=== PATIENT | male | born 1960 | race Hispanic/Latino ===

== ENCOUNTER 2017-04-16 11:54 | Emergency (ER) | payer SELFPAY ==
[2017-04-16 14:24] LABS: Bilirubin Negative (Negative); Blood, Urine Negative (Negative); Glucose, Urine (Dipstick) >=1000 mg/dL (Negative); Ketone, Urine Negative (Negative); Nitrite Negative (Negative); Protein, Urine (Dipstick) Negative (Neg-Trace); Urobilinogen 0.2 mg/dL (0.2-1.0)
[2017-04-16] MEDS ORDERED: Lidocaine 1% w/Epinephrine 1:200K 30 ML VIAL ONE (14:24)
[2017-04-16 14:47] LABS: #Basophils 0.1 thou/uL (0.0-0.2); #Eosinphils 0.1 thou/uL (0.0-0.7); #Lymphocytes 1.8 thou/uL (1.20-3.40); #Neutrophils 5.5 thou/uL (1.40-6.50); %Eosinophils 1.8 % (0.0-10.0); %Lymphocytes 20.8 % (21.0-51.0); %Monocytes 11.7 % (0.0-10.0); Hematocrit 39.2 % (42.0-52.0); Mean Platelet Volume 8.8 fL (7.4-10.4); Red Blood Cell (RBC) Count 4.31 mill/uL (4.70-6.10); White Blood Cell (WBC) Count 8.5 thou/uL (4.8-10.8)
[2017-04-16 15:08] LABS: ALT (SGPT) 9 U/L (8-55); AST (SGOT) 9 U/L (5-34); Alkaline Phosphatase 172 U/L (40-150); Anion Gap 13 mmol/L (10-20); BUN (Urea Nitrogen) 12 mg/dL (8.4-25.7); Bilirubin, Total 0.3 mg/dL (0.2-1.2); Calc. Creatinine Clearance 0 mL/min (70-130); Calcium 9.4 mg/dL (7.8-10.44); Carbon Dioxide 31 mmol/L (22-29); Chloride 91 mmol/L (98-107); Estimated GFR-MDRD 55; Globulin 4.2 g/dL (2.4-3.5); Magnesium 2.2 mg/dL (1.6-2.6); Phosphorus 2.6 mg/dL (2.3-4.7); Protein, Total 7.9 g/dL (6.0-8.3)
[2017-04-16] MEDS ORDERED: Insulin Regular 300 UNITS/3 ML VIAL ONE (16:53)
== END 2017-04-16 18:51 | disposition home or self-care (01) ==
LOC: ERS 11:54
DX: R73.9 Hyperglycemia, unspecified (principal); E78.5 Hyperlipidemia, unspecified; I73.9 Peripheral vascular disease, unspecified; E11.65 Type 2 diabetes mellitus with hyperglycemia; I10 Essential (primary) hypertension; F41.9 Anxiety disorder, unspecified; F32.9 Major depressive disorder, single episode, unspecified; Z87.891 Personal history of nicotine dependence; Z86.73 Personal history of transient ischemic attack (TIA), and cerebral infarction without residual deficits; Z86.718 Personal history of other venous thrombosis and embolism; Z89.412 Acquired absence of left great toe
CPT/HCPCS: 36415; 36416; 55100; 80053; 81003; 82010; 83735; 83930; 84100; 85025; 87070; 87077; 87086; 87186; 87205; 87491; 87591; 96360; 96361; 96372; J1815

== ENCOUNTER 2017-05-15 12:16 | Emergency (ER) | payer SELFPAY ==
[2017-05-15 13:06] LABS: #Eosinphils 0.1 thou/uL (0.0-0.7); #Lymphocytes 2.5 thou/uL (1.20-3.40); #Monocytes 1.2 thou/uL (0.11-0.59); #Neutrophils 9.6 thou/uL (1.40-6.50); %Basophils 0.2 % (0.0-1.0); %Eosinophils 0.9 % (0.0-10.0); %Lymphocytes 18.7 % (21.0-51.0); %Monocytes 8.6 % (0.0-10.0); %Neutrophils 71.6 % (42.0-75.0); Hemoglobin 12.6 g/dL (14.0-18.0); Mean Corpuscular Hemoglobin 29.9 pg (27.0-31.0); Mean Corpuscular Volume 90.6 fl (80.0-94.0); Mean Platelet Volume 8.5 fL (7.4-10.4); Platelet Count 451 thou/uL (130-400); RBC Distribution Width 11.2 % (11.5-14.5); Red Blood Cell (RBC) Count 4.22 mill/uL (4.70-6.10); White Blood Cell (WBC) Count 13.4 thou/uL (4.8-10.8)
[2017-05-15 13:11] LABS: ALT (SGPT) Less than 7 U/L (8-55); AST (SGOT) 8 U/L (5-34); Albumin 3.4 g/dL (3.5-5.0); Alkaline Phosphatase 157 U/L (40-150); Anion Gap 19 mmol/L (10-20); BUN (Urea Nitrogen) 18 mg/dL (8.4-25.7); Bilirubin, Total 0.3 mg/dL (0.2-1.2); Calc. Creatinine Clearance 0 mL/min (70-130); Calcium 9.7 mg/dL (7.8-10.44); Carbon Dioxide 22 mmol/L (22-29); Chloride 89 mmol/L (98-107); Estimated GFR-MDRD 43; Globulin 5.4 g/dL (2.4-3.5); Potassium 4.7 mmol/L (3.5-5.1); Protein, Total 8.8 g/dL (6.0-8.3); Sodium 125 mmol/L (136-145)
[2017-05-15 13:13] LABS: Glucose 576 mg/dL (70-105)
[2017-05-15 14:31] LABS: Bilirubin Negative (Negative); Blood, Urine Moderate (Negative); Clarity CLOUDY (Clear); Glucose, Urine (Dipstick) >=1000 mg/dL (Negative); Leukocyte Moderate (Negative); Nitrite Negative (Negative); Protein, Urine (Dipstick) 30 mg/dL (Neg-Trace); Specific Gravity, Urine 1.029 (1.002-1.036); pH, Urine 5.5 (5.0-9.0)
[2017-05-15 14:33] LABS: Pathc Cast-AUWi Flag 0.27 (0-2.49)
[2017-05-15] MEDS ORDERED: Insulin Regular 300 UNITS/3 ML VIAL ONE (14:35)
[2017-05-15 14:36] LABS: Yeast-AUWi Flag 684.1 (0-25.0)
[2017-05-15 14:49] LABS: Bacteria/HPF 3+ HPF (None Seen); Hyaline Casts/LPF NONE SEEN LPF (0-3 Hyaline); RBC/HPF 0-3 HPF (0-3); Squamous Epithelial 0-3 HPF (0-3)
== END 2017-05-15 16:33 | disposition home or self-care (01) ==
LOC: ERS 12:16
DX: E11.65 Type 2 diabetes mellitus with hyperglycemia (principal); N39.0 Urinary tract infection, site not specified; E78.5 Hyperlipidemia, unspecified; I73.9 Peripheral vascular disease, unspecified; I25.10 Atherosclerotic heart disease of native coronary artery without angina pectoris; I10 Essential (primary) hypertension; F41.9 Anxiety disorder, unspecified; F32.9 Major depressive disorder, single episode, unspecified; Z87.891 Personal history of nicotine dependence; Z79.02 Long term (current) use of antithrombotics/antiplatelets; Z79.4 Long term (current) use of insulin; Z79.82 Long term (current) use of aspirin; Z79.899 Other long term (current) drug therapy; Z86.73 Personal history of transient ischemic attack (TIA), and cerebral infarction without residual deficits
CPT/HCPCS: 36415; 36416; 80053; 81003; 81015; 85025; 96361; 96374; J1815

== ENCOUNTER 2017-06-11 18:28 | Inpatient (IN) | payer SELFPAY ==
[2017-06-11 19:10] LABS: Base Excess-Venous 2.5 mmol/L (-30.0-30.0); Bicarbonate (HCO3v) 28.9 mmol/L (1.0-85.0); CO2 Tension (PvCO2) 50.7 mmHg (41.0-51.0); Calcium, Ionized 1.02 mmol/L (1.12-1.32); Hemoglobin - Calc 14.1 g/dL (12.0-18.0); O2 Tension (PvO2) 23.9 mmHg (35.0-45.0); Potassium 4.5 mmol/L (3.4-4.7); T. Carbon Dioxide 30.5 mmol/L (1.0-85.0); pH (Venous) 7.364 (7.35-7.45); vO2 Saturation-calc 39.1 % (0.0-100.0)
[2017-06-11] MEDS ORDERED: Ondansetron HCl/PF 4 MG/2 ML Vial ONE (19:45)
[2017-06-11 20:01] LABS: Hemoglobin 12.2 g/dL (14.0-18.0); Mean Corpuscular Hemoglobin 28.9 pg (27.0-31.0); Mean Corpuscular Volume 87.6 fl (80.0-94.0); Mean Platelet Volume 8.8 fL (7.4-10.4); Platelet Count 582 thou/uL (130-400); RBC Distribution Width 11.9 % (11.5-14.5); Red Blood Cell (RBC) Count 4.23 mill/uL (4.70-6.10); White Blood Cell (WBC) Count 19.8 thou/uL (4.8-10.8)
[2017-06-11 20:07] LABS: INR-International Normal Ratio 1.2; PTT 37.4 SEC (22.9-36.1); Prothrombin Time 14.9 SEC (12.0-14.7)
[2017-06-11 20:21] LABS: ALT (SGPT) Less than 7 U/L (8-55); AST (SGOT) 6 U/L (5-34); Albumin 3.5 g/dL (3.5-5.0); Alkaline Phosphatase 145 U/L (40-150); Anion Gap 18 mmol/L (10-20); BUN (Urea Nitrogen) 61 mg/dL (8.4-25.7); Band 3 % (5-11); Bilirubin, Total 0.3 mg/dL (0.2-1.2); CK (CPK) 22 U/L (30-200); Calc. Creatinine Clearance 0 mL/min (70-130); Calcium 9.8 mg/dL (7.8-10.44); Carbon Dioxide 26 mmol/L (22-29); Chloride 86 mmol/L (98-107); Estimated GFR-MDRD 24; Globulin 5.8 g/dL (2.4-3.5); Glucose 468 mg/dL (70-105); Lymphocytes 5 % (21-51); MDiff Complete? YES; Monocytes 4 % (0-10); Neutrophil 86 % (42-75); PLT Morphology Comment Appears Increased; Potassium 4.5 mmol/L (3.5-5.1); Protein, Total 9.3 g/dL (6.0-8.3); Reactive Lymphocytes 2 % (0-10); Sodium 125 mmol/L (136-145)
[2017-06-11 20:23] LABS: Acetaminophen Less than 6.0 mcg/mL (10.0-30.0); Alcohol Less than 10 mg/dL (Less than 10); Lipase 24 U/L (8-78); Salicylate Less than 8.0 mg/dL (15.0-30.0)
[2017-06-11 20:26] LABS: CKMB 0.6 ng/mL (0-6.6); Troponin I 0.014 ng/mL (< 0.028)
--- NOTE | 2017-06-11 20:27 | RAD ---
FRONTAL VIEW CHEST: Date: 12-17-16 Clinical history: Multiple falls with dizziness and weakness. FINDINGS: There is no lobar consolidation, effusion, or pneumothorax. Cardiomediastinal silhouette is stable wi th evidence of prior sternotomy. IMPRESSION: 1. No focal consolidation. 2. Mild patchy density, likely atelectasis described on preceding chest radiograph is grossly stable. POS: [facility]
[2017-06-11 20:36] LABS: Bilirubin Negative (Negative); Blood, Urine Large (Negative); Clarity TURBID (Clear); Glucose, Urine (Dipstick) >=1000 mg/dL (Negative); Leukocyte Large (Negative); Nitrite Negative (Negative); Protein, Urine (Dipstick) 100 mg/dL (Neg-Trace); Specific Gravity, Urine 1.024 (1.002-1.036); Urobilinogen 0.2 mg/dL (0.2-1.0)
[2017-06-11 20:38] LABS: Bacteria/HPF 1+ HPF (None Seen); Hyaline Casts/LPF 0-3 HYALINE CAST LPF (0-3 Hyaline); Squamous Epithelial 0-3 HPF (0-3)
[2017-06-11 20:45] LABS: Yeast-AUWi Flag 962.7 (0-25.0)
[2017-06-11 20:46] LABS: Amphetamine Not Detected (NotDetected); Barbiturates Screen Not Detected (NotDetected); Benzodiazepine Screen Not Detected (NotDetected); Cocaine Metabolite Screen Not Detected (NotDetected); Medtox Control Line Valid? VALID (VALID); Medtox Reader # READER 1; Methadone Not Detected (NotDetected); Methamphetamine Not Detected (NotDetected); Opiate Screen Not Detected (NotDetected); Oxycodone Screen Not Detected (NotDetected); Phencyclidine (PCP) Not Detected (NotDetected); THC/Cannabinoid Screen Not Detected (NotDetected); Tricyclic Screen Not Detected (NotDetected)
--- NOTE | 2017-06-11 20:51 | CT ---
HEAD CT NONCONTRAST: Comparison: 12-17-16 Indication: Altered mental status. FINDINGS: Re-demonstration of multi-focal encephalomalacia of the right MCA distribution. No intracranial hemor rhage, mass effect, or midline shift. Mild ex vacuo dilatation of the right lateral ventricle is stab le. There is mucosal thickening of the paranasal sinuses, mild in degree. IMPRESSION: 1. Stable head CT without acute intracranial hemorrhage or mass effect. 2. Chronic infarction of right MCA distribution, multifocal. POS: [facility]
[2017-06-11 20:52] LABS: Crystals/HPF None Seen HPF (Negative); Yeast-All Forms None Seen HPF (None Seen)
[2017-06-11] MEDS ORDERED: Meropenem 1 GM in Sterile Water 20 ML SLOW IVP SCH ×2 (21:30→22:00)
[2017-06-11] MEDS ORDERED: Dextrose 5% in Water 1,000 ML IV PRN (21:35)
[2017-06-11] MEDS ORDERED: HYDROcodone/Acetaminophen 5/325 mg Tablet PO PRN (21:35)
[2017-06-11] MEDS ORDERED: HYDROcodone/Acetaminophen 7.5/325 mg Tablet PO PRN (21:35)
[2017-06-11] MEDS ORDERED: Dextrose 50% Abboject 50 ML SYRINGE SLOW IVP PRN (21:35)
[2017-06-11] MEDS ORDERED: Meropenem 1 GM in Sodium Chloride 0.9% 100 ML IVPB SCH (22:00)
[2017-06-12 00:12] LABS: Lactic Acid 1.2 mmol/L (0.5-2.2)
[2017-06-12 00:50] VITALS: BMI 24.3
--- NOTE | 2017-06-12 01:43 | HP ---
CHIEF COMPLAINT: Weakness and dizziness. HISTORY OF PRESENT ILLNESS: The patient is a 57-year-old male, who presents with 1 week history of i ncreasing weakness with dizziness and falls. Patient has also had some burning with urination and fe vers. The patient states that he has had less p.o. intake over the last week as well. PAST MEDICAL HISTORY: The patient is significant for type 2 diabetes, hypertension, coronary artery disease, and peripheral vascular disease. PAST SURGICAL HISTORY: The patient had prior CABG in 2013, amputation of the left great toe, prior s tents in the left lower leg. SOCIAL HISTORY: Patient was a former alcoholic and tobacco user; however, he has not smoked or drank for several years now. REVIEW OF SYSTEMS: See HPI. Rest of 14-point review of systems is negative. FAMILY HISTORY: Reviewed and noncontributory. LABORATORY AND X-RAY DATA: CBC: White count was 19.8, H and H was 12 and 37 with platelet of 582. PT was INR is 1.2 with PTT of 37. Sodium was 125, potassium 4.5, chloride 86, BUN 61, creatinine 2.7 5 with a glucose of 486. Head CT was unremarkable other than a prior infarct on the right MCA from h is prior stroke, which is known and chest x-ray shows some atelectasis, but no consolidation or infil trates. PHYSICAL EXAMINATION: VITAL SIGNS: Blood pressure 165/77, pulse 97, respirations 18, T-max was 98.4. The patient satting 100% on room air. GENERAL: The patient is awake, alert, and oriented x3, in no acute distress. HEENT: Pupils equal, round, react to light and accommodation. Extraocular muscles intact. TMs are clear. No erythema in throat. No JVD, no lymphadenopathy. CARDIOVASCULAR: Regular rate and rhythm. LUNGS: Clear to auscultation bilaterally. Positive bowel sounds. ABDOMEN: Soft, nontender, nondistended. EXTREMITIES: No clubbing, cyanosis, or edema. NEUROLOGIC: The patient does have some weakness on the left upper extremity, which is chronic from h is prior stroke. PSYCHIATRIC: The patient is cooperative and answering questions appropriately. ASSESSMENT AND PLAN: 1. Right pyelonephritis with sepsis. Continue on Levaquin and Merrem as ordered. Continue IV fluid s. Continue to monitor vitals. 2. Type 2 diabetes. Continue on the patient's insulin regimen. Hold metformin for now due to his r enal issues and continue on insulin sliding scale. 3. Hypertension. Blood pressure is actually fairly good considering sepsis and will continue on lis inopril for now. 4. Code status: Patient is FULL CODE.
[2017-06-12] MEDS: Sodium Chloride 0.9% 1,000 ML IV SCH ×2 (01:46→12:20)
[2017-06-12] MEDS ORDERED: Dextrose 5% in Water 1,000 ML IV PRN (04:05)
[2017-06-12] MEDS ORDERED: Dextrose 50% Abboject 50 ML SYRINGE SLOW IVP PRN (04:05)
[2017-06-12 04:41] LABS: #Eosinphils 0.1 thou/uL (0.0-0.7); #Lymphocytes 1.7 thou/uL (1.20-3.40); #Monocytes 1.1 thou/uL (0.11-0.59); #Neutrophils 13.8 thou/uL (1.40-6.50); %Basophils 0.1 % (0.0-1.0); %Eosinophils 0.8 % (0.0-10.0); %Lymphocytes 9.9 % (21.0-51.0); %Monocytes 6.4 % (0.0-10.0); %Neutrophils 82.8 % (42.0-75.0); Hemoglobin 10.9 g/dL (14.0-18.0); Mean Corpuscular HGB CONC 33.3 g/dL (32.0-36.0); Mean Corpuscular Hemoglobin 29.2 pg (27.0-31.0); Mean Corpuscular Volume 87.5 fl (80.0-94.0); Mean Platelet Volume 8.7 fL (7.4-10.4); Platelet Count 456 thou/uL (130-400); Red Blood Cell (RBC) Count 3.74 mill/uL (4.70-6.10); White Blood Cell (WBC) Count 16.7 thou/uL (4.8-10.8)
[2017-06-12 04:53] LABS: Anion Gap 13 mmol/L (10-20); BUN (Urea Nitrogen) 54 mg/dL (8.4-25.7); Calc. Creatinine Clearance 41 mL/min (70-130); Calcium 8.7 mg/dL (7.8-10.44); Carbon Dioxide 23 mmol/L (22-29); Chloride 95 mmol/L (98-107); Estimated GFR-MDRD 32; Glucose 349 mg/dL (70-105); Potassium 4.3 mmol/L (3.5-5.1); Sodium 127 mmol/L (136-145)
[2017-06-12] MEDS: HumaLOG 300 UNITS/3 ML VIAL SC PRN ×2 (05:36→12:22)
[2017-06-12] MEDS: Meropenem 1 GM in Sterile Water 20 ML SLOW IVP SCH ×4 (07:10→22:50)
[2017-06-12] MEDS: Famotidine 20 MG TAB PO SCH ×2 (08:50→20:33)
[2017-06-12] MEDS: Clopidogrel Bisulfate 75 MG TAB PO SCH (08:50)
[2017-06-12] MEDS: Enoxaparin Sodium 40 MG/0.4 ML SYRINGE SC SCH (08:51)
[2017-06-12] MEDS: Lisinopril 10 MG TAB PO SCH (08:55)
[2017-06-12] MEDS: Insulin NPH/Reg Insulin Hm 300 UNITS/3 ML VIAL SC SCH ×2 (08:58→17:45)
[2017-06-12] MEDS ORDERED: FLU VACC QS2017-18 36 mo. & older 0.5 ML SYRINGE IM ONE (09:00)
--- NOTE | 2017-06-12 14:13 | PDOC.PN ---
- Subjective Encounter Start Date: 06/12/17 Encounter Start Time: 09:20 Pt seen for followup re: pyelonephritis. Reports feeling better. No fevers. - Objective Resuscitation Status: Resuscitation Status FULL:Full Resuscitation MAR Reviewed: Yes Vital Signs & Weight: Vital Signs (12 hours) Temp Pulse Resp BP BP Pulse Ox 06/12/17 08:55 147/81 H 06/12/17 08:00 98.1 F 90 16 06/12/17 04:00 98.4 F 78 16 155/75 H 98 Weight Weight 170 lb Result Diagrams: 06/12/17 04:01 06/12/17 04:01 Additional Labs: Accuchecks 06/12/17 06/12/17 11:46 04:41 POC Glucose 254 H 343 H Phys Exam - Physical Examination Constitutional: NAD HEENT: PERRLA, moist MMs, sclera anicteric, oral pharynx no lesions Neck: no nodes, no JVD, supple, full ROM Respiratory: no wheezing, no rales, no rhonchi, clear to auscultation bilateral Cardiovascular: RRR, no rub Gastrointestinal: soft, no distention, positive bowel sounds R CVA tenderness Musculoskeletal: pulses present Neurological: moves all 4 limbs Psychiatric: normal affect Dx/Plan (1) Pyelonephritis Code(s): N12 - TUBULO-INTERSTITIAL NEPHRITIS, NOT SPCF ACUTE OR CHRONIC Status: Acute (2) Acute on chronic renal failure Code(s): N17.9 - ACUTE KIDNEY FAILURE, UNSPECIFIED; N18.9 - CHRONIC KIDNEY DISEASE, UNSPECIFIED Status: Acute (3) Sepsis Code(s): A41.9 - SEPSIS, UNSPECIFIED ORGANISM Status: Acute (4) CAD (coronary artery disease) Code(s): I25.10 - ATHSCL HEART DISEASE OF [place] CORONARY ARTERY W/O ANG PCTRS Status: Chronic Qualifiers: Coronary Disease-Associated Artery/Lesion type: bypass graft [place] vs. transplanted heart: [place] heart Associated angina: without angina Qualified Code(s): I25.810 - Atherosclerosis of coronary artery bypass graft(s) without angina pectoris (5) DM type 2 (diabetes mellitus, type 2) Status: Chronic Comment: is still labile with glucose dipping into 70's and going as far up as 300's. (6) Dyslipidemia Code(s): E78.5 - HYPERLIPIDEMIA, UNSPECIFIED Status: Chronic (7) PAD (peripheral artery disease) Code(s): I73.9 - PERIPHERAL VASCULAR DISEASE, UNSPECIFIED Status: Chronic - Plan plan discussed w/ family, continue antibiotics, out of bed/ambulate * . Prdeliminary urine culture growing Staph, add vancomycin. Continue insulin sliding scale and accuchecks. Monitor vital signs and titrate antihypertensives as needed. Creatinine improving, continue IV fluids. Review of Systems - Review of Systems Constitutional: negative: fever, chills, sweats, weakness, malaise Respiratory: negative: Cough, Dry, Shortness of Breath, Hemoptysis, SOB with Excertion, Pleuritic Pain, Sputum, Wheezing Cardiovascular: negative: chest pain, palpitations, orthopnea, paroxysmal nocturnal dyspnea, edema, light headedness Gastrointestinal: Other (R flank pain). negative: Nausea, Vomiting, Abdominal Pain, Diarrhea, Constipation, Melena, Hematochezia Genitourinary: negative: Dysuria, Frequency, Incontinence, Hematuria, Retention , Other Skin: negative: Rash, Lesions, John, Bruising - Medications/Allergies Allergies/Adverse Reactions: Allergies Allergy/AdvReac Type Severity Reaction Status Date / Time No Known Allergies Allergy Verified 06/12/17 01:06 Medications: Current Medications Acetaminophen (Tylenol) 650 mg PO Q4H PRN PRN Reason: Headache/Fever or Pain Hydrocodone Bitart/Acetaminophen ([place] 5/325) 1 tab PO Q4H PRN PRN Reason: Moderate Pain (4-6) Hydrocodone Bitart/Acetaminophen ([place] 7.5/325) 1 tab PO Q4H PRN PRN Reason: Severe Pain (7-10) Aspirin (Aspirin Chewable) 81 mg PO DAILY [facility] Last Admin: 06/12/17 08:50 Dose: 81 mg Clopidogrel Bisulfate (Plavix) 75 mg PO DAILY [facility] Last Admin: 06/12/17 08:50 Dose: 75 mg Dextrose/Water (Dextrose 50%) 25 gm SLOW IVP PRN PRN PRN Reason: Hypoglycemia Enoxaparin Sodium (Lovenox) 40 mg SC 0900 [facility] Last Admin: 06/12/17 08:51 Dose: 40 mg Famotidine (Pepcid) 20 mg PO BID [facility] Last Admin: 06/12/17 08:50 Dose: 20 mg Glucagon (Glucagon) 1 mg IM PRN PRN PRN Reason: Hypoglycemia Sodium Chloride (Normal Saline 0.9%) 1,000 mls @ 100 mls/hr IV .Q10H [facility] Last Admin: 06/12/17 12:20 Dose: 1,000 mls Levofloxacin 750 mg/ Device 150 mls @ 100 mls/hr IVPB Q2D [facility] Last Admin: 06/12/17 01:02 Dose: Not Given Meropenem 1 gm/ Sterile Water 20 mls @ 240 mls/hr SLOW IVP 0600,1400,2200 [facility] Last Admin: 06/12/17 08:56 Dose: 20 mls Dextrose/Water (D5w) 1,000 mls @ 0 mls/hr IV .Q0M PRN; As Directed PRN Reason: Hypoglycemia Vancomycin HCl 1 gm/ Device 200 mls @ 200 mls/hr IVPB Q12H [facility] Insulin Human Isoph/Insulin Regular (Humulin 70/30) 25 units SC BID-WM [facility] Last Admin: 06/12/17 08:58 Dose: 25 unit Insulin Human Lispro (Humalog) 0 units SC .MILD SLIDING SCALE PRN PRN Reason: Mild Correctional Scale Last Admin: 06/12/17 12:22 Dose: 4 unit Lisinopril (Zestril) 10 mg PO DAILY [facility] Last Admin: 06/12/17 08:55 Dose: 10 mg Miscellaneous Medication (Pharmacy To Dose) 1 each IVPB ONE PRN PRN Reason: Pharmacy to dose
[2017-06-12] MEDS ORDERED: Vancomycin HCl 1 GM in Premix Bag 1 BAG IVPB SCH (15:00)
[2017-06-12] MEDS: Vancomycin HCl 1.25 GM in Sodium Chloride 0.9% 250 ML 250 ML IVPB SCH (15:17)
[2017-06-12] MEDS: Acetaminophen 325 MG TAB PO PRN (20:33)
[2017-06-13] MEDS: Sodium Chloride 0.9% 1,000 ML IV SCH ×3 (03:02→20:38)
[2017-06-13] MEDS: Meropenem 1 GM in Sterile Water 20 ML SLOW IVP SCH ×2 (05:36→14:33)
[2017-06-13] MEDS: HumaLOG 300 UNITS/3 ML VIAL SC PRN (05:38)
[2017-06-13] MEDS: Famotidine 20 MG TAB PO SCH ×2 (09:05→20:25)
[2017-06-13] MEDS: Clopidogrel Bisulfate 75 MG TAB PO SCH (09:05)
[2017-06-13] MEDS: Insulin NPH/Reg Insulin Hm 300 UNITS/3 ML VIAL SC SCH ×2 (09:06→17:26)
[2017-06-13] MEDS: Lisinopril 10 MG TAB PO SCH (09:06)
[2017-06-13] MEDS: Enoxaparin Sodium 40 MG/0.4 ML SYRINGE SC SCH (09:06)
[2017-06-13] MEDS: Vancomycin HCl 1.25 GM in Sodium Chloride 0.9% 250 ML 250 ML IVPB SCH (14:33)
--- NOTE | 2017-06-13 15:00 | PDOC.PN ---
- Subjective Encounter Start Date: 06/13/17 Encounter Start Time: 09:00 Pt seen for followup re: pyelonephritis. Denies chest pain or shortness of breath. Feels slightly better. - Objective Resuscitation Status: Resuscitation Status FULL:Full Resuscitation MAR Reviewed: Yes Vital Signs & Weight: Vital Signs (12 hours) Temp Pulse Resp BP Pulse Ox 06/13/17 08:00 98.5 F 107 H 18 142/80 H 107 H 06/13/17 04:00 97.5 F L 95 18 116/74 94 L Weight Weight 170 lb I&O: 06/12/17 06/13/17 06/14/17 06:59 06:59 06:59 Intake Total 3660 Output Total 1300 Balance 2360 Result Diagrams: 06/12/17 04:01 06/12/17 04:01 Additional Labs: Accuchecks 06/13/17 06/13/17 06/12/17 11:14 04:49 22:49 POC Glucose 141 H 246 H 83 06/12/17 06/12/17 20:05 16:29 POC Glucose 92 138 H Phys Exam - Physical Examination Constitutional: NAD HEENT: moist MMs Neck: supple Respiratory: clear to auscultation bilateral Cardiovascular: RRR R CVA tenderness Neurological: moves all 4 limbs Psychiatric: normal affect Dx/Plan (1) Pyelonephritis Code(s): N12 - TUBULO-INTERSTITIAL NEPHRITIS, NOT SPCF ACUTE OR CHRONIC Status: Acute (2) Bacteremia Code(s): R78.81 - BACTEREMIA Status: Acute (3) Acute on chronic renal failure Code(s): N17.9 - ACUTE KIDNEY FAILURE, UNSPECIFIED; N18.9 - CHRONIC KIDNEY DISEASE, UNSPECIFIED Status: Acute (4) CAD (coronary artery disease) Code(s): I25.10 - ATHSCL HEART DISEASE OF [place] CORONARY ARTERY W/O ANG PCTRS Status: Chronic Qualifiers: Coronary Disease-Associated Artery/Lesion type: bypass graft [place] vs. transplanted heart: [place] heart Associated angina: without angina Qualified Code(s): I25.810 - Atherosclerosis of coronary artery bypass graft(s) without angina pectoris (5) DM type 2 (diabetes mellitus, type 2) Status: Chronic Comment: is still labile with glucose dipping into 70's and going as far up as 300's. (6) Dyslipidemia Code(s): E78.5 - HYPERLIPIDEMIA, UNSPECIFIED Status: Chronic (7) PAD (peripheral artery disease) Code(s): I73.9 - PERIPHERAL VASCULAR DISEASE, UNSPECIFIED Status: Chronic (8) Sepsis Code(s): A41.9 - SEPSIS, UNSPECIFIED ORGANISM Status: Resolved - Plan continue antibiotics, out of bed/ambulate * . MSSA bacteremia in 1/2 blood cultures, urine culture. Switch to oxacillin. 2D echo to r/o vegetations Abdo US to r/o perinephric abscess. Continue accuchecks, insulin slidign scale. Check AM labs. Review of Systems - Review of Systems Cardiovascular: negative: chest pain, palpitations, orthopnea, paroxysmal nocturnal dyspnea, edema, light headedness Gastrointestinal: negative: Nausea, Vomiting, Abdominal Pain, Diarrhea, Constipation, Melena, Hematochezia - Medications/Allergies Allergies/Adverse Reactions: Allergies Allergy/AdvReac Type Severity Reaction Status Date / Time No Known Allergies Allergy Verified 06/12/17 01:06 Medications: Current Medications Acetaminophen (Tylenol) 650 mg PO Q4H PRN PRN Reason: Headache/Fever or Pain Last Admin: 06/12/17 20:33 Dose: 650 mg Hydrocodone Bitart/Acetaminophen ([place] 5/325) 1 tab PO Q4H PRN PRN Reason: Moderate Pain (4-6) Hydrocodone Bitart/Acetaminophen ([place] 7.5/325) 1 tab PO Q4H PRN PRN Reason: Severe Pain (7-10) Aspirin (Aspirin Chewable) 81 mg PO DAILY [facility] Last Admin: 06/13/17 09:05 Dose: 81 mg Clopidogrel Bisulfate (Plavix) 75 mg PO DAILY [facility] Last Admin: 06/13/17 09:05 Dose: 75 mg Dextrose/Water (Dextrose 50%) 25 gm SLOW IVP PRN PRN PRN Reason: Hypoglycemia Enoxaparin Sodium (Lovenox) 40 mg SC 0900 [facility] Last Admin: 06/13/17 09:06 Dose: 40 mg Famotidine (Pepcid) 20 mg PO BID [facility] Last Admin: 06/13/17 09:05 Dose: 20 mg Glucagon (Glucagon) 1 mg IM PRN PRN PRN Reason: Hypoglycemia Sodium Chloride (Normal Saline 0.9%) 1,000 mls @ 100 mls/hr IV .Q10H [facility] Last Admin: 06/13/17 14:38 Dose: Not Given Meropenem 1 gm/ Sterile Water 20 mls @ 240 mls/hr SLOW IVP 0600,1400,2200 [facility] Last Admin: 06/13/17 14:33 Dose: 20 mls Dextrose/Water (D5w) 1,000 mls @ 0 mls/hr IV .Q0M PRN; As Directed PRN Reason: Hypoglycemia Vancomycin HCl 1.25 gm/ Sodium (Chloride) 250 mls @ 166.667 mls/hr IVPB 1500 [facility] Last Admin: 06/13/17 14:33 Dose: 250 mls Insulin Human Isoph/Insulin Regular (Humulin 70/30) 25 units SC BID-WM [facility] Last Admin: 06/13/17 09:06 Dose: 25 unit Insulin Human Lispro (Humalog) 0 units SC .MILD SLIDING SCALE PRN PRN Reason: Mild Correctional Scale Last Admin: 06/13/17 05:38 Dose: 3 unit Lisinopril (Zestril) 10 mg PO DAILY [facility] Last Admin: 06/13/17 09:06 Dose: 10 mg Miscellaneous Medication (Pharmacy To Dose) 0 each IVPB ASDIR PRN PRN Reason: Pharmacy to Dose VANCOMYCIN
--- NOTE | 2017-06-13 17:03 | ULT ---
RENAL ULTRASOUND 06/13/17 COMPARISON: None. HISTORY: Perinephric abscess. TECHNIQUE: Multiplanar becker scale and color doppler images were obtained in a renal ultrasound. FINDINGS: The kidneys are normal in echogenicity without hydronephrosis or calculi and measures 12.2 and 10.8 c m in length on the right and left, respectively. No fluid collection is seen adjacent to either kidne y. Limited visualization of the urinary bladder is unremarkable. IMPRESSION: Unremarkable renal ultrasound. POS: [facility]
[2017-06-13] MEDS: Oxacillin 2 GM in Sodium Chloride 0.9% 100 ML IVPB SCH ×2 (17:26→20:26)
[2017-06-13] MEDS: Acetaminophen 325 MG TAB PO PRN (20:24)
[2017-06-14] MEDS: Oxacillin 2 GM in Sodium Chloride 0.9% 100 ML IVPB SCH ×6 (01:25→20:05)
[2017-06-14 06:02] LABS: #Basophils 0.1 thou/uL (0.0-0.2); #Eosinphils 0.2 thou/uL (0.0-0.7); #Lymphocytes 2.3 thou/uL (1.20-3.40); #Monocytes 1.4 thou/uL (0.11-0.59); #Neutrophils 12.3 thou/uL (1.40-6.50); %Basophils 0.3 % (0.0-1.0); %Eosinophils 1.4 % (0.0-10.0); %Lymphocytes 14.2 % (21.0-51.0); %Monocytes 8.7 % (0.0-10.0); %Neutrophils 75.4 % (42.0-75.0); Hemoglobin 10.9 g/dL (14.0-18.0); Mean Corpuscular HGB CONC 31.7 g/dL (32.0-36.0); Mean Corpuscular Hemoglobin 28.8 pg (27.0-31.0); Mean Corpuscular Volume 90.8 fl (80.0-94.0); Mean Platelet Volume 9.3 fL (7.4-10.4); Platelet Count 437 thou/uL (130-400); RBC Distribution Width 12.2 % (11.5-14.5); Red Blood Cell (RBC) Count 3.79 mill/uL (4.70-6.10); White Blood Cell (WBC) Count 16.4 thou/uL (4.8-10.8)
[2017-06-14 06:14] LABS: Anion Gap 13 mmol/L (10-20); BUN (Urea Nitrogen) 25 mg/dL (8.4-25.7); Calc. Creatinine Clearance 57 mL/min (70-130); Calcium 8.7 mg/dL (7.8-10.44); Carbon Dioxide 22 mmol/L (22-29); Chloride 101 mmol/L (98-107); Estimated GFR-MDRD 47; Glucose 299 mg/dL (70-105); Potassium 4.4 mmol/L (3.5-5.1); Sodium 132 mmol/L (136-145)
[2017-06-14] MEDS: Lisinopril 10 MG TAB PO SCH (09:45)
[2017-06-14] MEDS: Famotidine 20 MG TAB PO SCH ×2 (09:45→20:19)
[2017-06-14] MEDS: Clopidogrel Bisulfate 75 MG TAB PO SCH (09:46)
[2017-06-14] MEDS: Insulin NPH/Reg Insulin Hm 300 UNITS/3 ML VIAL SC SCH ×2 (09:46→17:42)
[2017-06-14] MEDS: Enoxaparin Sodium 40 MG/0.4 ML SYRINGE SC SCH (10:13)
[2017-06-14] MEDS: Sodium Chloride 0.9% 1,000 ML IV SCH ×2 (10:13→20:19)
--- NOTE | 2017-06-14 10:53 | PDOC.PN ---
- Subjective Encounter Start Date: 06/14/17 Encounter Start Time: 10:45 Subjective: f/u for sepsis due to MSSA from UTI on Oxacillin. Febrile in last 24h but -: overall improved. - Objective Resuscitation Status: Resuscitation Status FULL:Full Resuscitation MAR Reviewed: Yes Vital Signs & Weight: Vital Signs (12 hours) Temp Pulse Resp BP BP Pulse Ox 06/14/17 09:45 175/91 H 06/14/17 08:00 98.2 F 85 20 175/91 H 100 06/14/17 04:00 97.6 F 67 20 163/82 H 100 06/14/17 00:00 98.2 F 83 20 153/84 H 98 Weight Weight 170 lb I&O: 06/13/17 06/14/17 06/15/17 06:59 06:59 06:59 Intake Total 3660 Output Total 1300 Balance 2360 Result Diagrams: 06/14/17 04:43 06/14/17 04:43 Additional Labs: Accuchecks 06/14/17 06/13/17 06/13/17 04:23 20:00 17:02 POC Glucose 296 H 158 H 76 06/13/17 11:14 POC Glucose 141 H Microbiology 12/23/15 11:08 Toe - Left Bacterial Culture - Preliminary Laboratory Tests 12/21/15 12/23/15 06/11/17 22:17 05:42 19:49 WBC 12.7 H Hgb Neutrophils % 71.3 Neutrophils % (Manual) 68 Creatinine 2.75 H 06/11/17 06/12/17 06/12/17 19:49 04:01 04:01 WBC 19.8 H 16.7 H Hgb 12.2 L 10.9 L Neutrophils % Neutrophils % (Manual) Creatinine 2.14 H Radiology Reviewed by me: Yes (Renal sono - negative) Phys Exam - Physical Examination Constitutional: NAD HEENT: PERRLA, oral pharynx no lesions Neck: no JVD, supple Respiratory: no wheezing, clear to auscultation bilateral Cardiovascular: RRR Gastrointestinal: soft, non-tender, no distention, positive bowel sounds mild R CVA tenderness Musculoskeletal: no edema, pulses present Neurological: normal sensation, moves all 4 limbs Psychiatric: A&O x 3 Skin: normal turgor, cap refill <2 seconds Dx/Plan (1) Bacteremia Code(s): R78.81 - BACTEREMIA Status: Acute Comment: Secondary to MSSA from urinary source, continue Oxacillin, likely transition to po abx in 24h (2) Pyelonephritis Code(s): N12 - TUBULO-INTERSTITIAL NEPHRITIS, NOT SPCF ACUTE OR CHRONIC Status: Acute Comment: See #1 above (3) Sepsis Code(s): A41.9 - SEPSIS, UNSPECIFIED ORGANISM Status: Resolved Qualifiers: Sepsis type: methicillin susceptible Staphylococcus aureus Qualified Code(s ): A41.01 - Sepsis due to Methicillin susceptible Staphylococcus aureus Comment: See above (4) [place] (acute kidney injury) Code(s): N17.9 - ACUTE KIDNEY FAILURE, UNSPECIFIED Status: Acute Comment: Resolving with supportive measures, avoid nephrotoxic meds and contrast (5) DM type 2 (diabetes mellitus, type 2) Status: Chronic Comment: Labile, continue NPH 70/30 25u SC BID, ISS, titrate DM regimen - Plan continue antibiotics, PT/OT, social media intern, out of bed/ambulate Stable overall -: Continue Oxacillin another 24h then convert to po abx -: Continue ASA and Plavix -: 2D Echo pending to r/o valvular vegetations -: AM lab: BMP, CBC * .
[2017-06-14] MEDS: HumaLOG 300 UNITS/3 ML VIAL SC PRN (11:35)
[2017-06-15] MEDS: Sodium Chloride 0.9% 1,000 ML IV SCH ×3 (01:16→17:31)
[2017-06-15] MEDS: Oxacillin 2 GM in Sodium Chloride 0.9% 100 ML IVPB SCH ×5 (01:16→17:23)
[2017-06-15 05:30] LABS: Anion Gap 11 mmol/L (10-20); BUN (Urea Nitrogen) 20 mg/dL (8.4-25.7); Calc. Creatinine Clearance 66 mL/min (70-130); Calcium 8.7 mg/dL (7.8-10.44); Carbon Dioxide 25 mmol/L (22-29); Chloride 104 mmol/L (98-107); Estimated GFR-MDRD 55; Glucose 97 mg/dL (70-105); Potassium 3.8 mmol/L (3.5-5.1); Sodium 136 mmol/L (136-145)
[2017-06-15 05:55] LABS: Band 2 % (5-11); Eosinophils 2 % (0-10); Hemoglobin 11.4 g/dL (14.0-18.0); Lymphocytes 21 % (21-51); MDiff Complete? YES; Mean Corpuscular HGB CONC 32.6 g/dL (32.0-36.0); Mean Corpuscular Hemoglobin 29.2 pg (27.0-31.0); Mean Corpuscular Volume 89.7 fl (80.0-94.0); Mean Platelet Volume 8.3 fL (7.4-10.4); Metamyelocyte 2 % (0-0); Monocytes 9 % (0-10); Neutrophil 63 % (42-75); PLT Morphology Comment Appears Increased; Platelet Count 473 thou/uL (130-400); RBC Distribution Width 12.1 % (11.5-14.5); RBC Morphology Normal; Reactive Lymphocytes 1 % (0-10); Red Blood Cell (RBC) Count 3.89 mill/uL (4.70-6.10); White Blood Cell (WBC) Count 15.5 thou/uL (4.8-10.8)
[2017-06-15] MEDS: Insulin NPH/Reg Insulin Hm 300 UNITS/3 ML VIAL SC SCH ×2 (09:02→17:24)
[2017-06-15] MEDS: Clopidogrel Bisulfate 75 MG TAB PO SCH (09:03)
[2017-06-15] MEDS: Famotidine 20 MG TAB PO SCH ×2 (09:03→19:42)
[2017-06-15] MEDS: Enoxaparin Sodium 40 MG/0.4 ML SYRINGE SC SCH (09:04)
[2017-06-15] MEDS: Lisinopril 10 MG TAB PO SCH ×2 (09:04→19:42)
[2017-06-15] MEDS: HumaLOG 300 UNITS/3 ML VIAL SC PRN (11:57)
--- NOTE | 2017-06-15 13:39 | PDOC.PN ---
- Subjective Encounter Start Date: 06/15/17 Encounter Start Time: 13:35 Subjective: f/u on Staph aureus bacteremia due to UTI on Oxacillin. Sepsis resolving -: and pt overall feels better. Nsg reports labile BP on current Lisinopril. - Objective Resuscitation Status: Resuscitation Status FULL:Full Resuscitation MAR Reviewed: Yes Vital Signs & Weight: Vital Signs (12 hours) Temp Pulse Resp BP BP BP Pulse Ox 06/15/17 09:04 170/95 H 06/15/17 08:34 97.7 F 71 16 170/95 H 99 06/15/17 08:00 97.7 F 71 16 99 06/15/17 04:00 98.4 F 69 18 179/76 H 99 Weight Weight 170 lb I&O: 06/14/17 06/15/17 06/16/17 06:59 06:59 06:59 Intake Total 550 Output Total 1500 Balance -950 Result Diagrams: 06/15/17 04:58 06/15/17 04:58 Additional Labs: Accuchecks 06/15/17 06/15/17 06/14/17 11:30 06:28 19:54 POC Glucose 202 H 140 H 95 06/14/17 16:10 POC Glucose 141 H Microbiology 12/23/15 11:08 Toe - Left Bacterial Culture - Preliminary Laboratory Tests 12/21/15 12/23/15 06/11/17 22:17 05:42 19:49 WBC 12.7 H Hgb Plt Count Neutrophils % 71.3 Neutrophils % (Manual) 68 Creatinine 2.75 H 06/11/17 06/12/17 06/12/17 19:49 04:01 04:01 WBC 19.8 H 16.7 H Hgb 12.2 L 10.9 L Plt Count Neutrophils % Neutrophils % (Manual) Creatinine 2.14 H 06/14/17 06/14/17 04:43 04:43 WBC 16.4 H Hgb 10.9 L Plt Count 437 H Neutrophils % Neutrophils % (Manual) Creatinine 1.54 H Radiology Reviewed by me: Yes (2D echo - EF 50-55%, diastolic dysfunction) Phys Exam - Physical Examination Constitutional: NAD HEENT: PERRLA, oral pharynx no lesions Neck: no JVD, supple Respiratory: no wheezing, clear to auscultation bilateral Cardiovascular: RRR Gastrointestinal: soft, non-tender, no distention, positive bowel sounds Musculoskeletal: no edema, pulses present Neurological: normal sensation, moves all 4 limbs Psychiatric: A&O x 3 Skin: normal turgor, cap refill <2 seconds Dx/Plan (1) Bacteremia Code(s): R78.81 - BACTEREMIA Status: Acute Comment: Secondary to MSSA from urinary source, continue Oxacillin, likely transition to po abx in 24h (2) Pyelonephritis Code(s): N12 - TUBULO-INTERSTITIAL NEPHRITIS, NOT SPCF ACUTE OR CHRONIC Status: Acute Comment: See #1 above (3) Sepsis Code(s): A41.9 - SEPSIS, UNSPECIFIED ORGANISM Status: Resolved Qualifiers: Sepsis type: methicillin susceptible Staphylococcus aureus Qualified Code(s ): A41.01 - Sepsis due to Methicillin susceptible Staphylococcus aureus Comment: See above, resolving (4) [place] (acute kidney injury) Code(s): N17.9 - ACUTE KIDNEY FAILURE, UNSPECIFIED Status: Acute Comment: Resolving with supportive measures, avoid nephrotoxic meds and contrast (5) DM type 2 (diabetes mellitus, type 2) Status: Chronic Comment: Labile, continue NPH 70/30 25u SC BID, ISS, titrate DM regimen (6) Hypertension Code(s): I10 - ESSENTIAL (PRIMARY) HYPERTENSION Status: Chronic Qualifiers: Hypertension type: essential hypertension Qualified Code(s): I10 - Essential (primary) hypertension Comment: Increase Lisinopril 20mg daily, may need additional titration based on clinical response (7) Constipation Code(s): K59.00 - CONSTIPATION, UNSPECIFIED Status: Acute Comment: MagCitrate x 1 today - Plan continue antibiotics, PT/OT Stable overall -: Continue Oxacillin another 24h -: Decrease IVF's 75ml/h -: Increase Lisinopril 10mg BID -: D/C Lovenox * MagCitrate today * AM lab: BMP, CBC
[2017-06-15] MEDS ORDERED: Magnesium Citrate 300 ML BOT PO SCH (14:00)
[2017-06-15] MEDS: cloNIDine 0.1 MG TAB PO PRN (17:23)
[2017-06-15] MEDS: cefTRIAXone\\ROCEPHIN 2 GM in Sodium Chloride 0.9% 100 ML IVPB SCH (20:23)
[2017-06-15] MEDS ORDERED: Oxacillin 2 GM in Sodium Chloride 0.9% 100 ML IVPB SCH (21:00)
[2017-06-16] MEDS: cloNIDine 0.1 MG TAB PO PRN (01:06)
[2017-06-16 05:23] LABS: Band 8 % (5-11); Hemoglobin 9.7 g/dL (14.0-18.0); Lymphocytes 12 % (21-51); MDiff Complete? YES; Mean Corpuscular Hemoglobin 28.7 pg (27.0-31.0); Mean Corpuscular Volume 89.8 fl (80.0-94.0); Mean Platelet Volume 7.8 fL (7.4-10.4); Monocytes 5 % (0-10); Neutrophil 75 % (42-75); PLT Morphology Comment Appears Increased; Platelet Count 456 thou/uL (130-400); RBC Distribution Width 12.2 % (11.5-14.5); Red Blood Cell (RBC) Count 3.36 mill/uL (4.70-6.10); White Blood Cell (WBC) Count 13.5 thou/uL (4.8-10.8)
[2017-06-16 05:32] LABS: Anion Gap 7 mmol/L (10-20); BUN (Urea Nitrogen) 13 mg/dL (8.4-25.7); Calc. Creatinine Clearance 78 mL/min (70-130); Carbon Dioxide 27 mmol/L (22-29); Chloride 105 mmol/L (98-107); Estimated GFR-MDRD 67; Sodium 135 mmol/L (136-145)
[2017-06-16 05:51] LABS: Glucose 57 mg/dL (70-105)
[2017-06-16] MEDS: Clopidogrel Bisulfate 75 MG TAB PO SCH (08:42)
[2017-06-16] MEDS: Lisinopril 10 MG TAB PO SCH ×2 (08:42→20:34)
[2017-06-16] MEDS: Famotidine 20 MG TAB PO SCH ×2 (08:42→20:35)
[2017-06-16] MEDS: Insulin NPH/Reg Insulin Hm 300 UNITS/3 ML VIAL SC SCH ×2 (08:46→18:05)
[2017-06-16] MEDS: HumaLOG 300 UNITS/3 ML VIAL SC PRN ×2 (13:43→20:37)
--- NOTE | 2017-06-16 14:58 | PDOC.PN ---
- Subjective Encounter Start Date: 06/16/17 Encounter Start Time: 14:55 Subjective: f/u for sepsis and bacteremia with MSSA from UTI on current Rocephin. -: No new complaints. Ambulating and voiding appropriately. - Objective Resuscitation Status: Resuscitation Status FULL:Full Resuscitation MAR Reviewed: Yes Vital Signs & Weight: Vital Signs (12 hours) Temp Pulse Resp BP BP BP Pulse Ox 06/16/17 10:51 98.1 F 77 16 122/70 100 06/16/17 08:42 151/83 H 06/16/17 08:00 97.5 F L 75 16 95 06/16/17 07:54 97.5 F L 75 16 151/83 H 95 06/16/17 06:17 98.5 F 73 18 143/80 H 96 Weight Weight 170 lb I&O: 06/15/17 06/16/17 06/17/17 06:59 06:59 06:59 Intake Total 550 180 Output Total 1500 Balance -950 180 Result Diagrams: 06/16/17 04:49 06/16/17 04:49 Additional Labs: Accuchecks 06/16/17 06/16/17 06/15/17 10:52 05:03 20:08 POC Glucose 198 H 69 L 75 06/15/17 16:26 POC Glucose 138 H Phys Exam - Physical Examination Constitutional: NAD HEENT: PERRLA, oral pharynx no lesions Neck: no JVD, supple Respiratory: no wheezing, clear to auscultation bilateral Cardiovascular: RRR Gastrointestinal: soft, non-tender, no distention, positive bowel sounds Musculoskeletal: no edema, pulses present Neurological: normal sensation, moves all 4 limbs Psychiatric: A&O x 3 Skin: normal turgor, cap refill <2 seconds Dx/Plan (1) Bacteremia Code(s): R78.81 - BACTEREMIA Status: Acute Comment: Secondary to MSSA from urinary source, continue Rocephin, likely transition to po abx in 24h (2) Pyelonephritis Code(s): N12 - TUBULO-INTERSTITIAL NEPHRITIS, NOT SPCF ACUTE OR CHRONIC Status: Acute Comment: See #1 above (3) Sepsis Code(s): A41.9 - SEPSIS, UNSPECIFIED ORGANISM Status: Resolved Qualifiers: Sepsis type: methicillin susceptible Staphylococcus aureus Qualified Code(s ): A41.01 - Sepsis due to Methicillin susceptible Staphylococcus aureus Comment: See above, resolving (4) [place] (acute kidney injury) Code(s): N17.9 - ACUTE KIDNEY FAILURE, UNSPECIFIED Status: Acute Comment: Resolving with supportive measures, avoid nephrotoxic meds and contrast (5) DM type 2 (diabetes mellitus, type 2) Status: Chronic Comment: Labile, continue NPH 70/30 25u SC BID, ISS, titrate DM regimen (6) Hypertension Code(s): I10 - ESSENTIAL (PRIMARY) HYPERTENSION Status: Chronic Qualifiers: Hypertension type: essential hypertension Qualified Code(s): I10 - Essential (primary) hypertension Comment: Increase Lisinopril 20mg daily, may need additional titration based on clinical response (7) Constipation Code(s): K59.00 - CONSTIPATION, UNSPECIFIED Status: Acute Comment: MagCitrate x 1 today - Plan plan discussed w/ family, continue antibiotics, social scientist, out of bed/ ambulate Stable overall -: Continue Rocephin 2gm IV daily another 24h -: OOB/ambulate -: Continue ASA and Plavix -: Likely home in am * .
[2017-06-16] MEDS: cefTRIAXone\\ROCEPHIN 2 GM in Sodium Chloride 0.9% 100 ML IVPB SCH (20:34)
[2017-06-16] MEDS: Sodium Chloride 0.9% 1,000 ML IV SCH (20:35)
[2017-06-17] MEDS ORDERED: HumaLOG 300 UNITS/3 ML VIAL SC PRN (01:14)
[2017-06-17] MEDS ORDERED: NPH, Human Insulin Isophane 300 UNIT/3 ML VIAL SC SCH ×2 (01:15→09:00)
[2017-06-17] MEDS: Sodium Chloride 0.9% 1,000 ML IV SCH (06:41)
[2017-06-17] MEDS: Clopidogrel Bisulfate 75 MG TAB PO SCH (08:27)
[2017-06-17] MEDS: Lisinopril 10 MG TAB PO SCH (08:27)
[2017-06-17] MEDS: Insulin NPH/Reg Insulin Hm 300 UNITS/3 ML VIAL SC SCH (08:27)
[2017-06-17 11:19] VITALS: TEMP 98.4
--- NOTE | 2017-06-17 12:27 | DIS ---
DATE OF ADMISSION: 06/11/2017 DATE OF DISCHARGE: 06/17/2017 DISCHARGE DIAGNOSES: 1. Urinary tract infection with methicillin-sensitive Staphylococcus aureus. 2. Sepsis secondary to #1. 3. Bacteremia secondary to methicillin-sensitive Staphylococcus aureus. 4. Acute kidney injury, resolved. 5. Diabetes mellitus type 2, insulin requiring. 6. Hypertension, stable. 7. Constipation, resolved. CONSULTATIONS: None. PERTINENT LAB AND X-RAY FINDINGS: Creatinine ranged between 1.12-2.75 with estimated GFR ranging bet ween 24-67, lactic acid level ranged between 1.2-2.5. Albumin 3.5, lipase 24. TSH 1.12. CBC showed a white blood cell count ranging between 13.5-19.8, hemoglobin ranged between 9.7-12.2. Urine drug screen dated 06/11/2017 negative. Plasma alcohol level less than 10. Influenza A and B antigen date d 06/11/2014 negative. Blood culture 1 out of 2 positive for methicillin-sensitive Staphylococcus au reus. Urine culture dated 06/11/2017 showed methicillin-sensitive Staphylococcus aureus. Portable c hest x-ray dated 06/11/2014 showed atelectasis without acute process. CT of the brain without contra st dated 06/11/2017 showed no acute intracranial process. A 2D transthoracic echocardiogram dated showed ejection fraction of 50%-55%. Diastolic dysfunction noted. Mild left atrial enlarge ment. HOSPITAL COURSE: The patient was initially admitted after presenting with generalized weakness and d ysuria. The patient underwent extensive evaluation with urinalysis concerning for infectious process . Urine culture was positive for Staphylococcus aureus species as stated previously and the patient was continued on IV Levaquin and meropenem. The patient also received IV fluids after creatinine was noted with elevated beyond baseline with acute kidney injury confirmed. The patient had a multitude of metabolic derangements secondary to sepsis, dehydration and acute kidney injury, all correcting w ith IV fluids and antibiotic therapy. The patient did undergo renal ultrasound evaluation showing ne gative findings. The patient continued on IV antibiotic therapy throughout the hospital course trans itioning to Rocephin after urine culture and blood culture showed Staphylococcus aureus species methi cillin sensitive. The patient continued to clinically improve, tolerating regular oral intake, ambul ating without assistance or difficulty and ready for discharge on 06/17/2017. DISCHARGE MEDICATIONS: 1. Macrobid 100 mg 1 tab p.o. b.i.d. x5 days. 2. Plavix 75 mg 1 tab p.o. daily. 3. NPH insulin 25 units subcutaneously q.a.m. and 10 units subcutaneously at bedtime. 4. Zestril 10 mg p.o. b.i.d. 5. Metformin 500 mg p.o. b.i.d. FOLLOWUP: The patient will follow up with his primary care provider, Dr. Uriostegui, within 7 days of disc harge. CONDITION ON DISCHARGE: Stable. ACTIVITY: ad elle. DIET: Heart healthy and ADA. CODE STATUS: FULL. DISPOSITION: Home on 06/17/2017.
[2017-06-17 16:01] VITALS: BP 163/92
--- NOTE | 2017-06-17 17:46 | EKG ---
Test Reason : CP Blood Pressure : / mmHG Vent. Rate : 097 BPM Atrial Rate : 097 BPM P-R Int : 138 ms QRS Dur : 082 ms QT Int : 346 ms P-R-T Axes : 063 -28 109 degrees QTc Int : 439 ms Normal sinus rhythm Possible Left atrial enlargement RSR' or QR pattern in V1 suggests right ventricular conduction delay Abnormal ECG Confirmed by RAMSES SANTO, ELVIE ([id number]), supervising editor trailer MEGAN RUBIN ([id number]) on 06/17/2017 5:46:03 PM Referred By: Confirmed By:ELVIE PEARCE MD
== END 2017-06-17 16:00 | disposition home or self-care (01) | DRG 872 ==
LOC: ERS 18:28 → T4-A 20:55
PROVIDERS: ADMIT Hospitalist; ATTEND Hospitalist
DX: A41.01 Sepsis due to Methicillin susceptible Staphylococcus aureus (principal); N17.9 Acute kidney failure, unspecified; E11.22 Type 2 diabetes mellitus with diabetic chronic kidney disease; N12 Tubulo-interstitial nephritis, not specified as acute or chronic; J98.11 Atelectasis; I25.10 Atherosclerotic heart disease of native coronary artery without angina pectoris; I73.9 Peripheral vascular disease, unspecified; Z95.1 Presence of aortocoronary bypass graft; Z87.891 Personal history of nicotine dependence; K59.00 Constipation, unspecified; R65.20 Severe sepsis without septic shock; I12.9 Hypertensive chronic kidney disease with stage 1 through stage 4 chronic kidney disease, or unspecified chronic kidney disease; N18.9 Chronic kidney disease, unspecified; E78.5 Hyperlipidemia, unspecified; I69.334 Monoplegia of upper limb following cerebral infarction affecting left non-dominant side
CPT/HCPCS: 36415; 36416; 70450; 71045; 76770; 80048; 80053; 80306; 80307; 81003; 81015; 82140; 82330; 82553; 82803; 83605; 83690; 83880; 84443; 84484; 85007; 85025; 85027; 85610; 85730; 87040; 87077; 87086; 87149; 87186; 93005; 93306; 94760; 96361; 96365; 96375; A4216; J0696; J1650; J1815; J1956; J2185; J2405; J2700; J3370; J7050

== ENCOUNTER 2017-07-08 18:33 | Inpatient (IN) | payer SELFPAY ==
[2017-07-08 19:03] LABS: Bilirubin Negative (Negative); Blood, Urine Moderate (Negative); Clarity TURBID (Clear); Glucose, Urine (Dipstick) >=1000 mg/dL (Negative); Leukocyte Large (Negative); Nitrite Negative (Negative); Protein, Urine (Dipstick) 100 mg/dL (Neg-Trace); Specific Gravity, Urine 1.027 (1.002-1.036); pH, Urine 5.5 (5.0-9.0)
[2017-07-08 19:05] LABS: Bacteria/HPF Rare-Few HPF (None Seen); Hyaline Casts/LPF 0-3 HYALINE CAST LPF (0-3 Hyaline); Pathc Cast-AUWi Flag 0.54 (0-2.49)
[2017-07-08 19:08] LABS: Yeast-AUWi Flag 179.8 (0-25.0)
[2017-07-08 19:15] LABS: Yeast-All Forms 1+ HPF (None Seen)
[2017-07-08 19:23] LABS: #Basophils 0.1 thou/uL (0.0-0.2); #Eosinphils 0.1 thou/uL (0.0-0.7); #Lymphocytes 2.3 thou/uL (1.20-3.40); #Monocytes 1.1 thou/uL (0.11-0.59); %Basophils 0.5 % (0.0-1.0); %Lymphocytes 16.9 % (21.0-51.0); %Monocytes 7.8 % (0.0-10.0); %Neutrophils 73.8 % (42.0-75.0); Hemoglobin 10.8 g/dL (14.0-18.0); Mean Corpuscular HGB CONC 33.6 g/dL (32.0-36.0); Mean Corpuscular Hemoglobin 29.4 pg (27.0-31.0); Mean Corpuscular Volume 87.4 fl (80.0-94.0); Mean Platelet Volume 8.4 fL (7.4-10.4); Platelet Count 510 thou/uL (130-400); RBC Distribution Width 12.8 % (11.5-14.5); Red Blood Cell (RBC) Count 3.68 mill/uL (4.70-6.10); White Blood Cell (WBC) Count 13.5 thou/uL (4.8-10.8)
[2017-07-08 19:44] LABS: ALT (SGPT) Less than 7 U/L (8-55); AST (SGOT) 8 U/L (5-34); Albumin 3.5 g/dL (3.5-5.0); Alkaline Phosphatase 173 U/L (40-150); Anion Gap 17 mmol/L (10-20); BUN (Urea Nitrogen) 30 mg/dL (8.4-25.7); Bilirubin, Total 0.3 mg/dL (0.2-1.2); Calc. Creatinine Clearance 0 mL/min (70-130); Calcium 9.5 mg/dL (7.8-10.44); Carbon Dioxide 21 mmol/L (22-29); Chloride 91 mmol/L (98-107); Estimated GFR-MDRD 32; Globulin 5.9 g/dL (2.4-3.5); Lipase 36 U/L (8-78); Potassium 4.4 mmol/L (3.5-5.1); Protein, Total 9.4 g/dL (6.0-8.3); Sodium 125 mmol/L (136-145)
[2017-07-08 19:47] LABS: Glucose 555 mg/dL (70-105)
[2017-07-08 22:01] LABS: Glucose 486 mg/dL (70-105)
[2017-07-08] MEDS ORDERED: Insulin Regular 300 UNITS/3 ML VIAL ONE (22:27)
[2017-07-08 23:50] LABS: CKMB 0.7 ng/mL (0-6.6); Troponin I 0.011 ng/mL (< 0.028)
[2017-07-09] MEDS ORDERED: cloNIDine 0.1 MG TAB ONE (00:52)
[2017-07-09] MEDS ORDERED: HYDROcodone/Acetaminophen 5/325 mg Tablet PO PRN (01:01)
[2017-07-09] MEDS ORDERED: Dextrose 5% in Water 1,000 ML IV PRN (01:01)
[2017-07-09] MEDS ORDERED: Ondansetron HCl/PF 4 MG/2 ML Vial IVP PRN (01:01)
[2017-07-09] MEDS ORDERED: HYDROcodone/Acetaminophen 10/325 mg Tablet PO PRN (01:01)
[2017-07-09] MEDS ORDERED: Dextrose 50% Abboject 50 ML SYRINGE SLOW IVP PRN (01:01)
--- NOTE | 2017-07-09 01:18 | HP ---
DATE OF ADMISSION: 07/09/2017 CHIEF COMPLAINT: Abdominal pain. HISTORY OF PRESENT ILLNESS: This is a 57-year-old white male with known past medical history of mc nary artery disease with history of CABG, history of type 2 diabetes mellitus. The patient has been complaining of abdominal pain for the past 2-3 weeks and has been coming to the ER for the similar co mplaint and 3 weeks ago, he was admitted and had a thorough evaluation and he was sent home. In look ing today, he had severe abdominal pain, which was 8 on 10 in intensity and he came to the ER. The p atient had elevated blood sugars in 500 and he was noted to have a urinary tract infection with UA be ing positive an elevated white count of 13,000. The patient did not had a CT abdomen, so asked the E R physician to get a CT abdomen and if there is any evidence of stone, advised to consult Urology. T he patient is not in distress at this time. No nausea, no vomiting was noted. No diarrhea, no const ipation. PAST MEDICAL HISTORY: 1. Type 2 diabetes mellitus. 2. Hypertension. 3. Coronary artery disease. 4. Peripheral vascular disease. PAST SURGICAL HISTORY: The patient has history of CABG in 2013, amputation on the left great toe, pr ior stents in the left lower leg. SOCIAL HISTORY: The patient is a former alcoholic. No history of tobacco. No history of illicit dr ug use. FAMILY HISTORY: No significant family history of coronary artery disease and this has been thoroughl y reviewed ant it is noncontributory to present complaint. REVIEW OF SYSTEMS: All 12 systems are reviewed with the patient thoroughly and found to be negative at this time except the ones described in HPI. Systems reviewed are HEENT, CVS, STATISTICAL GENETICIST, respiratory, GI , . Constitutional: Weight loss or gain, sense of well-being, ability to conduct usual activities, exerc ise tolerance. Skin/Breast: Rash, itching, changes in hair growth or loss, nail changes, breast lumps, tenderness, swelling, nipple discharge. Eyes: Vision, double vision, tearing, blind spots, pain. ENT/Mouth: Headaches (location, time of onset, duration, precipitating factors), vertigo, lightheade dness, injury. Vision, double vision, tearing, blind spots, pain, nose bleeding, colds, obstruction, discharge, dental difficulties, gingival bleeding, dentures, neck stiffness, pain, tenderness, masses in thyroid or other areas. Cardiovascular: Precordial pain, substernal distress, palpitations, syncope, dyspnea on exertion, or thopnea, nocturnal paroxysmal dyspnea, edema, cyanosis, hypertension, heart murmurs, varicosities, ph lebitis, claudication. Respiratory: Pain, shortness of breath, wheezing, stridor, cough, hemoptysis, fever or night sweats. Gastrointestinal: Poor appetite, dysphagia, indigestion, abdominal pain, heartburn, eructation, naus ea, vomiting, hematemesis, jaundice, constipation, or diarrhea, abnormal stools (harjinder-colored, tarry, bloody, greasy, foul smelling), flatulence, hemorrhoids, recent changes in bowel habits. Genitourinary: Urgency, frequency, dysuria, nocturia, hematuria, polyuria, oliguria, unusual (or lovely nge in) color of urine, stones, hesitancy, change in size of stream, dribbling, acute retention or in continence, libido, potency. Musculoskeletal: Pain, swelling, redness or heat of muscles or joints, limitation, of motion, muscul ar weakness, atrophy, cramps. Neurologic/Psychiatric: Convulsions, paralyses, tremor, incoordination, paresthesias, difficulties w ith memory of speech, sensory or motor disturbances, or muscular coordination (ataxia, tremor), emoti onal problems, anxiety, depression, previous psychiatric care, unusual perceptions, hallucinations. Allergy/Immunologic: Skin rash, anemia, bleeding tendency, polydipsia, polyuria, intolerance to heat or cold. ALLERGIES: No known drug allergies. HOME MEDICATIONS: 1. Plavix 75 mg p.o. daily. 2. Insulin 10 units at bedtime and 25 units in the morning. 3. Lisinopril 10 mg p.o. b.i.d. 4. Metformin 500 mg p.o. b.i.d. 5. Nitrofurantoin. PHYSICAL EXAMINATION: VITAL SIGNS: Blood pressures are 130/88, heart rate is 80, respiratory rate is 18, saturations 96% o n room air. GENERAL: The patient is moderately built and moderately nourished. He does not appear to be in acut e distress at this time. He is alert and oriented x3. HEENT: Atraumatic, normocephalic, PERRLA, extraocular movements were intact. Oral mucosa is pink an d moist. CARDIOVASCULAR: S1, S2 normal. No murmurs, rubs or gallops. LUNGS: Bilateral air entry was equal. No wheezing, no crackles. ABDOMEN: Soft, nontender, no guarding, no rebound tenderness. Bowel sounds normal. MUSCULOSKELETAL: No calf tenderness. No pedal edema. No joint tenderness, no joint swelling. SKIN: No cyanosis, no erythema, no rash, no pallor. CRANIAL NERVOUS SYSTEM: Cranial nerve examination II-XII intact. No focal deficits were noted. PSYCHIATRIC: No signs of suicidal ideation. No signs of bhargavi was noted. NECK: No thyromegaly. No lymphadenopathy was noted. LABORATORY DATA AND IMAGING: WBC 13.5, hemoglobin is 10.8, hematocrit is 32.2, platelets are 510. S odium is 125, potassium is 4.4, chloride is 91, BUN is 30, creatinine is 2.14, blood sugar is 555 and most recent blood sugars are 350. CT of the abdomen and pelvis is pending at this time. ASSESSMENT: 1. Acute pyelonephritis. 2. Acute hyponatremia. 3. Acute hyperglycemia with poorly controlled type 2 diabetes mellitus. 4. Acute kidney injury on chronic kidney disease. 5. Moderate to severe dehydration. 6. History of coronary artery disease with history of coronary artery bypass grafting. 7. Hypertension. 8. Hyperlipidemia. PLAN: 1. Plan is to admit this patient and we will closely follow up with a CT of the abdomen and pelvis t o look for any evidence of ureteric obstruction or any hydronephrosis or any evidence of a perinephri c abscess. We will start the patient on IV antibiotics with Rocephin 2 grams IV daily and closely mo nitored. We will wait for the urine cultures. 2. The patient has severe hyponatremia likely related to the hyperglycemia. We will continue with t he normal saline at 100 mL an hour and closely monitor the drop in the sodium levels. 3. The patient has poorly controlled type 2 diabetes mellitus. He is on 10 units in the morning and 25 units in the evening. We will start the patient on sliding scale insulin and continue to increas e his Levemir to keep the blood sugars between 140 to 180. The patient has evidence of severe dehydr ation with elevated creatinine and BUN. We will closely monitor his renal functions. Avoiding nephr otoxic medications. We will consult Nephrology if the patient's creatinine is getting worse or if th ere is any obstruction on the CT of the abdomen. 4. The patient has history of CABG. The patient denies having any chest pain. We will continue the patient on the Plavix and lisinopril. He is not on any beta daron at this time. 5. DVT prophylaxis with Lovenox 40 mg subcu daily. I spent 75 minutes with this patient.
[2017-07-09 01:24] VITALS: BMI 21.7
[2017-07-09] MEDS: Sodium Chloride 0.9% 1,000 ML IV SCH ×3 (01:35→21:53)
[2017-07-09] MEDS ORDERED: cefTRIAXone\\ROCEPHIN 2 GM in Sodium Chloride 0.9% 100 ML IVPB SCH (02:00)
[2017-07-09 05:21] LABS: #Eosinphils 0.2 thou/uL (0.0-0.7); #Lymphocytes 1.7 thou/uL (1.20-3.40); #Neutrophils 8.5 thou/uL (1.40-6.50); %Basophils 0.3 % (0.0-1.0); %Eosinophils 1.3 % (0.0-10.0); %Lymphocytes 14.8 % (21.0-51.0); %Monocytes 8.7 % (0.0-10.0); %Neutrophils 74.8 % (42.0-75.0); Hemoglobin 9.2 g/dL (14.0-18.0); Mean Corpuscular Hemoglobin 28.5 pg (27.0-31.0); Mean Corpuscular Volume 86.3 fl (80.0-94.0); Mean Platelet Volume 7.8 fL (7.4-10.4); Platelet Count 461 thou/uL (130-400); RBC Distribution Width 12.5 % (11.5-14.5); Red Blood Cell (RBC) Count 3.23 mill/uL (4.70-6.10); White Blood Cell (WBC) Count 11.4 thou/uL (4.8-10.8)
[2017-07-09 05:44] LABS: Anion Gap 13 mmol/L (10-20); BUN (Urea Nitrogen) 28 mg/dL (8.4-25.7); Calc. Creatinine Clearance 44 mL/min (70-130); Calcium 8.7 mg/dL (7.8-10.44); Carbon Dioxide 23 mmol/L (22-29); Chloride 101 mmol/L (98-107); Estimated GFR-MDRD 38; Glucose 139 mg/dL (70-105); Potassium 3.7 mmol/L (3.5-5.1); Sodium 133 mmol/L (136-145)
[2017-07-09] MEDS: cefTRIAXone\\ROCEPHIN 2 GM in Sodium Chloride 0.9% 100 ML IVPB SCH (08:17)
[2017-07-09] MEDS: Enoxaparin Sodium 40 MG/0.4 ML SYRINGE SC SCH (08:17)
[2017-07-09] MEDS: Docusate 100 MG CAP PO SCH ×2 (08:17→21:55)
[2017-07-09] MEDS: Famotidine 40 MG/4 ML VIAL SLOW IVP SCH (08:20)
[2017-07-09] MEDS ORDERED: Lisinopril 10 MG TAB PO SCH (09:00)
[2017-07-09] MEDS ORDERED: Clopidogrel Bisulfate 75 MG TAB PO SCH (09:00)
[2017-07-09] MEDS ORDERED: Insulin NPH/Reg Insulin Hm 300 UNITS/3 ML VIAL SC SCH ×2 (09:00→21:00)
--- NOTE | 2017-07-09 11:09 | PDOC.PN ---
- Subjective Encounter Start Date: 07/09/17 Encounter Start Time: 11:08 Subjective: comfortably resting, abd pain improved - Objective Resuscitation Status: Resuscitation Status FULL:Full Resuscitation MAR Reviewed: Yes Vital Signs & Weight: Vital Signs (12 hours) Temp Pulse Resp BP Pulse Ox 07/09/17 08:00 98.8 F 69 24 H 98 07/09/17 07:30 98.8 F 69 24 H 99/60 99 07/09/17 01:01 98 F 104 H 18 103/55 L 98 07/09/17 01:00 98 F 104 H 18 98 07/09/17 00:55 98.0 F 104 H 16 103/55 L 98 Weight Weight 155 lb 9 oz Result Diagrams: 07/09/17 05:10 07/09/17 05:10 Additional Labs: Accuchecks 07/09/17 07/08/17 05:10 23:26 POC Glucose 134 H 350 H Phys Exam - Physical Examination HEENT: PERRLA, moist MMs bad oral hygiene Neck: supple, full ROM Respiratory: no wheezing Cardiovascular: RRR, no significant murmur Gastrointestinal: soft, non-tender, no distention, positive bowel sounds Musculoskeletal: no edema Neurological: non-focal, moves all 4 limbs Psychiatric: normal affect, A&O x 3 Dx/Plan (1) Acute on chronic renal failure Code(s): N17.9 - ACUTE KIDNEY FAILURE, UNSPECIFIED; N18.9 - CHRONIC KIDNEY DISEASE, UNSPECIFIED Status: Acute (2) Hyperglycemia Code(s): R73.9 - HYPERGLYCEMIA, UNSPECIFIED Status: Acute (3) Pyelonephritis Code(s): N12 - TUBULO-INTERSTITIAL NEPHRITIS, NOT SPCF ACUTE OR CHRONIC Status: Acute Comment: See #1 above (4) CAD (coronary artery disease) Code(s): I25.10 - ATHSCL HEART DISEASE OF [place] CORONARY ARTERY W/O ANG PCTRS Status: Chronic Qualifiers: Coronary Disease-Associated Artery/Lesion type: bypass graft [place] vs. transplanted heart: [place] heart Associated angina: without angina Qualified Code(s): I25.810 - Atherosclerosis of coronary artery bypass graft(s) without angina pectoris (5) Hypertension Code(s): I10 - ESSENTIAL (PRIMARY) HYPERTENSION Status: Chronic Qualifiers: Hypertension type: essential hypertension Qualified Code(s): I10 - Essential (primary) hypertension Comment: Increase Lisinopril 20mg daily, may need additional titration based on clinical response (6) PAD (peripheral artery disease) Code(s): I73.9 - PERIPHERAL VASCULAR DISEASE, UNSPECIFIED Status: Chronic (7) S/P CABG x 4 Status: Chronic (8) Uncontrolled diabetes mellitus Code(s): E11.65 - TYPE 2 DIABETES MELLITUS WITH HYPERGLYCEMIA Status: Chronic Qualifiers: Diabetes mellitus type: type 2 Diabetes mellitus usp insulin use: with usp use Diabetes mellitus complication status: with kidney complications Diabetes mellitus complication detail: with chronic kidney disease Chronic kidney disease stage: stage 2 (mild) Qualified Code(s): E11.22 - Type 2 diabetes mellitus with diabetic chronic kidney disease; E11.65 - Type 2 diabetes mellitus with hyperglycemia; N18.2 - Chronic kidney disease, stage 2 (mild); Z79.4 - senior care (current) use of insulin (9) Gastroenteritis Code(s): K52.9 - NONINFECTIVE GASTROENTERITIS AND COLITIS, UNSPECIFIED Status : Acute - Plan cont current plan of care, continue antibiotics gastorenterits cont levaquin, awaiting ABD ct request. * .
--- NOTE | 2017-07-09 15:18 | CT ---
PRELIMINARY REPORT/[facility]/EMERGENCY AFTER HOURS PROCEDURE: EXAM: CT Abdomen and Pelvis Without Intravenous Contrast EXAM DATE/TIME: Exam ordered 07/09/2017 12:48 AM CLINICAL HISTORY: 57 years old, male; Pain; Abdominal pain; Generalized TECHNIQUE: Axial computed tomography images of the abdomen and pelvis without intravenous contrast. All CT scans at this facility use one or more dose reduction techniques, viz.: automated exposure control; ma/kV adjustment per patient size (including targeted exams where dose is matched to indication; i.e. head); or iterative reconstruction technique. Coronal reformatted images were created and reviewed. COMPARISON: No relevant prior studies available. FINDINGS: Lower thorax: No acute findings. ABDOMEN: Liver: Unremarkable. Gallbladder and bile ducts: Unremarkable. No calcified stones. No ductal dilation. Pancreas: Unremarkable. No ductal dilation. Spleen: Unremarkable. No splenomegaly. Adrenals: Unremarkable. No mass. Kidneys and ureters: There is diffuse bilateral perinephric stranding with suggestion of urothelial t hickening of the left renal pelvis and the findings which are suspicious for but not diagnostic of pyelonephritis. Stomach and bowel: Rectum is distended to 8 cm with formed stool, potentially impacted. No bowel wall thickening or intestinal obstruction. Appendix: Normal appendix. PELVIS: Bladder: Diffuse thickening of the wall bladder, suspicious for cystitis. No stones. Reproductive: Unremarkable as visualized. ABDOMEN and PELVIS: Intraperitoneal space: Unremarkable. No free air. No significant fluid collection. Bones/joints: No acute fracture. No dislocation. Soft tissues: Unremarkable. Vasculature: Unremarkable. No abdominal aortic aneurysm. Lymph nodes: Unremarkable. No enlarged lymph nodes. IMPRESSION: 1. Diffuse thickening of the wall bladder, suspicious for cystitis. 2. There is diffuse bilateral perinephric stranding with suggestion of urothelial thickening of the l eft renal pelvis and the findings which are suspicious for but not diagnostic of pyelonephritis. 3. Rectum is distended to 8 cm with formed stool, potentially impacted. Thank you for allowing us to participate in the care of your patient. Dictated and Authenticated by: Maury Santiago MD 07/09/2017 1:08 AM Central Time ([place] & [place]) FINAL REPORT ABDOMEN AND PELVIC CT SCAN WITHOUT IV CONTRAST: EMERGENT AFTER HOURS EXAM TIME: 12:51 a.m. DATE: 07/09/17. Diffuse bilateral renal perinephric fat stranding, nonspecific, but this can be seen in association w ith pyelonephritis. Fecal-filled distended rectum without significant associated wall thickening or perirectal edema. Borderline bladder wall thickening. Normal-appearing appendix. Other findings as above. Bilateral pars defects at L5-S1. POS: [place]
[2017-07-09] MEDS: HumaLOG 300 UNITS/3 ML VIAL SC PRN ×2 (16:25→21:53)
[2017-07-10] MEDS ORDERED: Acetaminophen 325 MG TAB PO PRN (00:18)
[2017-07-10] MEDS: HumaLOG 300 UNITS/3 ML VIAL SC PRN ×4 (05:20→19:56)
[2017-07-10 05:54] LABS: #Eosinphils 0.2 thou/uL (0.0-0.7); #Monocytes 0.9 thou/uL (0.11-0.59); #Neutrophils 8.4 thou/uL (1.40-6.50); %Basophils 0.3 % (0.0-1.0); %Eosinophils 1.7 % (0.0-10.0); %Lymphocytes 17.5 % (21.0-51.0); %Monocytes 8.1 % (0.0-10.0); %Neutrophils 72.4 % (42.0-75.0); Hemoglobin 9.3 g/dL (14.0-18.0); Mean Corpuscular HGB CONC 32.6 g/dL (32.0-36.0); Mean Corpuscular Hemoglobin 28.5 pg (27.0-31.0); Mean Corpuscular Volume 87.4 fl (80.0-94.0); Mean Platelet Volume 7.7 fL (7.4-10.4); Platelet Count 437 thou/uL (130-400); RBC Distribution Width 12.7 % (11.5-14.5); Red Blood Cell (RBC) Count 3.28 mill/uL (4.70-6.10); White Blood Cell (WBC) Count 11.6 thou/uL (4.8-10.8)
[2017-07-10 06:04] LABS: Anion Gap 11 mmol/L (10-20); BUN (Urea Nitrogen) 22 mg/dL (8.4-25.7); Calc. Creatinine Clearance 47 mL/min (70-130); Calcium 8.4 mg/dL (7.8-10.44); Carbon Dioxide 21 mmol/L (22-29); Chloride 103 mmol/L (98-107); Estimated GFR-MDRD 41; Glucose 247 mg/dL (70-105); Potassium 3.9 mmol/L (3.5-5.1); Sodium 131 mmol/L (136-145)
[2017-07-10] MEDS: cefTRIAXone\\ROCEPHIN 2 GM in Sodium Chloride 0.9% 100 ML IVPB SCH (08:52)
[2017-07-10] MEDS: Sodium Chloride 0.9% 1,000 ML IV SCH ×2 (08:52→10:04)
[2017-07-10] MEDS: Docusate 100 MG CAP PO SCH ×2 (08:52→19:59)
[2017-07-10] MEDS: Enoxaparin Sodium 40 MG/0.4 ML SYRINGE SC SCH (08:53)
[2017-07-10] MEDS: Famotidine 40 MG/4 ML VIAL SLOW IVP SCH (09:35)
--- NOTE | 2017-07-10 09:46 | PDOC.PN ---
- Subjective Encounter Start Date: 07/10/17 Encounter Start Time: 09:30 Subjective: f/u for UTI and suspected bilateral pyelonephritis on Rocephin. No Ucx -: results available. States feeling better overall. No BM in 1 week. -: Recent admit 1 month ago for UTI/bacteremia. - Objective Resuscitation Status: Resuscitation Status FULL:Full Resuscitation MAR Reviewed: Yes Vital Signs & Weight: Vital Signs (12 hours) Temp Pulse Resp BP BP Pulse Ox 07/10/17 07:50 97.3 F L 71 18 165/79 H 97 07/10/17 04:00 98.0 F 75 16 110/71 98 07/10/17 00:00 100.3 F H 88 16 158/80 H 96 Weight Weight 155 lb 9 oz I&O: 07/09/17 07/10/17 07/11/17 06:59 06:59 06:59 Intake Total 100 Output Total 350 Balance -250 Result Diagrams: 07/10/17 05:38 07/10/17 05:38 Additional Labs: Accuchecks 07/10/17 07/09/17 07/09/17 05:17 20:40 16:02 POC Glucose 268 H 288 H 285 H 07/09/17 11:09 POC Glucose 152 H Microbiology 07/08/17 23:40 Venous blood - Left Arm Blood Culture - Preliminary Specimen has been received and culture in progress. No Growth to date. 07/08/17 22:47 Venous blood - Right Hand Blood Culture - Preliminary Specimen has been received and culture in progress. No Growth to date. Laboratory Tests 07/08/17 07/08/17 07/09/17 19:14 19:14 05:10 WBC 13.5 H Hgb 10.8 L Sodium 125 L 133 L Creatinine 2.14 H 1.83 H 07/09/17 05:10 WBC 11.4 H Hgb 9.2 L Sodium Creatinine Radiology Reviewed by me: Yes (CT abd/pel - bladder wall thickening, bilat perinephric stranding) Phys Exam - Physical Examination Constitutional: NAD HEENT: PERRLA, oral pharynx no lesions Neck: no JVD, supple Respiratory: no wheezing Cardiovascular: RRR Gastrointestinal: soft, non-tender, no distention, positive bowel sounds Musculoskeletal: no edema, pulses present Neurological: normal sensation, moves all 4 limbs Psychiatric: A&O x 3 Skin: normal turgor, cap refill <2 seconds Dx/Plan (1) Pyelonephritis Code(s): N12 - TUBULO-INTERSTITIAL NEPHRITIS, NOT SPCF ACUTE OR CHRONIC Status: Acute Comment: Suspected given CT abd findings, continue Rocephin, consult Urology service regarding recurrent UTI's, bladder wall thickening, may need cystoscopy (2) [place] (acute kidney injury) Code(s): N17.9 - ACUTE KIDNEY FAILURE, UNSPECIFIED Status: Acute Comment: Improved with supportive measures, avoid nephrotoxic meds and contrast, hold Lisinopril another 24h (3) Hyponatremia Code(s): E87.1 - HYPO-OSMOLALITY AND HYPONATREMIA Status: Acute Comment: Chronic component in addition to hyperglycemia, decrease IVF's 50ml/h, repeat Na + level in am (4) Constipation Code(s): K59.00 - CONSTIPATION, UNSPECIFIED Status: Acute Comment: MagCitrate x 1 today (5) CKD (chronic kidney disease), stage II Code(s): N18.2 - CHRONIC KIDNEY DISEASE, STAGE 2 (MILD) Status: Chronic Comment: Nearing baseline renal function with supportive measures (6) DM type 2 (diabetes mellitus, type 2) Status: Chronic Comment: Labile, will confirm home meds, Metformin on hold due to renal function - Plan continue antibiotics, social research assistant, out of bed/ambulate, DVT proph w/SCDs Stable overall -: Continue Rocephin 2gm IV daily -: Decrease IVF's 50ml/h -: Consult Urology service for bladder wall thickening, pyelonephritis -: AM lab: BMP * Confirm home medications specifically Insulin regimen
--- NOTE | 2017-07-10 14:06 | CON ---
DATE OF CONSULTATION: 07/10/2017 HISTORY OF PRESENT ILLNESS: The patient is a 57-year-old male, who was admitted with abdominal pain and a diagnosis of hyponatremia and pyelonephritis. In speaking with the patient, he reports that the pain was all over in his abdomen and generally is somewhat in his back, it was never one- sided and currently is significantly better and he reports mainly just epigastric pain. He had no fever or gross hematuria. He has no history of stones. He has had trouble with urinary tract infections just in the past 1 to 2 years. He did not have them prior to that. He denies phimosis, but he does have a narrowing of the prepuce, but he is able to retract at this time. PAST MEDICAL HISTORY: Significant for diabetes and he has had that since he was 23 years old, stroke in 2013, hypertension, coronary artery disease, peripheral vascular disease, and renal insufficiency. PAST SURGICAL HISTORY: Includes a CABG in 2013, left toe amputation, and left lower extremity stents in 2016. MEDICATIONS: Include Plavix, insulin, lisinopril and metformin. SOCIAL HISTORY: He used to be an alcoholic, but he has not had any for 4 years. He used to smoke and has an [id number]-[id number] history, but has not done so in 4 years. No drug use. REVIEW OF SYSTEMS: Reveals no nausea or vomiting. He is constipated and has had bowel movement for several days. He has no diarrhea, no chest pain, no shortness of breath, no coughing up anything. He has never had a colonoscopy and he is not aware of any prostate cancer screening or PSAs. FAMILY HISTORY: Includes mother in her 60s of diabetes complications. Dad at 58 of a heart attack. There is no cancer that he is aware of. PHYSICAL EXAMINATION: VITAL SIGNS: T-max 100.3 and currently 97.3, heart rate 71, blood pressure 155/ 79, 97% on room air with a respiratory rate of 18. He had 350 last shift recorded and the urine was yellow in the urinal. GENERAL: He is alert and oriented with some slight slurred speech. SKIN: Appeared to have multiple abrasions throughout of the lower extremity with chronic venous stasis color changes given the hyperpigmentation. HEART: Regular rate and rhythm. No murmurs, gallops or rubs. LUNGS: Clear to auscultation bilaterally. BACK: There was costovertebral angle tenderness. ABDOMEN: Soft, nondistended, nontender with normoactive bowel sounds. GENITOURINARY: Testes were descended bilaterally without masses. Phallus was uncircumcised with a significantly narrowed and slightly edematous prepuce, but was able to retract this and reveal slight smegma debris noted and then it was able to be reduced easily. There is no meatal stenosis. On digital rectal exam , he had a flat prostate that was slightly firm throughout, but no nodules or induration. Lateral borders were not easily distinguishable. LABORATORY VALUES: Revealed anemia of 9.3 and 28.7, hyponatremia which is improved from 125 to 131. BUN and creatinine of 22 and 1.71 and as high as 2.75 in May. Urinalysis from 07/08/2017 revealed too numerous to count wbc 's, 4-6 rbc's, rare bacteria and 4-6 squamous cells and this is basically the same with varying amounts of bacteria for urinalysis all the way back to 2016. He also had cultures that were positive for Staph aureus in the blood and in the urine in May, and culture from March that showed Staph aureus , strep and yeast and another culture from December that showed strep. IMAGING: CT scan without contrast reviewed personally from 07/08/2017 revealed uniformly thickened bladder with a small prostate and a huge rectum full of stool. The left proximal ureter was mildly dilated to the crossing vessels, but there were no stones throughout the entire tract. There was no hydronephrosis or obvious masses. ASSESSMENT AND PLAN: We have a 57-year-old male with chronic recurring urinary tract infections and thickened bladder with mild phimosis and upper tract changes most likely related to infection, but cannot rule out partial obstruction. I reviewed the need for cystoscopy, and I would do retrograde pyelograms because he is not able to get IV contrast currently. We also reviewed how his foreskin increases the chance for infections. As long as his Plavix has been held for a significant amount of time-- which it appears it has , then we will proceed with a circumcision as well. I reviewed all of this with the patient in detail including risks and benefits of the procedures and consented him for this with the nurse present. I also discussed this with Dr. Medel, and he is agreeable with the plan. We will proceed and keep him n.p.o. after midnight. MTDD
[2017-07-10] MEDS ORDERED: hydrALAZINE 20 MG/ML VIAL SLOW IVP SCH (19:00)
[2017-07-11] MEDS: Sodium Chloride 0.9% 1,000 ML IV SCH (05:36)
[2017-07-11 06:20] LABS: Anion Gap 13 mmol/L (10-20); BUN (Urea Nitrogen) 14 mg/dL (8.4-25.7); Calc. Creatinine Clearance 56 mL/min (70-130); Calcium 8.5 mg/dL (7.8-10.44); Carbon Dioxide 18 mmol/L (22-29); Chloride 105 mmol/L (98-107); Estimated GFR-MDRD 50; Glucose 295 mg/dL (70-105); Potassium 4.1 mmol/L (3.5-5.1); Sodium 132 mmol/L (136-145)
[2017-07-11] MEDS: cefTRIAXone\\ROCEPHIN 2 GM in Sodium Chloride 0.9% 100 ML IVPB SCH (09:06)
[2017-07-11] MEDS: Docusate 100 MG CAP PO SCH ×2 (09:06→20:32)
[2017-07-11] MEDS: Famotidine 40 MG/4 ML VIAL SLOW IVP SCH (09:07)
[2017-07-11] MEDS: hydrALAZINE 20 MG/ML VIAL SLOW IVP PRN (12:45)
[2017-07-11] MEDS ORDERED: Ondansetron HCl/PF 4 MG/2 ML Vial ONE (14:52)
[2017-07-11] MEDS ORDERED: PHENYLEPHRINE-NS 100 MCG/ML 10 ML SYRINGE ONE (14:52)
[2017-07-11] MEDS ORDERED: Propofol 200 MG/20 ML VIAL ONE (14:52)
[2017-07-11] MEDS ORDERED: Lidocaine 1% PF 5 ML VIAL ONE (14:52)
[2017-07-11] MEDS ORDERED: Lidocaine 1% (PF) 30 ML VIAL ONE (17:25)
[2017-07-11] MEDS ORDERED: Iothalamate Meglumine 60% 50 ML VIAL FS ONE (17:25)
[2017-07-11] MEDS ORDERED: Bupivacaine 0.25% HCL 30 ML VIAL ONE (17:25)
[2017-07-11] MEDS ORDERED: B & O ONE (17:26)
[2017-07-11] MEDS ORDERED: Fentanyl 250 MCG/5 ML VIAL ONE (17:31)
[2017-07-11] MEDS ORDERED: Bacitracin Zinc Ointment 30 gm TUBE ONE (18:41)
[2017-07-11] MEDS ORDERED: Acetaminophen/Codeine 30-300mg Tablet PO PRN ×2 (19:00)
--- NOTE | 2017-07-11 19:36 | RAD ---
RETROGRADE PYELOGRAM THREE VIEWS: 07/11/17 HISTORY: 57-year-old male with generalized abdominal pain. FINDINGS: Injection into the distal right ureter, then distal left ureter, demonstrates no hydronephrosis. Final image demonstrates a small amount of residual contrast material in the left distal ureter, and what may be a left ureteral catheter. There is mild irregularity of the left lower ureter. IMPRESSION: 1. No hydronephrosis. 2. Mild irregularity of the left lower ureter. POS: [facility]
[2017-07-11] MEDS: HumaLOG 300 UNITS/3 ML VIAL SC PRN (20:33)
[2017-07-12] MEDS: Sodium Chloride 0.9% 1,000 ML IV SCH ×3 (01:30→22:01)
[2017-07-12] MEDS: HumaLOG 300 UNITS/3 ML VIAL SC PRN ×4 (05:19→20:42)
[2017-07-12] MEDS: Finasteride 5 MG TAB PO SCH (08:38)
[2017-07-12] MEDS: Docusate 100 MG CAP PO SCH ×2 (08:38→20:41)
[2017-07-12] MEDS: Tamsulosin HCl 0.4 MG CAP PO SCH (08:39)
[2017-07-12] MEDS: Famotidine 40 MG/4 ML VIAL SLOW IVP SCH (08:40)
[2017-07-12] MEDS: cefTRIAXone\\ROCEPHIN 2 GM in Sodium Chloride 0.9% 100 ML IVPB SCH (09:32)
[2017-07-12] MEDS: Enoxaparin Sodium 40 MG/0.4 ML SYRINGE SC SCH (09:49)
--- NOTE | 2017-07-12 11:05 | OP ---
DATE OF SERVICE: 07/11/2017 PREOPERATIVE DIAGNOSES: Recurrent urinary tract infections and phimosis. POSTOPERATIVE DIAGNOSES: Recurrent urinary tract infection, phimosis, and benign prostatic hypertrophy with cloudy debris filled urine in the bladder, but no masses or stones. PROCEDURE: Cystoscopy, bilateral retrograde pyelograms, bladder irrigation. ANESTHESIA: General with laryngeal mask airway as well as penile block using 10 mL of Marcaine. SPECIMENS: None. DRAINS: Remaining none. ESTIMATED BLOOD LOSS: Minimal. INDICATIONS: The patient is a 57-year-old male who was admitted with hyponatremia and concern for pyelonephritis, has a long history for the past year urinary tract infections. He denied any lower urinary tract symptoms. No actual flank pain, but still deserved a workup and circumcision. DESCRIPTION OF PROCEDURE: The patient was brought into the room by Anesthesia lying in supine position. After receiving general anesthetic, legs placed in lithotomy position, prepped and draped in sterile fashion. A 21-Greenlandic cystoscope and a 30 degree lens, it was traversed and prostate was enlarged and high riding making it a bit difficult to get into the bladder without pressure. Debris was noted throughout and this was irrigated three times before it was clear. There were no stones or masses. The ureteral orifices were noted with the left being slightly closer to the bladder neck than its usual relatively normal position. There was a folded mucosa that appeared to be a capacious second right UO but this was blind ending as determined with a Pollack catheter that went into it for approximately only 1 cm and showed nothing more with contrast injected. Then, retrograde pyelograms were performed. No filling defect or narrowing was noted. The right quickly drained while the left took a little bit more time. There was no actual stricture or narrowing or columning of the contrast and ultimately I visualized a good stream coming from the left. At this point, the scope was removed after draining the bladder and the patient was returned to supine position. A penile block was performed after the area was prepped and draped with a 10 mL of Marcaine. Then, two circumferential incisions were made, one with the foreskin reduced at the level of the christensen, the other with the foreskin retracted approximately 5 mm proximal to the christensen. These two skin edges were inserted and the excess skin was transected. Hemostasis was ensured with electrocautery and the two skin edges were reapproximated using 4-0 and 3-0 chromic in interrupted fashion. A small skin tag at the ventral glans was removed. This was only 2 mm. Bacitracin and sterile dressing were applied. The patient was then awakened and transferred to the PACU in stable condition. Plan is to start tamsulosin and finasteride as BPH is a contributing factor to his infections as well. GABI
--- NOTE | 2017-07-12 18:35 | PDOC.PN ---
- Subjective Encounter Start Date: 07/12/17 Encounter Start Time: 18:30 Subjective: f/u s/p cystoscopy and retrograde pyelograms showing mainly debris in -: bladder and patent ureters. Also s/p circumcision in context of phimosis. -: Some pain noted but overall doing ok. No fever or chills. - Objective Resuscitation Status: Resuscitation Status FULL:Full Resuscitation MAR Reviewed: Yes Vital Signs & Weight: Vital Signs (12 hours) Temp Pulse Resp BP Pulse Ox 07/12/17 08:04 98.7 F 76 16 156/81 H 99 07/12/17 08:00 98.7 F 76 16 99 Weight Admit Weight 155 lb 7 oz Weight 155 lb 9 oz I&O: 07/11/17 07/12/17 07/13/17 06:59 06:59 06:59 Intake Total 1901 350 120 Output Total 2175 925 650 Balance -274 -575 -530 Result Diagrams: 07/10/17 05:38 07/11/17 05:35 Additional Labs: Accuchecks 07/12/17 07/12/17 07/12/17 15:30 11:22 05:16 POC Glucose 215 H 265 H 387 H 07/11/17 20:22 POC Glucose 230 H Microbiology 07/08/17 23:40 Venous blood - Left Arm Blood Culture - Preliminary Specimen has been received and culture in progress. No Growth to date. 07/08/17 22:47 Venous blood - Right Hand Blood Culture - Preliminary Specimen has been received and culture in progress. No Growth to date. Laboratory Tests 07/08/17 07/08/17 07/09/17 19:14 19:14 05:10 WBC 13.5 H Hgb 10.8 L Sodium 125 L 133 L Creatinine 2.14 H 1.83 H 07/09/17 05:10 WBC 11.4 H Hgb 9.2 L Sodium Creatinine Phys Exam - Physical Examination Constitutional: NAD HEENT: PERRLA, oral pharynx no lesions Neck: no JVD, supple Respiratory: no wheezing, clear to auscultation bilateral Cardiovascular: RRR Gastrointestinal: soft, non-tender, no distention, positive bowel sounds Musculoskeletal: no edema, pulses present Neurological: normal sensation, moves all 4 limbs Psychiatric: A&O x 3 Skin: normal turgor, cap refill <2 seconds Dx/Plan (1) Pyelonephritis Code(s): N12 - TUBULO-INTERSTITIAL NEPHRITIS, NOT SPCF ACUTE OR CHRONIC Status: Acute Comment: Suspected given CT abd findings, continue Rocephin, consult Urology service regarding recurrent UTI's, s/p cystoscopy with bladder debris irrigated and normal ureters, convert to po abx in am (2) CHINO (acute kidney injury) Code(s): N17.9 - ACUTE KIDNEY FAILURE, UNSPECIFIED Status: Acute Comment: Improved with supportive measures, avoid nephrotoxic meds and contrast, hold Lisinopril another 24h, repeat creatinine in am (3) Hyponatremia Code(s): E87.1 - HYPO-OSMOLALITY AND HYPONATREMIA Status: Acute Comment: Chronic component in addition to hyperglycemia, decrease IVF's 50ml/h, repeat Na + level in am (4) Constipation Code(s): K59.00 - CONSTIPATION, UNSPECIFIED Status: Acute Comment: MagCitrate x 1 today (5) CKD (chronic kidney disease), stage II Code(s): N18.2 - CHRONIC KIDNEY DISEASE, STAGE 2 (MILD) Status: Chronic Comment: Nearing baseline renal function with supportive measures (6) DM type 2 (diabetes mellitus, type 2) Status: Chronic Comment: Labile, will confirm home meds, Metformin on hold due to renal function (7) Phimosis Code(s): N47.1 - PHIMOSIS Status: Chronic Comment: s/p circumcision, pain control, local care - Plan continue antibiotics, out of bed/ambulate, DVT proph w/SCDs Stable overall -: Continue Rocephin another 24h then convert to po -: Continue IVF's another 24h -: Local care for circumcision, pain control -: AM lab: BMP * Home in am 07/13/17
[2017-07-12] MEDS: hydrALAZINE 20 MG/ML VIAL SLOW IVP PRN (20:41)
[2017-07-13] MEDS: HumaLOG 300 UNITS/3 ML VIAL SC PRN ×2 (05:37→11:25)
[2017-07-13 06:14] LABS: Anion Gap 11 mmol/L (10-20); BUN (Urea Nitrogen) 9 mg/dL (8.4-25.7); Calc. Creatinine Clearance 63 mL/min (70-130); Calcium 8.7 mg/dL (7.8-10.44); Carbon Dioxide 23 mmol/L (22-29); Chloride 104 mmol/L (98-107); Estimated GFR-MDRD 58; Glucose 243 mg/dL (70-105); Potassium 3.9 mmol/L (3.5-5.1); Sodium 134 mmol/L (136-145)
[2017-07-13 07:51] VITALS: BP 140/89; TEMP 97.9
[2017-07-13] MEDS: Docusate 100 MG CAP PO SCH (09:18)
[2017-07-13] MEDS: Finasteride 5 MG TAB PO SCH (09:18)
[2017-07-13] MEDS: Enoxaparin Sodium 40 MG/0.4 ML SYRINGE SC SCH (09:19)
[2017-07-13] MEDS: cefTRIAXone\\ROCEPHIN 2 GM in Sodium Chloride 0.9% 100 ML IVPB SCH (09:19)
[2017-07-13] MEDS: Tamsulosin HCl 0.4 MG CAP PO SCH (09:19)
[2017-07-13] MEDS: Famotidine 40 MG/4 ML VIAL SLOW IVP SCH (09:20)
--- NOTE | 2017-07-13 11:22 | DIS ---
DATE OF ADMISSION: 07/08/2017 DATE OF DISCHARGE: 07/13/2017 DISCHARGE DIAGNOSES: 1. Suspected acute pyelonephritis without identified organism. 2. Acute kidney injury on chronic kidney disease stage 2-3, improved. 3. Chronic hyponatremia, improved. 4. Diabetes mellitus type 2, insulin requiring. 5. Benign prosthetic hyperplasia. 6. Phimosis, status post circumcision on 07/12/2017. 7. Coronary artery disease, chronic and stable. CONSULTATIONS: Dr. Siomara Carter with Urology Service. PERTINENT LAB AND X-RAY FINDINGS: Sodium ranged between 125-134, creatinine ranged between 1.27-2.14 with estimated GFR ranging between 32-58. Lactic acid level 1.6. CBC showed a white blood cell cou nt ranging between 11.4-13.5, hemoglobin ranged between 9.3-10.8. Blood cultures x2 from 07/08/2017 showed no growth at [address] of the abdomen dated 07/08/2017 showed diffuse bilateral perinephri c fat stranding suspicious for pyelonephritis. Borderline bladder wall thickening noted. Retrograde pyelogram dated 07/11/2017 showed no hydronephrosis. Mild irregularity of the left lower ureter. C ystoscopy dated 07/11/2017 showed benign prostatic hypertrophy with debris filled urine in the bladde r without mass or stone. Phimosis noted. HOSPITAL COURSE: The patient was admitted to the medical floor after initially presenting with abdom inal pain in the context of recurrent urinary tract infections. The patient with multiple admissions regarding urinary complaints evaluated and placed on IV antibiotic therapy with Rocephin after suspi cion for recurrent urinary tract infection, and CT imaging findings showing thickened bladder wall. Due to patient's recurrent urinary tract infections and suspicion for pyelonephritis, the patient was evaluated by the Urology Service for potential urinary obstructive process. The patient underwent c ystoscopy with retrograde pyelograms showing bladder filled with sediment and debris irrigated at the time of the procedure. The patient was also noted with phimosis, undergoing a circumcision during t he hospital course. The patient was also placed on Flomax and finasteride with overall improvement i n urinary function. The patient received IV fluids after initial acute kidney injury noted at the ti me of admission, likely due to urinary retention and phimosis. The patient was noted with multiple m etabolic derangements including acute on chronic hyponatremia, improved with intravenous normal salin e. Overall, patient remained clinically stable postoperatively, requiring minimal pain medication, a mbulating without assistance or difficulty and tolerating regular oral intake. On the admission, the patient's lung vázquez are clear to auscultation bilaterally with cardiovascular exam showing normal S1 and S2. Abdomen is soft to palpation with bowel sounds positive in all 4 quadrants. Overall, pat ient clinically stable and ready for discharge on 07/13/2017. DISCHARGE MEDICATIONS: 1. Ciprofloxacin 500 mg 1 tablet p.o. b.i.d. x5 days. 2. Plavix 75 mg 1 tablet p.o. daily, resume on 07/14/2017. 3. Proscar 5 mg p.o. daily. 4. NPH insulin 25 units subcutaneously q.a.m. and 10 units subcutaneously at bedtime. 5. Lisinopril 10 mg p.o. b.i.d. 6. Metformin 500 mg p.o. b.i.d. 7. Flomax 0.4 mg p.o. daily. FOLLOWUP: 1. The patient will follow up with his primary care provider, Dr. Gaviria within 7 days of discharge. 2. The patient will follow up with Dr. Siomara Carter with Urology Service and to call her office for appointment time and date. CONDITION ON DISCHARGE: Stable. ACTIVITY: Ad elle. DIET: Heart healthy and ADA. CODE STATUS: FULL. DISPOSITION: Home 07/13/2017. Total time preparing and coordinating discharge 32 minutes.
--- NOTE | 2017-07-14 08:28 | PRG ---
DATE OF SERVICE: 07/12/2017 SUBJECTIVE: The patient did well overnight. He has minimal to no pain. He has voided without diffi culty. I reviewed the operative findings to include debris in his bladder and an enlarged prostate a nd having started tamsulosin and finasteride. OBJECTIVE: VITAL SIGNS: He has been afebrile with vital signs stable. : The penis is wrapped with the glans pink and nonedematous. The report from the retrograde pyelograms revealed that there was concern for changes of the left dis zachary ureter. I was not concerned for this as I did not feel there was any abnormality in the live christofer ges. However, I will send cytology to rule out any concerning findings there. ASSESSMENT: We have a 57-year-old male status post cystoscopy, bilateral retrograde pyelograms and c ircumcision after recurrent persistent infections, noted to have BPH, now on tamsulosin and finasteri de. Send cytology and await results.
--- NOTE | 2017-07-14 08:30 | PRG ---
DATE OF SERVICE: 07/13/2017 SUBJECTIVE: The patient did well overnight. His wrap has come off. He has put some bacitracin on t he incision. He is voiding fine. We reviewed how cytology was negative, but he should follow up wit h in the office in approximately a month and in the meantime not to use his penis. OBJECTIVE: VITAL SIGNS: Stable. : The incision is clean, dry, and intact with ointment. The penis has minimal edema without any e rythema or discharge. ASSESSMENT AND PLAN: We have a 57-year-old male with recurrent urinary tract infections status post cystoscopy, bilateral retrogrades, and circumcision doing well with BPH, now on finasteride and tamsu losin. He can follow up with me as an outpatient.
== END 2017-07-13 16:24 | disposition home or self-care (01) | DRG 690 ==
LOC: ERS 18:33 → ONC 23:09 → ERS 07-09 00:51
PROVIDERS: ADMIT Family Medicine; ATTEND Family Medicine
PROC: BT141ZZ Fluoroscopy of Kidneys, Ureters and Bladder using Low Osmolar Contrast (ICD-10-PCS; principal; 2017-07-11)
PROC: 3E1K88Z Irrigation of Genitourinary Tract using Irrigating Substance, Via Natural or Artificial Opening Endoscopic (ICD-10-PCS; 2017-07-11)
PROC: 0VTTXZZ Resection of Prepuce, External Approach (ICD-10-PCS; 2017-07-11)
DX: N10 Acute pyelonephritis (principal); N17.9 Acute kidney failure, unspecified; E11.22 Type 2 diabetes mellitus with diabetic chronic kidney disease; E11.42 Type 2 diabetes mellitus with diabetic polyneuropathy; E87.1 Hypo-osmolality and hyponatremia; N39.0 Urinary tract infection, site not specified; E11.65 Type 2 diabetes mellitus with hyperglycemia; I25.10 Atherosclerotic heart disease of native coronary artery without angina pectoris; Z95.1 Presence of aortocoronary bypass graft; Z89.412 Acquired absence of left great toe; F10.21 Alcohol dependence, in remission; Z79.01 Long term (current) use of anticoagulants; Z79.4 Long term (current) use of insulin; E86.0 Dehydration; E78.5 Hyperlipidemia, unspecified; N47.1 Phimosis; N40.0 Benign prostatic hyperplasia without lower urinary tract symptoms; I12.9 Hypertensive chronic kidney disease with stage 1 through stage 4 chronic kidney disease, or unspecified chronic kidney disease; Z87.891 Personal history of nicotine dependence; D64.9 Anemia, unspecified; K59.00 Constipation, unspecified; K52.9 Noninfective gastroenteritis and colitis, unspecified; F41.9 Anxiety disorder, unspecified; F32.9 Major depressive disorder, single episode, unspecified; N18.2 Chronic kidney disease, stage 2 (mild)
CPT/HCPCS: 36415; 36416; 74150; 74420; 80048; 80053; 81003; 81015; 82553; 83605; 83690; 84484; 85025; 87040; 88112; 93005; 96361; 96372; 96374; C1758; C1769; G8978-GP-CL; G8979-GP-CJ; G8987-GO-CJ; G8988-GO-CI; J0360; J0696; J1650; J1815; J2001; J2405; J2704; J3010; J7050; Q9961; S0020

== ENCOUNTER 2017-08-20 20:48 | Inpatient (IN) | payer SELFPAY ==
[2017-08-20 21:12] LABS: #Lymphocytes 0.8 thou/uL (1.20-3.40); #Monocytes 0.7 thou/uL (0.11-0.59); #Neutrophils 8.3 thou/uL (1.40-6.50); %Basophils 0.1 % (0.0-1.0); %Eosinophils 0.4 % (0.0-10.0); %Lymphocytes 7.7 % (21.0-51.0); %Monocytes 6.7 % (0.0-10.0); %Neutrophils 85.1 % (42.0-75.0); Hemoglobin 9.2 g/dL (14.0-18.0); Mean Corpuscular HGB CONC 32.7 g/dL (32.0-36.0); Mean Corpuscular Hemoglobin 27.6 pg (27.0-31.0); Mean Corpuscular Volume 84.3 fl (80.0-94.0); Mean Platelet Volume 7.5 fL (7.4-10.4); Platelet Count 434 thou/uL (130-400); RBC Distribution Width 12.5 % (11.5-14.5); Red Blood Cell (RBC) Count 3.33 mill/uL (4.70-6.10); White Blood Cell (WBC) Count 9.7 thou/uL (4.8-10.8)
[2017-08-20 21:32] LABS: ALT (SGPT) Less than 7 U/L (8-55); AST (SGOT) 8 U/L (5-34); Albumin 2.9 g/dL (3.5-5.0); Alkaline Phosphatase 144 U/L (40-150); Anion Gap 17 mmol/L (10-20); BUN (Urea Nitrogen) 33 mg/dL (8.4-25.7); Bilirubin, Total 0.5 mg/dL (0.2-1.2); Calc. Creatinine Clearance 0 mL/min (70-130); Calcium 8.7 mg/dL (7.8-10.44); Carbon Dioxide 21 mmol/L (22-29); Chloride 95 mmol/L (98-107); Estimated GFR-MDRD 29; Globulin 5.3 g/dL (2.4-3.5); Glucose 418 mg/dL (70-105); Magnesium 1.5 mg/dL (1.6-2.6); Potassium 4.4 mmol/L (3.5-5.1); Protein, Total 8.2 g/dL (6.0-8.3); Sodium 129 mmol/L (136-145)
--- NOTE | 2017-08-20 21:41 | RAD ---
PORTABLE CHEST ONE VIEW: Date: 08-20-17 Time: 8:52 p.m. History: Abdominal pain. Vomiting. Comparison: 07-05-17 FINDINGS: The heart size is normal. There are changes of median sternotomy. Lungs are well expanded without foc al areas of consolidation or pleural effusions. IMPRESSION: No radiographic evidence of acute cardiopulmonary process. POS: [facility]
[2017-08-20] MEDS ORDERED: Acetaminophen 500 MG TAB ONE (22:28)
[2017-08-20] MEDS ORDERED: Piperacillin/Tazobactam 3.375 GM VIAL ONE (22:28)
[2017-08-20] MEDS ORDERED: Insulin Regular 300 UNITS/3 ML VIAL ONE (22:28)
[2017-08-20] MEDS ORDERED: Magnesium Sulfate 2 GM/100 ML BAG ONE (22:29)
[2017-08-20 23:17] LABS: Bilirubin Negative (Negative); Blood, Urine Moderate (Negative); Clarity CLOUDY (Clear); Glucose, Urine (Dipstick) >=1000 mg/dL (Negative); Leukocyte Moderate (Negative); Nitrite Negative (Negative); Protein, Urine (Dipstick) 100 mg/dL (Neg-Trace); Specific Gravity, Urine 1.022 (1.002-1.036)
[2017-08-20 23:19] LABS: Bacteria/HPF None Seen HPF (None Seen); Hyaline Casts/LPF 0-3 HYALINE CAST LPF (0-3 Hyaline); Pathc Cast-AUWi Flag 0.14 (0-2.49); Squamous Epithelial None Seen HPF (0-3); Yeast-AUWi Flag 31.5 (0-25.0)
[2017-08-20 23:23] LABS: Crystals/HPF None Seen HPF (Negative); Yeast-All Forms None Seen HPF (None Seen)
--- NOTE | 2017-08-21 00:53 | PDOC.FPRHP ---
- History of Present Illness Chief Complaint: Weakness ED Course: Mg Sulfate Vancomycin Zosyn 8u Novolin Acetaminophen 1L NS bolus - Allergies/Adverse Reactions Allergies Allergy/AdvReac Type Severity Reaction Status Date / Time No Known Allergies Allergy Verified 07/09/17 01:16 - Home Medications Medication Instructions Recorded Confirmed Type metFORMIN [Glucophage] 500 mg PO BID-WM #60 tab 12/20/16 06/12/17 Rx Insulin NPH/Reg Insulin Hm 10 unit SC HS #5 vial 06/17/17 07/09/17 Rx [HumuLIN 70/30 Vial] Insulin NPH/Reg Insulin Hm 25 units SC QAM #5 vial 06/17/17 07/09/17 Rx [HumuLIN 70/30 Vial] Lisinopril [Zestril] 10 mg PO BID tab 06/17/17 07/09/17 Rx Ciprofloxacin [Cipro] 500 mg PO Q12HR #10 tab 07/13/17 Rx Clopidogrel Bisulfate [Plavix] 75 mg PO DAILY #30 tab 07/13/17 07/09/17 Rx Finasteride [Proscar] 5 mg PO DAILY #30 tab 07/13/17 Rx Tamsulosin HCl [Flomax] 0.4 mg PO DAILY #30 cap 07/13/17 Rx - History PMHx: PSHx: FHx: Social: - Vital signs BP: [] HR: [] RR: [] Tmax: [] Pox: []% on [] Wt: [] FMR H&P: Results - Labs Result Diagrams: 08/20/17 21:00 08/20/17 21:00 Lab results: WBC 9.7 thou/uL (4.8-10.8) 08/20/17 21:00 Hgb 9.2 g/dL (14.0-18.0) L 08/20/17 21:00 Hct 28.0 % (42.0-52.0) L 08/20/17 21:00 MCV 84.3 fl (80.0-94.0) 08/20/17 21:00 Plt Count 434 thou/uL (130-400) H 08/20/17 21:00 Neutrophils % 85.1 % (42.0-75.0) H 08/20/17 21:00 Sodium 129 mmol/L (136-145) L 08/20/17 21:00 Potassium 4.4 mmol/L (3.5-5.1) 08/20/17 21:00 Chloride 95 mmol/L (98-107) L 08/20/17 21:00 Carbon Dioxide 21 mmol/L (22-29) L 08/20/17 21:00 BUN 33 mg/dL (8.4-25.7) H 08/20/17 21:00 Creatinine 2.34 mg/dL (0.6-1.3) H 08/20/17 21:00 Glucose 418 mg/dL (70-105) H 08/20/17 21:00 Lactic Acid 2.7 mmol/L (0.5-2.2) H 08/20/17 21:00 Calcium 8.7 mg/dL (7.8-10.44) 08/20/17 21:00 Total Bilirubin 0.5 mg/dL (0.2-1.2) 08/20/17 21:00 AST 8 U/L (5-34) 08/20/17 21:00 ALT Less than 7 U/L (8-55) L 08/20/17 21:00 Alkaline Phosphatase 144 U/L (40-150) 08/20/17 21:00 Serum Total Protein 8.2 g/dL (6.0-8.3) 08/20/17 21:00 Albumin 2.9 g/dL (3.5-5.0) L 08/20/17 21:00 Urine Ketones Trace mg/dL (Negative) H 08/20/17 23:03 Urine Blood Moderate (Negative) H 08/20/17 23:03 Urine Nitrite Negative (Negative) 08/20/17 23:03 Ur Leukocyte Esterase Moderate (Negative) H 08/20/17 23:03 Urine RBC 7-10 HPF (0-3) H 08/20/17 23:03 Urine WBC Greater Than 50-TNTC HPF (0-3) H 08/20/17 23:03 Ur Squamous Epith Cells None Seen HPF (0-3) 08/20/17 23:03 Urine Bacteria None Seen HPF (None Seen) 08/20/17 23:03 FMR H&P: Upper Level - Plan Date/Time: 08/21/17 0051 I, [], have evaluated this patient and agree with findings/plan as outlined by administrative intern resident. Pertinent changes/additions are listed here.
[2017-08-21] MEDS ORDERED: Acetaminophen 325 MG TAB PO PRN (01:22)
[2017-08-21] MEDS ORDERED: Dextrose 5% in Water 1,000 ML IV PRN (01:24)
[2017-08-21] MEDS ORDERED: Dextrose 50% Abboject 50 ML SYRINGE SLOW IVP PRN (01:24)
[2017-08-21 01:40] LABS: Lactic Acid 2.5 mmol/L (0.5-2.2)
[2017-08-21] MEDS ORDERED: Sodium Chloride 0.9% 1,000 ML IV SCH (01:45)
[2017-08-21 02:29] VITALS: BMI 25.8
--- NOTE | 2017-08-21 02:30 | HP ---
CHIEF COMPLAINT: Abdominal pain, nausea, vomiting. PRIMARY CARE PHYSICIAN: PhysicianHaydee A&. HISTORY OF PRESENT ILLNESS: Patient is a very pleasant 57-year-old male with a history of diabetes a nd coronary artery disease, who presents to the hospital with complaints of abdominal pain, nausea, a nd vomiting x1 day. The patient states that he was at home, he found his sugars to be around 600. H e took 30 units of insulin. The patient states that he continued to feel unwell, so he came into the ER for further evaluation. Denies any chest pain or shortness of breath. Patient states that he marquez s been taking his medications without any issues. The patient states that he does have some dysuria upon urinating. The patient states that he has not been eating well for the past few days because th e food does not taste good. PAST MEDICAL HISTORY: 1. Diabetes, insulin-dependent. 2. Coronary artery disease, status post bypass. 3. Peripheral vascular disease. He has a stent placed in 2015 in left lower extremities. 4. Chronic kidney disease 5. Hypertension. 6. Hyperlipidemia. PAST SURGICAL HISTORY: He has had CABG in 2013, amputation of the left great toe and stent to the le ft lower leg. SOCIAL HISTORY: The patient is a former alcoholic, however, does not drink anymore. Has a history o f smoking in the past, has quit smoking. Denies any drug use. ALLERGIES: He has no known drug allergies. MEDICATIONS: He is on; 1. Plavix 75 mg daily. 2. Novolin 70/30, 30 units 2 times a day. 3. Metformin 500 mg twice a day. 4. Lisinopril 10 mg daily. PHYSICAL EXAMINATION: VITAL SIGNS: He had a temperature in the ER of 102.0, blood pressure 164/90, 98% on room air, pulse of 111, respirations 18. GENERAL: Awake, alert, and oriented x3, does not appear in distress. HEENT: Patient has significant oral thrush in his tongue and appears very dehydrated and dry mucous membranes. CARDIOVASCULAR: S1, S2 present. No murmurs, rubs, or gallops. LUNGS: Mild rhonchi to all over lungs. ABDOMEN: Soft, mild pain upon palpation to epigastric area. Bowel sounds are present x2. EXTREMITIES: He does have amputation of the left toe. The patient's left arm is contracted and he h as amputation of the left toe. LABORATORY AND IMAGING RESULTS: As of the following, WBCs of 9.7, hemoglobin of 9.2, hematocrit of 2 8.0. No bands. Chemistry: Sodium of 129, potassium of 4.4, BUN of 33, creatinine of 2.34, lactic a noris of 2.7, magnesium of 1.5, and his sugar in the ER was 197. Chest x-ray was done indicates no rad iographic evidence of acute cardiopulmonary process. ASSESSMENT AND PLAN: The patient is a very pleasant 57-year-old male who initially presented to the hospital with complaints of nausea, vomiting, and abdominal pain. 1. Urinary tract infection: The patient has been having urinary tract infection on multiple occasio ns, most of his cultures have grown Staph aureus, which is sensitive to vancomycin. We will continue vancomycin for now. He did get vancomycin and Zosyn in the ER. Also, the patient got 1 liter of IV fluids in the ER. We will give an additional 1 liter of fluids. Blood cultures have been drawn. 2. Sepsis, most likely secondary to the urinary tract infection. We will continue antibiotics. 3. Diabetes. Patient was initially found to have blood sugar of 600 at home. His blood sugar here is in the 400s. We will continue patient on his sliding scale insulin. We will check a hemoglobin A 1c. 4. Abdominal pain, nausea, vomiting, most likely secondary to urinary tract infection and also secon brian to his elevated blood sugars. We will continue to monitor. 5. Acute kidney injury: We will hold his lisinopril for now and also hold his metformin. We will g ently hydrate the patient and continue to monitor. 6. Deep venous thrombosis prophylaxis. We will put patient on subcu heparin.
[2017-08-21] MEDS: Sodium Chloride 0.9% 1,000 ML IV SCH ×3 (02:52→21:03)
[2017-08-21] MEDS: HumaLOG 300 UNITS/3 ML VIAL SC PRN ×4 (05:42→22:30)
[2017-08-21 06:40] LABS: #Eosinphils 0.1 thou/uL (0.0-0.7); #Lymphocytes 1.2 thou/uL (1.20-3.40); #Monocytes 0.6 thou/uL (0.11-0.59); #Neutrophils 5.2 thou/uL (1.40-6.50); %Basophils 0.1 % (0.0-1.0); %Eosinophils 1.4 % (0.0-10.0); %Lymphocytes 17.1 % (21.0-51.0); %Monocytes 8.9 % (0.0-10.0); %Neutrophils 72.5 % (42.0-75.0); Hemoglobin 8.9 g/dL (14.0-18.0); Mean Corpuscular HGB CONC 33.4 g/dL (32.0-36.0); Mean Corpuscular Hemoglobin 28.3 pg (27.0-31.0); Mean Corpuscular Volume 84.6 fl (80.0-94.0); Mean Platelet Volume 7.2 fL (7.4-10.4); Platelet Count 377 thou/uL (130-400); RBC Distribution Width 12.5 % (11.5-14.5); Red Blood Cell (RBC) Count 3.15 mill/uL (4.70-6.10); White Blood Cell (WBC) Count 7.2 thou/uL (4.8-10.8)
[2017-08-21 07:00] LABS: Anion Gap 11 mmol/L (10-20); BUN (Urea Nitrogen) 34 mg/dL (8.4-25.7); Calc. Creatinine Clearance 43 mL/min (70-130); Calcium 8.5 mg/dL (7.8-10.44); Carbon Dioxide 23 mmol/L (22-29); Chloride 99 mmol/L (98-107); Estimated GFR-MDRD 32; Glucose 230 mg/dL (70-105); Potassium 4.2 mmol/L (3.5-5.1); Sodium 129 mmol/L (136-145)
[2017-08-21] MEDS: Heparin 5,000 UNITS/ML VIAL SC SCH ×3 (08:56→21:02)
[2017-08-21] MEDS: Nystatin 500,000 UNITS/5 ML UDCUP SSW SCH ×4 (08:57→21:02)
[2017-08-21] MEDS: Docusate 100 MG CAP PO SCH ×2 (08:57→21:01)
[2017-08-21] MEDS: Finasteride 5 MG TAB PO SCH (08:57)
[2017-08-21] MEDS: Clopidogrel Bisulfate 75 MG TAB PO SCH (08:57)
[2017-08-21] MEDS: Tamsulosin HCl 0.4 MG CAP PO SCH (08:57)
[2017-08-21] MEDS ORDERED: Nystatin 100,000 Units/mL UDCUP SSW SCH (09:00)
[2017-08-21 09:55] LABS: Base Excess-Venous -2.9 mmol/L (0 (+/- 2.5)); Bicarbonate (HCO3v) 21.2 mmol/L (1.0-85.0); CO2 Tension (PvCO2) 33.8 mmHg (41.0-51.0); Calcium, Ionized 1.01 mmol/L (1.12-1.32); O2 Tension (PvO2) 35.6 mmHg (35.0-45.0); Potassium 4.3 mmol/L (3.4-4.7); T. Carbon Dioxide 22.3 mmol/L (1.0-85.0); pH (Venous) 7.407 (7.35-7.45); vO2 Saturation-calc 69.4 % (94-98)
[2017-08-21] MEDS ORDERED: Vancomycin HCl 1 GM in Premix Bag 1 BAG IVPB SCH ×3 (14:15→22:00)
--- NOTE | 2017-08-21 14:34 | CON ---
DATE OF CONSULTATION: 08/21/2017 REASON FOR CONSULTATION: Fever, general malaise, and urinary tract infection. HISTORY OF PRESENT ILLNESS: This is a 57-year-old patient, who has a history of type 2 diabetes astrid itus, coronary artery disease with prior bypass graft surgery, and renal insufficiency as well as hyp ertension, who has had quite frequent admissions over the past 3 years, mostly secondary to vascular complications including DVT as well as a CVA. Has had 1 ankle septic arthritis treated with protract ed antimicrobial therapy. Then in May this year, he was admitted with sepsis with bacteremia se condary to methicillin-sensitive Staphylococcus aureus. There was evidence of pyelonephritis on CT o f the abdomen and urinalysis was consistent with a urinary tract infection and the same organism was isolated. The patient was discharged on nitrofurantoin after just a few days of IV therapy. In 06/23, he was readmitted with abdominal pain. He was evaluated by Urology service, underwent cystoscopy with retrograde of pyelograms. He had a circumcision for management of phimosis. He was discharged on oral ciprofloxacin for 5 days and 2 sets of blood cultures showed no growth in 5 days. Patient no w presents with a persistence of abdominal pain and anorexia, some nausea, constipation, and difficul ty with voiding with sometimes with dysuria. He also has had chills, although he did not check his t emperature in the home setting. No headaches, no visual symptoms, no back pain, no shortness of clem th or chest pain, no bleeding, no joint symptoms. No neurological symptoms. PAST MEDICAL HISTORY: Type 2 diabetes; coronary artery disease; peripheral vascular disease; coronar y artery bypass graft surgery; renal insufficiency, stage 3; hypertension; hyperlipidemia; episode of UTI, treated in May. At that time, the patient was bacteremic. The treatment for discharge pl anning included nitrofurantoin, which does not achieve bactericidal concentrations at the tissue leve l, and therefore, is usually not recommended for management of patients who presented with Staphyloco ccal bacteremia or any other type of bacteremia. This may explain the persistence of symptoms. PAST SURGICAL HISTORY: As above. SOCIAL HISTORY: Former alcoholic, former smoker, lives in town with family members, never been marri ed. ALLERGIES: None. MEDICATIONS: Currently, he is receiving Plavix, dextrose, finasteride, glucagon, heparin, nystatin, tamsulosin, and vancomycin. FAMILY HISTORY: Noncontributory. PHYSICAL EXAMINATION: VITAL SIGNS: With a T-max 97.9, blood pressure 129/70, pulse 78, respirations 16, O2 sat 90%-100%. SKIN EXAM: Did not show any areas of skin breakdown. The patient has a peripheral IV access. No Fo costa catheter. The patient has no lymphadenopathy. HEENT: Ocular movements conjugate. Oral cavity with only a few teeth stubs remaining in place. Ora l cavity, otherwise, normal. NECK: Supple, no jugular vein distention. LUNGS: With symmetric clear breath sounds. HEART: S1, S2, regular rate. No S3 or S4. ABDOMEN: Soft with [id number] tenderness in the left flank area. No ascites. No bladder dist ention. EXTREMITIES: No joint inflammatory activity. No edema. NEUROLOGIC: Patient moves all extremities equally. Cognitive function appears to be intact. LABORATORY DATA: White cell count is 9.7 and 7.2; hemoglobin 9.2 and 8.9; platelets 377; 72% neutrop hils, which is down from admission when it was 82%. Chemistry with a creatinine 2.16. This is highe r than his baseline of 1.12, glucose 418, lactic acid 2.7, bilirubin 0.5, AST 8, ALT less than 7, alb umin 2.9. Urinalysis with greater than 50 wbcs, protein 100. Urine culture with Staphylococcus gary us, which is the usual susceptibility profile for MSSA in this area. Two sets of blood cultures thus far no growth. The previous abdomen ultrasound from 07/08/2017 with diffuse thickening of the urina ry bladder wall, diffuse perinephric stranding bilateral with a suggestion of urothelial thickening l eft renal pelvis, and possible fecal impaction. ASSESSMENT: 1. Type 2 diabetes. 2. Coronary artery disease. 3. Peripheral vascular disease. 4. Pyelonephritis with bacteremia identified in May with inadequate discharge treatment with no w likely persistence of pyelonephritis, may have been bacteremic intermittently. DISCUSSION: Nitrofurantoin, which was used for in the discharge planning from May, does not ach ieve bactericidal tissue levels and is not a treatment of choice for invasive infections in general. He should have been discharged with IV therapy in May for at least 4 weeks in view of the Staph ylococcal bacteremia according to IDSA guidelines and I would again recommend that treatment now, PIC C line placement and Rocephin, probably in the oncology area. We will try to arrange through my offi ce as well. Repeat the imaging of the abdomen and pelvis without contrast to reassess the areas in t he kidney. Other sites of involvement are not apparent at this time. The patient is at risk for dev elopment of getting abscess and other sites of distant dissemination without proper treatment.
[2017-08-21] MEDS: cefTRIAXone\\ROCEPHIN 2 GM in Sodium Chloride 0.9% 100 ML IVPB SCH (15:30)
--- NOTE | 2017-08-21 15:31 | SPC ---
ULTRASOUND AND FLUOROSCOPIC GUIDED LEFT UPPER EXTREMITY PICC LINE PLACEMENT: INDICATION: Need for long-term IV antibiotics. TECHNIQUE: Informed consent was obtained. Preprocedure ultrasound demonstrated patent left basilic vein. The l eft upper extremity was prepped and draped in the usual sterile fashion. Buffered 1% Lidocaine was a dministered to the overlying subcutaneous tissues. Under ultrasound guidance, a micropuncture access kit was utilized to gain access to the left basilic vein. The guidewire was advanced to the level o f the IVC. A 5 Occitan catheter sheath was then placed. A single-lumen PICC line trimmed to 40 cm wa s guided over the wire and over the sheath. Total fluorosocpic time was 0.4 minutes. Total exposure was 2592 mGy*^cm2. The patient tolerated the procedure without difficulty. The tip of the catheter was seen at the cavoatrial junction. The catheter flushed and aspirated appropriately. IMPRESSION: Successful ultrasound and fluoroscopic-guided left lower extremity PICC line placed. POS: [facility]
--- NOTE | 2017-08-21 22:26 | PDOC.PN ---
- Subjective Encounter Start Date: 08/21/17 Encounter Start Time: 16:00 Patient seen and examined for sepsis due to UTI. Suprapubic pain with some dysuria. No overnight events. No fever/chills. - Objective Resuscitation Status: Resuscitation Status FULL:Full Resuscitation MAR Reviewed: Yes Vital Signs & Weight: Vital Signs (12 hours) Temp Pulse Resp BP Pulse Ox 08/21/17 19:55 99.8 F H 106 H 18 165/87 H 96 08/21/17 16:03 99.3 F 88 16 161/85 H 97 08/21/17 11:00 97.4 F L 78 16 129/70 94 L Weight Weight 180 lb 0.119 oz I&O: 08/20/17 08/21/17 08/22/17 06:59 06:59 06:59 Intake Total 400 2440 Output Total 275 575 Balance 125 1865 Result Diagrams: 08/22/17 03:27 08/22/17 03:27 Additional Labs: Accuchecks 08/21/17 08/21/17 08/21/17 22:18 16:03 10:56 POC Glucose 307 H 284 H 379 H 08/21/17 05:31 POC Glucose 211 H Phys Exam - Physical Examination Constitutional: NAD Respiratory: no wheezing, no rales, no rhonchi, clear to auscultation bilateral Cardiovascular: RRR, no rub S1, S2 +, no heaves/pulsations Gastrointestinal: soft, non-tender, positive bowel sounds Musculoskeletal: no edema Neurological: non-focal, normal sensation, moves all 4 limbs Psychiatric: normal affect, A&O x 3 Dx/Plan - Plan DVT proph w/SCDs IMPRESSION: 1. Sepsis due to Staph UTI with bacteremia 2. DM2 3. CAD 4. BPH PLAN: * Add Vancomycin until sensitivities * Check Echo to r/o Endocarditis * AM labs * PICC line placement * Consult CM for Atbx setup for 6 week * Cont sliding scale * Home meds unclear. Review of Systems - Review of Systems Cardiovascular: negative: chest pain, palpitations, orthopnea, paroxysmal nocturnal dyspnea, edema, light headedness, other Gastrointestinal: negative: Nausea, Vomiting, Diarrhea, Constipation, Melena, Hematochezia, Other - Medications/Allergies Allergies/Adverse Reactions: Allergies Allergy/AdvReac Type Severity Reaction Status Date / Time No Known Allergies Allergy Verified 07/09/17 01:16 Medications: Current Medications Acetaminophen (Tylenol) 650 mg PO Q4H PRN PRN Reason: Headache/Fever or Pain Last Admin: 08/21/17 21:01 Dose: 650 mg Clopidogrel Bisulfate (Plavix) 75 mg PO DAILY [facility] Last Admin: 08/21/17 08:57 Dose: 75 mg Dextrose/Water (Dextrose 50%) 25 gm SLOW IVP PRN PRN PRN Reason: Hypoglycemia Docusate Sodium (Colace) 100 mg PO BID [facility] Last Admin: 08/21/17 21:01 Dose: 100 mg Finasteride (Proscar) 5 mg PO DAILY [facility] Last Admin: 08/21/17 08:57 Dose: 5 mg Glucagon (Glucagon) 1 mg IM PRN PRN PRN Reason: Hypoglycemia Heparin Sodium (Porcine) (Heparin) 5,000 units SC TID [facility] Last Admin: 08/21/17 21:02 Dose: 5,000 units Sodium Chloride (Normal Saline 0.9%) 1,000 mls @ 100 mls/hr IV .Q10H [facility] Last Admin: 08/21/17 21:03 Dose: Not Given Dextrose/Water (D5w) 1,000 mls @ 0 mls/hr IV .Q0M PRN; As Directed PRN Reason: Hypoglycemia Ceftriaxone Sodium 2 gm/ (Sodium Chloride) 100 mls @ 200 mls/hr IVPB Q24HR [facility] Last Admin: 08/21/17 15:30 Dose: 100 mls Vancomycin HCl 1 gm/ Device 200 mls @ 200 mls/hr IVPB 2200 [facility] Last Admin: 08/21/17 21:03 Dose: 200 mls Insulin Human Lispro (Humalog) 0 units SC .MILD SLIDING SCALE PRN PRN Reason: Mild Correctional Scale Last Admin: 08/21/17 17:07 Dose: 4 unit Insulin Human NPH (Humulin N) 10 unit SC BID [facility] Insulin Human NPH (Humulin N) 10 unit SC ONE [facility] Miscellaneous Medication (Pharmacy To Dose) 1 each IVPB ONE PRN PRN Reason: Pharmacy to dose Stop: 08/31/17 01:45 Miscellaneous Medication (Pharmacy To Dose) 1 each IVPB PRN PRN PRN Reason: Pharmacy to dose Nystatin (Mycostatin) 500,000 units SSW QID [facility] Last Admin: 08/21/17 21:02 Dose: 500,000 units Sodium Chloride (Flush - Normal Saline) 10 ml IVF Q12HR [facility] Last Admin: 08/21/17 21:02 Dose: Not Given Sodium Chloride (Flush - Normal Saline) 10 ml IVF PRN PRN PRN Reason: Saline Flush Tamsulosin HCl (Flomax) 0.4 mg PO DAILY [facility] Last Admin: 08/21/17 08:57 Dose: 0.4 mg
[2017-08-21] MEDS ORDERED: NPH, Human Insulin Isophane 300 UNIT/3 ML VIAL SC SCH (22:45)
[2017-08-22 03:48] LABS: #Eosinphils 0.1 thou/uL (0.0-0.7); #Lymphocytes 1.4 thou/uL (1.20-3.40); #Monocytes 0.9 thou/uL (0.11-0.59); #Neutrophils 5.3 thou/uL (1.40-6.50); %Basophils 0.1 % (0.0-1.0); %Eosinophils 1.5 % (0.0-10.0); %Lymphocytes 17.6 % (21.0-51.0); %Monocytes 11.8 % (0.0-10.0); %Neutrophils 69.1 % (42.0-75.0); Hemoglobin 8.1 g/dL (14.0-18.0); Mean Corpuscular HGB CONC 32.7 g/dL (32.0-36.0); Mean Corpuscular Hemoglobin 27.5 pg (27.0-31.0); Mean Corpuscular Volume 84.2 fl (80.0-94.0); Mean Platelet Volume 7.5 fL (7.4-10.4); Platelet Count 391 thou/uL (130-400); RBC Distribution Width 12.5 % (11.5-14.5); Red Blood Cell (RBC) Count 2.95 mill/uL (4.70-6.10); White Blood Cell (WBC) Count 7.7 thou/uL (4.8-10.8)
[2017-08-22 04:06] LABS: Lactic Acid 0.7 mmol/L (0.5-2.2)
[2017-08-22 04:16] LABS: Albumin 2.4 g/dL (3.5-5.0); Anion Gap 9 mmol/L (10-20); BUN (Urea Nitrogen) 30 mg/dL (8.4-25.7); BUN/Creatinine Ratio 17.05; Calc. Creatinine Clearance 53 mL/min (70-130); Calcium 8.2 mg/dL (7.8-10.44); Carbon Dioxide 23 mmol/L (22-29); Chloride 102 mmol/L (98-107); Estimated GFR-MDRD 40; Glucose 176 mg/dL (70-105); Phosphorus 3.2 mg/dL (2.3-4.7); Potassium 3.8 mmol/L (3.5-5.1); Sodium 130 mmol/L (136-145)
[2017-08-22] MEDS: Clopidogrel Bisulfate 75 MG TAB PO SCH (09:02)
[2017-08-22] MEDS: Nystatin 500,000 UNITS/5 ML UDCUP SSW SCH ×4 (09:02→21:45)
[2017-08-22] MEDS: Tamsulosin HCl 0.4 MG CAP PO SCH (09:02)
[2017-08-22] MEDS: Docusate 100 MG CAP PO SCH ×2 (09:02→21:45)
[2017-08-22] MEDS: Finasteride 5 MG TAB PO SCH (09:02)
[2017-08-22] MEDS: Heparin 5,000 UNITS/ML VIAL SC SCH ×3 (09:03→21:45)
[2017-08-22] MEDS: NPH, Human Insulin Isophane 300 UNIT/3 ML VIAL SC SCH ×2 (09:03→21:45)
[2017-08-22] MEDS: HumaLOG 300 UNITS/3 ML VIAL SC PRN ×2 (11:44→17:45)
[2017-08-22] MEDS: Sodium Chloride 0.9% 1,000 ML IV SCH ×2 (11:44→17:41)
[2017-08-22] MEDS: cefTRIAXone\\ROCEPHIN 2 GM in Sodium Chloride 0.9% 100 ML IVPB SCH (13:53)
--- NOTE | 2017-08-22 18:08 | PRG ---
DATE OF SERVICE: 08/22/2017 SUBJECTIVE: Doing better, less abdominal cramps, no vomiting, no nausea, no cough or sputum producti on or back pain. A little bit of knee pain, but chronic. No change. Voiding with less difficulty. OBJECTIVE: VITAL SIGNS: He has been afebrile, awake, alert, oriented. Ocular movements conjugate. NECK: Supple. LUNGS: Symmetrically breath sounds. HEART: S1, S2 with regular rate. No S3, S4. ABDOMEN: Soft, not distended or tender. EXTREMITIES: Moves all extremities equally. LABORATORY DATA: White cell count 7.7, hemoglobin 8.1, platelets 391. Sodium 130, creatinine 1.76 w hich is improved from admission, and albumin 2.4. Two sets of blood cultures now with Staphylococcus aureus, which is a methicillin susceptible Staphylococcus aureus. ASSESSMENT AND DISCUSSION: Type 2 diabetes, coronary artery disease, peripheral vascular disease, py elonephritis with bacteremia identified in May with inadequate treatment now with persistence. This is a third admission since May for the same issue, now he is going to be treated properly w ith 6 weeks of IV Rocephin. A 2-D echocardiogram to be repeated to make sure he does not have an obv ious vegetation. In that case, we may have to change the regimen.
--- NOTE | 2017-08-22 22:10 | PDOC.PN ---
- Subjective Encounter Start Date: 08/22/17 Encounter Start Time: 16:00 Patient seen and examined for bacteremia/UTI. No new complaints. No overnight events - Objective Resuscitation Status: Resuscitation Status FULL:Full Resuscitation MAR Reviewed: Yes Vital Signs & Weight: Vital Signs (12 hours) Temp Pulse Resp BP Pulse Ox 08/22/17 20:00 99 F 86 16 160/82 H 99 08/22/17 15:14 98.0 F 78 14 123/76 95 08/22/17 11:54 98.1 F 84 16 147/83 H 100 Weight Weight 180 lb 0.119 oz I&O: 08/21/17 08/22/17 08/23/17 06:59 06:59 06:59 Intake Total 400 4120 1900 Output Total 275 1025 975 Balance 125 3095 925 Result Diagrams: 08/23/17 05:53 08/23/17 05:53 Additional Labs: Accuchecks 08/22/17 08/22/17 08/22/17 20:35 15:55 11:09 POC Glucose 180 H 209 H 201 H 08/22/17 08/21/17 08/21/17 05:27 23:39 22:18 POC Glucose 162 H 297 H 307 H Phys Exam - Physical Examination Constitutional: NAD Respiratory: no wheezing, no rhonchi Cardiovascular: RRR, no significant murmur, no rub Gastrointestinal: soft, non-tender, positive bowel sounds Musculoskeletal: no edema Dx/Plan - Plan continue antibiotics, out of bed/ambulate, DVT proph w/heparin, DVT proph w/SCDs IMPRESSION: 1. Sepsis due to Staph UTI/bacteremia 2. DM2 - on sliding scale 3. CAD 4. BPH 5. Other issues per H&P PLAN: * DC Vancomycin * Await Echo * s/p PICC line * Await outpt Atbx setup * Cont current meds as below Review of Systems - Review of Systems Respiratory: negative: Cough, Dry, Shortness of Breath, Hemoptysis, SOB with Excertion, Pleuritic Pain, Sputum, Wheezing Cardiovascular: negative: chest pain, palpitations, orthopnea, paroxysmal nocturnal dyspnea, edema, light headedness, other - Medications/Allergies Allergies/Adverse Reactions: Allergies Allergy/AdvReac Type Severity Reaction Status Date / Time No Known Allergies Allergy Verified 07/09/17 01:16 Medications: Current Medications Acetaminophen (Tylenol) 650 mg PO Q4H PRN PRN Reason: Headache/Fever or Pain Last Admin: 08/21/17 21:01 Dose: 650 mg Clopidogrel Bisulfate (Plavix) 75 mg PO DAILY [facility] Last Admin: 08/22/17 09:02 Dose: 75 mg Dextrose/Water (Dextrose 50%) 25 gm SLOW IVP PRN PRN PRN Reason: Hypoglycemia Docusate Sodium (Colace) 100 mg PO BID [facility] Last Admin: 08/22/17 21:45 Dose: 100 mg Finasteride (Proscar) 5 mg PO DAILY [facility] Last Admin: 08/22/17 09:02 Dose: 5 mg Glucagon (Glucagon) 1 mg IM PRN PRN PRN Reason: Hypoglycemia Heparin Sodium (Porcine) (Heparin) 5,000 units SC BID [facility] Dextrose/Water (D5w) 1,000 mls @ 0 mls/hr IV .Q0M PRN; As Directed PRN Reason: Hypoglycemia Ceftriaxone Sodium 2 gm/ (Sodium Chloride) 100 mls @ 200 mls/hr IVPB Q24HR [facility] Last Admin: 08/22/17 13:53 Dose: 100 mls Sodium Chloride (Normal Saline 0.9%) 1,000 mls @ 75 mls/hr IV .[id number] [facility] Last Admin: 08/22/17 17:41 Dose: Not Given Insulin Human Lispro (Humalog) 0 units SC .MILD SLIDING SCALE PRN PRN Reason: Mild Correctional Scale Last Admin: 08/22/17 17:45 Dose: 3 unit Insulin Human NPH (Humulin N) 10 unit SC BID [facility] Last Admin: 08/22/17 21:45 Dose: 10 unit Miscellaneous Medication (Pharmacy To Dose) 1 each IVPB PRN PRN PRN Reason: Pharmacy to dose Nystatin (Mycostatin) 500,000 units SSW QID [facility] Last Admin: 08/22/17 21:45 Dose: 500,000 units Sodium Chloride (Flush - Normal Saline) 10 ml IVF Q12HR [facility] Last Admin: 08/22/17 22:07 Dose: Not Given Sodium Chloride (Flush - Normal Saline) 10 ml IVF PRN PRN PRN Reason: Saline Flush Tamsulosin HCl (Flomax) 0.4 mg PO DAILY [facility] Last Admin: 08/22/17 09:02 Dose: 0.4 mg
[2017-08-23 06:02] LABS: #Eosinphils 0.2 thou/uL (0.0-0.7); #Lymphocytes 1.6 thou/uL (1.20-3.40); #Monocytes 0.7 thou/uL (0.11-0.59); #Neutrophils 6.3 thou/uL (1.40-6.50); %Basophils 0.1 % (0.0-1.0); %Eosinophils 2.1 % (0.0-10.0); %Lymphocytes 17.8 % (21.0-51.0); %Monocytes 8.1 % (0.0-10.0); %Neutrophils 71.9 % (42.0-75.0); Mean Corpuscular HGB CONC 32.7 g/dL (32.0-36.0); Mean Corpuscular Hemoglobin 27.6 pg (27.0-31.0); Mean Corpuscular Volume 84.2 fl (80.0-94.0); Mean Platelet Volume 7.7 fL (7.4-10.4); Platelet Count 393 thou/uL (130-400); RBC Distribution Width 12.5 % (11.5-14.5); White Blood Cell (WBC) Count 8.7 thou/uL (4.8-10.8)
[2017-08-23 06:23] LABS: Anion Gap 11 mmol/L (10-20); BUN (Urea Nitrogen) 18 mg/dL (8.4-25.7); Calc. Creatinine Clearance 67 mL/min (70-130); Calcium 8.1 mg/dL (7.8-10.44); Carbon Dioxide 22 mmol/L (22-29); Chloride 103 mmol/L (98-107); Estimated GFR-MDRD 52; Glucose 153 mg/dL (70-105); Potassium 3.7 mmol/L (3.5-5.1); Sodium 132 mmol/L (136-145)
[2017-08-23] MEDS: Tamsulosin HCl 0.4 MG CAP PO SCH (09:02)
[2017-08-23] MEDS: Heparin 5,000 UNITS/ML VIAL SC SCH ×2 (09:02→20:43)
[2017-08-23] MEDS: Clopidogrel Bisulfate 75 MG TAB PO SCH (09:02)
[2017-08-23] MEDS: Docusate 100 MG CAP PO SCH ×2 (09:02→20:48)
[2017-08-23] MEDS: Sodium Chloride 0.9% 1,000 ML IV SCH ×2 (09:02→17:58)
[2017-08-23] MEDS: NPH, Human Insulin Isophane 300 UNIT/3 ML VIAL SC SCH ×2 (09:02→20:43)
[2017-08-23] MEDS: Finasteride 5 MG TAB PO SCH (09:02)
[2017-08-23] MEDS: Nystatin 500,000 UNITS/5 ML UDCUP SSW SCH ×4 (09:04→20:42)
[2017-08-23] MEDS: HumaLOG 300 UNITS/3 ML VIAL SC PRN ×2 (11:35→20:43)
[2017-08-23] MEDS: cefTRIAXone\\ROCEPHIN 2 GM in Sodium Chloride 0.9% 100 ML IVPB SCH (13:56)
--- NOTE | 2017-08-23 21:01 | PDOC.PN ---
- Subjective Encounter Start Date: 08/23/17 Encounter Start Time: 11:00 Patient seen and examined for UTI with bacteremia. No new complaints. No overnight events - Objective Resuscitation Status: Resuscitation Status FULL:Full Resuscitation MAR Reviewed: Yes Vital Signs & Weight: Vital Signs (12 hours) Temp Pulse Resp BP Pulse Ox 08/23/17 15:10 98.8 F 76 16 165/86 H 99 08/23/17 11:10 97.9 F 83 16 137/73 98 Weight Weight 180 lb 0.119 oz I&O: 08/22/17 08/23/17 08/24/17 06:59 06:59 06:59 Intake Total 4120 1900 1700 Output Total 7647 019 9121 Balance 3095 925 -1229 Result Diagrams: 08/23/17 05:53 08/23/17 05:53 Additional Labs: Accuchecks 08/23/17 08/23/17 08/23/17 20:43 16:43 11:21 POC Glucose 174 H 137 H 287 H 08/23/17 05:17 POC Glucose 157 H Phys Exam - Physical Examination Constitutional: NAD Respiratory: no wheezing, no rhonchi Cardiovascular: RRR, no rub Gastrointestinal: soft, non-tender, positive bowel sounds Musculoskeletal: no edema Dx/Plan - Plan out of bed/ambulate, DVT proph w/SCDs IMPRESSION: 1. Sepsis due to Staph UTI/bacteremia - on Ceftriaxone, s/p PICC line 2. DM2 3. CAD 4. BPH 5. Other issues per H&P PLAN: * Cont sliding scale * Await Echo * Await outpt Atbx setup * Cont current meds as below Review of Systems - Review of Systems Respiratory: negative: Cough, Dry, Shortness of Breath, Hemoptysis, SOB with Excertion, Pleuritic Pain, Sputum, Wheezing Cardiovascular: negative: chest pain, palpitations, orthopnea, paroxysmal nocturnal dyspnea, edema, light headedness, other - Medications/Allergies Allergies/Adverse Reactions: Allergies Allergy/AdvReac Type Severity Reaction Status Date / Time No Known Allergies Allergy Verified 07/09/17 01:16 Medications: Current Medications Acetaminophen (Tylenol) 650 mg PO Q4H PRN PRN Reason: Headache/Fever or Pain Last Admin: 08/21/17 21:01 Dose: 650 mg Clopidogrel Bisulfate (Plavix) 75 mg PO DAILY [facility] Last Admin: 08/23/17 09:02 Dose: 75 mg Dextrose/Water (Dextrose 50%) 25 gm SLOW IVP PRN PRN PRN Reason: Hypoglycemia Docusate Sodium (Colace) 100 mg PO BID [facility] Last Admin: 08/23/17 20:48 Dose: 100 mg Finasteride (Proscar) 5 mg PO DAILY [facility] Last Admin: 08/23/17 09:02 Dose: 5 mg Glucagon (Glucagon) 1 mg IM PRN PRN PRN Reason: Hypoglycemia Heparin Sodium (Porcine) (Heparin) 5,000 units SC BID [facility] Last Admin: 08/23/17 20:43 Dose: 5,000 units Dextrose/Water (D5w) 1,000 mls @ 0 mls/hr IV .Q0M PRN; As Directed PRN Reason: Hypoglycemia Ceftriaxone Sodium 2 gm/ (Sodium Chloride) 100 mls @ 200 mls/hr IVPB Q24HR [facility] Last Admin: 08/23/17 13:56 Dose: 100 mls Sodium Chloride (Normal Saline 0.9%) 1,000 mls @ 75 mls/hr IV .[id number] [facility] Last Admin: 08/23/17 17:58 Dose: 1,000 mls Insulin Human Lispro (Humalog) 0 units SC .MILD SLIDING SCALE PRN PRN Reason: Mild Correctional Scale Last Admin: 08/23/17 20:43 Dose: 2 unit Insulin Human NPH (Humulin N) 10 unit SC BID [facility] Last Admin: 08/23/17 20:43 Dose: 10 unit Miscellaneous Medication (Pharmacy To Dose) 1 each IVPB PRN PRN PRN Reason: Pharmacy to dose Nystatin (Mycostatin) 500,000 units SSW QID [facility] Last Admin: 08/23/17 20:42 Dose: 500,000 units Sodium Chloride (Flush - Normal Saline) 10 ml IVF Q12HR [facility] Last Admin: 08/23/17 20:48 Dose: Not Given Sodium Chloride (Flush - Normal Saline) 10 ml IVF PRN PRN PRN Reason: Saline Flush Tamsulosin HCl (Flomax) 0.4 mg PO DAILY [facility] Last Admin: 08/23/17 09:02 Dose: 0.4 mg
[2017-08-24] MEDS: Sodium Chloride 0.9% 1,000 ML IV SCH ×2 (07:41→08:50)
[2017-08-24] MEDS: Nystatin 500,000 UNITS/5 ML UDCUP SSW SCH ×2 (08:48→12:26)
[2017-08-24] MEDS: Heparin 5,000 UNITS/ML VIAL SC SCH (08:48)
[2017-08-24] MEDS: Clopidogrel Bisulfate 75 MG TAB PO SCH (08:49)
[2017-08-24] MEDS: NPH, Human Insulin Isophane 300 UNIT/3 ML VIAL SC SCH (08:49)
[2017-08-24] MEDS: Finasteride 5 MG TAB PO SCH (08:49)
[2017-08-24] MEDS: Docusate 100 MG CAP PO SCH (08:49)
[2017-08-24] MEDS: Tamsulosin HCl 0.4 MG CAP PO SCH (08:49)
[2017-08-24 11:13] VITALS: TEMP 98
[2017-08-24] MEDS: HumaLOG 300 UNITS/3 ML VIAL SC PRN (11:17)
[2017-08-24 11:55] VITALS: BP 156/63
[2017-08-24] MEDS: cefTRIAXone\\ROCEPHIN 2 GM in Sodium Chloride 0.9% 100 ML IVPB SCH (12:26)
--- NOTE | 2017-08-24 16:47 | DIS ---
DATE OF DISCHARGE: 08/24/2017 DISCHARGE DISPOSITION: Home. FOLLOWUP: 1. Follow up with primary care physician at [facility] in 1 week. 2. Follow up with Infectious Disease, Dr. Anderson in 2 weeks. CBC, CRP, and CMP every week while on antibiotics is recommended. Primary care physician advised to follow. DISCHARGE MEDICATIONS: Ceftriaxone 2 grams daily until 10/03/2017. All other home medications were resumed. The patient was seen and examined on the day of discharge. Denies any new complaints. No chest pain , shortness of breath, palpitations. BRIEF HOSPITAL COURSE: The patient is a 57-year-old male with diabetes mellitus type 2, hypertension , and recent UTI, presented to the emergency room with abdominal pain, nausea, and vomiting. His wor kup was consistent with Staphylococcus urinary tract infection sensitive to ceftriaxone. His blood c ulture 2/2 was also positive for Staphylococcus. The patient was seen by Infectious Disease, Dr. Jeb cat. Per Dr. Anderson, patient has recurrent urinary tract infections secondary to inadequate treatment. Dr. Anderson recommended ceftriaxone until 10/03/2017. An echocardiogram has been done and report is pending at this time. The patient will be discharged later today if echocardiogram does not show any vegetation. FINAL DIAGNOSES: 1. Sepsis secondary to Staphylococcus urinary tract infection as well as Staphylococcus bacteremia. Please note that patient had PICC line placement this admission and we will continue ceftriaxone unt il 10/03/2017. 2. Diabetes mellitus type 2. 3. Coronary artery disease. 4. Benign prostatic hypertrophy. 5. Peripheral vascular disease. 6. Acute kidney injury on chronic kidney disease stage 3. His creatinine on admission was 2.34 and at discharge is 1.39. 7. Hyponatremia. 8. Chronic anemia. 9. Hypomagnesemia, corrected. 10. Lactic acidosis secondary to sepsis on admission, resolved. Total time coordinating the discharge of this patient was 35 minutes.
== END 2017-08-24 13:40 | disposition home or self-care (01) | DRG 872 ==
LOC: ERS 20:48 → SURG A 08-21 01:21
PROVIDERS: ADMIT Family Medicine; ATTEND Internal Medicine
PROC: 02HV33Z Insertion of Infusion Device into Superior Vena Cava, Percutaneous Approach (ICD-10-PCS; principal; 2017-08-21)
DX: A41.2 Sepsis due to unspecified staphylococcus (principal); N17.9 Acute kidney failure, unspecified; E87.1 Hypo-osmolality and hyponatremia; E87.2 Acidosis; N12 Tubulo-interstitial nephritis, not specified as acute or chronic; I25.10 Atherosclerotic heart disease of native coronary artery without angina pectoris; E11.51 Type 2 diabetes mellitus with diabetic peripheral angiopathy without gangrene; E11.22 Type 2 diabetes mellitus with diabetic chronic kidney disease; E78.5 Hyperlipidemia, unspecified; N40.0 Benign prostatic hyperplasia without lower urinary tract symptoms; N18.3 Chronic kidney disease, stage 3 (moderate); D64.9 Anemia, unspecified; E83.42 Hypomagnesemia; F41.9 Anxiety disorder, unspecified; F32.9 Major depressive disorder, single episode, unspecified; Z89.412 Acquired absence of left great toe; Z79.4 Long term (current) use of insulin; Z95.1 Presence of aortocoronary bypass graft; Z87.891 Personal history of nicotine dependence; Z79.02 Long term (current) use of antithrombotics/antiplatelets; Z79.84 Long term (current) use of oral hypoglycemic drugs; Z79.899 Other long term (current) drug therapy
CPT/HCPCS: 36415; 36416; 36569; 71045; 80048; 80053; 80069; 81003; 81015; 82330; 82803; 83605; 83735; 85025; 87040; 87077; 87086; 87149; 87186; 93005; 93306; 96365; 96367; 96368; 96375; A4216; C1751; J0696; J1644; J1815; J2543; J3370; J3475; J7050

== ENCOUNTER → 2017-09-25 | Day surgery (SDC) | payer SELFPAY ==
--- NOTE | 2017-09-25 16:02 | SPC ---
FLUOROSCOPIC GUIDED LEFT UPPER EXTREMITY PICC: 09/25/2017 HISTORY: Sepsis from urinary tract infection, in need of IV antibiotics. FINDINGS: Informed consent obtained prior to the procedure. The left antecubital fossa is prepped and draped in the normal sterile fashion, and anesthetized with 1% buffered Lidocaine. With direct sonographic guidance, vascular access was obtained via the left basilic vein, and an 0.01 8 wire was advanced to the IVC and subsequently retracted to the cavoatrial junction. Intravascular length was calculated at 39 cm, and the PICC was cut accordingly. The needle was removed and replaced with a peel-away sheath. The PICC was advanced over the wire. T he wire and peel-away sheath were removed. The tip of the catheter overlies the cavoatrial junction. The catheter flushes well and is ready for use. EXPOSURE DATA: 123 mGy per cm2 0.0 minutes of fluoroscopic time IMPRESSION: Successful left upper extremity peripherally inserted central catheter placement with sonographic and fluoroscopic guidance. POS: [facility]
== END ==
LOC: SPEC 13:14
PROVIDERS: ATTEND Internal Medicine Infectious Disease
PROC: 05HY33Z Insertion of Infusion Device into Upper Vein, Percutaneous Approach (ICD-10-PCS; principal; 2017-09-25)
PROC: 3E03329 Introduction of Other Anti-infective into Peripheral Vein, Percutaneous Approach (ICD-10-PCS; principal; 2017-09-25)
DX: A41.9 Sepsis, unspecified organism (principal); N39.0 Urinary tract infection, site not specified
CPT/HCPCS: 36569

== ENCOUNTER 2017-10-25 10:48 | Emergency (ER) | payer SELFPAY ==
--- NOTE | 2017-10-25 11:49 | RAD ---
ABDOMEN 2 VIEWS: Date: 10/25/17 HISTORY: Abdominal pain and constipation. FINDINGS/IMPRESSION: No free air or differential fluid levels are seen. The bowel gas pattern is unremarkable. There is fe ramesh material in the colon and rectum. Degenerative changes are present in the spine. POS: [facility]
[2017-10-25 12:14] LABS: #Eosinphils 0.2 thou/uL (0.0-0.7); #Lymphocytes 1.8 thou/uL (1.20-3.40); #Monocytes 0.5 thou/uL (0.11-0.59); #Neutrophils 5.8 thou/uL (1.40-6.50); %Basophils 0.5 % (0.0-1.0); %Eosinophils 2.9 % (0.0-10.0); %Lymphocytes 21.9 % (21.0-51.0); %Monocytes 5.6 % (0.0-10.0); %Neutrophils 69.1 % (42.0-75.0); Hemoglobin 11.3 g/dL (14.0-18.0); Mean Corpuscular HGB CONC 32.8 g/dL (32.0-36.0); Mean Corpuscular Hemoglobin 28.1 pg (27.0-31.0); Mean Corpuscular Volume 85.6 fL (78.0-98.0); Platelet Count 351 thou/uL (130-400); Red Blood Cell (RBC) Count 4.02 mill/uL (4.70-6.10); White Blood Cell (WBC) Count 8.3 thou/uL (4.8-10.8)
[2017-10-25 12:40] LABS: ALT (SGPT) Less than 7 U/L (8-55); AST (SGOT) 8 U/L (5-34); Alkaline Phosphatase 102 U/L (40-150); Anion Gap 14 mmol/L (10-20); BUN (Urea Nitrogen) 39 mg/dL (8.4-25.7); Bilirubin, Total 0.2 mg/dL (0.2-1.2); Calc. Creatinine Clearance 0 mL/min (70-130); Calcium 9.6 mg/dL (7.8-10.44); Carbon Dioxide 23 mmol/L (22-29); Chloride 103 mmol/L (98-107); Estimated GFR-MDRD 25; Globulin 4.4 g/dL (2.4-3.5); Glucose 437 mg/dL (70-105); Lipase 31 U/L (8-78); Potassium 5.6 mmol/L (3.5-5.1); Protein, Total 8.4 g/dL (6.0-8.3); Sodium 134 mmol/L (136-145)
[2017-10-25 15:02] LABS: Bilirubin Negative (Negative); Blood, Urine Moderate (Negative); Clarity CLOUDY (Clear); Glucose, Urine (Dipstick) 500 mg/dL (Negative); Leukocyte Moderate (Negative); Nitrite Negative (Negative); Protein, Urine (Dipstick) 300 mg/dL (Neg-Trace); Specific Gravity, Urine 1.018 (1.002-1.036); Urobilinogen 0.2 mg/dL (0.2-1.0); pH, Urine 6.5 (5.0-9.0)
[2017-10-25 15:03] LABS: Bacteria/HPF None Seen HPF (None Seen); Hyaline Casts/LPF 0-3 HYALINE CAST LPF (0-3 Hyaline); RBC/HPF 21-50 HPF (0-3); Squamous Epithelial None Seen HPF (0-3)
[2017-10-25] MEDS ORDERED: Magnesium Citrate 300 ML BOT ONE (16:00)
--- NOTE | 2017-10-28 15:11 | EKG ---
Test Reason : Blood Pressure : / mmHG Vent. Rate : 076 BPM Atrial Rate : 076 BPM P-R Int : 142 ms QRS Dur : 094 ms QT Int : 384 ms P-R-T Axes : 060 -26 122 degrees QTc Int : 432 ms Normal sinus rhythm Possible Left atrial enlargement Incomplete right bundle branch block Abnormal ECG Confirmed by KLEBER HURT D.O. ([id number]), brands editor SCOT LAUREANO ([id number]) on 10/28/2017 3:11:43 PM Referred By: Confirmed By:KLEBER HURT D.O.
== END 2017-10-25 16:18 | disposition home or self-care (01) ==
LOC: ERS 10:48
DX: K59.00 Constipation, unspecified (principal); E78.5 Hyperlipidemia, unspecified; I25.10 Atherosclerotic heart disease of native coronary artery without angina pectoris; E11.9 Type 2 diabetes mellitus without complications; I10 Essential (primary) hypertension; F41.9 Anxiety disorder, unspecified; F32.9 Major depressive disorder, single episode, unspecified; Z87.891 Personal history of nicotine dependence; Z79.899 Other long term (current) drug therapy; Z79.4 Long term (current) use of insulin; Z86.718 Personal history of other venous thrombosis and embolism
CPT/HCPCS: 74019; 80053; 81003; 81015; 83690; 85025; 87086; 93005; 94760; 96360

== ENCOUNTER 2017-10-27 13:16 | Emergency (ER) | payer SELFPAY ==
[2017-10-27 13:46] LABS: #Eosinphils 0.1 thou/uL (0.0-0.7); #Lymphocytes 2.2 thou/uL (1.20-3.40); #Monocytes 0.4 thou/uL (0.11-0.59); #Neutrophils 7.9 thou/uL (1.40-6.50); %Basophils 0.1 % (0.0-1.0); %Eosinophils 1.2 % (0.0-10.0); %Lymphocytes 20.8 % (21.0-51.0); %Neutrophils 73.9 % (42.0-75.0); Hemoglobin 11.4 g/dL (14.0-18.0); Mean Corpuscular Hemoglobin 28.6 pg (27.0-31.0); Mean Corpuscular Volume 86.7 fL (78.0-98.0); Mean Platelet Volume 7.7 fL (7.4-10.4); Platelet Count 352 thou/uL (130-400); Red Blood Cell (RBC) Count 3.98 mill/uL (4.70-6.10); White Blood Cell (WBC) Count 10.7 thou/uL (4.8-10.8)
[2017-10-27 14:06] LABS: ALT (SGPT) Less than 7 U/L (8-55); AST (SGOT) 11 U/L (5-34); Albumin 3.9 g/dL (3.5-5.0); Alkaline Phosphatase 102 U/L (40-150); Anion Gap 14 mmol/L (10-20); BUN (Urea Nitrogen) 35 mg/dL (8.4-25.7); Bilirubin, Total 0.3 mg/dL (0.2-1.2); Calc. Creatinine Clearance 0 mL/min (70-130); Calcium 9.3 mg/dL (7.8-10.44); Carbon Dioxide 20 mmol/L (22-29); Chloride 104 mmol/L (98-107); Estimated GFR-MDRD 27; Globulin 4.3 g/dL (2.4-3.5); Glucose 204 mg/dL (70-105); Protein, Total 8.2 g/dL (6.0-8.3); Sodium 132 mmol/L (136-145)
[2017-10-27 15:14] LABS: Bilirubin Negative (Negative); Blood, Urine Moderate (Negative); Clarity CLOUDY (Clear); Glucose, Urine (Dipstick) 250 mg/dL (Negative); Leukocyte Large (Negative); Nitrite Negative (Negative); Protein, Urine (Dipstick) 300 mg/dL (Neg-Trace); Urobilinogen 0.2 mg/dL (0.2-1.0); pH, Urine 7.5 (5.0-9.0)
[2017-10-27 15:17] LABS: Bacteria/HPF None Seen HPF (None Seen); Hyaline Casts/LPF 0-3 HYALINE CAST LPF (0-3 Hyaline); RBC/HPF 21-50 HPF (0-3); Squamous Epithelial None Seen HPF (0-3)
[2017-10-27 16:41] LABS: Potassium 6.3 mmol/L (3.5-5.1)
[2017-10-27 20:41] LABS: Potassium 5.8 mmol/L (3.5-5.1)
== END 2017-10-27 21:07 | disposition home or self-care (01) ==
LOC: ERS 13:16
DX: N39.0 Urinary tract infection, site not specified (principal); K59.00 Constipation, unspecified; E78.5 Hyperlipidemia, unspecified; E11.51 Type 2 diabetes mellitus with diabetic peripheral angiopathy without gangrene; I10 Essential (primary) hypertension; F41.9 Anxiety disorder, unspecified; F32.9 Major depressive disorder, single episode, unspecified; Z86.73 Personal history of transient ischemic attack (TIA), and cerebral infarction without residual deficits; Z86.718 Personal history of other venous thrombosis and embolism; Z87.891 Personal history of nicotine dependence; Z79.4 Long term (current) use of insulin; Z79.899 Other long term (current) drug therapy
CPT/HCPCS: 36415; 80053; 81003; 81015; 85025; 87086; 93005; 96360; 96361

== ENCOUNTER 2017-11-09 14:24 | Inpatient (IN) | payer SELFPAY ==
[2017-11-09 15:42] LABS: #Basophils 0.1 thou/uL (0.0-0.2); #Eosinphils 0.2 thou/uL (0.0-0.7); #Lymphocytes 1.7 thou/uL (1.20-3.40); #Monocytes 0.4 thou/uL (0.11-0.59); #Neutrophils 5.1 thou/uL (1.40-6.50); %Basophils 1.1 % (0.0-1.0); %Eosinophils 3.3 % (0.0-10.0); %Lymphocytes 22.5 % (21.0-51.0); %Monocytes 5.2 % (0.0-10.0); %Neutrophils 67.9 % (42.0-75.0); Hemoglobin 11.4 g/dL (14.0-18.0); Mean Corpuscular HGB CONC 34.2 g/dL (32.0-36.0); Mean Corpuscular Hemoglobin 29.2 pg (27.0-31.0); Mean Corpuscular Volume 85.3 fL (78.0-98.0); Mean Platelet Volume 7.9 fL (7.4-10.4); Platelet Count 329 thou/uL (130-400); RBC Distribution Width 13.9 % (11.5-14.5); White Blood Cell (WBC) Count 7.5 thou/uL (4.8-10.8)
[2017-11-09 16:02] LABS: ALT (SGPT) 7 U/L (8-55); AST (SGOT) 11 U/L (5-34); Albumin 4.1 g/dL (3.5-5.0); Alkaline Phosphatase 93 U/L (40-150); Anion Gap 15 mmol/L (10-20); BUN (Urea Nitrogen) 54 mg/dL (8.4-25.7); Bilirubin, Total 0.3 mg/dL (0.2-1.2); Calc. Creatinine Clearance 0 mL/min (70-130); Calcium 9.5 mg/dL (7.8-10.44); Carbon Dioxide 18 mmol/L (22-29); Chloride 107 mmol/L (98-107); Estimated GFR-MDRD 24; Globulin 4.1 g/dL (2.4-3.5); Glucose 184 mg/dL (70-105); Potassium 5.7 mmol/L (3.5-5.1); Protein, Total 8.2 g/dL (6.0-8.3); Sodium 134 mmol/L (136-145)
[2017-11-09 16:21] LABS: Bilirubin Negative (Negative); Blood, Urine Moderate (Negative); Clarity TURBID (Clear); Glucose, Urine (Dipstick) 100 mg/dL (Negative); Leukocyte Large (Negative); Nitrite Negative (Negative); Protein, Urine (Dipstick) 300 mg/dL (Neg-Trace); Specific Gravity, Urine 1.016 (1.002-1.036); Urobilinogen 0.2 mg/dL (0.2-1.0); pH, Urine 5.5 (5.0-9.0)
[2017-11-09 16:24] LABS: Bacteria/HPF None Seen HPF (None Seen); Hyaline Casts/LPF 7-10 HYALINE CAST LPF (0-3 Hyaline); Pathc Cast-AUWi Flag 2.47 (0-2.49); Squamous Epithelial None Seen HPF (0-3); Yeast-AUWi Flag 14.5 (0-25.0)
[2017-11-09] MEDS ORDERED: Dextrose 50% Abboject 50 ML SYRINGE ONE (16:50)
[2017-11-09] MEDS ORDERED: Insulin Regular 300 UNITS/3 ML VIAL ONE (16:51)
[2017-11-09] MEDS ORDERED: Sodium Bicarb 50 MEQ/50 ML Abboject 8.4% SYRINGE ONE (16:51)
[2017-11-09] MEDS ORDERED: Lidocaine Viscous Sol 2% 15 ml UD Cup ONE (17:20)
[2017-11-09] MEDS ORDERED: Piperacillin/Tazobactam 3.375 GM VIAL ONE (17:47)
[2017-11-09] MEDS ORDERED: Acetaminophen/Codeine 30-300mg Tablet ONE (17:56)
--- NOTE | 2017-11-09 18:56 | PDOC.FPRHP ---
- History of Present Illness Chief Complaint: Constipation and urinary retention History of Present Illness: This is a 57 yo male with a past medical history of CAD with stent placement and CABGx4 in 2013, HTN, DMII, PVD with stent placement 2015, and HLD presents to the ER with a 1 month history of constipation and urinary retention. He states that this constipation is accompanied by severe 10/10 crampy pain. He states that the pain is in his lower abdomen. He states that he is only able to pass small bowel movement. He has tried various juices, raisins, and miralax without any relief. He states that he had this same problem 7 years ago and he was given medication that allowed him to have a bowel movement. He denies hospitalization for that episode. Pt. is also complaining of intermittent urinary retention and and urinary frequency. He state that there are times that he goes every 5 minutes and other times that he has trouble urinating. He states that 3 months ago he had penile surgery in which they took off a lump from his penis. He states he had a 6 week hospital stay following that surgery. Dr. Carter was his surgeon. - Allergies/Adverse Reactions Allergies Allergy/AdvReac Type Severity Reaction Status Date / Time No Known Allergies Allergy Verified 09/27/17 20:51 - Home Medications Medication Instructions Recorded Confirmed Type Insulin NPH/Reg Insulin Hm 10 unit SC HS #5 vial 06/17/17 09/27/17 Rx [HumuLIN 70/30 Vial] Insulin NPH/Reg Insulin Hm 25 units SC QAM #5 vial 06/17/17 09/27/17 Rx [HumuLIN 70/30 Vial] Lisinopril [Zestril] 10 mg PO BID tab 06/17/17 09/27/17 Rx Finasteride [Proscar] 5 mg PO DAILY #30 tab 07/13/17 09/27/17 Rx Tamsulosin HCl [Flomax] 0.4 mg PO DAILY #30 cap 07/13/17 09/27/17 Rx Amlodipine [Norvasc] 5 mg PO BID #60 tab 10/03/17 Rx - History PMHx:CAD, DMII, HTN, DVT, HLD, PVD PSHx: CABG x4 2013, L great toe amputation, cardiac stents, L lower leg stents, penis surgery 3 months ago FHx: Father VT at 58, Mother DM Social: Former smoker and alcohol use, denies drug use - Review of Systems General: denies: fever/chills, weight/appetite/sleep changes Eyes: denies: eye pain, vision changes ENT: denies: nasal congestion Respiratory: denies: cough, shortness of breath Cardiovascular: denies: chest pain, palpitation, edema Gastrointestinal: reports: constipation, abdominal pain (SEE HPI). denies: nausea, vomiting Genitourinary: reports: incontinence (and frequency) Skin: denies: rashes, lesions Musculoskeletal: denies: pain, tenderness Neurological: denies: numbness, syncope Psychological: denies: anxiety, depression - Vital signs BP: [110/76] HR: [92] RR: [16] Tmax: [98.1] Pox: [99]% on [RA] Wt: [71.85 kg] - Physical Exam Constitutional: NAD, awake, alert and oriented HEENT: normocephalic and atraumatic, PERRLA, EOMI -HEENT: mildly dry membranes Neck: supple Chest: no-tender to palpation, no lesions Heart: RRR, normal S1/S2, no murmurs/rubs/gallops Lungs: CTAB, no respiratory distress, good air movement Abdomen: soft, bowel sounds present (hyper active) -Abdomen: Tender to deep palpation diffusely, worse at lower half. Negative rebound, ANDREW revealed firm prostate with small nodularity and large quantities of hard stool. Stool was extracted, no usama blood Musculoskeletal: normal structure, normal tone Neurological: no focal deficit, CN II-XII intact Skin: no rash/lesions, good turgor Heme/Lymphatic: no unusual bruising or bleeding, no purpura Psychiatric: normal mood and affect, good judgment and insight, intact recent and remote memory FMR H&P: Results - Labs Result Diagrams: 11/09/17 15:35 11/09/17 15:35 Lab results: WBC 7.5 thou/uL (4.8-10.8) 11/09/17 15:35 Hgb 11.4 g/dL (14.0-18.0) L 11/09/17 15:35 Hct 33.3 % (42.0-52.0) L 11/09/17 15:35 MCV 85.3 fL (78.0-98.0) 11/09/17 15:35 Plt Count 329 thou/uL (130-400) 11/09/17 15:35 Neutrophils % 67.9 % (42.0-75.0) 11/09/17 15:35 Sodium 134 mmol/L (136-145) L 11/09/17 15:35 Potassium 5.7 mmol/L (3.5-5.1) H 11/09/17 15:35 Chloride 107 mmol/L (98-107) 11/09/17 15:35 Carbon Dioxide 18 mmol/L (22-29) L 11/09/17 15:35 BUN 54 mg/dL (8.4-25.7) H 11/09/17 15:35 Creatinine 2.77 mg/dL (0.6-1.3) H 11/09/17 15:35 Glucose 184 mg/dL (70-105) H 11/09/17 15:35 Lactic Acid 1.9 mmol/L (0.5-2.2) 11/09/17 15:35 Calcium 9.5 mg/dL (7.8-10.44) 11/09/17 15:35 Total Bilirubin 0.3 mg/dL (0.2-1.2) 11/09/17 15:35 AST 11 U/L (5-34) 11/09/17 15:35 ALT 7 U/L (8-55) L 11/09/17 15:35 Alkaline Phosphatase 93 U/L (40-150) 11/09/17 15:35 Serum Total Protein 8.2 g/dL (6.0-8.3) 11/09/17 15:35 Albumin 4.1 g/dL (3.5-5.0) 11/09/17 15:35 Urine Ketones Negative mg/dL (Negative) 11/09/17 16:03 Urine Blood Moderate (Negative) H 11/09/17 16:03 Urine Nitrite Negative (Negative) 11/09/17 16:03 Ur Leukocyte Esterase Large (Negative) H 11/09/17 16:03 Urine RBC 4-6 HPF (0-3) 11/09/17 16:03 Urine WBC Greater Than 50-TNTC HPF (0-3) H 11/09/17 16:03 Ur Squamous Epith Cells None Seen HPF (0-3) 11/09/17 16:03 Urine Bacteria None Seen HPF (None Seen) 11/09/17 16:03 FMR H&P: A/P - Problem List (1) Acute cystitis Current Visit: No Status: Acute Code(s): N30.00 - ACUTE CYSTITIS WITHOUT HEMATURIA (2) Urinary retention Current Visit: Yes Status: Acute Code(s): R33.9 - RETENTION OF URINE, UNSPECIFIED (3) CHINO (acute kidney injury) Current Visit: No Status: Acute Code(s): N17.9 - ACUTE KIDNEY FAILURE, UNSPECIFIED Comment: Improved with supportive measures, avoid nephrotoxic meds and contrast, hold Lisinopril another 24h, repeat creatinine in am (4) Constipation Current Visit: No Status: Acute Code(s): K59.00 - CONSTIPATION, UNSPECIFIED Comment: MagCitrate x 1 today (5) CAD (coronary artery disease) Current Visit: No Status: Chronic Code(s): I25.10 - ATHSCL HEART DISEASE OF [place] CORONARY ARTERY W/O ANG PCTRS Qualifiers: [place] vs. transplanted heart: [place] heart Comment: Plavix on hold due to hematuria (6) DM type 2 (diabetes mellitus, type 2) Current Visit: No Status: Chronic Comment: Labile, will confirm home meds, Metformin on hold due to renal function (7) HTN (hypertension) Current Visit: No Status: Chronic Code(s): I10 - ESSENTIAL (PRIMARY) HYPERTENSION (8) PAD (peripheral artery disease) Current Visit: No Status: Chronic Code(s): I73.9 - PERIPHERAL VASCULAR DISEASE, UNSPECIFIED (9) Hyperlipemia Current Visit: Yes Status: Acute Code(s): E78.5 - HYPERLIPIDEMIA, UNSPECIFIED - Plan This is a 57 yo man with a PMH of CAD, HTN, DMII, and PVD A/P Acute complicated cystits -Likely 2/2 retension -Has hx of MSSA -Llamas catheter is in place -LR 125mL/hr -zosyn Urinary Retension -Llamas is in place -Consider consulting Urology later this week CHINO on CKD III -likely 2/2 post renal obstruction -Llamas -IV fluids Constipation with Stool impaction -Fleet Enema -Abdominal xray 2view -manual disimpaction of hard stool from rectum CAD -Monitor vitals -Continue home meds DMII -Glucose checks -Home meds -SSI HTN -Home Meds PAD HLD -Home meds Code: FUll Family: none at bedside Prophylaxis: SCDs FMR H&P: Upper Level - Pertinent history 57 yo HM PMH BPH with urinary retention and recurrent MSSA UTI, CAD s/p CABGx4, HNT, and IDDM. Presents with CC of urinary retention and constipation that has worsened over the past month. Has been passing small amounts of hard stool over the past month. Also reports issues with urinating. States he can go days with out urinating and then will have times where he urinates every 5 minutes. Reports mild TTP in lower abdomen that has worsened over this time. Denies CP, SOB, Fevers or chills. - Pertinent findings Vitals: Unremarkable GEN: NAD, A&Ox4 ENT: poor dentition, MMM CV: RRR, no murmur Pulm: CTA-B, normal effort ABD: mild TTP RLQ and suprapubic region, BS present x4 : llamas in place draining cloudy urine Labs CBC remarkable for H&H of 11.4/33.3 (at baseline) CMP remarkable for Na 134, K 5.7, Cr 2.77 (above baseline of 1.5) GFR 24 ( baseline 30-40) UA (from llamas) remarkable for protein 300, glucose 100, Blood moderate LE large , WBC TNTC, Hylaine Casts 7-10 - Plan Date/Time: 11/09/171843 I, Maximo Grullon MD, have evaluated this patient and agree with findings/plan as outlined by internet project manager resident. Pertinent changes/additions are listed here. 1. CHINO on CKD3: Likely 2/2 post obstructive uropathy. Bolused 1L in ER, continue LR at 125 mL/hr, Repeat BMP in AM, consider Nephro consult if kidney injury not improving. 2. Complicated UTI: culture pending, continue zosyn, hx of MSSA, no vanc or clinda since no signs of sepsis at this time but will start if he shows systemic signs of infection 3. Obstipation: Fleets enema and senna/colace ordered, Will reassess and consider adding mag citrate or golytely if not improved, Abdominal XR 2-3 view to evaluate, 4. Hyperkalemia 2/2 # 1: see #1, will check EKG 5. IDDM: Continue NPH, mild SSI provided, ACHS checks 6. BPH: continue flomax and finasteride, will attempt to remove Llamas once kidney function improves 7. Diet: HH, CC, 8. PPx: SCD 9. CODE: FULL Dispo: inpatient, medical, >[address] Jimenez.
[2017-11-09] MEDS ORDERED: Ondansetron ODT 4 MG TAB PO PRN (20:29)
[2017-11-09] MEDS ORDERED: Dextrose 5% in Water 1,000 ML IV PRN (20:29)
[2017-11-09] MEDS ORDERED: Dextrose 50% Abboject 50 ML SYRINGE SLOW IVP PRN (20:29)
[2017-11-09] MEDS ORDERED: Acetaminophen 325 MG TAB PO PRN (20:29)
[2017-11-09] MEDS ORDERED: Fleet Enema 133 ML BOT PR SCH (20:45)
[2017-11-09] MEDS: Lactated Ringer's 1,000 ML IV SCH (21:00)
--- NOTE | 2017-11-09 21:14 | RAD ---
UPRIGHT AND SUPINE RADIOGRAPHS OF THE ABDOMEN: 11/09/17 HISTORY: Stool impaction. COMPARISON: 10/25/17. FINDINGS: The limited visualized lung bases are clear. Bowel gas pattern is overall nonspecific. There is a mod erate amount of retained fecal material seen in the region of the sigmoid colon and in the rectum. Am ount of retained fecal material in the descending colon has improved from prior exam. No dilated loop s of small bowel are appreciated. Degenerative changes are present in the spine. IMPRESSION: Evidence of constipation. Degree of retained fecal material in the descending colon does appear impro josef from study on 10/25/17. POS: [facility]
[2017-11-09] MEDS: Amlodipine 5 MG TAB PO SCH (21:18)
[2017-11-09] MEDS: Lisinopril 10 MG TAB PO SCH (21:19)
[2017-11-09] MEDS: Senokot S 8.6-50 MG TAB PO SCH (21:33)
[2017-11-09] MEDS: Insulin NPH/Reg Insulin Hm 300 UNITS/3 ML VIAL SC SCH (21:34)
[2017-11-10 02:00] VITALS: BMI 22.6
[2017-11-10 04:57] LABS: #Basophils 0.1 thou/uL (0.0-0.2); #Eosinphils 0.3 thou/uL (0.0-0.7); #Lymphocytes 2.8 thou/uL (1.20-3.40); #Monocytes 0.7 thou/uL (0.11-0.59); %Basophils 0.8 % (0.0-1.0); %Eosinophils 3.5 % (0.0-10.0); %Monocytes 7.6 % (0.0-10.0); %Neutrophils 56.1 % (42.0-75.0); Mean Corpuscular Hemoglobin 28.5 pg (27.0-31.0); Mean Corpuscular Volume 86.5 fL (78.0-98.0); Mean Platelet Volume 8.5 fL (7.4-10.4); Platelet Count 267 thou/uL (130-400); Red Blood Cell (RBC) Count 3.49 mill/uL (4.70-6.10); White Blood Cell (WBC) Count 8.8 thou/uL (4.8-10.8)
[2017-11-10 05:08] LABS: ALT (SGPT) Less than 7 U/L (8-55); AST (SGOT) 9 U/L (5-34); Albumin 3.4 g/dL (3.5-5.0); Alkaline Phosphatase 76 U/L (40-150); Anion Gap 12 mmol/L (10-20); BUN (Urea Nitrogen) 52 mg/dL (8.4-25.7); Bilirubin, Total 0.3 mg/dL (0.2-1.2); Calc. Creatinine Clearance 32 mL/min (70-130); Calcium 9.1 mg/dL (7.8-10.44); Carbon Dioxide 21 mmol/L (22-29); Chloride 111 mmol/L (98-107); Estimated GFR-MDRD 26; Globulin 3.4 g/dL (2.4-3.5); Glucose 68 mg/dL (70-105); Potassium 4.7 mmol/L (3.5-5.1); Protein, Total 6.8 g/dL (6.0-8.3); Sodium 139 mmol/L (136-145)
[2017-11-10] MEDS: Lactated Ringer's 1,000 ML IV SCH ×3 (06:07→21:18)
[2017-11-10] MEDS: Piperacillin/Tazobactam 3.375 GM in Sodium Chloride 0.9% 100 ML IVPB SCH ×5 (06:07→23:22)
[2017-11-10] MEDS ORDERED: Magnesium Citrate 300 ML BOT PO SCH (09:00)
[2017-11-10] MEDS: Senokot S 8.6-50 MG TAB PO SCH ×2 (09:05→20:14)
[2017-11-10] MEDS: Tamsulosin HCl 0.4 MG CAP PO SCH (09:06)
[2017-11-10] MEDS: Amlodipine 5 MG TAB PO SCH ×2 (09:06→20:14)
[2017-11-10] MEDS: Finasteride 5 MG TAB PO SCH (09:08)
[2017-11-10] MEDS: Lisinopril 10 MG TAB PO SCH (09:08)
[2017-11-10] MEDS: Insulin NPH/Reg Insulin Hm 300 UNITS/3 ML VIAL SC SCH ×2 (09:44→20:15)
[2017-11-10] MEDS ORDERED: Polyethylene Glycol 3350 17 GM Packet PO SCH ×2 (09:45→18:15)
[2017-11-10] MEDS: HumaLOG 300 UNITS/3 ML VIAL SC PRN (12:49)
--- NOTE | 2017-11-10 13:26 | PDOC.FM ---
- Subjective Subjective: Patient had no complaints overnight. Had 2-3 attempted BM only evacuating small amounts, primarily liquid. Denies abdominal pain, nausea, vision changes, headache. - Objective MAR Reviewed: No Vital Signs & Weight: Vital Signs (12 hours) Temp Pulse Resp BP BP Pulse Ox 11/10/17 11:16 98.3 F 74 16 156/84 H 100 11/10/17 09:08 145/80 H 11/10/17 09:06 81 145/80 H 11/10/17 08:00 97.7 F 81 16 100 11/10/17 07:45 97.7 F 81 16 145/80 H 100 11/10/17 04:00 98.5 F 82 16 145/78 H 99 Weight Admit Weight 71.441 kg Weight 71.441 kg I&O: 11/09/17 11/10/17 11/11/17 06:59 06:59 06:59 Intake Total 1940 Output Total 1100 Balance 840 Result Diagrams: 11/10/17 04:04 11/10/17 04:04 Radiology Reviewed by me: Yes (Abdominal Xray: constipation) <Dasha Leija - Last Filed: 11/10/17 13:46> - Objective Vital Signs & Weight: Vital Signs (12 hours) Temp Pulse Resp BP BP Pulse Ox 11/10/17 20:14 98 11/10/17 20:03 98.2 F 98 18 147/89 H 100 11/10/17 16:38 98.2 F 100 16 156/79 H 100 11/10/17 11:16 98.3 F 74 16 156/84 H 100 11/10/17 09:08 145/80 H 11/10/17 09:06 81 145/80 H Weight Admit Weight 71.441 kg Weight 71.441 kg I&O: 11/09/17 11/10/17 11/11/17 06:59 06:59 06:59 Intake Total 194 1657 Output Total 1100 1000 Balance 840 657 Result Diagrams: 11/10/17 04:04 11/10/17 04:04 <Rahul Asencio - Last Filed: 11/10/17 21:01> Phys Exam - Physical Examination Constitutional: NAD HEENT: moist MMs Neck: supple Respiratory: no wheezing Cardiovascular: RRR Gastrointestinal: soft mildly tender to palpation, no guarding or rigidity Musculoskeletal: no edema Psychiatric: normal affect, A&O x 3 <Dasha Leija - Last Filed: 11/10/17 13:46> Dx/Plan (1) Complicated UTI (urinary tract infection) Code(s): N39.0 - URINARY TRACT INFECTION, SITE NOT SPECIFIED Status: Acute (2) Acute kidney injury superimposed on CKD Code(s): N17.9 - ACUTE KIDNEY FAILURE, UNSPECIFIED; N18.9 - CHRONIC KIDNEY DISEASE, UNSPECIFIED Status: Acute (3) CKD (chronic kidney disease), stage IV Code(s): N18.4 - CHRONIC KIDNEY DISEASE, STAGE 4 (SEVERE) Status: Acute (4) BPH (benign prostatic hyperplasia) Code(s): N40.0 - BENIGN PROSTATIC HYPERPLASIA WITHOUT LOWER URINRY TRACT SYMP Status: Acute (5) Constipation Code(s): K59.00 - CONSTIPATION, UNSPECIFIED Status: Acute (6) DM2 (diabetes mellitus, type 2) Status: Chronic QualifierTitle: Chronic kidney disease stage: stage 3 (moderate) (7) HTN (hypertension) Code(s): I10 - ESSENTIAL (PRIMARY) HYPERTENSION Status: Chronic (8) S/P CABG x 4 Status: Chronic - Plan Plan: 57 yo M with PMH MSSA+ UTI and BPH here with constipation and UTI. 1. CHINO on CKD3: Likely 2/2 post obstructive uropathy -renal function improved today; creatinine 2.77 -> 2.53 2. Complicated UTI: -Culture with S/S pending -Continue Zosyn -Monitor vitals for signs of sepsis; stable for now 3. Constipation 2/2 poor fiber diet -Golytely ordered -Enema x2 -Avoid Magnesium due to nephrotoxicity -ABD xray showed evidence of constipation -Ordered head of global strategic partnerships consult for education of fiber foods 4. Hyperkalemia -Resolved 5. IDDM: -Glucose low this morning at 68; held morning dose -On HH/CC diet 6. BPH: -Patient denied hesitancy but will continue home meds of Flomax & Finasteride -Will remove llamas once kidney fx improves 7. HTN: -BPs high with recent one with systolic of 145 -Continue home meds: Amlodipine and Lisinopril 8. Normocytic anemia most likely 2/2 dilutation vs. blood draws -Prior records indicate baseline Hb from 8-15 -Patient asx; monitor daily H/H for now Diet: HH, CC PPx: SCDs Code: Full Goal: 1. Relieve constipation with Golytely and enema 2. Await Cx with S/S for treatment of UTI 3. Further workup for etiology of UTI: postobstructive? If so, consider urology consult Discussed plan with Dr. Asencio <Dasha Leija - Last Filed: 11/10/17 13:46> Attending Addendum - Attending Addendum Date/Time: 11/10/172056 I personally evaluated the patient and discussed the management with Dr. Gwyn Leija. I agree with the History, Examination, Assessment and Plan documented above with any addition or exceptions noted below. Feels better. UTI, CHINO on CKD creat down to 2.53. BPH. Severe constipation. DM2 , social situation living in his truck. Exam as documented above. I encouraged him to increase greatly the fruit and vegetables and fiber in his diet. Continue Zosyn and bowel regimen. <Rahul Asencio - Last Filed: 11/10/17 21:01>
[2017-11-10] MEDS ORDERED: hydrALAZINE 20 MG/ML VIAL SLOW IVP PRN (16:10)
[2017-11-11] MEDS: Lactated Ringer's 1,000 ML IV SCH ×2 (05:56→12:00)
[2017-11-11] MEDS: Piperacillin/Tazobactam 3.375 GM in Sodium Chloride 0.9% 100 ML IVPB SCH ×3 (05:57→17:16)
--- NOTE | 2017-11-11 06:00 | PDOC.FM ---
- Subjective Subjective: Patient had several BM. Reports less abd pain but still feels needs to have another BM. Low glucose this morning, held insulin. - Objective Vital Signs & Weight: Vital Signs (12 hours) Temp Pulse Resp BP Pulse Ox 11/10/17 20:14 98 11/10/17 20:03 98.2 F 98 18 147/89 H 100 11/10/17 20:00 98.2 F 98 18 100 Weight Admit Weight 71.441 kg Weight 71.441 kg I&O: 11/09/17 11/10/17 11/11/17 06:59 06:59 06:59 Intake Total 1940 2957 Output Total 1100 2000 Balance 840 957 Result Diagrams: 11/11/17 08:11 11/11/17 08:12 <Dasha Leija - Last Filed: 11/11/17 14:18> - Objective Vital Signs & Weight: Vital Signs (12 hours) Temp Pulse Resp BP Pulse Ox 11/11/17 20:17 78 11/11/17 19:44 98.5 F 78 14 136/78 97 Weight Admit Weight 71.441 kg Weight 71.441 kg I&O: 11/10/17 11/11/17 11/12/17 06:59 06:59 06:59 Intake Total 1940 2957 1400 Output Total 1100 2000 600 Balance 840 957 800 Result Diagrams: 11/11/17 08:11 11/11/17 08:12 <Rahul Asencio - Last Filed: 11/11/17 21:43> Phys Exam - Physical Examination Constitutional: NAD soft, tender, smaller stool burden palpated in lower abdomen. <Dasha Leija - Last Filed: 11/11/17 14:18> Dx/Plan (1) Complicated UTI (urinary tract infection) Code(s): N39.0 - URINARY TRACT INFECTION, SITE NOT SPECIFIED Status: Acute (2) Acute kidney injury superimposed on CKD Code(s): N17.9 - ACUTE KIDNEY FAILURE, UNSPECIFIED; N18.9 - CHRONIC KIDNEY DISEASE, UNSPECIFIED Status: Acute (3) CKD (chronic kidney disease), stage IV Code(s): N18.4 - CHRONIC KIDNEY DISEASE, STAGE 4 (SEVERE) Status: Acute (4) BPH (benign prostatic hyperplasia) Code(s): N40.0 - BENIGN PROSTATIC HYPERPLASIA WITHOUT LOWER URINRY TRACT SYMP Status: Acute (5) Constipation Code(s): K59.00 - CONSTIPATION, UNSPECIFIED Status: Acute (6) DM2 (diabetes mellitus, type 2) Status: Chronic QualifierTitle: Chronic kidney disease stage: stage 3 (moderate) (7) HTN (hypertension) Code(s): I10 - ESSENTIAL (PRIMARY) HYPERTENSION Status: Chronic (8) S/P CABG x 4 Status: Chronic - Plan Plan: 57 yo M with PMH MSSA+ UTI and BPH here with constipation and UTI. 1. CHINO on CKD3: Likely 2/2 post obstructive uropathy -renal function improved today; creatinine 2.77 -> 2.53 -> 2.28 2. Complicated UTI: -Culture with S/S pending -Continue Zosyn -Afebrile overnight 3. Constipation 2/2 poor fiber diet -Golytely ordered x1 -Awaiting skidder operator visit, consult placed 4. Hyperkalemia -Resolved 5. IDDM: -Glucose low this morning at 68; held morning dose -On HH/CC diet 6. BPH: -Continue home meds of Flomax & Finasteride -Continue llamas until kidney fx improves 7. HTN: -BPs high with recent one with systolic of 145 -Continue home meds: Amlodipine and Lisinopril 8. Normocytic anemia most likely 2/2 dilutation vs. blood draws -Prior records indicate baseline Hb from 8-15 -Patient asx; monitor daily H/H for now Diet: HH, CC PPx: SCDs Code: Full Goal: 1. Relieve constipation with Golytely x1 today 2. Await Cx with S/S for treatment of UTI Discussed plan with Dr. Asencio <Dasha Leija - Last Filed: 11/11/17 14:18> Attending Addendum - Attending Addendum Date/Time: 11/11/17 5462 I personally evaluated the patient and discussed the management with Dr. Gwyn Leija. I agree with the History, Examination, Assessment and Plan documented above with any addition or exceptions noted below. UTI (negative urine culture) BPH with obstructive uropathy, continue Zosyn, Flomax, Proscar. Consider prostatitis, Recheck prostate exam in A.M. Obstipation improved but not resolved. Continue high fiber diet, redose Golytely to further evacuate the bowel. Insulin dependent type 2 diabetes mellitus, mild hypoglycemia this am. Adjust insulin to 22 units in am. CHINO superimposed on CKD. Creat improved from 2.77 to 2.28 Coronary artery disease with history of CABG x 4, currently asymptomatic. HTN -amlodipine 5 mg. [facility] <Rahul Asencio - Last Filed: 11/11/17 21:43>
[2017-11-11] MEDS: Senokot S 8.6-50 MG TAB PO SCH ×2 (08:10→20:00)
[2017-11-11] MEDS: Finasteride 5 MG TAB PO SCH (08:10)
[2017-11-11] MEDS: Tamsulosin HCl 0.4 MG CAP PO SCH (08:10)
[2017-11-11] MEDS: Amlodipine 5 MG TAB PO SCH ×2 (08:10→20:17)
[2017-11-11] MEDS: Insulin NPH/Reg Insulin Hm 300 UNITS/3 ML VIAL SC SCH ×2 (08:14→20:17)
[2017-11-11 08:46] LABS: ALT (SGPT) 8 U/L (8-55); AST (SGOT) 11 U/L (5-34); Albumin 3.4 g/dL (3.5-5.0); Alkaline Phosphatase 75 U/L (40-150); Anion Gap 13 mmol/L (10-20); BUN (Urea Nitrogen) 37 mg/dL (8.4-25.7); Bilirubin, Total 0.4 mg/dL (0.2-1.2); Calc. Creatinine Clearance 36 mL/min (70-130); Carbon Dioxide 21 mmol/L (22-29); Chloride 110 mmol/L (98-107); Estimated GFR-MDRD 30; Globulin 3.5 g/dL (2.4-3.5); Glucose 137 mg/dL (70-105); Potassium 4.9 mmol/L (3.5-5.1); Protein, Total 6.9 g/dL (6.0-8.3); Sodium 139 mmol/L (136-145)
[2017-11-11] MEDS ORDERED: Polyethylene Glycol 3350 17 GM Packet PO SCH (09:00)
[2017-11-11 10:35] LABS: #Eosinphils 0.2 thou/uL (0.0-0.7); #Monocytes 0.7 thou/uL (0.11-0.59); #Neutrophils 7.1 thou/uL (1.40-6.50); %Basophils 0.3 % (0.0-1.0); %Eosinophils 1.8 % (0.0-10.0); %Lymphocytes 19.9 % (21.0-51.0); %Monocytes 6.9 % (0.0-10.0); %Neutrophils 71.2 % (42.0-75.0); Hemoglobin 10.1 g/dL (14.0-18.0); Mean Corpuscular HGB CONC 34.5 g/dL (32.0-36.0); Mean Corpuscular Hemoglobin 29.5 pg (27.0-31.0); Mean Corpuscular Volume 85.4 fL (78.0-98.0); Mean Platelet Volume 8.8 fL (7.4-10.4); Platelet Count 273 thou/uL (130-400); RBC Distribution Width 13.9 % (11.5-14.5); Red Blood Cell (RBC) Count 3.43 mill/uL (4.70-6.10); White Blood Cell (WBC) Count 9.9 thou/uL (4.8-10.8)
[2017-11-11] MEDS ORDERED: GoLYTELY 4,000 ml Bottle PO SCH (14:30)
[2017-11-12] MEDS: Lactated Ringer's 1,000 ML IV SCH ×5 (00:21→23:41)
[2017-11-12] MEDS: Piperacillin/Tazobactam 3.375 GM in Sodium Chloride 0.9% 100 ML IVPB SCH ×6 (00:22→23:41)
[2017-11-12 04:36] LABS: #Eosinphils 0.3 thou/uL (0.0-0.7); #Lymphocytes 2.1 thou/uL (1.20-3.40); #Monocytes 0.6 thou/uL (0.11-0.59); #Neutrophils 3.4 thou/uL (1.40-6.50); %Basophils 0.3 % (0.0-1.0); %Eosinophils 5.3 % (0.0-10.0); %Monocytes 8.6 % (0.0-10.0); %Neutrophils 52.9 % (42.0-75.0); Mean Corpuscular HGB CONC 33.5 g/dL (32.0-36.0); Mean Corpuscular Hemoglobin 29.2 pg (27.0-31.0); Mean Platelet Volume 8.2 fL (7.4-10.4); Platelet Count 234 thou/uL (130-400); RBC Distribution Width 13.9 % (11.5-14.5); Red Blood Cell (RBC) Count 3.44 mill/uL (4.70-6.10); White Blood Cell (WBC) Count 6.4 thou/uL (4.8-10.8)
[2017-11-12 04:57] LABS: ALT (SGPT) Less than 7 U/L (8-55); AST (SGOT) 11 U/L (5-34); Albumin 3.2 g/dL (3.5-5.0); Alkaline Phosphatase 75 U/L (40-150); Anion Gap 10 mmol/L (10-20); BUN (Urea Nitrogen) 30 mg/dL (8.4-25.7); Bilirubin, Total 0.4 mg/dL (0.2-1.2); Calc. Creatinine Clearance 37 mL/min (70-130); Calcium 8.6 mg/dL (7.8-10.44); Carbon Dioxide 23 mmol/L (22-29); Chloride 110 mmol/L (98-107); Estimated GFR-MDRD 31; Globulin 3.2 g/dL (2.4-3.5); Glucose 77 mg/dL (70-105); Potassium 4.4 mmol/L (3.5-5.1); Protein, Total 6.4 g/dL (6.0-8.3); Sodium 139 mmol/L (136-145)
--- NOTE | 2017-11-12 06:14 | PDOC.FM ---
- Subjective Subjective: Patient did not have any bowel movements last night but had two today after Golytely x1. Denies abdominal pain or any other complaints. - Objective MAR Reviewed: Yes Vital Signs & Weight: Vital Signs (12 hours) Temp Pulse Resp BP Pulse Ox 11/11/17 20:17 78 11/11/17 20:00 98.5 F 78 18 11/11/17 19:44 98.5 F 78 14 136/78 97 Weight Admit Weight 71.441 kg Weight 71.441 kg I&O: 11/10/17 11/11/17 11/12/17 06:59 06:59 06:59 Intake Total 1940 2957 2900 Output Total 1100 2000 2250 Balance 840 957 650 Result Diagrams: 11/12/17 04:18 11/12/17 04:18 <Dasha Leija - Last Filed: 11/12/17 16:58> - Objective Vital Signs & Weight: Vital Signs (12 hours) Temp Pulse Resp BP Pulse Ox 11/12/17 17:17 99.1 F 87 16 171/89 H 94 L 11/12/17 08:00 98.4 F 80 16 11/12/17 07:56 80 11/12/17 07:50 98.4 F 80 16 174/88 H 97 Weight Admit Weight 71.441 kg Weight 71.441 kg I&O: 11/11/17 11/12/17 11/13/17 06:59 06:59 06:59 Intake Total 2957 2900 Output Total 2000 2250 Balance 957 650 Result Diagrams: 11/12/17 04:18 11/12/17 04:18 <Rahul Asencio - Last Filed: 11/12/17 17:56> Phys Exam - Physical Examination Constitutional: NAD HEENT: moist MMs Gastrointestinal: soft, non-tender, no distention Musculoskeletal: no edema Psychiatric: A&O x 3 Deviation from normal: affect is mildly flattened <Dasha Leija - Last Filed: 11/12/17 16:58> Dx/Plan (1) Complicated UTI (urinary tract infection) Code(s): N39.0 - URINARY TRACT INFECTION, SITE NOT SPECIFIED Status: Acute (2) Acute kidney injury superimposed on CKD Code(s): N17.9 - ACUTE KIDNEY FAILURE, UNSPECIFIED; N18.9 - CHRONIC KIDNEY DISEASE, UNSPECIFIED Status: Acute (3) CKD (chronic kidney disease), stage IV Code(s): N18.4 - CHRONIC KIDNEY DISEASE, STAGE 4 (SEVERE) Status: Acute (4) BPH (benign prostatic hyperplasia) Code(s): N40.0 - BENIGN PROSTATIC HYPERPLASIA WITHOUT LOWER URINRY TRACT SYMP Status: Acute (5) Constipation Code(s): K59.00 - CONSTIPATION, UNSPECIFIED Status: Acute (6) DM2 (diabetes mellitus, type 2) Status: Chronic QualifierTitle: Chronic kidney disease stage: stage 3 (moderate) (7) HTN (hypertension) Code(s): I10 - ESSENTIAL (PRIMARY) HYPERTENSION Status: Chronic (8) S/P CABG x 4 Status: Chronic - Plan Plan: 57 yo M with PMH MSSA+ UTI and BPH here with constipation and UTI. 1. CHINO on CKD3: Likely 2/2 post obstructive uropathy -renal function improved today; creatinine 2.77 -> 2.53 -> 2.28 2. Bacterial prostatitis -Final Cx: NGTD -Send home with Ciprofloxacin 500mg BID -Afebrile overnight -Consider prostatitis-will do prostate exam in AM 3. Constipation 2/2 poor fiber diet -BM today x2 -Discussed and reviewed importance of high fiber diet and sending home with instructional sheets -Sending home with miralax to use PRN 4. Hyperkalemia -Resolved 5. IDDM: -Hypoglycemic episode yesterday am, decreased insulin dose to 22 units -On HH/CC diet 6. BPH: -Continue home meds of Flomax & Finasteride 7. HTN: -BPs have been running high ranging from 113-179 systolics during this admission ; however, patient is asx, denies MONTERO, vision changes -Will send home with Amlodipine 5mg po BID + Coreg 3.125 po BID 8. Normocytic anemia most likely 2/2 dilutation vs. blood draws -Prior records indicate baseline Hb from 8-15 -Patient asx; monitor daily H/H for now Dispo: Will discharge to home today. Follow up with PCP in 7-10 days. Discussed plan with Dr. Asencio <Dasha Leija - Last Filed: 11/12/17 16:58> Attending Addendum - Attending Addendum Date/Time: 11/12/17 1750 I personally evaluated the patient and discussed the management with Dr. Gwyn Leija. I agree with the History, Examination, Assessment and Plan documented above with any addition or exceptions noted below. Feels better. UA still shows pyuria but C&S neg at 36 hrs. Rectal exam prostate tender per Dr. Dasha Leija. On my exam his abdomen is soft, non-tender. No palpable stool. Will d/c home on Cipro 500 bid for 3.5 weeks for acute prostatitis and increase BP regimen by starting Carvedilol 3.25 bid added to his norvasc 5 bid. Also start scheduled miralax 17 gram daily in JUSTEN or juice. D/C home to F/U with [facility] and with Dr. Carter, Urology. [facility] <Rahul Asencio - Last Filed: 11/12/17 17:56>
[2017-11-12] MEDS: Finasteride 5 MG TAB PO SCH (07:56)
[2017-11-12] MEDS: Tamsulosin HCl 0.4 MG CAP PO SCH (07:56)
[2017-11-12] MEDS: Senokot S 8.6-50 MG TAB PO SCH ×2 (07:56→20:10)
[2017-11-12] MEDS: Amlodipine 5 MG TAB PO SCH ×2 (07:56→20:10)
[2017-11-12] MEDS: Insulin NPH/Reg Insulin Hm 300 UNITS/3 ML VIAL SC SCH ×2 (07:57→20:11)
[2017-11-12] MEDS ORDERED: GoLYTELY 4,000 ml Bottle PO SCH (09:15)
[2017-11-12 10:13] LABS: Bilirubin Negative (Negative); Blood, Urine Small (Negative); Clarity CLOUDY (Clear); Glucose, Urine (Dipstick) Negative (Negative); Leukocyte Large (Negative); Nitrite Negative (Negative); Protein, Urine (Dipstick) 100 mg/dL (Neg-Trace); Specific Gravity, Urine 1.009 (1.002-1.036); Urobilinogen 0.2 mg/dL (0.2-1.0)
[2017-11-12 10:16] LABS: Bacteria/HPF None Seen HPF (None Seen); Hyaline Casts/LPF 0-3 HYALINE CAST LPF (0-3 Hyaline); Pathc Cast-AUWi Flag 0.58 (0-2.49); Squamous Epithelial None Seen HPF (0-3)
[2017-11-12] MEDS: HumaLOG 300 UNITS/3 ML VIAL SC PRN (11:53)
[2017-11-13] MEDS: Piperacillin/Tazobactam 3.375 GM in Sodium Chloride 0.9% 100 ML IVPB SCH (05:14)
[2017-11-13 07:32] VITALS: BP 177/89
[2017-11-13] MEDS: Finasteride 5 MG TAB PO SCH (08:01)
[2017-11-13] MEDS: Amlodipine 5 MG TAB PO SCH (08:01)
[2017-11-13] MEDS: Senokot S 8.6-50 MG TAB PO SCH (08:02)
[2017-11-13] MEDS: Tamsulosin HCl 0.4 MG CAP PO SCH (08:02)
[2017-11-13 09:40] VITALS: TEMP 97.3
[2017-11-13] MEDS: Insulin NPH/Reg Insulin Hm 300 UNITS/3 ML VIAL SC SCH (10:18)
--- NOTE | 2017-11-13 10:30 | PDOC.EVN ---
Event Note - Event Note Event Note: History, Physical Exam, and Assessment and Plan discussed with resident taking care of patient, Dr. Perez. 57HM admitted for constipation and urinary retention. He has had multiple BMs s/ p GoLytely. Prostate is tender and boggy upon physical exam while in the hospital. He will be discharged on 4 weeks of Cipro BID. Plan is to d/c llamas and monitor voiding status. If patient voids appropriately then he can be discharged with f/u with his Urologist, Dr. Carter.
--- NOTE | 2017-11-14 08:00 | DIS-2 ---
DATE OF ADMISSION: 11/09/2017 DATE OF DISCHARGE: 11/13/2017 RESIDENT: Dasha Leija MD ADMITTING ATTENDING: Martin Jimenez M.D. DISCHARGE ATTENDING: Rahul Asencio M.D. CONSULTATIONS: None. PROCEDURES: None. PRIMARY DIAGNOSES: Impaction, constipation; acute kidney injury on chronic kidney disease, 4. SECONDARY DIAGNOSES: Hyperkalemia, urinary retention, urinary tract infection, diabetes mellitus, hypertension, hyperlipidemia, coronary artery disease, PAC, deep vein thrombosis. DISCHARGE MEDICATIONS: 1. Ciprofloxacin 500 mg p.o. q.12 hours. 2. Carvedilol 3.125 mg p.o. b.i.d. 3. Polyethylene glycol 17 grams oral p.r.n. as needed for constipation. 4. Lisinopril 10 mg p.o. b.i.d. 5. Humulin 70/30 vial, 10 units subcutaneous at bedtime. 6. Humulin 70/30 vial, 25 units subcutaneous q.a.m. 7. Finasteride 5 mg p.o. daily. 8. Tamsulosin (Flomax) 0.4 mg p.o. daily. 9. Amlodipine 5 mg p.o. b.i.d. DISCONTINUED MEDICATIONS: None. HISTORY OF PRESENT ILLNESS AND HOSPITAL COURSE: Mr. Zuluaga presented to the ED with 1-month history of urinary retention and constipation. Labs revealed renal abnormalities consistent with prerenal CHINO and urinalysis consistent with a UTI. Patient was also found to be hyperkalemic at 5.7, attributed to the progression of his chronic kidney disease. Due to immense abdominal pain patient was initially thought to have had perforation which was ruled out with KUB. Patient was able to evacuate s/p GoLytely. Pre-renal CHINO resolved with maintenance fluids. For the UTI, patient was started on Zosyn, but repeat UA 3 days later showed no improvement; prostate exam was positive for a boggy prostate led to suspicion of prostatitis. Thus, padmini was discharged with Rx for ciprofloxacin. In addition, patient's blood pressures were elevated during admission while on home dose of Lisinopril, so Carvedilol was added to discharge meds. DISPOSITION: Stable. DISCHARGE INSTRUCTIONS: 1. Location: Home. 2. Diet: Renal diet. 3. Activity: Ad elle. 4. Follow up with PCP at [facility] and with urologist, Dr. Carter. GABI
== END 2017-11-13 11:09 | disposition home or self-care (01) | DRG 683 ==
LOC: ERS 14:24 → T4-B 17:25
PROVIDERS: ADMIT Family Medicine; ATTEND Family Medicine
DX: N17.9 Acute kidney failure, unspecified (principal); N39.0 Urinary tract infection, site not specified; N41.0 Acute prostatitis; N18.4 Chronic kidney disease, stage 4 (severe); K59.00 Constipation, unspecified; R33.9 Retention of urine, unspecified; R35.0 Frequency of micturition; E11.22 Type 2 diabetes mellitus with diabetic chronic kidney disease; I12.9 Hypertensive chronic kidney disease with stage 1 through stage 4 chronic kidney disease, or unspecified chronic kidney disease; E87.5 Hyperkalemia; N13.9 Obstructive and reflux uropathy, unspecified; D64.9 Anemia, unspecified; Z87.891 Personal history of nicotine dependence; Z79.4 Long term (current) use of insulin; Z79.899 Other long term (current) drug therapy; Z89.412 Acquired absence of left great toe; Z95.1 Presence of aortocoronary bypass graft; Z95.5 Presence of coronary angioplasty implant and graft; Z95.820 Peripheral vascular angioplasty status with implants and grafts
CPT/HCPCS: 36415; 36416; 51702; 74019; 80053; 81003; 81015; 83605; 85025; 87086; 93005; 93010; 96361; 96365; 96375; A4216; G0103; J1815; J2543; J7050; J7120

== ENCOUNTER 2018-04-27 08:28 | Inpatient (IN) | payer MEDICARE, SELFPAY ==
[2018-04-27] MEDS ORDERED: Acetaminophen 325 MG TAB ONE (09:33)
--- NOTE | 2018-04-27 09:53 | RAD ---
AP PELVIS RADIOGRAPH: Date: 04/27/18 HISTORY: Fall, lower back, sacral, and right-sided rib pain. FINDINGS: There is slight asymmetric narrowing of the superolateral right hip joint space compared to the left, likely related to mild osteoarthritis. No fracture or dislocation is appreciated on this exam. Vascu lar calcifications seen in the iliac and femoral arteries. Surgical clips overlie the inguinal region s bilaterally. IMPRESSION: Mild bilateral hip osteoarthritis, slightly greater on the right. No fracture or dislocation is appre ciated. POS: [facility]
--- NOTE | 2018-04-27 09:57 | CT ---
CT LUMBAR SPINE WITHOUT CONTRAST: HISTORY: Low back pain. Coccygeal pain after slipping and falling at an [employer] parking lot three days ago. COMPARISON: None. CORRELATION: Renal stone CT from 09/27/2017. FINDINGS: There is a small right-sided pleural effusion. The visualized solid organs are grossly unremarkable. There may be mild atrophy of the pancreas, inc ompletely evaluated. There is no retroperitoneal mass or hematoma. There is stable aortocaval and periaortic lymphadenopa thy. The largest lymph node is in the left periaortic region and measures 1 x 1.8 cm (previously lakshmi suring 2.2 x 1.3 cm). Symmetric attenuation of the psoas muscles. There is some nonspecific fluid a nd standing anterior to the left and right psoas muscles. There is a small amount of fluid in the pe lvis. There are five lumbar type vertebral bodies. There is a mild acute compression fracture involving th e superior aspect of L1. Minimal associated paraspinal hematoma. L2 through L5 do not demonstrate a ny acute fracture. There are bilateral pars defects without significant spondylolisthesis at L5. Limited evaluation of the contents of the central spinal canal and neural foramina. There is no high grade central canal stenosis throughout the lumbar spine. L2-L3: Generalized disk bulge, ligamentum flavum thickening, and facet hypertrophy result in mild ce ntral canal stenosis. Mild bilateral foraminal narrowing. L3-L4: Generalized disk bulge, ligamentum flavum thickening, and facet hypertrophy result in mild ce ntral canal stenosis. Mild bilateral foraminal narrowing. L4-L5: Generalized disk bulge, ligamentum flavum thickening, and facet hypertrophy result in mild ce ntral canal stenosis. Mild bilateral foraminal narrowing. L5-S1: Generalized disk bulge does not cause any significant central canal stenosis. Moderate bilat eral foraminal narrowing. IMPRESSION: 1. Acute fracture involving the L1 vertebral body. 2. There is evidence of right-sided pleural effusion, as well as fluid anterior to both psoas muscle s, and free fluid in the pelvis. The possibility of post traumatic change cannot be excluded. If th ere is concern, dedicated chest, abdomen, and pelvis CT is recommended. The results of the study were discussed with Marina Gallegos on 04/27/2018 at 9:36 a.m. CODE CR POS: [facility]
--- NOTE | 2018-04-27 10:02 | RAD ---
PA CHEST WITH 4 VIEWS BILATERAL RIBS: Date; 04/27/18 HISTORY: Patient fell in parking lot on Monday and since that time has had right-sided rib pain and back pain . COMPARISON: Chest x-ray on 07/05/17. FINDINGS: Postsurgical changes related to median sternotomy are again noted. The cardiac silhouette is magnifie d by projection. There is mild nonspecific prominence of the interstitial markings compared to the pr ior exam. No consolidation or pleural fluid is seen, and there is no evidence of a pneumothorax. No rib fracture is seen bilaterally. There are degenerative changes within the thoracic and visualize d upper lumbar spine. IMPRESSION: 1. Mild nonspecific prominence of interstitial markings. While this could be related to projection, mild pulmonary edema or infectious process cannot be entirely excluded. Follow-up evaluation is recom mended if clinically indicated. There is no pleural fluid or pneumothorax seen. 2. No rib fracture is appreciated. POS: [facility]
[2018-04-27 10:19] LABS: #Basophils 0.1 thou/uL (0.0-0.2); #Eosinphils 0.1 thou/uL (0.0-0.7); #Lymphocytes 1.3 thou/uL (1.20-3.40); #Monocytes 0.6 thou/uL (0.11-0.59); #Neutrophils 9.1 thou/uL (1.40-6.50); %Basophils 0.7 % (0.0-1.0); %Eosinophils 0.5 % (0.0-10.0); %Monocytes 5.6 % (0.0-10.0); %Neutrophils 81.4 % (42.0-75.0); Hemoglobin 11.3 g/dL (14.0-18.0); Mean Corpuscular HGB CONC 31.4 g/dL (32.0-36.0); Mean Corpuscular Hemoglobin 27.2 pg (27.0-31.0); Mean Corpuscular Volume 86.7 fL (78.0-98.0); Mean Platelet Volume 8.9 fL (7.4-10.4); Platelet Count 338 thou/uL (130-400); RBC Distribution Width 13.3 % (11.5-14.5); Red Blood Cell (RBC) Count 4.16 mill/uL (4.70-6.10); White Blood Cell (WBC) Count 11.2 thou/uL (4.8-10.8)
[2018-04-27 10:43] LABS: Bilirubin Small (Negative); Blood, Urine Moderate (Negative); Clarity CLEAR (Clear); Glucose, Urine (Dipstick) 500 mg/dL (Negative); Leukocyte Negative (Negative); Nitrite Negative (Negative); Protein, Urine (Dipstick) > or equal to 300 mg/dL (Neg-Trace); pH, Urine 5.5 (5.0-9.0)
[2018-04-27 10:46] LABS: ALT (SGPT) 8 U/L (8-55); AST (SGOT) 10 U/L (5-34); Albumin 3.1 g/dL (3.5-5.0); Alkaline Phosphatase 197 U/L (40-150); Anion Gap 14 mmol/L (10-20); BUN (Urea Nitrogen) 35 mg/dL (8.4-25.7); Bilirubin, Total 0.5 mg/dL (0.2-1.2); Calc. Creatinine Clearance 0 mL/min (70-130); Calcium 9.1 mg/dL (7.8-10.44); Carbon Dioxide 23 mmol/L (22-29); Chloride 105 mmol/L (98-107); Estimated GFR-MDRD 21; Globulin 4.2 g/dL (2.4-3.5); Glucose 276 mg/dL (70-105); Potassium 4.5 mmol/L (3.5-5.1); Protein, Total 7.3 g/dL (6.0-8.3); Sodium 137 mmol/L (136-145)
[2018-04-27 10:48] LABS: Bacteria/HPF None Seen HPF (None Seen)
[2018-04-27 10:50] LABS: Pathc Cast-AUWi Flag 13.81 (0-2.49)
[2018-04-27 10:58] LABS: Hyaline Casts/LPF NONE SEEN LPF (0-3 Hyaline); Manual Microscopic Reviewed? No Path Casts Seen; Renal Epithelial None Seen HPF (0-3); Transitional Epithelial NONE SEEN HPF (0-3)
[2018-04-27] MEDS ORDERED: hydrALAZINE 20 MG/ML VIAL ONE ×2 (11:15→14:01)
--- NOTE | 2018-04-27 11:43 | CT ---
CT THORAX WITHOUT IV CONTRAST CT ABDOMEN AND PELVIS WITHOUT IV CONTRAST CT THORACIC AND LUMBAR SPINE: Date: 04/27/18 HISTORY: Lower back pain and tailbone pain after slipping and falling in parking lot 3 days ago. Diffuse rib p ain. FINDINGS: NONCONTRAST CT THORAX: There is a small to moderate size right pleural effusion. Attenuation coefficient is suggestive of si mple fluid as opposed to hemorrhage. Very tiny left pleural effusion is present. There is question of minimal extrapleural fluid also present at the right lung base. No obvious rib fracture is seen. Postsurgical changes related to CABG are present. Vascular calcifications are seen in the thoracic ao rta and involving the coronary arteries. There is mild enlargement of the heart. No mediastinal hematoma is appreciated. There are linear area s of increased density in the anterior superior mediastinum, probably related to mild scarring. There is minimal nonspecific diffuse subcutaneous edema. CT ABDOMEN AND PELVIS: There is increased density seen within the gallbladder, likely related to either sludge or gallbladde r calculi. There does appear to be edema within the gallbladder wall versus pericholecystic fluid. Th ere is also mild adjacent stranding. In the correct clinical scenario, findings could be related to c holecystitis. There is a small amount of free fluid seen in the abdomen adjacent to the liver and spleen. There is bilateral perinephric stranding, but this was also seen on study of 09/27/17. Lack of intravenous contrast does limit evaluation of the parenchymal organs, but no definite parench ymal organ injury is identified on this nonenhanced CT scan exam. There is no periaortic fluid or hem atoma appreciated. Again noted are increased number of aortocaval lymph nodes, some of which are mildly enlarged, the la rgest measuring approximately 1.3 cm in short axis dimension just below the level of the left renal v essels in a left periaortic location. The liver, spleen, spleen, pancreas, bilateral adrenal glands, and kidneys demonstrate a grossly norm al nonenhanced CT appearance. Again noted is mild thickening of the johnston of the urinary bladder. There is a moderate amount of retained fecal material seen within the rectum. The appendix is visualized and normal in caliber. There is mild stranding seen within a retroperitoneal location of uncertain etiology. This is not aysha reciated on the prior study aside from the bilateral perinephric stranding. Dense vascular calcifications are seen in the abdominal aorta and involving the iliac arteries. CT THORACIC AND LUMBAR SPINE: There is a mild wedge-shaped compression fracture involving the superior end plate of the L1 vertebra l body. While the exact age is indeterminate, this is likely more recent in origin, and this was also not visualized on CT abdomen of 09/27/17. Remaining vertebral body heights are within normal limits and no additional fracture is seen involving the thoracic or lumbar spine. Mild multilevel degenerati ve changes are present. Bilateral pars defects are seen at L5 with trace anterolisthesis of L5 on S1. IMPRESSION: 1. Small to moderate size right and tiny left pleural effusions with associated passive atelectasis. A few scattered patchy densities are seen within the lungs, which are also likely attributable to at electasis. 2. Cardiomegaly. 3. Extensive vascular calcifications involving the coronary arteries, and vascular calcifications to a much lesser extent involving the thoracic and abdominal aorta. 4. Edematous gallbladder wall and/or pericholecystic fluid. In the correct clinical scenario, findin gs could be related to cholecystitis. These findings were not present on the prior exam. Again noted is evidence of cholelithiasis. Depending on clinical concern, hepatobiliary study and ultrasound may be helpful for further evaluation. 5. Very small amount of ascites, predominantly adjacent to the anterior aspect of the liver and jerome cent to the spleen. 6. Nonspecific bilateral perinephric stranding with mild stranding in a retroperitoneal location, mi ldly increased from the prior exam. 7. Aortocaval lymphadenopathy, similar to prior study. 8. Thickening of the johnston of the urinary bladder, which could be related to incomplete distention, but cystitis cannot be excluded based on this exam. 9. Moderate amount of retained fecal material in the colon. 10. Mild compression fracture involving superior end plate of the L1 vertebral body; exact age is in determinate, but likely more recent in origin, and this does represent interval change from the prior study on 09/27/17. 11. Spondylolisthesis lumbosacral junction. POS: [facility]
[2018-04-27] MEDS ORDERED: Polyethylene Glycol 3350 17 GM Packet PO PRN (13:45)
[2018-04-27] MEDS ORDERED: Dextrose 5% in Water 1,000 ML IV PRN (14:11)
[2018-04-27] MEDS ORDERED: Ondansetron PF 4 MG/2 ML Vial IVP PRN (14:11)
[2018-04-27] MEDS ORDERED: Ondansetron ODT 4 MG TAB PO PRN (14:11)
[2018-04-27] MEDS ORDERED: Dextrose 50% Abboject 50 ML SYRINGE SLOW IVP PRN (14:11)
[2018-04-27 14:14] LABS: Hemoglobin A1c 9.6 % (4.0-6.0)
--- NOTE | 2018-04-27 17:31 | NM ---
NUCLEAR MEDICINE HIDA SCAN WITH DRU04/27/18 HISTORY: Abdominal pain. COMPARISON: CT of chest, abdomen and pelvis same day. FINDINGS: Abdominal imaging was obtained after the intravenous administration of 5.5 millicuries technetium 99 m Mebrofenin. There is adequate hepatic uptake of radiotracer. The common bile duct to the small bowel is seen quic kly as well as gallbladder. No obstruction. 8 oz of Ensure was given post injection. The ejection fraction is 18%. IMPRESSION: 1. No evidence of acute cholecystitis. 2. Patent cystic duct and common bile duct. 3. Very low ejection fraction of 18%. POS: [facility]
[2018-04-27 17:42] VITALS: BMI 24.6
[2018-04-27] MEDS: Carvedilol 3.125 MG TAB PO SCH (20:20)
[2018-04-27] MEDS: Lisinopril 10 MG TAB PO SCH (20:20)
[2018-04-27] MEDS: Amlodipine 5 MG TAB PO SCH (20:21)
[2018-04-27] MEDS: Insulin Regular 300 UNITS/3 ML VIAL SC PRN (20:21)
--- NOTE | 2018-04-27 20:29 | HP ---
HISTORY OF PRESENT ILLNESS: This is a 58-year-old male, who presented to the emergency room complaining of back pain after falling 3 days ago. The patient states he was at [employer] when he tripped on his pant legs that were too long which made him fall landing backwards on his back. He denies any loss of consciousness or denies hitting his head. He also denies being dizzy before falling. The patient was evaluated in the emergency room and was found to have an L1 compression fracture. Further exam from CT chest, abdomen and pelvis showed edema and free fluid in the abdomen, suspicious of gallbladder disease. The patient also reported bilateral flank pain. The patient reports that his back hurts worse whenever he coughs. The patient also reports recent upper congestion with white productive cough. The patient is difficult to understand at times as he has no teeth. PAST MEDICAL HISTORY: Hypertension; coronary artery disease; diabetes, insulin-dependent; neurological disease; ischemic CVA with left hand weakness; DVT; hepatitis A. PAST SURGICAL HISTORY: CABG x4 vessels in 2013, amputation of left great toe, stents to lower left leg, cardiac stents. PSYCHIATRIC HISTORY: Anxiety, depression. SOCIAL HISTORY: Former tobacco user. The patient states he quit 10 years ago and started smoking when he was 16. The patient reports heavy alcohol use, but stopped drinking 10 years ago. MEDICATIONS: The patient reports taken insulin 10 units in the a.m. and p.m. Also, reports, supposed to be taking hypertension medications but has not followed up with his doctor, noncompliant for the last 2 months. ALLERGIES: NO KNOWN DRUG ALLERGIES. REVIEW OF SYSTEMS: GENERAL: Reports weight loss within the last 10 years whenever he became diabetic. Denies fever, chills, or night sweats. HEENT: Denies any trauma, blurred vision. Denies any neck pain or visual changes. RESPIRATORY: Denies any shortness of breath. Does report a productive cough. CARDIOVASCULAR: Reports history of hypertension. Denies any murmurs. Denies any palpitations. Denies dyspnea on exertion. Denies edema. GI: Denies nausea, vomiting, diarrhea, or constipation. Denies appetite changes. URINARY: Denies any frequency, hesitancy, urgency, or hematuria. MUSCULOSKELETAL: Denies muscle weakness or swelling. Reports left great toe amputation from poor circulation. NEUROLOGIC: Denies loss of sensation or numbness or tingling. PHYSICAL EXAMINATION: VITAL SIGNS: Blood pressure 134/86, heart rate 86, respirations 16, SpO2 of 97 % on room air, temperature 98.3. GENERAL: Awake, alert. No distress. Clothes appear too large for the patient. HEENT: Atraumatic, normocephalic. Pupils equal and reactive. The patient with missing teeth. CARDIOVASCULAR: Regular rate and rhythm. No murmurs noted. No pedal edema. RESPIRATORY: Respirations even, unlabored and equal bilateral. The patient does have upper respiratory congestion/rhonchi which clears after coughing. ABDOMEN: Soft. Tender in the mid upper abdomen. The patient without guarding. MUSCULOSKELETAL: Normal sensation. Right pedal pulse weaker than a left pedal pulse. The patient with normal range of motion. The patient with lower back tenderness. No C-spine or T-spine tenderness. Motor strength 5/5, equal. NEUROLOGIC: Normal sensation and strength. The patient is oriented to person, place, and time. LABORATORY DATA: WBC 11.2, RBC 4.16, hemoglobin 11.3, hematocrit 36.1. Sodium 137, potassium 4.5, chloride 105, CO2 of 23, BUN 35, creatinine 3.02, estimated GFR 21, glucose 276. Hemoglobin A1c 9.6. Calcium 9.1, total bilirubin 0.5, AST 10, ALT 8, alkaline phosphatase 197. Serum total protein 7.3, albumin 3.1, globulin 4.2, ratio 0.7. UA; positive for protein greater than 300, glucose 500, ketones trace, moderate blood, nitrites negative, bilirubin small, negative leukocyte esterase, urine rbc's high, urine wbc's high. DIAGNOSTIC DATA: Chest x-ray; no rib fractures appreciated, mild pulmonary edema or could be infectious process. Lumbar spine CT; acute fracture involving the L1 vertebral body. Evidence of a right-sided pleural effusion as well as fluid anterior to both fossae muscles and free fluid in the pelvis. CT chest, abdomen, and pelvis; [id number] size right and tiny left pleural effusions with associated passive atelectasis. A few scratchy patches seen within the lungs, likely attributable to atelectasis. Extensive vascular calcifications involving the coronary arteries, edematous gallbladder wall and/or pericholecystic fluid. Very small amount of ascites, predominantly adjacent to the anterior aspect of the liver, adjacent to the spleen with thickening of the johnston of the urinary bladder. ASSESSMENT: 1. Status post ground level fall. 2. L1 compression fracture. 3. Cholecystitis versus cholelithiasis. 4. Poorly controlled diabetes. 5. Uncontrolled hypertension. PLAN: We will obtain a HIDA scan. We will also consult Neurosurgery, which we already spoke with Neurosurgery and a TLSO clamshell brace will be ordered for the patient. The patient will be nonambulatory until he is fitted with his TLSO brace. The patient will need to wear TLSO brace anytime he is out of bed. We will keep the patient in n.p.o. status until HIDA scan results. We will manage the patient's hypertension and hyperglycemia. The patient was examined with Dr. Gaviria and plan was discussed. Job ID: [id number] [facility]
--- NOTE | 2018-04-27 21:45 | PRG ---
DATE OF SERVICE: 04/27/2018 SUBJECTIVE: I evaluated Mr. Zuluaga in the company of Ms. Hodge, nurse practitioner. I agree with her notes. I also personally reviewed the subsequent HIDA scan. HIDA scan was significant for low ejection fraction of 18% with no radiographic evidence of acute cholecystitis. Given the patient's history of diabetes mellitus and CT scan findings of a thickened gallbladder wall and pericholecystic fluid in addition to the patient's chronic history of recurrent dyspepsia, I have recommended laparoscopic cholecystectomy in this hospitalization. The patient will be taken to the operating room tomorrow for laparoscopic cholecystectomy. I have advised the patient of the risks and benefits of proposed surgery to include, but not limited to bleeding, infection, injury to bile duct or surrounding structures. The patient indicated understanding and information given. He has granted consent for the surgical intervention proposed. Job ID: [id number]
[2018-04-28 06:13] LABS: Anion Gap 12 mmol/L (10-20); BUN (Urea Nitrogen) 42 mg/dL (8.4-25.7); Calc. Creatinine Clearance 33 mL/min (70-130); Calcium 8.6 mg/dL (7.8-10.44); Carbon Dioxide 24 mmol/L (22-29); Chloride 109 mmol/L (98-107); Estimated GFR-MDRD 25; Glucose 89 mg/dL (70-105); Sodium 141 mmol/L (136-145)
[2018-04-28] MEDS ORDERED: Bupivacaine 0.25% HCL 30 ML VIAL ONE (08:57)
[2018-04-28] MEDS ORDERED: Bupivacaine/Epinephrine 0.25% 30 ML VIAL ONE (09:03)
[2018-04-28] MEDS ORDERED: Dexamethasone 20 MG/5 ML VIAL ONE (09:18)
[2018-04-28] MEDS ORDERED: PROPOFOL 200 MG/20 ML VIAL ONE (09:18)
[2018-04-28] MEDS ORDERED: Glycopyrrolate 0.2 MG/ML 5 ML SYRINGE ONE (09:18)
[2018-04-28] MEDS ORDERED: Ondansetron PF 4 MG/2 ML Vial ONE (09:18)
[2018-04-28] MEDS ORDERED: Lidocaine 1% PF 5 ML VIAL ONE (09:18)
[2018-04-28] MEDS ORDERED: Fentanyl 100 MCG/2 ML VIAL ONE ×2 (09:36→11:03)
[2018-04-28] MEDS ORDERED: ceFOXitin 1 GM VIAL ONE (09:36)
[2018-04-28] MEDS ORDERED: SUGAMMADEX SODIUM 200 MG/2 ML VIAL ONE (10:36)
[2018-04-28] MEDS ORDERED: traMADol HCl 50 MG TAB PO PRN (10:36)
[2018-04-28] MEDS ORDERED: Acetaminophen 500 MG TAB PO SCH (10:45)
[2018-04-28] MEDS ORDERED: Promethazine HCl 25 MG/ML VIAL SLOW IVP PRN (10:52)
[2018-04-28] MEDS ORDERED: Promethazine HCl 25 MG/ML VIAL IM PRN (10:52)
[2018-04-28] MEDS ORDERED: Ondansetron HCl/PF 4 MG/2 ML Vial IVP PRN (10:52)
[2018-04-28] MEDS: Lisinopril 10 MG TAB PO SCH ×3 (12:38→21:46)
[2018-04-28] MEDS: Amlodipine 5 MG TAB PO SCH ×3 (12:38→21:45)
[2018-04-28] MEDS: Carvedilol 3.125 MG TAB PO SCH ×3 (12:38→21:45)
--- NOTE | 2018-04-28 12:43 | PRG ---
DATE OF SERVICE: 04/28/2018 SUBJECTIVE: I came by to see Mr. Zuluaga. He was in the operating room with Dr. Gaviria. He has been found to have an anterior-middle column nonworrisome L1 fracture. He also has associated significant comorbidities including renal disease and diabetes along with reported gallbladder dysfunction. We will arrange for TLSO clamshell brace to be worn whenever out of bed, and this will be for a 6- to 12-week period. I will return to see him when he is done in the operating room over the next day or two. Job ID: [id number]
[2018-04-28] MEDS: Finasteride 5 MG TAB PO SCH (12:47)
[2018-04-28] MEDS: Tamsulosin HCl 0.4 MG CAP PO SCH (12:47)
[2018-04-28] MEDS: traMADol HCl 50 MG TAB PO PRN (16:13)
[2018-04-28] MEDS: Insulin Regular 300 UNITS/3 ML VIAL SC PRN ×2 (16:29→21:44)
--- NOTE | 2018-04-28 17:30 | OP ---
DATE OF PROCEDURE: 04/28/2018 PREOPERATIVE DIAGNOSIS: Chronic cholecystitis with cholelithiasis. POSTOPERATIVE DIAGNOSIS: Chronic cholecystitis with cholelithiasis. OPERATION PERFORMED: Laparoscopic cholecystectomy. ANESTHESIA: General endotracheal. ESTIMATED BLOOD LOSS: 10 mL. FLUIDS GIVEN: 1000 mL crystalloids. COUNTS: Sponge and instrument counts verified as correct x2. COMPLICATIONS: None apparent at the time of operation. INDICATIONS FOR OPERATION: This is a 58-year-old man with history of diabetes mellitus, who presented following a fall. He was found with an L1 compression fracture. The patient did complain also of bilateral upper abdominal to lower chest wall pain. Workup revealed enlarged gallbladder with pericholecystic fluid. HIDA scan to visualize the gallbladder, however, ejection fraction was noted at 18%, suggesting of chronic cholecystitis, for which the patient was brought to operative room for cholecystectomy. Findings are consistent with gallbladder in the usual anatomic location nearly encased by omental adhesions. There was also a significant amount of pericholecystic fluid and edema present. DESCRIPTION OF PROCEDURE: Informed consent obtained from the patient, was brought to the operating room, placed in supine position. Following general anesthesia, abdomen was sterilely prepped and draped in usual fashion. Skin below the umbilicus was infiltrated with 0.25% Marcaine with epinephrine. A small curvilinear infraumbilical incision was made using 11 scalpel. Umbilical stalk grasped with Rafy and elevator. Veress needle was inserted through the incision first in the peritoneal cavity through which the abdomen was insufflated with 4 L of CO2 gas. Intraabdominal pressure was noted at 1 mmHg present for abdomen insufflation. The Veress needle was removed and replaced with a 5-mm trocar introduced using the Visiport under laparoscopy. Laparoscopy confirmed proper placement of the port. No injuries to underlying structures. Additional laparoscopy reveals gallbladder in the usual anatomic location nearly encased by omental adhesions. Under direct laparoscopy, a 12-mm epigastric and two 5-mm right lateral subcostal ports were placed. The overlying skin were infiltrated with 0.25% Marcaine with epinephrine. Appropriate incision was made. The patient was placed in reverse Trendelenburg position, rotated to his left. I introduced [place] dissector with cautery. Using this, we took down omental adhesions to expose the fundus of the gallbladder. I introduced to the right lateral subcostal port, grasping the fundus of the gallbladder, which was elevated cephalad. Omental adhesions were carefully dissected free from the remainder of the gallbladder. A circumferential grasper was introduced through the right medial subcostal port, grasping the Ira's pouch, which was retracted laterally. The cystic duct was carefully dissected free from surrounding structures at the triangle of Calot. The duct was divided between clips. Applying 2 clips proximally and one clip at the junction of the cystic duct and gallbladder present, cystic artery was dissected free from surrounding structures and divided between clips in a similar fashion. The gallbladder surface removed from the liver bed using cautery with good hemostasis. Gallbladder was delivered out of the abdominal cavity using an EndoCatch. Operative site was inspected. Minor venous oozing of the gallbladder fossa was controlled using 1 x 2 inch piece of fibrillar. Finding no other pathology, laparoscopy was terminated. Fascia of the epigastric port was closed using 0 Vicryl suture and Endo Close device on the laparoscopy. The abdomen is desufflated. All ports and instruments removed and accounted. Skin incision was closed using 4-0 Monocryl suture in subcuticular fashion. Dermabond was applied over incisional closure. The patient tolerated the operation without any apparent complication and was returned to recovery room in satisfactory condition. Job ID: [id number]
[2018-04-28] MEDS: Acetaminophen 500 MG TAB PO SCH ×2 (17:53→23:33)
[2018-04-28] MEDS ORDERED: Prevnar 13-Val Conj/PF 0.5 ML SYRINGE IM ONE (21:00)
[2018-04-28] MEDS: Enoxaparin Sodium 30 MG/0.3 ML SYRINGE SC SCH (21:46)
[2018-04-28] MEDS: Senokot S 8.6-50 MG TAB PO SCH (21:46)
[2018-04-29] MEDS ORDERED: Tamsulosin HCl 0.4 MG CAP PO SCH (01:15)
[2018-04-29] MEDS: Acetaminophen 500 MG TAB PO SCH ×4 (06:19→23:52)
[2018-04-29] MEDS: Insulin Regular 300 UNITS/3 ML VIAL SC PRN (06:20)
[2018-04-29 07:34] LABS: Phosphorus 5.2 mg/dL (2.3-4.7)
[2018-04-29 07:37] LABS: Anion Gap 16 mmol/L (10-20); BUN (Urea Nitrogen) 51 mg/dL (8.4-25.7); Calc. Creatinine Clearance 25 mL/min (70-130); Calcium 8.9 mg/dL (7.8-10.44); Carbon Dioxide 22 mmol/L (22-29); Chloride 102 mmol/L (98-107); Estimated GFR-MDRD 18; Glucose 248 mg/dL (70-105); Potassium 5.2 mmol/L (3.5-5.1); Sodium 135 mmol/L (136-145)
[2018-04-29] MEDS ORDERED: Amlodipine 5 MG TAB PO SCH (08:31)
[2018-04-29] MEDS ORDERED: Carvedilol 3.125 MG TAB PO SCH (08:33)
[2018-04-29] MEDS: Senokot S 8.6-50 MG TAB PO SCH ×2 (08:40→21:42)
[2018-04-29] MEDS: Polyethylene Glycol 3350 17 GM Packet PO SCH (08:40)
[2018-04-29] MEDS: Enoxaparin Sodium 30 MG/0.3 ML SYRINGE SC SCH ×2 (08:40→21:41)
[2018-04-29] MEDS: Finasteride 5 MG TAB PO SCH (08:40)
[2018-04-29] MEDS: Tamsulosin HCl 0.4 MG CAP PO SCH (08:40)
[2018-04-29] MEDS: Carvedilol 3.125 MG TAB PO SCH ×2 (08:41→21:46)
[2018-04-29] MEDS: Amlodipine 5 MG TAB PO SCH ×2 (08:41→21:46)
--- NOTE | 2018-04-29 10:12 | RAD ---
CHEST 1 VIEW: Date: 04/29/18 HISTORY: Chest pain. Dyspnea. COMPARISON: 04/27/18. FINDINGS: Cardiac silhouette is magnified and enlarged. Pulmonary vasculature is upper limits of normal. Small amount of bilateral pleural fluid and bibasilar atelectasis. Mediastinum is midline with postoperativ e changes. No evidence of pneumothorax. IMPRESSION: Mild pulmonary vascular congestion and small pleural effusions. POS: [facility]
[2018-04-29] MEDS ORDERED: Sodium Chloride 0.9% 500 ML IV SCH (11:00)
--- NOTE | 2018-04-29 13:33 | PRG ---
DATE OF SERVICE: 04/29/2018 This is a 30-minute hospital visit note, in which 30 minutes were spent reviewing the imaging, record evaluation, examination of the patient. Greater than 50% time spent in counseling on Chandra Zuluaga 10:30:59. SUBJECTIVE: Mr. Zuluaga was admitted for concern of gastrointestinal issues. He was taken for a cholecystectomy yesterday. He was found; however, after fall to have an L1 anterior middle column fracture, I think this will heal well and the TLSO clamshell brace again for 6 to 12 weeks to be worn when he is out of bed. Neurologically, he is intact and we will arrange follow up in my clinic with repeat upright AP and lateral lumbar spine x-rays in 6 weeks, there is one L1 anterior middle column fracture. Job ID: [id number]
[2018-04-29] MEDS: traMADol HCl 50 MG TAB PO PRN ×2 (13:53→21:44)
--- NOTE | 2018-04-29 14:15 | PRG ---
DATE OF SERVICE: 04/29/2018 SUBJECTIVE: This is a 58-year-old gentleman, who fell and presented to the ER, was evaluated to have a L1 compression fracture from a ground level fall. The patient is in a fitted TLSO clamshell per Neurosurgery. The patient is postop day #1 cholecystectomy. The patient's pain has been well managed. The patient with minimal urine output despite oral intake. On the nurse bladder scanned, the patient had only 100 mL noted. The patient's blood pressure is slightly low overnight and blood pressure medications were held at that time. The patient with more upper congestion overnight. OBJECTIVE: VITAL SIGNS: Temperature 97.6, pulse 63, respirations 20, the patient is 100% on room air, and blood pressure 104/67. GENERAL: Awake, alert. HEENT: Normocephalic and atraumatic. Dry mucous membranes. NECK: No JVD appreciated. RESPIRATORY: Regular rate and rhythm and symmetrical. Upper congestion and cough. CARDIOVASCULAR: Regular rate and rhythm. MUSCULOSKELETAL: Moves all extremities. Remains in a TLSO brace when out of bed. NEUROLOGIC: No neuro deficits and moves all extremities and positive sensation. LABORATORY DATA: Sodium 135, potassium 5.2, BUN 51, creatinine 3.50, estimated GFR 18, glucose 248, calcium 8.9, phosphorus 5.2, magnesium 2.0, and BNP 2625.5. DIAGNOSTIC DATA: Chest x-ray this morning, mild pulmonary vascular congestion and small pleural effusions. ASSESSMENT: 1. Status post ground level fall. 2. L1 compression fracture. 3. Postop day #1 cholecystectomy. 4. Uncontrolled hypertension, resolved with medication. 5. Uncontrolled diabetes. 6. Dehydration. 7. Chronic kidney disease. PLAN: We will continue PT/OT and encourage the patient to get up out of bed. We will give the patient 500 mL normal saline bolus and reassess the patient's urine output. A 2D echo will be obtained. We will continue pain regimen. This patient was examined with Dr. Gaviria. Job ID: [id number]
[2018-04-30] MEDS: Acetaminophen 500 MG TAB PO SCH ×3 (06:29→17:41)
[2018-04-30] MEDS: traMADol HCl 50 MG TAB PO PRN (06:31)
[2018-04-30 09:27] LABS: #Eosinphils 0.3 thou/uL (0.0-0.7); #Lymphocytes 2.4 thou/uL (1.20-3.40); #Monocytes 0.8 thou/uL (0.11-0.59); #Neutrophils 7.3 thou/uL (1.40-6.50); %Basophils 0.4 % (0.0-1.0); %Eosinophils 2.7 % (0.0-10.0); %Lymphocytes 22.2 % (21.0-51.0); %Neutrophils 67.7 % (42.0-75.0); Hemoglobin 11.6 g/dL (14.0-18.0); Mean Corpuscular HGB CONC 30.7 g/dL (32.0-36.0); Mean Corpuscular Hemoglobin 28.2 pg (27.0-31.0); Mean Corpuscular Volume 91.9 fL (78.0-98.0); Mean Platelet Volume 9.6 fL (7.4-10.4); Platelet Count 306 thou/uL (130-400); RBC Distribution Width 13.6 % (11.5-14.5); White Blood Cell (WBC) Count 10.7 thou/uL (4.8-10.8)
[2018-04-30 09:42] LABS: Phosphorus 6.1 mg/dL (2.3-4.7)
[2018-04-30 09:55] LABS: Anion Gap 18 mmol/L (10-20); BUN (Urea Nitrogen) 58 mg/dL (8.4-25.7); Calc. Creatinine Clearance 23 mL/min (70-130); Calcium 9.1 mg/dL (7.8-10.44); Carbon Dioxide 17 mmol/L (22-29); Chloride 105 mmol/L (98-107); Estimated GFR-MDRD 16; Glucose 106 mg/dL (70-105); Magnesium 2.1 mg/dL (1.6-2.6); Potassium 5.7 mmol/L (3.5-5.1); Sodium 134 mmol/L (136-145)
[2018-04-30] MEDS: Polyethylene Glycol 3350 17 GM Packet PO SCH (10:06)
[2018-04-30] MEDS: Senokot S 8.6-50 MG TAB PO SCH ×2 (10:06→20:54)
[2018-04-30] MEDS: Carvedilol 3.125 MG TAB PO SCH ×2 (10:07→20:54)
[2018-04-30] MEDS: Tamsulosin HCl 0.4 MG CAP PO SCH (10:07)
[2018-04-30] MEDS: Finasteride 5 MG TAB PO SCH (10:07)
[2018-04-30] MEDS: Amlodipine 5 MG TAB PO SCH ×2 (10:07→20:54)
[2018-04-30] MEDS: Enoxaparin Sodium 30 MG/0.3 ML SYRINGE SC SCH (10:08)
[2018-04-30] MEDS: traMADol HCl 50 MG TAB PO SCH ×3 (10:15→22:58)
--- NOTE | 2018-04-30 11:01 | RAD ---
CHEST 1 VIEW: Date: 04/30/18 INDICATION: History of cough. COMPARISON: Prior exam dated 04/29/18. FINDINGS: The pneumoperitoneum has improved. Mild to moderate amount of gas remains underlying the right hemidi aphragm. Cardiomegaly and midline sternotomy change is similar. Bibasilar atelectasis is similar appe aring. No pneumothorax is evident. Pulmonary vascular congestion improved. IMPRESSION: Improvement in the pneumoperitoneum. The patient is postop day #2 from a cholecystectomy. POS: [facility]
[2018-04-30] MEDS: Gabapentin 100 MG CAP PO SCH ×2 (15:41→20:54)
--- NOTE | 2018-04-30 16:31 | PRG ---
DATE OF SERVICE: 04/30/2018 SUBJECTIVE: This is a 58-year-old gentleman status post mechanical fall. He is post injury day #3. The patient was evaluated and found to have a L1 compression fracture. The patient is also postop day #2 cholecystectomy. The patient remains in a TLSO brace when out of bed. The patient continues to have minimal urine output with bladder scans less than 200 and no discomfort. The patient still has not had a bowel movement. When re-evaluated several hours later, the patient did have a small amount of urine output per urinal. OBJECTIVE: VITAL SIGNS: Temperature 97.7, pulse 67, respirations 16, SpO2 of 94% on room air, and blood pressure 121/80. GENERAL: The patient is awake, alert, no distress. HEENT: Normocephalic, atraumatic. No JVD. Moist mucous membranes. RESPIRATORY: Regular rate and rhythm. Symmetrical. Improved upper congestion from yesterday. There are no rhonchi or wheezing. CARDIOVASCULAR: Regular rate and rhythm. S1, S2 and S3 heart sounds heard. No pedal edema. No JVD. MUSCULOSKELETAL: Moves all extremities. NEUROLOGIC: No neuro deficits. The patient moves all extremities. Positive sensation to all extremities. LABORATORY DATA: WBC 10.7, RBC 4.10, hemoglobin 11.6, hematocrit 37.7, and platelet count 306,000. Sodium 134, potassium 5.7, CO2 of 17, chloride 105, BUN 58, creatinine 3.82, glucose 106, calcium 9.1, phosphorus 6.1, magnesium 2.1, and BNP 1560. IMPRESSION: 1. Status post ground level fall. 2. L1 compression fracture. 3. Postop day #2 cholecystectomy. 4. Uncontrolled hypertension. 5. Uncontrolled diabetes. 6. Chronic kidney disease. PLAN: We will continue PT and OT and encourage the patient to get up out of bed as he still has not had a bowel movement. Pending results of 2D echo that was obtained this morning. We will increase the patient's pain regimen. We will continue supportive care. Place a Nephrology consult as the patient's BUN and creatinine have increased as well as potassium. We will consult Speech. The patient does not have teeth and does not seem to be eating as much. The plan was discussed with the attending surgeon. Job ID: [id number]
--- NOTE | 2018-04-30 17:00 | ULT ---
BILATERAL RENAL ULTRASOUND: Date: 04/30/18 COMPARISON: None. HISTORY: Chronic kidney disease, Stage IV. TECHNIQUE: Multiplanar Ryan scale and color Doppler images were obtained in a renal ultrasound. FINDINGS: The kidneys are normal in echogenicity, without hydronephrosis or calculi, and measure 9.8 and 7.8 cm in length on the right and left, respectively. There is moderate distention of the urinary bladder. No focal bladder abnormality is seen. There is a n incidentally seen small right pleural effusion. IMPRESSION: Unremarkable renal ultrasound. POS: [facility]
[2018-04-30 18:46] LABS: Creatinine, Urine 153.49 mg/dL (63-166)
[2018-05-01] MEDS: Acetaminophen 500 MG TAB PO SCH ×5 (00:45→23:57)
[2018-05-01] MEDS: traMADol HCl 50 MG TAB PO SCH ×4 (04:54→21:58)
[2018-05-01] MEDS: Insulin Regular 300 UNITS/3 ML VIAL SC PRN (06:43)
[2018-05-01 07:15] LABS: Albumin 2.7 g/dL (3.5-5.0); Anion Gap 17 mmol/L (10-20); BUN (Urea Nitrogen) 59 mg/dL (8.4-25.7); BUN/Creatinine Ratio 16.03; Calc. Creatinine Clearance 24 mL/min (70-130); Calcium 8.6 mg/dL (7.8-10.44); Carbon Dioxide 16 mmol/L (22-29); Chloride 107 mmol/L (98-107); Estimated GFR-MDRD 17; Glucose 170 mg/dL (70-105); Phosphorus 5.2 mg/dL (2.3-4.7); Potassium 5.7 mmol/L (3.5-5.1); Sodium 134 mmol/L (136-145)
[2018-05-01] MEDS: Carvedilol 3.125 MG TAB PO SCH ×2 (08:56→21:42)
[2018-05-01] MEDS: Finasteride 5 MG TAB PO SCH (08:56)
[2018-05-01] MEDS: Tamsulosin HCl 0.4 MG CAP PO SCH (08:56)
[2018-05-01] MEDS: Gabapentin 100 MG CAP PO SCH ×3 (08:56→21:43)
[2018-05-01] MEDS: Enoxaparin Sodium 30 MG/0.3 ML SYRINGE SC SCH (08:56)
[2018-05-01] MEDS: Amlodipine 5 MG TAB PO SCH ×2 (08:56→21:42)
[2018-05-01] MEDS: Polyethylene Glycol 3350 17 GM Packet PO SCH (08:57)
[2018-05-01] MEDS: Senokot S 8.6-50 MG TAB PO SCH ×2 (08:57→21:43)
--- NOTE | 2018-05-01 09:24 | CON ---
DATE OF CONSULTATION: CONSULTING PHYSICIAN: Allison Vallejo MD REQUESTING PHYSICIAN: Dr. Gaviria. REASON FOR CONSULTATION: Acute on chronic kidney disease. IMPRESSION: 1. Acute on chronic kidney disease, of patient baseline chronic kidney disease compounded with possible cardiorenal syndrome. 2. Hyperkalemia, related to acute on chronic kidney disease. 3. Metabolic acidosis, which may be somewhat related to . PLAN: 1. The patient is to be placed on low potassium diet. 2. Renally adjust all medications and avoid potentially nephrotoxic agents. 3. Further management will be dependent on the clinical course. HISTORY: This is a 58-year-old gentleman who took a fall and sustained compression fracture. The patient on presentation was noted with elevated creatinine; however, over the course of hospitalization, the patient's creatinine has gone above 3. As a result of these findings, decision has been taken to involve Renal in the management of this case. LABORATORY INVESTIGATION: Showed a potassium of 5.7 with a bicarbonate of 17, sodium 134, creatinine 3.82, BUN of 58. PHYSICAL EXAMINATION: VITAL SIGNS: On examination, the patient noted with the following vital signs; afebrile, temperature 97.7, pulse 72, respiratory rate of 20, O2 saturation 96% with blood pressure 154/96. HEENT: Unremarkable. CARDIOVASCULAR: First and second heart sounds were heard. RESPIRATORY: Clear to auscultation. DIGESTIVE SYSTEM: Revealed a benign abdomen with positive bowel sounds. EXTREMITIES: No peripheral edema. SKIN: No new gross rash. LYMPHATICS: No peripheral lymphadenopathy. Job ID: [id number]
[2018-05-01] MEDS ORDERED: Sodium Chloride 0.9% 500 ML IV SCH (11:00)
--- NOTE | 2018-05-01 15:58 | PRG ---
DATE OF SERVICE: 05/01/2018 SUBJECTIVE: The patient remains on the surgical floor. He is status post fall in which he sustained L1 compression fracture. The patient also was noted to have acute cholecystitis, which he underwent cholecystectomy. The patient is doing well so far. He has been fitted with his TLSO brace. He has begun working with Physical and Occupational Therapy. The patient states that his pain is controlled and he is tolerating a diet. The patient is known to have acute on chronic kidney disease, and we are waiting consultation results by Nephrology. The patient was also noted to have decompensated cardiomyopathy and will undergo Cardiology evaluation. OBJECTIVE: VITAL SIGNS: Temperature is 97.5, heart rate 65, blood pressure 122/84, respirations 14, oxygen saturation is 96% on room air. GENERAL: The patient is resting comfortably at bedside in a chair. He is fitted with his TLSO brace and according to his family members, he is at his baseline for mentation. HEENT: Unremarkable. LUNGS: Clear to auscultation with good inspiratory and expiratory effort, albeit somewhat restricted by his brace. HEART: Regular rate and rhythm. ABDOMEN: Soft, flat, nontender with active bowel sounds. EXTREMITIES: Neurovascularly intact x4. LABORATORY FINDINGS: Sodium 134, potassium 5.7, chloride 107, CO2 16, BUN 59, creatinine 3.68, glucose 170, phosphorus 5.2, calcium 8.6. There are no radiographs reviewed this morning. ASSESSMENT: 1. Status post fall. 2. L1 compression fracture. 3. Acute on chronic kidney disease. 4. Decompensated cardiomyopathy. PLAN: Plan will be to continue supportive care. Await input from Cardiology and Nephrology. Continue physical and occupational therapy. The patient was evaluated this morning with Dr. Gaviria during rounds. Job ID: [id number]
--- NOTE | 2018-05-01 20:43 | CON ---
DATE OF CONSULTATION: REASON FOR CONSULTATION: New onset cardiomyopathy. HISTORY OF PRESENT ILLNESS: Mr. Zuluaga is a 58-year-old gentleman who is a patient Dr. Tim Macias. He recently fell in a parking lot. He had a recent compression fracture. Echo Doppler was performed. It showed an LVEF of 20% to 25%. His last LVEF after angio in 2016 was 40% to 45%. He has not been seen or evaluated since 2014. 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 PAST SURGICAL HISTORY: Cystoscopy and CABG. ALLERGIES: NONE. HOME MEDICATIONS: Zofran, ceftriaxone, dextrose, Flomax, Pepcid, Proscar, glucagon, insulin, and Zestril. REVIEW OF SYMPTOMS: A 10-point review of systems is reviewed and as above, otherwise negative. PHYSICAL EXAMINATION: VITAL SIGNS: Blood pressure 108/68, pulse 71, temp 97.5. GENERAL: Patient is a pleasant male who is in no acute distress. The patient appears other than stated age. NEUROLOGIC: The patient is alert and oriented x3 with no focal neurologic deficits. HEENT: Sclerae without icterus. Mouth has moist mucous membranes with normal pallor. NECK: No JVD. Carotid upstroke brisk. No bruits bilaterally. LUNGS: Clear to auscultation with unlabored respirations. BACK: No scoliosis or kyphosis. CARDIAC: Regular rate and rhythm with normal S1 and S2. No S3 or S4 noted. No significant rubs, murmurs, thrills, or gallops noted throughout the precordium. PMI is not displaced. There is no parasternal heave. ABDOMEN: Soft, nontender, nondistended. No peritoneal signs present. No hepatosplenomegaly. No abnormal striae. EXTREMITIES: 2+ femoral and 2+ dorsalis pedis pulses. No cyanosis, clubbing, or edema. SKIN: No gross abnormalities. PERTINENT LABORATORY DATA: Hemoglobin 11.6, creatinine 3.68 which is down from 3.82. Previous creatinine was 2.68 on 04/28/2018. IMPRESSION: 1. Acute on chronic systolic heart failure. 2. Ischemic cardiomyopathy. 3. Recent fall with compression fracture. 4. Tobacco abuse. RECOMMENDATIONS: At this point, we will advocate heart failure medication. He is currently on amlodipine and carvedilol. We will also consider aspirin, although we will leave it to discretion of Surgery to see if the felt to be appropriate after recent compression fracture. I am unsure whether surgery is planned. At this point, he has no current symptoms suggesting angina. No syncope or presyncope present. He will also likely need a LifeVest prior to discharge. Job ID: [id number]
[2018-05-01] MEDS: Sodium Bicarbonate Tab 325 MG TAB PO SCH (21:42)
--- NOTE | 2018-05-01 21:49 | PRG ---
DATE OF SERVICE: 05/01/2018 SUBJECTIVE: The patient is seen and examined, seems not to be in any obvious distress, but of note, the patient seems not to have good appetite, which is somewhat concerning in this patient with renal dysfunction. Noted with the following vital signs. OBJECTIVE: VITAL SIGNS: Afebrile, temperature 97.5; pulse 71; respiratory rate of 16; and O2 saturation 92% on room air with the blood pressure of 107/68. HEENT EXAMINATION: Unremarkable. CARDIOVASCULAR SYSTEM: First and second heart sounds were heard. RESPIRATORY SYSTEM: Clear to auscultation. DIGESTIVE SYSTEM: Reveals somewhat distended abdomen. EXTREMITIES: No peripheral edema. SKIN EXAMINATION: No new gross rash. LYMPHATICS: No peripheral lymphadenopathy. LABORATORY INVESTIGATION: Significant for proteinuria for up to 3 g. Chemistries showed potassium persistent at 5.7 with a creatinine of 3.68, BUN of 59, and bicarb of 16. Phosphorous 5.2. Renal ultrasound did show evidence of small kidney at 7, though reported as normal echogenicity. IMPRESSION: 1. Advanced chronic kidney disease. Especially given the small size of the kidney, I am afraid this is a pretty advanced chronic kidney disease. 2. Metabolic acidosis, likely in the context of advanced chronic kidney disease. 3. Hyperkalemia related to advanced chronic kidney disease and metabolic acidosis. PLAN: 1. We will start this patient on a bicarb supplementation in the way of tablets. We will be very careful with IV fluid in this patient given the decompensated cardiac output with elevated BNP to avoid precipitating severe pulmonary congestion. 2. We will monitor the potassium and metabolic acidosis closely. If these 2 elements are not responding to medical therapy, this might become an indication to initiate this patient on renal replacement therapy (hemodialysis). 3. Renally dose all medications and avoid potentially nephrotoxic agents. 4. Persistence of hyperkalemia may warrant discontinuation of Lovenox. 5. Further management to be dependent on the clinical course. Job ID: [id number]
[2018-05-02] MEDS: traMADol HCl 50 MG TAB PO SCH ×4 (03:54→21:04)
[2018-05-02] MEDS: Acetaminophen 500 MG TAB PO SCH ×4 (05:24→23:33)
[2018-05-02 08:24] LABS: Albumin 2.6 g/dL (3.5-5.0); Anion Gap 15 mmol/L (10-20); BUN (Urea Nitrogen) 54 mg/dL (8.4-25.7); BUN/Creatinine Ratio 16.22; Calc. Creatinine Clearance 26 mL/min (70-130); Calcium 8.2 mg/dL (7.8-10.44); Carbon Dioxide 18 mmol/L (22-29); Chloride 105 mmol/L (98-107); Estimated GFR-MDRD 19; Glucose 100 mg/dL (70-105); Phosphorus 4.7 mg/dL (2.3-4.7); Potassium 4.5 mmol/L (3.5-5.1); Sodium 133 mmol/L (136-145)
[2018-05-02] MEDS: Enoxaparin Sodium 30 MG/0.3 ML SYRINGE SC SCH (08:39)
[2018-05-02] MEDS: Gabapentin 100 MG CAP PO SCH ×3 (08:39→21:04)
[2018-05-02] MEDS: Finasteride 5 MG TAB PO SCH (08:40)
[2018-05-02] MEDS: Senokot S 8.6-50 MG TAB PO SCH ×2 (08:40→21:04)
[2018-05-02] MEDS: Polyethylene Glycol 3350 17 GM Packet PO SCH (08:40)
[2018-05-02] MEDS: Sodium Bicarbonate Tab 325 MG TAB PO SCH ×2 (08:40→21:04)
[2018-05-02] MEDS: Carvedilol 3.125 MG TAB PO SCH (08:40)
[2018-05-02] MEDS: Tamsulosin HCl 0.4 MG CAP PO SCH (08:40)
[2018-05-02] MEDS: Amlodipine 5 MG TAB PO SCH ×2 (08:40→21:02)
[2018-05-02] MEDS: Insulin Regular 300 UNITS/3 ML VIAL SC PRN ×2 (12:03→17:09)
--- NOTE | 2018-05-02 15:05 | PDOC.CTH ---
Cardiology Progress Note - Subjective No new issues. Back pain controlled. - Objective Vital Signs Temp Pulse Resp BP BP Pulse Ox 05/02/18 13:21 67 16 93 L 05/02/18 11:09 97.5 F L 78 18 149/78 H 99 05/02/18 08:40 136/82 05/02/18 07:59 97.6 F 78 18 136/82 95 05/02/18 06:54 76 16 97 05/02/18 04:52 97.5 F L 69 20 129/72 98 Weight 171 lb 15.369 oz 05/01/18 05/02/18 05/03/18 06:59 06:59 06:59 Intake Total 1080 280 Output Total 410 575 Balance 670 -295 - Physical Examination General/Neuro: alert & oriented x3, NAD Neck: no JVD present Lungs: CTA, unlabored respirations Heart: RRR Abdomen: NT/ND Extremities: other: (no edema) - Labs Result Diagrams: 04/30/18 08:48 05/02/18 07:32 - Assessment/Plan 1. Worsening ischemic CM 2. Presence of a aortocoronary bypass 3. Non compliance 4. CAD 5. CKD stage 4 PLAN: - Continue medical therapy - I spoke with him about Lifevest and he understands and verbalizes understanding of the importance of this device. Also understands he needs to follow up otherwise this is only getting worse. He agrees. - Will place a Lifevest order - ay discharge home once lifevest in place. - Will start Isordil today and will up titrate Coreg. - If BP tolerates then will start hydralazine as outpatient. - No ACEI due to renal failure. - No LHC due to renal failure. - Follow up in 1 month.
--- NOTE | 2018-05-02 18:50 | PRG ---
DATE OF SERVICE: 05/02/2018 SUBJECTIVE: The patient remains on the surgical floor. He had no issues overnight. The patient is tolerating a diet. His pain is controlled. The patient's bowel function has returned. The patient is currently waiting re-evaluation by Cardiology to evaluate the need for his LifeVest, which is most likely how he will need to be discharged. Dr. Macias will see the patient and make the official determination. Once he is fitted with his LifeVest, we will discharge him to rehab. PHYSICAL EXAMINATION: VITAL SIGNS: Temperature is 97.6, heart rate 78, blood pressure 136/82, respirations 18, and oxygen saturation 95%. GENERAL: The patient is resting comfortably in bed. He is awake, alert, and appropriate. HEENT: Unremarkable. LUNGS: Clear to auscultation with good inspiratory and expiratory effort. HEART: Regular rate and rhythm. ABDOMEN: Soft, flat, and nontender with active bowel sounds. EXTREMITIES: Neurovascularly intact x4. LABORATORY FINDINGS: Sodium 133, potassium 4.5, chloride 105, CO2 is 18, BUN 54, creatinine 3.33, glucose 100, and phosphorus 4.7. There are no radiographs to review this morning. ASSESSMENT AND PLAN: 1. Status post fall. 2. L1 compression fracture. 3. Acute on chronic kidney disease. 4. Decompensated cardiomyopathy. 5. Status post cholecystectomy. PLAN: Plan will be to continue supportive care. Await final determination by Cardiology and likely discharge the patient to rehab tomorrow. The patient was evaluated with Dr. Gaviria during rounds this morning. Job ID: [id number]
--- NOTE | 2018-05-02 19:46 | PRG ---
DATE OF SERVICE: 05/02/2018 SUBJECTIVE: The patient is seen and examined. Noted with the following vital signs. OBJECTIVE: VITAL SIGNS: Afebrile, temperature 97.6; pulse 69; respiratory rate of 20; O2 saturation of 100% with blood pressure 103/69. HEENT: Unremarkable. CARDIOVASCULAR SYSTEM: First and second heart sounds were heard. RESPIRATORY SYSTEM: Clear to auscultation. DIGESTIVE SYSTEM: Revealed a benign abdomen. EXTREMITIES: No peripheral edema. SKIN: No new gross rash. LYMPHATICS: No peripheral lymphadenopathy. LABORATORY INVESTIGATIONS: Significant for creatinine of 3.33, BUN of 54, bicarb of 18. IMPRESSION: 1. Advanced chronic kidney disease, stage 4. 2. Metabolic acidosis, related to advanced chronic kidney disease stage 4. PLAN: 1. We will continue current bicarb supplementation. 2. Renally dose all medications while avoiding potential nephrotoxic agents. 3. If the renal function persists at this level, we will begin to discuss about securing a fistula in preparation for possible dialysis in the future. 4. Further management will be dependent on the clinical course. Job ID: [id number]
[2018-05-02] MEDS: Carvedilol 6.25 MG TAB PO SCH (21:03)
[2018-05-02] MEDS: Isosorbide Dinitrate 5 MG TAB PO SCH (21:04)
[2018-05-02] MEDS ORDERED: Dextrose 50% Abboject 50 ML SYRINGE SLOW IVP PRN (21:25)
[2018-05-02] MEDS ORDERED: Insulin Regular 300 UNITS/3 ML VIAL SC PRN (21:26)
[2018-05-03] MEDS: traMADol HCl 50 MG TAB PO SCH ×4 (03:40→21:26)
[2018-05-03] MEDS: Acetaminophen 500 MG TAB PO SCH ×4 (06:23→23:54)
[2018-05-03 06:56] LABS: Albumin 2.4 g/dL (3.5-5.0); Anion Gap 15 mmol/L (10-20); BUN (Urea Nitrogen) 57 mg/dL (8.4-25.7); BUN/Creatinine Ratio 17.43; Calc. Creatinine Clearance 27 mL/min (70-130); Carbon Dioxide 20 mmol/L (22-29); Chloride 104 mmol/L (98-107); Estimated GFR-MDRD 19; Glucose 141 mg/dL (70-105); Phosphorus 4.7 mg/dL (2.3-4.7); Potassium 5.1 mmol/L (3.5-5.1); Sodium 134 mmol/L (136-145)
[2018-05-03] MEDS ORDERED: traMADol HCl 50 MG TAB PO PRN (08:39)
[2018-05-03] MEDS: Carvedilol 6.25 MG TAB PO SCH ×2 (09:18→21:25)
[2018-05-03] MEDS: Finasteride 5 MG TAB PO SCH (09:18)
[2018-05-03] MEDS: Gabapentin 100 MG CAP PO SCH ×3 (09:18→21:25)
[2018-05-03] MEDS: Amlodipine 5 MG TAB PO SCH ×2 (09:18→21:26)
[2018-05-03] MEDS: Sodium Bicarbonate Tab 325 MG TAB PO SCH ×2 (09:18→21:25)
[2018-05-03] MEDS: Tamsulosin HCl 0.4 MG CAP PO SCH (09:18)
[2018-05-03] MEDS: Enoxaparin Sodium 30 MG/0.3 ML SYRINGE SC SCH (09:19)
[2018-05-03] MEDS: Isosorbide Dinitrate 5 MG TAB PO SCH ×2 (09:24→21:26)
--- NOTE | 2018-05-03 11:45 | PDOC.CTH ---
Cardiology Progress Note - Subjective No new issues. No chest pain, tightness, pressure. - Objective Vital Signs Temp Pulse Resp BP Pulse Ox 05/03/18 10:49 97 05/03/18 07:58 97.6 F 82 20 150/89 H 100 05/03/18 07:30 83 20 97 05/03/18 06:24 97.8 F 05/03/18 04:14 96.4 F L 64 20 115/74 97 05/03/18 01:22 96.2 F L Weight 171 lb 15.369 oz 05/02/18 05/03/18 05/04/18 06:59 06:59 06:59 Intake Total 280 1930 Output Total 575 550 Balance -295 1380 - Physical Examination General/Neuro: alert & oriented x3, NAD Neck: no JVD present Lungs: unlabored respirations Heart: RRR Abdomen: NT/ND Extremities: other: (no edema) - Labs Result Diagrams: 04/30/18 08:48 05/03/18 05:22 - Assessment/Plan 1. Worsening ischemic CM 2. Presence of a aortocoronary bypass 3. Non compliance 4. CAD 5. CKD stage 4 PLAN: - Continue medical therapy - Discharge once lifevest in place. - Continue Isordil and Coreg. - If BP tolerates then will start hydralazine as outpatient. - No ACEI due to renal failure. - No LHC due to renal failure. - Follow up in 1 month.
--- NOTE | 2018-05-03 12:41 | PRG ---
DATE OF SERVICE: 05/03/2018 SUBJECTIVE: Mr. Zuluaga is 58-year-old man who is postoperative day #5, status post laparoscopic cholecystectomy. The patient is post injury day #6, status post ground level fall sustaining L1 compression fracture. He has a history of worsening ischemic decompensated cardiomyopathy. His stage 4 kidney disease is stable. The patient is ambulating with minimal difficulty today. He reports adequate pain control presently. He is tolerating diet, having normal bowel and urinary function. OBJECTIVE: VITAL SIGNS: Today, includes blood pressure 150/89, pulse 82, respiratory rate is 20, temperature 97.6 degrees Fahrenheit, oxygen saturation 100% on 2 L by nasal cannula oxygen. HEART: Reveals regular rate and rhythm. LUNGS: Clear to auscultation bilaterally. Breathing regular, nonlabored. ABDOMEN: Soft, nontender, nondistended. His incisions are healing. LABORATORY DATA: Findings today includes metabolic profile, sodium 134, potassium 5.1, chloride is 104, bicarb is 20, BUN 57, creatinine is 3.27 and stable. Glucose is 141. IMPRESSIONS: 1. Postoperative day #5, status post laparoscopic cholecystectomy. 2. L1 compression fractures, post injury day #6, status post fall. 3. Decompensated chronic ischemic cardiomyopathy. 4. Stable chronic kidney disease. PLAN: The patient is stable for discharge once LifeVest is in place at the recommendation of Cardiology. There is no further surgical indication at this time. Job ID: [id number]
--- NOTE | 2018-05-03 19:25 | PRG ---
DATE OF SERVICE: 05/03/2018 SUBJECTIVE: The patient with no new complaints. Noted with the following vital signs. OBJECTIVE: VITAL SIGNS: Afebrile, temperature 98.4, pulse 70, respiratory rate of 18, O2 saturations 97%, and blood pressure 129/70. HEENT: Examination unremarkable. CARDIOVASCULAR SYSTEM: First and second heart sounds were heard. RESPIRATORY SYSTEM: Clear to auscultation. DIGESTIVE SYSTEM: Revealed distended abdomen. EXTREMITIES: No peripheral edema. SKIN: No new gross rash. LYMPHATICS: No peripheral lymphadenopathy. LABORATORY INVESTIGATION: Showed a creatinine of 3.27 and BUN of 57. IMPRESSION: 1. Chronic kidney disease stage 4. 2. Anemia. PLAN: 1. Since patient is still here, we will likely secure Doppler ultrasound of the upper extremity vessels in preparation for possible long-term dialysis access. If patient's renal function remains at this level. 2. Outpatient Nephrology followup strongly recommended. 3. Renally dose all medications for low GFR. Job ID: [id number]
[2018-05-04] MEDS: traMADol HCl 50 MG TAB PO SCH ×2 (04:46→09:10)
[2018-05-04] MEDS: Acetaminophen 500 MG TAB PO SCH (05:25)
[2018-05-04 07:02] LABS: Albumin 2.4 g/dL (3.5-5.0); Anion Gap 10 mmol/L (10-20); BUN (Urea Nitrogen) 53 mg/dL (8.4-25.7); BUN/Creatinine Ratio 17.32; Calc. Creatinine Clearance 29 mL/min (70-130); Carbon Dioxide 24 mmol/L (22-29); Chloride 107 mmol/L (98-107); Estimated GFR-MDRD 21; Glucose 141 mg/dL (70-105); Sodium 136 mmol/L (136-145)
--- NOTE | 2018-05-04 08:29 | PDOC.CTH ---
Cardiology Progress Note - Subjective Lifevest in place. Doing well. No new issues. - Objective Vital Signs Temp Pulse Resp BP BP Pulse Ox 05/04/18 07:11 77 16 95 05/04/18 04:00 98.2 F 72 20 130/78 95 05/04/18 00:00 98.1 F 69 20 117/71 99 05/03/18 21:26 67 108/68 05/03/18 21:25 108/68 Weight 171 lb 15.369 oz 05/03/18 05/04/18 05/05/18 06:59 06:59 06:59 Intake Total 1930 900 Output Total 550 550 Balance 1380 350 - Physical Examination General/Neuro: alert & oriented x3, NAD Neck: no JVD present Lungs: CTA, unlabored respirations Heart: RRR Abdomen: NT/ND Extremities: other: (no edema) - Telemetry Telemetry Rhythm: NSR - Labs Result Diagrams: 04/30/18 08:48 05/04/18 06:24 - Assessment/Plan 1. Worsening ischemic CM 2. Presence of a aortocoronary bypass 3. Non compliance 4. CAD 5. CKD stage 4 PLAN: - Continue medical therapy - Continue Isordil and Coreg. - If BP tolerates then will start hydralazine as outpatient. - No ACEI due to renal failure. - No LHC due to renal failure. - May discharge any time from cardiac perspective. Placement already set up. - Follow up in 1 month.
[2018-05-04] MEDS: Sodium Bicarbonate Tab 325 MG TAB PO SCH (09:09)
[2018-05-04] MEDS: Enoxaparin Sodium 30 MG/0.3 ML SYRINGE SC SCH (09:09)
[2018-05-04] MEDS: Tamsulosin HCl 0.4 MG CAP PO SCH (09:10)
[2018-05-04] MEDS: Amlodipine 5 MG TAB PO SCH (09:10)
[2018-05-04] MEDS: Gabapentin 100 MG CAP PO SCH (09:10)
[2018-05-04] MEDS: Carvedilol 6.25 MG TAB PO SCH (09:10)
[2018-05-04] MEDS: Finasteride 5 MG TAB PO SCH (09:10)
[2018-05-04] MEDS: Isosorbide Dinitrate 5 MG TAB PO SCH (09:14)
[2018-05-04 09:39] VITALS: BP 128/79; TEMP 97.8
--- NOTE | 2018-05-04 13:15 | ULT ---
UPPER EXTREMITY VENOUS MAPPIN05/04/2018 PROVIDED CLINICAL HISTORY: End-stage renal disease. FINDINGS: RIGHT BRACHIAL ARTERY: 4.7 mm RIGHT RADIAL ARTERY: 2.2 mm RIGHT ULNAR ARTERY: 2.4 mm RIGHT CEPHALIC BASILIC PROXIMAL ARM 2.5 mm 4.0 mm MID ARM 2.2 mm 4.0 mm DISTAL ARM 2.2 mm 4.5 mm ANTECUBITAL FOSSA 2.8 mm 2.5 mm PROXIMAL FOREARM 1.4 mm 2.0 mm MID FOREARM 2.3 mm 1.2 mm DISTAL FOREARM 1.6 mm 1.0 mm LEFT BRACHIAL ARTERY: 4.4 mm LEFT RADIAL ARTERY: 2.4 mm LEFT ULNAR ARTERY: 2.3 mm LEFT CEPHALIC BASILIC PROXIMAL ARM 3.1 mm 2.8 mm MID ARM 1.2 mm 2.4 mm DISTAL ARM 2.0 mm 3.1 mm ANTECUBITAL FOSSA 1.1 mm 2.1 mm PROXIMAL FOREARM 0.7 mm 1.6 mm MID FOREARM 1.7 mm 2.0 mm DISTAL FOREARM 1.7 mm 0.9 mm The right internal jugular and subclavian, as well as proximal axillary veins, were not able to be in terrogated due to overlying sling material. IMPRESSION: Venous mapping, as above. POS: [facility]
--- NOTE | 2018-05-04 13:55 | EKG ---
Test Reason : Blood Pressure : / mmHG Vent. Rate : 082 BPM Atrial Rate : 082 BPM P-R Int : 160 ms QRS Dur : 092 ms QT Int : 400 ms P-R-T Axes : 061 -35 108 degrees QTc Int : 467 ms Normal sinus rhythm Left axis deviation RSR' or QR pattern in V1 suggests right ventricular conduction delay Cannot rule out Anterior infarct , age undetermined Abnormal ECG Confirmed by KLEBER HURT D.O. ([id number]), scientific editor MEGAN RUBIN ([id number] on 05/04/2018 1:54:58 PM Referred By: Confirmed By:KLEBER HURT D.O.
--- NOTE | 2018-05-05 11:51 | DIS ---
DATE OF ADMISSION: 04/27/2018 DATE OF DISCHARGE: 05/04/2018 ADMISSION DIAGNOSES: 1. Status post ground level fall. 2. L1 compression fracture. 3. Cholecystitis versus cholelithiasis. 4. Poorly controlled diabetes. 5. Uncontrolled hypertension. 6. Cardiomyopathy. 7. Chronic kidney disease. CONSULTATIONS: 1. Cardiology, Dr. Macias. 2. Nephrology, Dr. Vallejo. 3. Neurosurgery, Dr. Akbar. PROCEDURES: Laparoscopic cholecystectomy. SUMMARY: The patient is a 58-year-old man, who presents to the emergency department three days status post ground level fall for which he underwent evaluation and examination, and was noted to have the above injuries. The patient will be recommended for a TLSO brace by Neurosurgery for his compression fracture. On hospital day #2, he was taken to the operating room to undergo his laparoscopic cholecystectomy, which he tolerated well. The patient then was noted to have a change in his cardiac function. Echo showed a decompensated cardiomyopathy, at which time Cardiology was consulted and they recommended that he be fitted with a LifeVest before he was discharged. Otherwise, he progressed with physical and occupational therapy. He was tolerating a diet, and his pain was controlled. The patient at the time of discharge was doing well. Had no complaints. He had been fitted with his LifeVest and will follow up with Dr. Macias, his visual merchandise manager, who in 2013 had performed his cardiac catheterization. He will follow up him in the next 7 to 10 days. He will follow up with Neurosurgery in 4 weeks and follow up with Dr. Gaviria in our clinic in 10 days or sooner as needed for any of the services. Job ID: [id number]
== END 2018-05-04 11:39 | disposition home or self-care (01) | DRG 417 ==
LOC: ERS 08:28 → SURG A 14:11
PROVIDERS: ADMIT Surgery; ATTEND Surgery
PROC: 0FT44ZZ Resection of Gallbladder, Percutaneous Endoscopic Approach (ICD-10-PCS; principal; 2018-04-28)
PROC: 3E0234Z Introduction of Serum, Toxoid and Vaccine into Muscle, Percutaneous Approach (ICD-10-PCS; 2018-04-28)
DX: K80.12 Calculus of gallbladder with acute and chronic cholecystitis without obstruction (principal); I50.23 Acute on chronic systolic (congestive) heart failure; I13.0 Hypertensive heart and chronic kidney disease with heart failure and stage 1 through stage 4 chronic kidney disease, or unspecified chronic kidney disease; S32.010A Wedge compression fracture of first lumbar vertebra, initial encounter for closed fracture; J90 Pleural effusion, not elsewhere classified; N17.9 Acute kidney failure, unspecified; E87.2 Acidosis; N18.4 Chronic kidney disease, stage 4 (severe); W01.0XXA Fall on same level from slipping, tripping and stumbling without subsequent striking against object, initial encounter; Y92.512 Supermarket, store or market as the place of occurrence of the external cause; I25.10 Atherosclerotic heart disease of native coronary artery without angina pectoris; Z79.4 Long term (current) use of insulin; I69.334 Monoplegia of upper limb following cerebral infarction affecting left non-dominant side; Z95.1 Presence of aortocoronary bypass graft; Z95.5 Presence of coronary angioplasty implant and graft; Z89.412 Acquired absence of left great toe; Z95.820 Peripheral vascular angioplasty status with implants and grafts; F32.9 Major depressive disorder, single episode, unspecified; F41.9 Anxiety disorder, unspecified; Z87.891 Personal history of nicotine dependence; Z91.14 Patient's other noncompliance with medication regimen; E11.51 Type 2 diabetes mellitus with diabetic peripheral angiopathy without gangrene; E11.65 Type 2 diabetes mellitus with hyperglycemia; E11.22 Type 2 diabetes mellitus with diabetic chronic kidney disease; N40.0 Benign prostatic hyperplasia without lower urinary tract symptoms; E78.5 Hyperlipidemia, unspecified; I25.5 Ischemic cardiomyopathy; E87.5 Hyperkalemia; E86.0 Dehydration; D63.1 Anemia in chronic kidney disease; Z23 Encounter for immunization
CPT/HCPCS: 36415; 36416; 71045; 71111; 71250; 72131; 72170; 74177; 76770; 78227; 80048; 80053; 80069; 81003; 81015; 82570; 83036; 83735; 83880; 83970; 84100; 84156; 84443; 85025; 88304; 90471; 90670; 90686; 93005; 93306; 93970; 94640; 96374; 96376; A9537; G0008; G0009; G0365; J0360; J0694; J1100; J1610; J1650; J1815; J2001; J2405; J2704; J3010; J7620; L0639; S0020

== ENCOUNTER 2018-05-10 14:57 | Emergency (ER) | payer MEDICARE ==
[2018-05-10] MEDS ORDERED: Lidocaine 1% (PF) 30 ML VIAL ONE (15:50)
--- NOTE | 2018-05-10 23:52 | OP ---
DATE OF PROCEDURE: 05/10/2018 PREOPERATIVE DIAGNOSES: End-stage renal disease, hyperkalemia, need of emergent dialysis access. POSTOPERATIVE DIAGNOSES: End-stage renal disease, hyperkalemia, need of emergent dialysis access. PROCEDURE PERFORMED: At [facility], failed attempted placement of right femoral vein dialysis catheter due to inability to thread the catheter over the J-wire. At [facility], placement of right femoral vein hemodialysis catheter, temporary dual-lumen. ANESTHESIA: 1% Xylocaine. DESCRIPTION OF PROCEDURE: The patient is at bedside in the emergency room. His right groin was clipped of hair, prepared with ChloraPrep and draped in routine fashion. Local anesthetic 1% Xylocaine was infiltrated in the skin and subcutaneous tissue. Seldinger technique was used to place a dual-lumen dialysis catheter. The patient tolerated the procedure well. Catheter was secured with 2 interrupted sutures of 3-0 silk. Sterile dressing applied. Each port aspirated blood and flushed with heparinized saline solution. Job ID: [id number]
--- NOTE | 2018-05-11 07:58 | HP ---
HISTORY OF PRESENT ILLNESS: Chandra Zuluaga is a 58-year-old male patient, history of coronary artery bypass grafting, left saphenous vein harvest, leg, has chronic kidney disease, now has hyperkalemia, in need of urgent dialysis access. I was asked by Dr. Cruz to see him to place a hemodialysis catheter. His potassium is 6.5. The patient's bedside at [facility] attempted placement of right femoral vein catheter with the catheter will not thread over the J-wire into the femoral vein. The patient thus transferred to the emergency room for placement of a dialysis catheter and then transferred back to the rehab unit. I am seeing him in the emergency room on this occasion, initial interview and exam was at the rehab center. ALLERGIES: NONE. SOCIAL HISTORY: Tobacco, smoked, former smoker. Alcohol abuse in the past. No drug use. PAST SURGICAL HISTORY: Coronary artery bypass grafting, four vessels, 2013. Left great toe amputation, cardiac stents, left lower leg stents. PAST MEDICAL HISTORY: Stable coronary artery disease, diabetes mellitus type 2, hypertension, DVT, PID, chronic kidney disease, March 2014, Dr. Jon. Coronary artery bypass grafting, four vessels, 07/08/2014, Dr. Tariq. Incision and debridement of ankle, 12/29/2015, Dr. Jon. Aortogram runoff, complete occlusion in the SFA, mid thigh, reconstitution, popliteal artery, chronic total occlusion could not be passed. Intervention could not be performed. 12/31/2015, left femoral to anterior tibial artery bypass with reverse greater saphenous vein. Left great toe amputation, 07/11/2017, Dr. Siomara Carter. Cystoscopy, bilateral retrograde pyelograms, bladder irrigation due to recurrent UTIs, 04/28/2018, Dr. Gaviria. Laparoscopic cholecystectomy. Recent hospitalization, [facility] in April, currently in rehab. PHYSICAL EXAMINATION: HEAD, EARS, EYES, NOSE AND THROAT: Unremarkable. LUNGS: Clear to auscultation. CARDIAC: Regular rate and rhythm without murmur or gallop. ABDOMEN: Soft, nontender. VASCULAR: Palpable femoral pulses, palpable radial pulses, IV, left hand. ASSESSMENT AND PLAN: Chronic kidney disease, end-stage renal disease, needs to initiate dialysis. I was unable to place hemodialysis catheter at [facility] and transferred to the emergency room, have accomplished that here today and talked to Dr. Cruz, and he will transfer him back to [facility] to initiate dialysis. We will obtain ultrasound vein mapping of both arms and plan next week, placement of cuffed hemodialysis catheter and a right or left arm fistula pending vein mapping. He understands risks and benefits and consents. Job ID: [id number]
== END 2018-05-10 17:20 | disposition home or self-care (01) ==
LOC: ERS 14:57
DX: Z49.01 Encounter for fitting and adjustment of extracorporeal dialysis catheter (principal); N19 Unspecified kidney failure; E78.5 Hyperlipidemia, unspecified; I25.10 Atherosclerotic heart disease of native coronary artery without angina pectoris; E11.9 Type 2 diabetes mellitus without complications; I10 Essential (primary) hypertension; F41.9 Anxiety disorder, unspecified; F32.9 Major depressive disorder, single episode, unspecified; Z87.891 Personal history of nicotine dependence; Z86.73 Personal history of transient ischemic attack (TIA), and cerebral infarction without residual deficits; Z89.412 Acquired absence of left great toe
CPT/HCPCS: 99284; C1751; J1642; J2001

== ENCOUNTER 2018-07-31 20:13 | Emergency (ER) | payer MEDICARE ==
[2018-07-31 20:47] LABS: #Eosinphils 0.1 thou/uL (0.0-0.7); #Lymphocytes 0.9 thou/uL (1.20-3.40); #Monocytes 0.7 thou/uL (0.11-0.59); #Neutrophils 7.4 thou/uL (1.40-6.50); %Eosinophils 1.3 % (0.0-10.0); %Lymphocytes 10.3 % (21.0-51.0); %Monocytes 7.2 % (0.0-10.0); %Neutrophils 81.3 % (42.0-75.0); Hemoglobin 10.8 g/dL (14.0-18.0); Mean Corpuscular Volume 90.8 fL (78.0-98.0); Mean Platelet Volume 8.4 fL (7.4-10.4); Platelet Count 247 thou/uL (130-400); RBC Distribution Width 16.5 % (11.5-14.5); Red Blood Cell (RBC) Count 3.71 mill/uL (4.70-6.10); White Blood Cell (WBC) Count 9.1 thou/uL (4.8-10.8)
[2018-07-31 21:11] LABS: ALT (SGPT) 18 U/L (8-55); AST (SGOT) 17 U/L (5-34); Albumin 3.7 g/dL (3.5-5.0); Alkaline Phosphatase 326 U/L (40-150); Anion Gap 15 mmol/L (10-20); BUN (Urea Nitrogen) 25 mg/dL (8.4-25.7); Bilirubin, Total 0.7 mg/dL (0.2-1.2); Calc. Creatinine Clearance 0 mL/min (70-130); Calcium 9.6 mg/dL (7.8-10.44); Carbon Dioxide 27 mmol/L (22-29); Chloride 98 mmol/L (98-107); Estimated GFR-MDRD 25; Glucose 290 mg/dL (70-105); Potassium 4.5 mmol/L (3.5-5.1); Protein, Total 7.7 g/dL (6.0-8.3); Sodium 135 mmol/L (136-145)
--- NOTE | 2018-07-31 21:18 | RAD ---
CHEST ONE VIEW: 07/31/18 HISTORY: Slurred speech, chest pain. COMPARISON: Radiograph 05/16/18. FINDINGS: Interval improvement of the air space opacity right upper lobe. Decreased interstitial edema. Small e ffusions. Heart size is enlarged. IMPRESSION: Mild volume overload, improved from the 05/16/18 examination. POS: HOME
[2018-08-01 00:16] LABS: Troponin I 0.015 ng/mL (< 0.028)
[2018-08-01] MEDS ORDERED: Acetaminophen 325 MG TAB ONE (00:43)
--- NOTE | 2018-08-04 13:55 | EKG ---
Test Reason : ER INDICATION Blood Pressure : / mmHG Vent. Rate : 090 BPM Atrial Rate : 090 BPM P-R Int : 162 ms QRS Dur : 092 ms QT Int : 376 ms P-R-T Axes : 091 221 126 degrees QTc Int : 459 ms Suspect arm lead reversal, interpretation assumes no reversal Normal sinus rhythm Possible Left atrial enlargement Right superior axis deviation Incomplete right bundle branch block Nonspecific ST abnormality Abnormal ECG Confirmed by RAQUEL LANDRY DO ([id number]), editor newspaper SCOT LAUREANO ([id number]) on 08/04/2018 1:54:33 PM Referred By: Confirmed By:RAQUEL LANDRY DO
== END 2018-08-01 00:39 | disposition home or self-care (01) ==
LOC: ERS 20:13
DX: R42 Dizziness and giddiness (principal); E78.5 Hyperlipidemia, unspecified; I25.10 Atherosclerotic heart disease of native coronary artery without angina pectoris; E11.9 Type 2 diabetes mellitus without complications; I10 Essential (primary) hypertension; F41.9 Anxiety disorder, unspecified; F32.9 Major depressive disorder, single episode, unspecified; Z86.73 Personal history of transient ischemic attack (TIA), and cerebral infarction without residual deficits; Z86.718 Personal history of other venous thrombosis and embolism; Z79.899 Other long term (current) drug therapy; Z79.4 Long term (current) use of insulin; Z79.891 Long term (current) use of opiate analgesic
CPT/HCPCS: 36415; 71045; 80053; 84484; 85025; 93005

== ENCOUNTER 2018-10-30 14:32 | Emergency (ER) | payer MEDICARE ==
[2018-10-30 16:04] LABS: HBSAg Index 0.25 S/CO (0-0.99); Hep B Surf Ag Non-Reactive S/CO (NonReactive)
--- NOTE | 2018-11-03 13:28 | EKG ---
Test Reason : Blood Pressure : / mmHG Vent. Rate : 082 BPM Atrial Rate : 082 BPM P-R Int : 156 ms QRS Dur : 094 ms QT Int : 376 ms P-R-T Axes : 061 -38 117 degrees QTc Int : 439 ms Normal sinus rhythm Possible Left atrial enlargement Left axis deviation Incomplete right bundle branch block Left ventricular hypertrophy with repolarization abnormality Abnormal ECG Confirmed by RAQUEL LANDRY DO ([id number]), fan mail editor SCOT LAUREANO ([id number]) on 11/03/2018 1:28:23 PM Referred By: Confirmed By:RAQUEL LANDRY DO
== END 2018-10-30 21:00 | disposition home or self-care (01) ==
LOC: ERS 14:32
DX: I12.0 Hypertensive chronic kidney disease with stage 5 chronic kidney disease or end stage renal disease (principal); N18.6 End stage renal disease; E87.5 Hyperkalemia; I25.10 Atherosclerotic heart disease of native coronary artery without angina pectoris; I73.9 Peripheral vascular disease, unspecified; F41.9 Anxiety disorder, unspecified; F32.9 Major depressive disorder, single episode, unspecified; Z86.73 Personal history of transient ischemic attack (TIA), and cerebral infarction without residual deficits; Z87.891 Personal history of nicotine dependence; Z99.2 Dependence on renal dialysis; Z79.899 Other long term (current) drug therapy; Z79.891 Long term (current) use of opiate analgesic; Z79.4 Long term (current) use of insulin; Z86.718 Personal history of other venous thrombosis and embolism
CPT/HCPCS: 36415; 87340; 90935; 93005; G0257

== ENCOUNTER → 2018-10-30 | Day surgery (SDC) | payer MEDICARE ==
[2018-10-29 15:53] VITALS: BMI 23.5
[~2018-10-30] MED LIST: Fentanyl 100 MCG/2 ML VIAL ONE; Midazolam HCl 2 mg/2 ml Vial ONE
--- NOTE | 2018-10-30 11:14 | HP ---
HISTORY OF PRESENT ILLNESS: Chandra Zuluaga is a 58-year-old male patient, dialyzes at [facility] on Monday, Monday, and Monday. He has just changed that dialysis unit, previously using [address]. The patient has not dialyzed since last Monday. He is followed by Dr. Cruz. Apparently, he had transportation problems today and did not make his dialysis and they could not accept him at the unit. They told him to go to the emergency room as his potassium drawn. I have talked to Dr. Cruz and that is the plan. He may need outpatient dialysis today he underwent placement of a hemodialysis catheter. He had a primary fistula, right arm, proximal volar forearm, below the antecubital fossa, proximal radial artery inflow, outflow basilic vein but possibly cephalic vein. It was felt that he would probably need revision, probably a transposition in the future. At that time, I noted that I could hear Doppler signal in the cephalic vein upper arm with occlusion of the basilic vein and outflow, but on probing, there was noted to be an obstruction. It was felt he would need a basilic vein transposition fistula. The patient during that operation had a good appearing cephalic vein at the wrist, but on exploration, there was noted to be outflow obstruction, thus, the vein was ligated and the wound closed. Since that, the patient never followed up with me as an outpatient. Apparently, he had an appointment, but canceled it. The patient now has another relative caregiver who is trying to be more responsible. The patient found his way to the [facility] [place] and had a fistulogram that noted his cephalic vein outflow to be occluded. He had retrograde filling of the cephalic vein. On exam, he is noted to have a good thrill and bruit in his fistula. It extends retrograde towards the wrist. He has a vein over the dorsum of his hand. He does have a basilic vein outflow. Consideration is that he might have a primary fistula wrist with this more lateral vein versus basilic vein transposition fistula. We will make that decision in the operating room. The vein in the forearm seems to be fairly well formed retrograde. TOBACCO: Former smoker. ALCOHOL: Alcohol abuse in the past. No drug use. PAST SURGICAL HISTORY: Coronary artery bypass grafting, four vessels in 2013; left great toe amputation; cardiac stents; left lower leg stents; right arm fistula as noted above. PAST MEDICAL HISTORY: Stable coronary artery disease, diabetes mellitus type 2, hypertension, DVT, PAD, coronary artery bypass grafting in 07/08/[address] Jon, aortogram runoff, complete occlusion of SFA in mid thigh, reconstitution of popliteal artery, chronic total occlusion could not be bypassed and intervention could not be performed. On 12/31/2015, left femoral anterior tibial artery bypass with reverse greater saphenous vein, left great toe amputation. Previous 2018, cystoscopy, bilateral retrogrades for recurrent UTIs, laparoscopic cholecystectomy in the past. PHYSICAL EXAMINATION: VITAL SIGNS: 164 pounds, 70 inches, 23 BMI. Blood pressure 156/80, pulse 85, temperature 97.9 degrees. HEAD, EARS, EYES, NOSE, AND THROAT: Unremarkable. LUNGS: Clear to auscultation. CARDIAC: Regular rate and rhythm without murmur or gallop. ABDOMEN: Soft and nontender. EXTREMITIES: Unremarkable. Chronic venous stasis changes. Primary fistula, right arm with good thrill and bruit. Cephalic vein outflow was not present. Retrograde filling in antecubital vein noted down to the hand. Angiogram reveals basilic vein outflow. ASSESSMENT AND PLAN: End-stage renal disease with a dysfunctional fistula. We will plan revision of his right arm fistula, possible basilic vein transposition. I would ask the dialysis unit to begin efforts to try to utilize his fistula as it is. Today, he will go into the ER for potassium and dialysis at outpatient per Dr. Cruz. Job ID: [id number]
[2018-10-30 12:06] LABS: #Basophils 0.1 thou/uL (0.0-0.2); #Eosinphils 0.5 thou/uL (0.0-0.7); #Lymphocytes 1.7 thou/uL (1.20-3.40); #Monocytes 0.6 thou/uL (0.11-0.59); %Basophils 0.9 % (0.0-1.0); %Eosinophils 6.6 % (0.0-10.0); %Lymphocytes 25.1 % (21.0-51.0); %Monocytes 8.5 % (0.0-10.0); Mean Corpuscular HGB CONC 32.3 g/dL (32.0-36.0); Mean Corpuscular Hemoglobin 30.1 pg (27.0-31.0); Mean Corpuscular Volume 93.1 fL (78.0-98.0); Mean Platelet Volume 8.2 fL (7.4-10.4); Platelet Count 209 thou/uL (130-400); RBC Distribution Width 13.9 % (11.5-14.5); Red Blood Cell (RBC) Count 3.64 mill/uL (4.70-6.10); White Blood Cell (WBC) Count 6.8 thou/uL (4.8-10.8)
[2018-10-30 12:22] LABS: Anion Gap 13 mmol/L (10-20); BUN (Urea Nitrogen) 51 mg/dL (8.4-25.7); Calc. Creatinine Clearance 23 mL/min (70-130); Calcium 9.2 mg/dL (7.8-10.44); Carbon Dioxide 19 mmol/L (22-29); Chloride 113 mmol/L (98-107); Estimated GFR-MDRD 17; Glucose 139 mg/dL (70-105); Potassium 5.6 mmol/L (3.5-5.1); Sodium 139 mmol/L (136-145)
== END ==
LOC: SDC 11:11
PROVIDERS: ATTEND Specialist
DX: T82.510A Breakdown (mechanical) of surgically created arteriovenous fistula, initial encounter (principal); I12.0 Hypertensive chronic kidney disease with stage 5 chronic kidney disease or end stage renal disease; E11.22 Type 2 diabetes mellitus with diabetic chronic kidney disease; N18.6 End stage renal disease; I25.10 Atherosclerotic heart disease of native coronary artery without angina pectoris; E11.51 Type 2 diabetes mellitus with diabetic peripheral angiopathy without gangrene; F10.11 Alcohol abuse, in remission; Z53.9 Procedure and treatment not carried out, unspecified reason; Z86.73 Personal history of transient ischemic attack (TIA), and cerebral infarction without residual deficits; Z99.2 Dependence on renal dialysis; Z86.718 Personal history of other venous thrombosis and embolism; Z87.891 Personal history of nicotine dependence; Z79.4 Long term (current) use of insulin; Z79.82 Long term (current) use of aspirin; Z79.899 Other long term (current) drug therapy; Z95.1 Presence of aortocoronary bypass graft; Z95.5 Presence of coronary angioplasty implant and graft; Z95.820 Peripheral vascular angioplasty status with implants and grafts; Z89.412 Acquired absence of left great toe; Z98.890 Other specified postprocedural states
CPT/HCPCS: 80048; 85025; J0690; J2250; J3010

== ENCOUNTER 2018-11-20 09:27 | Day surgery (SDC) | payer MEDICARE ==
[2018-11-19 11:43] VITALS: BMI 24.2
[2018-11-20 10:17] LABS: #Eosinphils 0.4 thou/uL (0.0-0.7); #Monocytes 0.6 thou/uL (0.11-0.59); %Basophils 0.4 % (0.0-1.0); %Eosinophils 5.2 % (0.0-10.0); %Lymphocytes 24.9 % (21.0-51.0); %Monocytes 6.9 % (0.0-10.0); %Neutrophils 62.7 % (42.0-75.0); Hemoglobin 10.5 g/dL (14.0-18.0); Mean Corpuscular HGB CONC 34.1 g/dL (32.0-36.0); Mean Corpuscular Hemoglobin 31.3 pg (27.0-31.0); Mean Corpuscular Volume 91.6 fL (78.0-98.0); Platelet Count 222 thou/uL (130-400); Red Blood Cell (RBC) Count 3.36 mill/uL (4.70-6.10)
[2018-11-20] MEDS ORDERED: Ioversol 68 % 50 ML VIAL ONE (10:17)
[2018-11-20] MEDS ORDERED: Lidocaine 2% PF 5 ML VIAL ONE (10:17)
[2018-11-20] MEDS ORDERED: Heparin 10,000 UNITS/1 ML VIAL ONE (10:17)
[2018-11-20] MEDS ORDERED: Bupivacaine HCl 0.5%/Epinephrine 1:200,000/PF 30 ml Vial ONE (10:17)
[2018-11-20] MEDS ORDERED: Protamine Sulfate 50 MG/5 ML VIAL ONE (10:17)
[2018-11-20] MEDS ORDERED: Heparin 5,000 UNITS/ML VIAL ONE (10:28)
[2018-11-20 10:42] LABS: Anion Gap 15 mmol/L (10-20); BUN (Urea Nitrogen) 60 mg/dL (8.4-25.7); Calc. Creatinine Clearance 21 mL/min (70-130); Calcium 8.7 mg/dL (7.8-10.44); Carbon Dioxide 22 mmol/L (22-29); Chloride 105 mmol/L (98-107); Estimated GFR-MDRD 15; Glucose 184 mg/dL (70-105); Potassium 4.3 mmol/L (3.5-5.1); Sodium 138 mmol/L (136-145)
[2018-11-20] MEDS ORDERED: Fentanyl 100 MCG/2 ML VIAL ONE ×2 (10:45→11:47)
[2018-11-20] MEDS ORDERED: Propofol 1,000 MG/100 ML VIAL IV ONE (11:10)
[2018-11-20] MEDS ORDERED: Ketamine 50 MG/ML (10ML VIAL) ONE (11:43)
[2018-11-20] MEDS ORDERED: ceFAZolin Sodium (SDC) 2 GM/100 ML BAG ONE (11:58)
[2018-11-20] MEDS ORDERED: Heparin 10,000 UNITS/ 10 ML VIAL ONE (15:52)
[2018-11-20] MEDS ORDERED: traMADol HCl 50 MG TAB ONE (16:13)
--- NOTE | 2018-11-20 16:40 | OP ---
DATE OF PROCEDURE: 11/20/2018 PREOPERATIVE DIAGNOSES: End-stage renal disease, dysfunctional fistula right upper arm with occluded fibrotic basilic vein communicating branch and cephalic vein outflow with retrograde filling of the antecubital vein and collaterals to fill the basilic vein. POSTOPERATIVE DIAGNOSES: End-stage renal disease, dysfunctional fistula right upper arm with occluded fibrotic basilic vein communicating branch and cephalic vein outflow with retrograde filling of the antecubital vein and collaterals to fill the basilic vein. PROCEDURE PERFORMED: Right arm basilic vein transposition fistula with the use of the retrograde antecubital vein. ANESTHESIA: Regional, TIVA. DESCRIPTION OF PROCEDURE: The patient was taken to the operating room, where under regional anesthesia, right upper extremity was prepared with ChloraPrep and draped in routine fashion. Incision was made from the proximal volar forearm through the medial upper arm to the axilla, carried down through the skin and subcutaneous tissue. Deep fascia mobilizing the basilic vein dissected free. The cephalic vein outflow dissected free. It became fibrotic after about 4 cm in the outflow and mid to distal upper arm. Retrograde antecubital vein was dissected free. Branches were divided between clips and was mobilized and reflected cephalad. Ashley-Wick tunneler was used to create a tunnel using 12 mm head between the axilla and in the forearm. The patient was given 6000 units of heparin intravenously. After adequate circulation time, the vein was tunneled using a Ashley-Wick tunneler and then, flushed with heparinized saline solution and flushed and distended nicely. Branches were divided and ligated with 3-0 silk ties. End basilic vein to end cephalic vein to the antecubital fossa that had been originally used for the inflow. Anastomosis created after spatulating both ends using continuous suture of 6-0 Prolene. After completing the anastomosis, vascular clamps were released. There was excellent flow in the fistula. Good hemostasis noted. The patient given 50 mg of protamine by Anesthesia. Avitene cut and placed in the harvest bed of the basilic vein. Good hemostasis noted. Subcutaneous tissue was approximated with 3-0 Monocryl, skin with farhana. Sterile dressing applied. Job ID: [id number]
== END 2018-11-20 16:30 | disposition home or self-care (01) ==
LOC: SDC 09:27
PROVIDERS: ATTEND Specialist
PROC: 03120ZD Bypass Innominate Artery to Upper Arm Vein, Open Approach (ICD-10-PCS; principal; 2018-11-20)
DX: I12.0 Hypertensive chronic kidney disease with stage 5 chronic kidney disease or end stage renal disease (principal); E11.22 Type 2 diabetes mellitus with diabetic chronic kidney disease; N18.6 End stage renal disease; T82.590A Other mechanical complication of surgically created arteriovenous fistula, initial encounter; I25.10 Atherosclerotic heart disease of native coronary artery without angina pectoris; Z99.2 Dependence on renal dialysis; Z87.891 Personal history of nicotine dependence; Z95.1 Presence of aortocoronary bypass graft; Z79.4 Long term (current) use of insulin; Z79.899 Other long term (current) drug therapy
CPT/HCPCS: 36416; 80048; 85025; J0670; J0690; J1644; J2001; J2704; J2720; J3010; Q9967

== ENCOUNTER 2019-01-29 06:35 | Day surgery (SDC) | payer MEDICARE ==
[2019-01-16 14:56] VITALS: BMI 24.0
[~2019-01-29 06:35] MED LIST changes: +FLU VACC QS2019-20(6MOS UP)/PF 60 MCG/0.5 ML SYRINGE IM ONE; -Fentanyl 100 MCG/2 ML VIAL ONE; -Midazolam HCl 2 mg/2 ml Vial ONE
--- NOTE | 2019-01-29 09:13 | SPC ---
EXAM: [facility] INTRO CATH DIALY CIRC/AV S PROVIDED CLINICAL HISTORY: Nonmaturing right upper trauma the arteriovenous dialysis fistula. COMPARISON: None Fluoroscopy: Total time is 0.4 minutes with total dose of 933 mGy centimeter squared. TECHNIQUE: After informed consent was obtained, the patient was placed on the angiography table in the supine po sition. Limited sonographic evaluation of the right upper extremity was performed. The brachial artery with tiny paired brachial veins were demonstrated. The arteriovenous anastomosis is seen just distal to the level of the antecubital fossa with a patent antecubital vein which occluded based on ultrasound without a cephalic vein or basilic vein outflow visualized. Imaging further proximally wit hin arm also did not demonstrate a cephalic or basilic vein. The right upper extremity was meticulously prepped and draped in the usual sterile fashion. Skin and subcutaneous tissues were infiltrated with buffered 1% lidocaine for local anesthesia. Utilizing concurrent real-time ultrasound guidance, the antecubital vein was accessed utilizing micropuncture t echnique, and a 4 Kenyan introducer sheath was placed. A fistulogram was performed. This demonstrated multiple collateral veins which extended into the forearm with subsequent drainage into previously described tiny paired brachial veins. No other venous outflow was seen from the level of the antecubital fossa proximally. Findings are most suggestive of occlusion of both the cephalic vein and basilic vein outflows. Introducer sheath was removed, and hemostasis was achieved with direct pressure. Dry sterile dressing was placed. The patient tolerated the procedure well and without immediate complication. Patient was transported to radiology nurses holding area for further monitoring prior to discharge. IMPRESSION: 1. Long-standing occlusion of venous outflow of the right upper extremity arteriovenous dialysis fist bebeto. A cephalic vein or basilic vein outflow was not visualized by ultrasound or on venography. There are multiple collateral veins seen within the forearm with eventual flow seen into small paired brachial veins which were demonstrated on ultrasound exam as well. The antecubital vein terminates abruptly at the level of the elbow joint.
[2019-01-29] MEDS ORDERED: Heparin 1,000 UNITS/ML VIAL ONE (18:00)
== END 2019-01-29 08:50 | disposition home or self-care (01) ==
LOC: SPEC 06:35
PROVIDERS: ATTEND Specialist
DX: I12.0 Hypertensive chronic kidney disease with stage 5 chronic kidney disease or end stage renal disease (principal); E11.22 Type 2 diabetes mellitus with diabetic chronic kidney disease; N18.6 End stage renal disease; F41.9 Anxiety disorder, unspecified; F32.9 Major depressive disorder, single episode, unspecified; I25.10 Atherosclerotic heart disease of native coronary artery without angina pectoris; Z86.73 Personal history of transient ischemic attack (TIA), and cerebral infarction without residual deficits; Z87.891 Personal history of nicotine dependence; Z95.1 Presence of aortocoronary bypass graft
CPT/HCPCS: 36901; J1644

== ENCOUNTER 2019-02-10 19:04 | Emergency (ER) | payer MEDICARE ==
--- NOTE | 2019-02-10 19:46 | RAD ---
EXAM: 4 views of the right knee HISTORY: Knee pain COMPARISON: None FINDINGS: No knee effusion is seen. There is no evidence of acute fracture or dislocation. No signifi cant degenerative changes are seen. No soft tissue swelling is present. Surgical clips are seen along the medial knee. IMPRESSION: No evidence of acute osseous abnormality.
--- NOTE | 2019-02-10 20:18 | CT ---
EXAM: CT brain without contrast HISTORY: Mechanical fall with head trauma COMPARISON: 06/11/2017 TECHNIQUE: Multiple contiguous axial images were obtained and a CT of the brain without contrast. FINDINGS: There are scattered hypodensities in the subcortical and periventricular white matter consi stent with small vessel ischemic disease. There is no evidence of hydrocephalus, intracranial hemorrhage, or extra-axial fluid collection. The calvarium and overlying soft tissues are unremarkable. The visualized paranasal sinuses and masto id air cells are well aerated. IMPRESSION: No evidence of acute intracranial abnormality
== END 2019-02-10 21:39 | disposition home or self-care (01) ==
LOC: ERS 19:04
DX: S09.90XA Unspecified injury of head, initial encounter (principal); S80.01XA Contusion of right knee, initial encounter; I25.10 Atherosclerotic heart disease of native coronary artery without angina pectoris; I12.0 Hypertensive chronic kidney disease with stage 5 chronic kidney disease or end stage renal disease; N18.6 End stage renal disease; F41.9 Anxiety disorder, unspecified; F32.9 Major depressive disorder, single episode, unspecified; Z87.891 Personal history of nicotine dependence; Z86.718 Personal history of other venous thrombosis and embolism; Z79.4 Long term (current) use of insulin; Z79.891 Long term (current) use of opiate analgesic; Z79.899 Other long term (current) drug therapy; W01.0XXA Fall on same level from slipping, tripping and stumbling without subsequent striking against object, initial encounter
CPT/HCPCS: 70450; 93005

== ENCOUNTER 2019-03-07 22:22 | Emergency (ER) | payer MEDICARE ==
--- NOTE | 2019-03-07 23:42 | CT ---
CT abdomen and pelvis noncontrast HISTORY: Flank pain. COMPARISON: 04/27/2018. FINDINGS: Each renal collecting system, ureter, and urinary bladder are decompressed without stone ap parent. There is calcification throughout the arterial structures. Gallbladder is surgically absent. Sagittal images of the spine show bilateral spondylolysis and minimal spondylolisthesis at the lumbos acral junction that is stable. Compression of the L1 vertebral body has progressed with loss of height now at approximately 40% anteriorly. Sclerosis throughout the vertebral body. No significant r etropulsion. Lack of contrast limits evaluation for other abnormalities. There is marked fecal distention of the r ectum up to 11.9 cm AP diameter. Significant circumferential wall thickening of the rectum with stranding in the fat around the upper rectum. IMPRESSION: No CT evidence of urinary tract obstruction or calcification. Severe fecal impaction with inflammation of the rectal wall. 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 Worsening compression deformity of the L1 vertebral body since the prior CT exam. Atherosclerosis.
[2019-03-08 00:13] LABS: #Basophils 0.1 thou/uL (0.0-0.2); #Eosinphils 0.4 thou/uL (0.0-0.7); #Monocytes 1.2 thou/uL (0.11-0.59); #Neutrophils 9.5 thou/uL (1.40-6.50); %Basophils 0.6 % (0.0-1.0); %Eosinophils 3.2 % (0.0-10.0); %Monocytes 9.1 % (0.0-10.0); %Neutrophils 72.1 % (42.0-75.0); Hemoglobin 10.9 g/dL (14.0-18.0); Mean Corpuscular HGB CONC 33.7 g/dL (32.0-36.0); Mean Corpuscular Volume 95.1 fL (78.0-98.0); Mean Platelet Volume 8.7 fL (7.4-10.4); Platelet Count 263 thou/uL (130-400); RBC Distribution Width 12.2 % (11.5-14.5); Red Blood Cell (RBC) Count 3.42 mill/uL (4.70-6.10); White Blood Cell (WBC) Count 13.2 thou/uL (4.8-10.8)
[2019-03-08 00:33] LABS: ALT (SGPT) Less than 7 U/L (8-55); AST (SGOT) 13 U/L (5-34); Albumin 4.1 g/dL (3.5-5.0); Alkaline Phosphatase 171 U/L (40-110); Anion Gap 16 mmol/L (10-20); BUN (Urea Nitrogen) 29 mg/dL (8.4-25.7); Bilirubin, Total 0.5 mg/dL (0.2-1.2); Calc. Creatinine Clearance 0 mL/min (70-130); Carbon Dioxide 32 mmol/L (22-29); Chloride 93 mmol/L (98-107); Estimated GFR-MDRD 13; Globulin 3.7 g/dL (2.4-3.5); Glucose 274 mg/dL (70-105); Potassium 3.6 mmol/L (3.5-5.1); Protein, Total 7.8 g/dL (6.0-8.3); Sodium 137 mmol/L (136-145)
== END 2019-03-08 01:54 | disposition left against medical advice (07) ==
LOC: ERS 22:22
DX: Z53.21 Procedure and treatment not carried out due to patient leaving prior to being seen by health care provider (principal)
CPT/HCPCS: 36415; 74176; 80053; 85025

== ENCOUNTER 2019-05-01 15:16 | Inpatient (IN) | payer MEDICARE ==
[~2019-05-01 15:16] MED LIST changes: -FLU VACC QS2019-20(6MOS UP)/PF 60 MCG/0.5 ML SYRINGE IM ONE; +Heparin 10,000 UNITS/1 ML VIAL ONE
[2019-05-01] MEDS ORDERED: EPINEPHrine 1 MG/10 ML Abboject SYRINGE ONE (15:37)
[2019-05-01] MEDS ORDERED: Atropine Sulfate 1 mg/10 ml Syringe ONE (15:37)
--- NOTE | 2019-05-01 15:55 | RAD ---
XR Chest 1 View Portable HISTORY: Dyspnea COMPARISON: 12/24/2018 FINDINGS: There are changes of median sternotomy. Right-sided dialysis catheter is again seen. The he art size is stable. There are bibasilar infiltrates. No usama edema or large pleural effusions are seen. No pneumothorax is identified
[2019-05-01 15:56] LABS: #Basophils 0.1 thou/uL (0.0-0.2); #Eosinphils 0.3 thou/uL (0.0-0.7); #Lymphocytes 1.4 thou/uL (1.20-3.40); #Monocytes 0.5 thou/uL (0.11-0.59); #Neutrophils 3.8 thou/uL (1.40-6.50); %Basophils 1.2 % (0.0-1.0); %Eosinophils 4.5 % (0.0-10.0); %Lymphocytes 23.5 % (21.0-51.0); %Monocytes 7.8 % (0.0-10.0); Hemoglobin 9.6 g/dL (14.0-18.0); Mean Corpuscular HGB CONC 33.5 g/dL (32.0-36.0); Mean Corpuscular Volume 92.6 fL (78.0-98.0); Mean Platelet Volume 8.6 fL (7.4-10.4); Platelet Count 239 thou/uL (130-400); RBC Distribution Width 13.2 % (11.5-14.5)
[2019-05-01 16:06] LABS: ALT (SGPT) 10 U/L (8-55); AST (SGOT) 11 U/L (5-34); Albumin 3.6 g/dL (3.5-5.0); Alkaline Phosphatase 142 U/L (40-110); Anion Gap 11 mmol/L (10-20); BUN (Urea Nitrogen) 57 mg/dL (8.4-25.7); Bilirubin, Total 0.4 mg/dL (0.2-1.2); Calc. Creatinine Clearance 0 mL/min (70-130); Calcium 8.4 mg/dL (7.8-10.44); Carbon Dioxide 22 mmol/L (22-29); Chloride 110 mmol/L (98-107); Estimated GFR-MDRD 10; Globulin 3.5 g/dL (2.4-3.5); Glucose 271 mg/dL (70-105); Potassium 4.4 mmol/L (3.5-5.1); Protein, Total 7.1 g/dL (6.0-8.3); Sodium 139 mmol/L (136-145)
[2019-05-01 17:29] LABS: Base Excess-Venous -3.3 mmol/L (-2.0 to 3.0); Bicarbonate (HCO3v) 21.2 mmol/L (22.0-28.0); CO2 Tension (PvCO2) 35.2 mmHg (40.0-50.0); Calcium, Ionized 1.09 mmol/L (See Comments:); Chloride 111 mmol/L (98-107); Hemoglobin - Calc 9.5 g/dL (14.0-18.0); Potassium 4.3 mmol/L (3.5-5.1); Sodium 141 mmol/L (138-145); T. Carbon Dioxide 22.3 mmol/L (22.0-28.0); vO2 Saturation-calc 74.8 % (60.0-85.0)
[2019-05-01 17:54] LABS: HBSAg Index 0.38 S/CO (0-0.99); Hep B Surf Ag Non-Reactive S/CO (NonReactive)
[2019-05-01] MEDS ORDERED: Sterile Water 10 ML VIAL FS SCH (21:45)
[2019-05-01] MEDS ORDERED: Activase 2 MG VIAL CATH SCH (21:45)
[2019-05-01 23:16] VITALS: BMI 24.7
--- NOTE | 2019-05-01 23:17 | CON ---
DATE OF CONSULTATION: 05/01/2019 CONSULTING PHYSICIAN: Lay Ann MD REASON FOR CONSULTATION: End-stage renal disease evaluation and care. REASON FOR ADMISSION: Altered mentation, weakness. HISTORY OF PRESENT ILLNESS: A 59-year-old male with history of hypertension, end-stage renal disease, diabetes, came to the hospital with above complaints. The patient is due for dialysis, but he has missed several sessions of dialysis. The patient was presented to dialysis today and he was found to be very weak with altered mentation and was sent to the hospital. On evaluation in the ER, he is deemed appropriate for discharge but since he missed dialysis, Nephrology was asked to dialysis him in the ER and discharge him from ER. The patient is feeling better. No chest pain. No nausea or vomiting. No fever or chills. PAST MEDICAL HISTORY: Positive for hypertension, coronary artery disease, type 2 diabetes, CVA, DVT, hepatitis A. PAST SURGERY HISTORY: CABG, amputation. HOME MEDICATIONS: Not available. ALLERGIES: NO KNOWN DRUG ALLERGIES. SOCIAL HISTORY: Former smoker. No illicit drug abuse. He used to drink also. FAMILY HISTORY: No history of any kidney disease. REVIEW OF SYSTEMS: CONSTITUTIONAL: Negative for weight loss or gain, ability to conduct usual activities. SKIN: Negative for rash, itching. EYES: Negative for double vision, pain. ENT/MOUTH: Negative for nose bleeding, neck stiffness, pain, tenderness. CARDIOVASCULAR: Negative for palpitations, dyspnea on exertion, orthopnea. RESPIRATORY: Negative for shortness of breath, wheezing, cough, hemoptysis, fever or night sweats. GASTROINTESTINAL: Negative for poor appetite, abdominal pain, heartburn, nausea, vomiting, constipation, or diarrhea. GENITOURINARY: Negative for urgency, frequency, dysuria, nocturia. MUSCULOSKELETAL: Negative for pain, swelling. NEUROLOGIC/PSYCHIATRIC: Negative for anxiety, depression. ALLERGY/IMMUNOLOGIC: Negative for skin rash, bleeding tendency. PHYSICAL EXAMINATION: GENERAL: This is a well-built male, in no apparent distress. VITAL SIGNS: Temperature 98.6, pulse 78, respiratory rate 18, blood pressure 159/89. HEENT: Atraumatic, normocephalic. Oral mucosa moist. NECK: Supple. CV: S1, S2 heard. Rate and rhythm regular. RESPIRATORY: Clear. GI: Abdomen is soft. MUSCULOSKELETAL: 1+ edema. DERMATOLOGIC: No skin rash. NEUROLOGIC: Alert and awake. PSYCHIATRIC: Mood and affect normal. LABORATORY DATA: Hemoglobin is 9.6, potassium is 4.3, BUN is 57, and creatinine is 5.6. ASSESSMENT: 1. End-stage renal disease, on hemodialysis. Plan is to have emergent hemodialysis in the ER. 2. Edema, controlled. 3. Hypertension. 4. Anemia. PLAN: Continue on dialysis as tolerated. We will have dialysis nurse notified. Job ID: [id number]
[2019-05-02] MEDS ORDERED: Ondansetron PF 4 MG/2 ML Vial IVP PRN (04:38)
[2019-05-02] MEDS ORDERED: Acetaminophen 325 MG TAB PO PRN (04:38)
--- NOTE | 2019-05-02 07:35 | HP ---
CHIEF COMPLAINT: Referral to ED from dialysis unit. HISTORY OF PRESENT ILLNESS: A 59-year-old male with past medical history of coronary artery disease, status post remote CABG, compliant on aspirin and Plavix, but the rest of his medications for the past several months; ESRD, on hemodialysis, last on 04/10/2019, who has been noncompliant due to transportation issues; hypertension; type 2 diabetes mellitus; and dyslipidemia, who went to his dialysis unit for a routine hemodialysis after several-week hiatus and was referred to the ER for dialysis. He was noted to have his right chest wall tunneled dialysis catheter dangling in his chest wall and resultantly was reported to have an incomplete dialysis session. His blood culture was obtained from dialysis catheter access, although the patient denies any complaints of fevers, chills, rigors, diaphoresis, nausea, vomiting, angina, or significant dyspnea. He notes he is oliguric, but does make some urine. Labs done in the ER were essentially unremarkable. Chest x-ray was unremarkable. On-call surgeon was consulted for dialysis catheter exchange. At bedside, the patient offers no acute complaints. He corroborates history. He states that he will be more diligent in compliance with dialysis. REVIEW OF SYSTEMS: Pertinent positives as per HPI. Remainder of review of systems is negative. PAST MEDICAL HISTORY: Coronary artery disease, status post CABG x4; ESRD, on hemodialysis, last on 04/10/2019; hypertension; type 2 diabetes mellitus; and dyslipidemia. PAST SURGICAL HISTORY: CABG x4, right chest wall tunneled dialysis catheter access, prior peripheral IV access, left toe amputation, and left lower extremity stents. SOCIAL HISTORY: The patient admits to prior tobacco and alcohol use, but denies any current tobacco or alcohol use. He does not use any drugs. He is retired and used to work on a chicken farm. ALLERGIES: NONE DOCUMENTED OR REPORTED. HOME MEDICATIONS: Will be reviewed as per admission medication reconciliation. The patient only has been taking aspirin and Plavix. FAMILY HISTORY: Diabetes mellitus in multiple family members. PHYSICAL EXAMINATION: VITAL SIGNS: , pulse 81 to 102, blood pressure 162/81 to 175/98, oxygen saturation 94% on room air, and respirations 16 to 18. GENERAL APPEARANCE: This is an elderly male, who is awake, alert, oriented, coherent, lucid, not in any obvious distress. HEENT: Normocephalic, atraumatic. No facial asymmetry. His pupils are equally round. Extraocular muscles are intact. Mucous membranes are moist. NECK: Supple. CARDIOVASCULAR: S1 and S2. Regular rate and rhythm. No harsh murmurs. CHEST: No chest wall tenderness to palpation. Median sternotomy scar noted. There is a right chest wall tunneled dialysis catheter noted. LUNGS: Nonlabored respirations on bilateral posterior auscultations and coarse scattered rhonchi throughout bilateral posterior lung vázquez. No expiratory wheezing. No labored respirations. ABDOMEN: Soft, nontender, nondistended. EXTREMITIES: There is some edema in the left lower extremity noted. No cyanosis or deformities. SKIN: Warm to touch without rash or pallor or abrasions. LABORATORY DATA: WBC 6.0, H and H 9.6/28.7, and platelets 239. VBG; pH 7.388. Chemistries reveal sodium 139, potassium 4.4, chloride 110, bicarb 22, glucose 271, BUN and creatinine 57/5.68, and GFR 10. LFTs unremarkable. Troponin I negative x1. BNP 4513. Albumin 3.6. Beta-hydroxybutyrate 0.05. Hep B surface antigen nonreactive. IMAGING: One-view chest x-ray on 05/01/2019, reveals no usama edema or large pleural effusions. Bibasilar infiltrates. ASSESSMENT: 1. Malfunctioning dialysis catheter. 2. End-stage renal disease, noncompliant with hemodialysis due to transportation issues. 3. Coronary artery disease with remote coronary artery bypass grafting history, reportedly compliant on aspirin and Plavix. 4. Type 2 diabetes mellitus, noncompliant. 5. Hypertension, uncontrolled. 6. History of prior tobacco use. 7. Social determinants of health secondary to lack of medical access and lack of medical transportation. PLAN: 1. The patient will be admitted as observation status and placed on Med-Surg unit. He was referred to hospital from dialysis unit after weeks of dialysis noncompliance due to social determinants with transportation issues. An incomplete hemodialysis session reported due to malfunctioning dialysis access site. On-call surgeon consulted for tunneled dialysis catheter exchange. We will hold all antiplatelet therapy. We will maintain n.p.o. in the interim. We will consult Case Management to facilitate discharge planning. Home medications will need to be overtly reconciled, and the patient will likely require prescription refills of all pre-existing home medications. 2. Deep venous thrombosis prophylaxis: SCDs and ambulation. Hold anticoagulation in the setting of planned tunneled dialysis catheter exchange. 3. Disposition: Observation admission. The patient was seen and examined on 05/02/2019. Job ID: [id number]
[2019-05-02] MEDS ORDERED: Senokot S 8.6-50 MG TAB PO PRN (10:05)
[2019-05-02] MEDS ORDERED: HYDROcodone/Acetaminophen 5/325 mg Tablet PO PRN (10:05)
[2019-05-02] MEDS ORDERED: Calcium Carbonate 500 MG ChewTAB PO PRN (10:05)
[2019-05-02] MEDS ORDERED: Bisacodyl 5 MG TAB PO PRN (10:05)
[2019-05-02] MEDS ORDERED: Melatonin 3 MG TAB PO PRN (10:08)
[2019-05-02] MEDS ORDERED: Labetalol HCl 100 MG/20 ML VIAL SLOW IVP PRN (10:08)
[2019-05-02] MEDS ORDERED: diphenhydrAMINE 25 MG CAP PO PRN (10:08)
[2019-05-02] MEDS ORDERED: Benzonatate 100 MG CAP PO PRN (10:08)
[2019-05-02] MEDS ORDERED: Dextrose 5% in Water 1,000 ML IV PRN (10:09)
[2019-05-02] MEDS ORDERED: HumaLOG 300 UNITS/3 ML VIAL SC PRN (10:09)
[2019-05-02] MEDS ORDERED: Dextrose 50 % In Water 50 ML SYRINGE IV PRN (10:09)
[2019-05-02] MEDS ORDERED: Heparin 10,000 UNITS/ 10 ML VIAL ONE (11:22)
--- NOTE | 2019-05-02 13:04 | PRG ---
DATE OF SERVICE: 05/02/2019 SUBJECTIVE: Patient was seen and examined at bedside and overnight events noted. Patient denies any shortness of breath or chest pain or palpitation. No history of nausea or vomiting or diarrhea or fever or chills or cramps. OBJECTIVE: GENERAL: This is a well-built male, in no apparent distress. VITAL SIGNS: Temperature 97.5. Heart rate 70. Respiratory rate 17. Blood pressure 149/85. HEENT: Atraumatic, normocephalic. Oral mucosa is moist NECK: Supple. CARDIOVASCULAR: S1, S2 heard. Rate and rhythm regular. RESPIRATORY: Clear to auscultation. GASTROINTESTINAL: Abdomen is soft. MUSCULOSKELETAL: No tenderness. No edema. DERMATOLOGIC: No skin rash. NEUROLOGIC: Alert and awake and oriented X3. No focal neurologic deficits. Moving all the extremities. PSYCHIATRIC: Mood and affect normal. LABORATORY DATA: Potassium 4.3, BUN is 57, creatinine is 5.6. ASSESSMENT AND PLAN: 1. End-stage renal disease. Continue on dialysis as tolerated. 2. Dialysis access issues. We will follow with Surgery. 3. Edema, controlled. 4. Hypertension. 5. Anemia of chronic disease. Plan to continue dialysis. His catheter worked today. We will follow with Surgery for further plans. Job ID: [id number]
[2019-05-02] MEDS ORDERED: CEFAZOLIN 2 GM in Premix Bag 1 BAG IVPB SCH (17:00)
[2019-05-02] MEDS: HumuLIN 70/30 (300 UNITS/3 ML VIAL) SC SCH (17:06)
[2019-05-02] MEDS ORDERED: Vancomycin HCl 500 MG in Sodium Chloride 0.9% 100 ML IVPB SCH (17:30)
[2019-05-02] MEDS ORDERED: Vancomycin HCl 1 GM in Premix Bag 1 BAG IVPB SCH ×2 (17:30→21:00)
[2019-05-02] MEDS ORDERED: HOLD VANCOMYCIN FOR LEVEL >20 FS SCH (17:30)
[2019-05-02] MEDS ORDERED: Vancomycin HCl 750 MG in Sodium Chloride 0.9% 250 ML 250 ML IVPB SCH (17:30)
[2019-05-02] MEDS ORDERED: Vancomycin HCl 1.25 GM in Sodium Chloride 0.9% 250 ML 250 ML IVPB SCH (17:30)
[2019-05-02] MEDS ORDERED: Piperacillin/Tazobactam 3.375 GM in Sodium Chloride 0.9% 100 ML IVPB SCH (18:00)
--- NOTE | 2019-05-02 18:11 | CON ---
DATE OF CONSULTATION: HISTORY OF PRESENT ILLNESS: Chandra Zuluaga is a 59-year-old male with end-stage renal disease, who has had a basilic vein transposition fistula right arm, it was thrombosed. Fistulogram was obtained, but it was not amenable to salvage. He was recommended to have a left arm fistula or graft, but the patient was noncompliant in followup and scheduling. The patient has a hemodialysis catheter, though I have been told it is nonfunctional. At the time of this dictation, he has been given Cathflo overnight and his hemodialysis catheter is working well. Plan at this time is to place a left arm dialysis fistula or graft under regional anesthesia or general per Anesthesia's discretion tomorrow. He understands risks, benefits, and consents. ALLERGIES: NONE. SOCIAL HISTORY: Tobacco, none. Tobacco and alcohol abuse in the past, currently none. No drug use. MEDICATIONS: 1. Insulin. 2. Colace. 3. Doxycycline. 4. Lisinopril. 5. Metformin. 6. Plavix. 7. Carvedilol. 8. Amlodipine. The patient's park ranger is Dr. Hilton. He has been admitted to the Hospitalist Service. PAST SURGICAL HISTORY: Coronary artery bypass grafting 4 vessels, right IJ cuffed tunneled dialysis catheter, right arm fistula and BBTF as noted, left toe amputation, and left lower extremity PAD stents. PAST MEDICAL HISTORY: Coronary artery disease, stable status post CABG x4. ESRD on hemodialysis, hypertension, diabetes mellitus, dyslipidemia, and dysfunctional dialysis access, right arm. PHYSICAL EXAMINATION: VITAL SIGNS: Height 5 feet 8 inches, 163 pounds, and 24 BMI. 100.2 degrees, 95, and 161/87. HEAD, EARS, EYES, NOSE, AND THROAT: Unremarkable. LUNGS: Clear to auscultation. CARDIAC: Regular rate and rhythm without murmur or gallop. ABDOMEN: Soft and nontender. EXTREMITIES: Right arm fistula has a pulsatile arterial inflow stump, but occluded outflow upper arm. ASSESSMENT: Dysfunctional access, right arm and end-stage renal disease. PLAN: Left arm fistula or graft. He understands risks and benefits, consents. Job ID: [id number]
[2019-05-02] MEDS: Piperacillin/Tazobactam 2.25 GM in Sodium Chloride 0.9% 100 ML IVPB SCH (18:14)
[2019-05-02] MEDS: Famotidine/PF 20 mg/2ml Vial SLOW IVP SCH (20:02)
[2019-05-02] MEDS: Carvedilol 3.125 MG TAB PO SCH (20:03)
[2019-05-02] MEDS ORDERED: Vancomycin 1.5 GRAM/300 ML BAG 1.5 GM in Premix Bag 1 BAG IVPB SCH (21:00)
[2019-05-03] MEDS: Piperacillin/Tazobactam 2.25 GM in Sodium Chloride 0.9% 100 ML IVPB SCH ×3 (01:08→18:24)
[2019-05-03 05:53] LABS: Band 7 % (5-11); Eosinophils 3 % (0-10); Hemoglobin 9.5 g/dL (14.0-18.0); Lymphocytes 11 % (21-51); MDiff Complete? YES; Mean Corpuscular HGB CONC 32.7 g/dL (32.0-36.0); Mean Corpuscular Hemoglobin 30.2 pg (27.0-31.0); Mean Corpuscular Volume 92.1 fL (78.0-98.0); Mean Platelet Volume 9.4 fL (7.4-10.4); Monocytes 8 % (0-10); Neutrophil 71 % (42-75); Platelet Count 142 thou/uL (130-400); Platelet Morphology Comment Appears Adequate; RBC Distribution Width 13.8 % (11.5-14.5); Red Blood Cell (RBC) Count 3.16 mill/uL (4.70-6.10); White Blood Cell (WBC) Count 10.4 thou/uL (4.8-10.8)
[2019-05-03 06:02] LABS: Anion Gap 12 mmol/L (10-20); BUN (Urea Nitrogen) 19 mg/dL (8.4-25.7); Calc. Creatinine Clearance 27 mL/min (70-130); Carbon Dioxide 28 mmol/L (22-29); Chloride 101 mmol/L (98-107); Estimated GFR-MDRD 21; Glucose 104 mg/dL (70-105); Potassium 3.4 mmol/L (3.5-5.1); Sodium 138 mmol/L (136-145)
[2019-05-03] MEDS: Carvedilol 3.125 MG TAB PO SCH ×2 (06:05→20:43)
[2019-05-03] MEDS: Finasteride 5 MG TAB PO SCH (07:45)
[2019-05-03] MEDS: HumuLIN 70/30 (300 UNITS/3 ML VIAL) SC SCH ×2 (07:45→18:33)
[2019-05-03] MEDS: Lisinopril 10 MG TAB PO SCH (07:45)
[2019-05-03] MEDS: Amlodipine 5 MG TAB PO SCH (07:45)
[2019-05-03] MEDS: Docusate 100 MG CAP PO SCH (07:45)
[2019-05-03 08:29] LABS: Vancomycin, Random 21.8 ug/mL (See Comment)
[2019-05-03] MEDS ORDERED: Bupivacaine PF 0.5% 30 ML VIAL ONE (11:53)
[2019-05-03] MEDS ORDERED: Lidocaine 1% w/Epinephrine 1:100K 20 ML VIAL ONE (11:53)
[2019-05-03] MEDS ORDERED: Heparin 5,000 UNITS/ML VIAL ONE (11:53)
[2019-05-03] MEDS ORDERED: Protamine Sulfate 50 MG/5 ML VIAL ONE (11:53)
[2019-05-03] MEDS ORDERED: Fentanyl 100 MCG/2 ML VIAL ONE (12:37)
[2019-05-03] MEDS ORDERED: Famotidine/PF 20 mg/2ml Vial ONE (12:37)
[2019-05-03] MEDS ORDERED: PROPOFOL 60 ML ONE (12:38)
[2019-05-03] MEDS ORDERED: Propofol 500 MG/50 ML VIAL ONE (12:38)
--- NOTE | 2019-05-03 14:31 | PRG ---
DATE OF SERVICE: 05/03/2019 SUBJECTIVE: Patient was seen and examined at bedside and overnight events noted. Patient denies any shortness of breath or chest pain or palpitation. No history of nausea or vomiting or diarrhea or fever or chills or cramps. OBJECTIVE: GENERAL: This is a well-built male, in no apparent distress. VITAL SIGNS: Temperature 97.9, pulse 69, respiratory rate 18, and blood pressure 147/83. HEENT: Atraumatic, normocephalic. Oral mucosa is moist NECK: Supple. CARDIOVASCULAR: S1, S2 heard. Rate and rhythm regular. RESPIRATORY: Clear to auscultation. GASTROINTESTINAL: Abdomen is soft. MUSCULOSKELETAL: No tenderness. No edema. DERMATOLOGIC: No skin rash. NEUROLOGIC: Alert and awake and oriented X3. No focal neurologic deficits. Moving all the extremities. PSYCHIATRIC: Mood and affect normal. LABORATORY DATA: Potassium 3.4, BUN is 19, creatinine is 3.07. ASSESSMENT AND PLAN: 1. End-stage renal disease, continue on hemodialysis as tolerated. 2. Edema, controlled. 3. Hypertension. 4. Anemia of chronic disease. Plan to continue on dialysis as tolerated. Job ID: [id number]
[2019-05-03] MEDS ORDERED: Metoclopramide HCl 10 MG/2 ML VIAL ONE (14:35)
[2019-05-03] MEDS ORDERED: Lidocaine 1% PF 5 ML VIAL ONE (14:35)
[2019-05-03] MEDS ORDERED: Ondansetron PF 4 MG/2 ML Vial ONE (14:35)
[2019-05-03] MEDS ORDERED: Bupivacaine HCl 0.5%/Epinephrine 1:200,000/PF 30 ml Vial ONE (14:36)
--- NOTE | 2019-05-03 15:36 | OP ---
DATE OF PROCEDURE: 05/03/2019 PREOPERATIVE DIAGNOSIS: Status post left arm primary arteriovenous fistula with postprocedural severe bradycardia, asystole, requiring cardiopulmonary resuscitation and atropine without intubation in the PACU. POSTOPERATIVE DIAGNOSES: 1. Status post left arm primary arteriovenous fistula with postprocedural severe bradycardia, asystole, requiring cardiopulmonary resuscitation and atropine without intubation in the PACU. 2. Poor IV access. PROCEDURE PERFORMED: Right femoral vein triple-lumen catheter. ANESTHESIA: 1% Xylocaine. DESCRIPTION OF PROCEDURE: With the patient at bedside in the recovery room, right groin was clipped of hair, prepared with ChloraPrep, and draped in routine fashion, 1% Xylocaine was infiltrated in the skin and subcutaneous tissue. Sterile technique used to cannulate the right femoral vein and Seldinger technique was used to place a triple-lumen catheter, secured with a 3-0 silk suture and CHD sterile dressing applied, and J-wire removed. Each port aspirated blood, flushed with heparinized saline solution. The patient tolerated the procedure well. Job ID: [id number]
--- NOTE | 2019-05-03 15:45 | PDOC.HOSPP ---
- Subjective Subjective: Seen and examined in recovery unit. Discussed with Dr Greenfield about bradycardia s /p procedure with asystole arrest. Patient breathing comfortably on room air. Denies chest pain or any pain. Patient alert and oriented and talking in full sentences. No focal neurologic deficits. Patients only complaint is he is hungry. Will move patient to ICU and get repeat labs. Electrolytes were in good repair this AM. - Objective Vital Signs & Weight: Vital Signs (12 hours) Temp Pulse Resp BP Pulse Ox 05/03/19 08:00 96 05/03/19 07:33 97.9 F 69 17 147/83 H 96 05/03/19 06:27 97 05/03/19 04:04 97.9 F 63 16 122/70 97 Weight Weight 163 lb 2.273 oz I&O: 05/02/19 05/03/19 05/04/19 06:59 06:59 06:59 Intake Total 300 670 Output Total 200 Balance 300 470 Result Diagrams: 05/03/19 05:15 05/03/19 05:15 Additional Labs: Accuchecks 05/03/19 05/03/19 05/02/19 14:15 04:08 18:55 POC Glucose 173 H 114 H 144 H Radiology Reviewed by me: Yes Hospitalist ROS - Review of Systems All other systems reviewed; all pertinent +/- noted in HPI/Subj - Medication Medications: Active Medications Generic Name Dose Route Start Last Admin Trade Name Freq PRN Reason Stop Dose Admin Acetaminophen 650 mg 05/02/19 04:38 05/02/19 14:52 Tylenol PO 650 mg Q4H PRN Administration Headache/Fever/Mild Pain (1-3) Amlodipine Besylate 5 mg 05/03/19 09:00 05/03/19 07:45 Norvasc PO Not Given DAILY YOJANA Carvedilol 3.125 mg 05/02/19 21:00 05/03/19 06:05 Coreg PO 3.125 mg BID YOJANA Administration Docusate Sodium 100 mg 05/03/19 09:00 05/03/19 07:45 Colace PO Not Given DAILY [facility] Famotidine 20 mg 05/02/19 21:00 05/02/19 20:02 Pepcid SLOW IVP 20 mg Q24HR YOJANA Administration Finasteride 5 mg 05/03/19 09:00 01/10/20 07:45 Proscar PO Not Given DAILY [facility] Piperacillin Sod/Tazobactam 100 mls @ 200 mls/hr 05/02/19 18:00 05/03/19 10: 30 Sod 2.25 gm/ Sodium Chloride IVPB Not Given 0200,1000,1800 [facility] Insulin Human Isoph/Insulin Regular 30 units 05/02/19 16:30 05/03/19 07:45 Humulin 70/30 SC Not Given BID-AC [facility] Lisinopril 10 mg 05/03/19 09:00 05/03/19 07:45 Zestril PO Not Given DAILY YOJANA - Exam General Appearance: NAD, awake alert Eye: anicteric sclera ENT: normocephalic atraumatic, dry oral mucosa Neck: supple, symmetric, no lymphadenopathy Heart: no murmur, no gallops, no rubs Respiratory: CTAB, no wheezes, no rales, no ronchi Gastrointestinal: soft, non-tender, non-distended, no guarding, no rigidity Extremities: no edema Skin: no rashes Neurological: cranial nerve grossly intact, no focal deficits Musculoskeletal: generalized weakness Psychiatric: normal affect, normal behavior, A&O x 3 Hosp A/P (1) ESRD (end stage renal disease) on dialysis Code(s): N18.6 - END STAGE RENAL DISEASE; Z99.2 - DEPENDENCE ON RENAL DIALYSIS Status: Acute (2) Bacteremia Code(s): R78.81 - BACTEREMIA Status: Acute (3) Cardiac arrest Code(s): I46.9 - CARDIAC ARREST, CAUSE UNSPECIFIED Status: Acute (4) Bacteremia Code(s): R78.81 - BACTEREMIA Status: Acute (5) CVA (cerebral vascular accident) Code(s): I63.9 - CEREBRAL INFARCTION, UNSPECIFIED Status: Acute (6) Hyperlipemia Code(s): E78.5 - HYPERLIPIDEMIA, UNSPECIFIED Status: Acute (7) Sepsis Code(s): A41.9 - SEPSIS, UNSPECIFIED ORGANISM Status: Acute Qualifiers: Sepsis type: sepsis due to unspecified organism Qualified Code(s): A41.9 - Sepsis, unspecified organism (8) Tobacco abuse Code(s): Z72.0 - TOBACCO USE Status: Acute (9) Dyslipidemia Code(s): E78.5 - HYPERLIPIDEMIA, UNSPECIFIED Status: Chronic (10) Hypertension Code(s): I10 - ESSENTIAL (PRIMARY) HYPERTENSION Status: Chronic Qualifiers: Hypertension type: essential hypertension Qualified Code(s): I10 - Essential (primary) hypertension (11) Ischemic cardiomyopathy Code(s): I25.5 - ISCHEMIC CARDIOMYOPATHY Status: Chronic (12) PAD (peripheral artery disease) Code(s): I73.9 - PERIPHERAL VASCULAR DISEASE, UNSPECIFIED Status: Chronic (13) S/P CABG x 4 Status: Chronic (14) Uncontrolled diabetes mellitus Code(s): E11.65 - TYPE 2 DIABETES MELLITUS WITH HYPERGLYCEMIA Status: Chronic Qualifiers: Diabetes mellitus type: type 2 (15) Sepsis Code(s): A41.9 - SEPSIS, UNSPECIFIED ORGANISM Status: Resolved Qualifiers: Sepsis type: methicillin susceptible Staphylococcus aureus Qualified Code(s ): A41.01 - Sepsis due to Methicillin susceptible Staphylococcus aureus - Plan Plan: Upgrade to ICU General surgery consultation, recommendations appreciated Cardiology consultation, recommendations appreciated Pulm/ CC consultation, recommendations appreciated Nephrology consultation, recommendations appreciated Bradycardia with asystole S/p cardiac arrest with ROSC on 05/03/2019 Repeat blood work stat to check electrolytes as a reason for cardiac arrest, electrolytes this AM were in good repair Troponin will likely be elevated s/p resuscitation - though little help at this time patient is chest pain free Chest xray stat patient now asymptomatic, talking in full sentences, and denies any complaints including chest discomfort HD per nephrology BP control Long and short acting insulin for glucose control Continue other home medications as able GI PPX DVT PPX
--- NOTE | 2019-05-03 15:59 | RAD ---
Portable frontal chest radiograph: 05/03/2019 COMPARISON: 05/01/2019 HISTORY: Short of breath FINDINGS: There has been interval development of incompletely assessed interstitial and alveolar opac ity within the right upper lobe, slightly obscured by a foreign body on the surface of the patient's chest. There is a stable right dialysis catheter. Stable midline sternotomy wires. There is enlargement the cardiac silhouette. Hazy interstitial and alveolar opacity with bilateral small pleural effusions are noted. IMPRESSION: Findings suggesting interstitial and alveolar edema, worsened since the prior examination . Infectious pneumonitis or aspiration cannot be excluded.
[2019-05-03 16:36] LABS: #Eosinphils 0.3 thou/uL (0.0-0.7); #Lymphocytes 0.8 thou/uL (1.20-3.40); #Monocytes 0.4 thou/uL (0.11-0.59); #Neutrophils 10.1 thou/uL (1.40-6.50); %Eosinophils 2.3 % (0.0-10.0); %Monocytes 3.8 % (0.0-10.0); %Neutrophils 86.9 % (42.0-75.0); Hemoglobin 9.6 g/dL (14.0-18.0); Mean Corpuscular HGB CONC 32.3 g/dL (32.0-36.0); Mean Corpuscular Volume 92.9 fL (78.0-98.0); Mean Platelet Volume 9.4 fL (7.4-10.4); Platelet Count 138 thou/uL (130-400); RBC Distribution Width 13.8 % (11.5-14.5); Red Blood Cell (RBC) Count 3.19 mill/uL (4.70-6.10); White Blood Cell (WBC) Count 11.6 thou/uL (4.8-10.8)
[2019-05-03 16:54] LABS: Anion Gap 11 mmol/L (10-20); BUN (Urea Nitrogen) 23 mg/dL (8.4-25.7); Calc. Creatinine Clearance 23 mL/min (70-130); Carbon Dioxide 29 mmol/L (22-29); Chloride 101 mmol/L (98-107); Estimated GFR-MDRD 17; Glucose 136 mg/dL (70-105); Potassium 3.6 mmol/L (3.5-5.1); Sodium 137 mmol/L (136-145)
[2019-05-03 17:01] LABS: Troponin I Less than 0.010 ng/mL (< 0.028)
--- NOTE | 2019-05-03 17:19 | CON ---
DATE OF CONSULTATION: HISTORY OF PRESENT ILLNESS: Chandra Zuluaga is a 59-year-old gentleman, who has end-stage renal disease, returned to the ER last night with missing dialysis x4 weeks. He apparently was short of breath. He then underwent an access placement in the OR. Postop in recovery room became bradycardic, requiring atropine and minimal compression. He was never intubated, never lost his respiratory drive. In the ICU, he is awake, alert, responsive, appears to be in no distress. His vital signs are relatively stable. PAST MEDICAL HISTORY: Coronary artery disease, previous multiple stents for hepatitis, hyperlipidemia, tobacco abuse, COPD, previous CVA, weakness, end-stage renal disease on dialysis, peripheral vascular disease. PAST SURGICAL HISTORY: Otherwise included cholecystectomy, CABG in 2014, amputation of left toe, cardiac stents, access right, apparently has history of bipolar disorder. SOCIAL HISTORY: Quit smoking 10 years ago. No alcohol abuse. MEDICATIONS: Home medications long list; 1. Metformin 500. 2. Potassium. 3. Zestril 10. 4. Insulin. 5. Proscar 5. 6. Doxy 100. 7. Plavix 75. 8. Coreg 3.125. 9. Amlodipine 5. REVIEW OF SYSTEMS: Otherwise in the ICU is unremarkable. PHYSICAL EXAMINATION: GENERAL: He is awake, alert, and responsive. VITAL SIGNS: His sats are 96% on room air, pulse is 70, blood pressure is 130/80. He has no drips. CHEST: Decreased breath sounds. No wheezing. CARDIAC: Normal S1 and S2. No gallops. ABDOMEN: No masses. DIAGNOSTIC DATA: His chest x-ray showed minimal pleural effusion access in the right IJ. LABORATORY DATA: His lab shows 11,000 white count, hemoglobin and hematocrit are 9 and 27, platelet count is normal. Lytes are normal. Creatinine 3. growing corynebacterium. IMPRESSION: Status post bradycardia. No lost of blood pressure or respiratory drive. Diabetes, renal failure, bipolar, CVA. Pulmonary Critical Care will follow while in the ICU. At this stage nothing needs to be done for the heart rate. Supportive care, input from Cardiology. Consultation note, 70 minutes, 50% direct patient care. Job ID: [id number]
[2019-05-03 20:03] LABS: Troponin I 0.032 ng/mL (< 0.028)
[2019-05-03] MEDS: Famotidine/PF 20 mg/2ml Vial SLOW IVP SCH (20:43)
--- NOTE | 2019-05-03 21:05 | CON ---
DATE OF CONSULTATION: 05/03/2019 REASON FOR CONSULTATION: Bradycardia. PRIMARY PRIVATE CLIENT ADVISOR: Tim Macias MD HISTORY OF PRESENT ILLNESS: Mr. Zuluaga is a very pleasant 59-year-old gentleman, who comes to the hospital from the dialysis unit. He was referred in as he had missed about two weeks of dialysis and the last time he had dialysis was on April 10. He did not have transportation apparently. Eventually, when he came in, his dialysis catheter was malfunctioning, so he was referred here for line placement and emergent dialysis. He had a line placed and he was dialyzed twice in this last week and today he went for a fistula revision. He had the revision with no issues, but in the postoperative state when he was in the PACU recuperating and waking up, he suddenly became bradycardic, because his blood pressure dropped and he became unresponsive and a code blue was called. He was given atropine and chest compressions were done for about 2 minutes and then he just woke up. He was back to normal when everything was said and done. On my evaluation, Mr. Zuluaga denied any chest pain, tightness, or pressure. No shortness of breath. No lightheadedness. He states that he is just a little sore in his chest, but this is from the chest compressions, nothing like he has felt before when he needed to have bypass surgery. PAST MEDICAL HISTORY: 1. Coronary artery disease status post CABG x4 in 2013. 2. End-stage renal disease, on hemodialysis, noncompliance. 3. Hypertension. 4. Type 2 diabetes. 5. Hyperlipidemia. PAST SURGICAL HISTORY: 1. CABG x4 in 2013. 2. Right chest wall tunneled dialysis catheter. 3. Left toe amputation. 4. Left lower extremity stent. SOCIAL HISTORY: No alcohol, tobacco, or drugs. He is a former tobacco user. He quit several years back. OUTPATIENT MEDICATIONS: 1. Humulin 70/30. 2. Docusate. 3. Doxycycline. 4. Lisinopril 10 mg a day. 5. Metformin 500 mg b.i.d. 6. Finasteride. 7. Clopidogrel 75 mg a day. 8. Carvedilol 3.125 b.i.d. 9. Amlodipine 5 mg a day. 10. Potassium chloride 10 mEq a day. 11. Zofran p.r.n. ALLERGIES: NO KNOWN DRUG ALLERGIES. FAMILY HISTORY: Noncontributory. REVIEW OF SYSTEMS: A 12-point review of systems was done and it is all negative unless stated in the history of present illness. PHYSICAL EXAMINATION: VITAL SIGNS: Temperature 97.8, he had 100.2 on the 9th at 2:32 p.m., heart rate of 71, blood pressure 151/75, respiratory rate 12, and saturating 98% on room air. GENERAL: Awake, alert, and oriented x3, in no distress. HEENT: Normocephalic and atraumatic. NECK: Supple. LUNGS: Clear. CARDIOVASCULAR: S1 and S2. No S3 or S4. There is a grade 3/6 systolic murmur at the right upper sternal border, radiated to the rest of the precordium. ABDOMEN: Soft. Positive bowel sounds. EXTREMITIES: No edema. SKIN: Warm and dry. LABORATORY DATA: Laboratory work was reviewed. White count of 11, hemoglobin 9.6, hematocrit of 29, platelet count of 138. Chemistry, creatinine of 3.62 with a GFR of 17, otherwise unremarkable. Troponin was undetectable initially. His second draw at 0730 hours was 0.032, just minimally elevated in the indeterminate range. EKG was reviewed. Monitoring during episode shows sinus bradycardia. Chest x-ray was reviewed. ASSESSMENT AND PLAN: 1. Status post severe bradycardia. 2. End-stage renal disease. 3. Coronary artery disease, stable at this time. 4. Noncompliance. PLAN: 1. Most likely he had a vagal episode with severe bradycardia during his postoperative state. 2. We will plan on trending troponins. We will do an echocardiogram to make sure his LV function remains stable. He has not had one in some time now. 3. No plans on doing a heart catheterization at this time unless something changes. 4. Continue to watch in the ICU overnight. Thank you for letting us participate in the care of your patient. We will follow. 45 minutes of critical care time. Job ID: [id number]
[2019-05-04] MEDS: Piperacillin/Tazobactam 2.25 GM in Sodium Chloride 0.9% 100 ML IVPB SCH ×3 (01:56→22:09)
[2019-05-04 03:52] LABS: #Eosinphils 0.4 thou/uL (0.0-0.7); #Lymphocytes 1.1 thou/uL (1.20-3.40); #Monocytes 0.6 thou/uL (0.11-0.59); #Neutrophils 6.1 thou/uL (1.40-6.50); %Basophils 0.3 % (0.0-1.0); %Eosinophils 4.5 % (0.0-10.0); %Lymphocytes 13.1 % (21.0-51.0); %Monocytes 6.8 % (0.0-10.0); %Neutrophils 75.3 % (42.0-75.0); Hemoglobin 8.9 g/dL (14.0-18.0); Mean Corpuscular HGB CONC 32.3 g/dL (32.0-36.0); Mean Corpuscular Volume 92.8 fL (78.0-98.0); Mean Platelet Volume 9.8 fL (7.4-10.4); Platelet Count 132 thou/uL (130-400); RBC Distribution Width 13.7 % (11.5-14.5); Red Blood Cell (RBC) Count 2.96 mill/uL (4.70-6.10); White Blood Cell (WBC) Count 8.1 thou/uL (4.8-10.8)
[2019-05-04 04:09] LABS: Anion Gap 14 mmol/L (10-20); BUN (Urea Nitrogen) 28 mg/dL (8.4-25.7); Calc. Creatinine Clearance 20 mL/min (70-130); Calcium 7.7 mg/dL (7.8-10.44); Carbon Dioxide 25 mmol/L (22-29); Chloride 101 mmol/L (98-107); Estimated GFR-MDRD 15; Glucose 277 mg/dL (70-105); Potassium 3.8 mmol/L (3.5-5.1); Sodium 136 mmol/L (136-145)
[2019-05-04] MEDS: HumaLOG 300 UNITS/3 ML VIAL SC PRN (06:14)
[2019-05-04 08:15] LABS: Vancomycin, Random 18.6 ug/mL (See Comment)
[2019-05-04] MEDS: Amlodipine 5 MG TAB PO SCH (08:16)
[2019-05-04] MEDS: Finasteride 5 MG TAB PO SCH (08:16)
[2019-05-04] MEDS: Docusate 100 MG CAP PO SCH (08:16)
[2019-05-04] MEDS: Lisinopril 10 MG TAB PO SCH (08:21)
[2019-05-04] MEDS ORDERED: Carvedilol 3.125 MG TAB PO SCH (09:00)
--- NOTE | 2019-05-04 09:44 | PRG ---
DATE OF SERVICE: 05/04/2019 OBJECTIVE: VITAL SIGNS: This morning; his pulse is 60, blood pressure 130/80, saturations 90%, respiratory rate 20. GENERAL: In no distress. CHEST: Decreased breath sounds. No wheezing. CARDIAC: Normal S1 and S2. No gallops. ABDOMEN: No masses. ASSESSMENT: 1. Chronic renal failure, poor compliance. 2. Bradycardia, post access. 3. Coronary artery disease, status post coronary artery bypass grafting. PLAN: Continue observation. His Coreg dose was cut to half of the present dose twice a day. Transferred to a monitored bed as per Cardiology. Job ID: [id number]
[2019-05-04] MEDS: HumuLIN 70/30 (300 UNITS/3 ML VIAL) SC SCH ×3 (11:29→22:12)
--- NOTE | 2019-05-04 13:13 | PDOC.CPN ---
- Subjective Date: 05/04/19 Time: 13:11 Interval history: He is doing very well. No chest pain. - Review of Systems General: denies: fever/chills, weight/appetite/sleep changes, night sweats, fatigue Respiratory: denies: cough, congestion, shortness of breath, exercise intolerance Cardiovascular: denies: chest pain, palpitation, edema, paroxysmal nocturnal dyspnea, orthopnea Gastrointestinal: denies: nausea, vomiting, diarrhea, constipation, abd pain, GI bleeding Musculoskeletal: denies: pain, tenderness, stiffness, swelling, arthritis/ arthralgias Neurological: denies: numbness, syncope, seizure, weakness - Objective Allergies/Adverse Reactions: Allergies Allergy/AdvReac Type Severity Reaction Status Date / Time No Known Allergies Allergy Verified 04/08/19 10:39 Visit Medications: Current Medications Acetaminophen (Tylenol) 650 mg PO Q4H PRN PRN Reason: Headache/Fever/Mild Pain (1-3) Last Admin: 05/02/19 14:52 Dose: 650 mg Hydrocodone Bitart/Acetaminophen ([place] 5/325) 1 tab PO Q4H PRN PRN Reason: Moderate to Severe Pain (6-10) Albuterol/Ipratropium (Duoneb) 3 ml NEB [id number] PRN PRN Reason: SOB &/or Wheezing Amlodipine Besylate (Norvasc) 5 mg PO DAILY [facility] Benzonatate (Tessalon) 100 mg PO Q4H PRN PRN Reason: Cough Bisacodyl (Dulcolax) 10 mg PO DAILYPRN PRN PRN Reason: Constipation Calcium Carbonate (Tums) 1,000 mg PO Q4H PRN PRN Reason: Heartburn or Indigestion Dextrose/Water (Dextrose 50%-Water Syringe) 50 ml IV PRN PRN PRN Reason: Hypoglycemia Diphenhydramine HCl (Benadryl) 25 mg PO Q6H PRN PRN Reason: Itching & Insomnia Docusate Sodium (Colace) 100 mg PO DAILY [facility] Last Admin: 05/04/19 08:16 Dose: 100 mg Famotidine (Pepcid) 20 mg SLOW IVP Q24HR [facility] Last Admin: 05/03/19 20:43 Dose: 20 mg Finasteride (Proscar) 5 mg PO DAILY [facility] Last Admin: 01/11/20 08:16 Dose: 5 mg Glucagon (Glucagon) 1 mg IM PRN PRN PRN Reason: Hypoglycemia Dextrose/Water (D5w) 1,000 mls @ 0 mls/hr IV .Q0M PRN PRN Reason: Hypoglycemia Vancomycin HCl 1.25 gm/ Sodium (Chloride) 250 mls @ 166.667 mls/hr IVPB [facility] Vancomycin HCl 1 gm/ Device 200 mls @ 200 mls/hr IVPB [facility] Vancomycin HCl 750 mg/ Sodium (Chloride) 250 mls @ 250 mls/hr IVPB [facility] Vancomycin HCl 500 mg/ Sodium (Chloride) 100 mls @ 100 mls/hr IVPB [facility] Piperacillin Sod/Tazobactam (Sod 2.25 gm/ Sodium Chloride) 100 mls @ 200 mls/ hr IVPB 0200,1000,1800 [facility] Last Admin: 05/04/19 09:42 Dose: 100 mls Insulin Human Isoph/Insulin Regular (Humulin 70/30) 6 units SC BID-AC [facility] Last Admin: 05/04/19 11:29 Dose: 6 unit Insulin Human Lispro (Humalog) 0 units SC .MODERATE SLIDING SC PRN PRN Reason: Moderate Correctional Scale Last Admin: 05/04/19 06:14 Dose: 4 unit Insulin Human Lispro (Humalog) 0 units SC .BEDTIME SLIDING SC PRN PRN Reason: Bedtime Correctional Scale Labetalol HCl (Normodyne) 10 mg SLOW IVP Q4H PRN PRN Reason: SBP Greater Than 180 Lisinopril (Zestril) 10 mg PO DAILY [facility] Melatonin (Melatonin) 3 mg PO HS PRN PRN Reason: Insomnia Miscellaneous Medication (Pharmacy To Dose) 1 each IVPB PRN PRN PRN Reason: Pharmacy to dose Hold Vancomycin For (Level >20) 0 each FS .AT DIALYSIS [facility] Ondansetron HCl (Zofran) 4 mg IVP Q6H PRN PRN Reason: Nausea/Vomiting Senna/Docusate Sodium (Senokot S) 2 tab PO BID PRN PRN Reason: Constipation Sodium Chloride (Flush - Normal Saline) 10 ml IVF PRN PRN PRN Reason: Saline Flush Last Admin: 05/04/19 01:57 Dose: 10 ml Vital Signs & Weight: Vital Signs Temp Pulse BP Pulse Ox 05/04/19 12:00 98.0 F 05/04/19 08:21 131/71 05/04/19 08:16 64 131/71 05/04/19 07:34 100 05/04/19 07:00 98.7 F 05/04/19 04:00 98 F Admit Weight 157 lb 13.616 oz Weight 163 lb 2.273 oz - Physical Exam General: alert & oriented x3 HEENT: mucus membranes moist Neck: supple neck Cardiac: regular rate and rhythm Lungs: normal breath sounds Neuro: grossly intact Abdomen: active bowel sounds Extremities: no edema Skin: clear Musculoskeletal: no pain - Labs Result Diagrams: 05/04/19 03:40 05/04/19 03:40 Troponin/CKMB Troponin I Less than 0.010 ng/mL (< 0.028) 05/04/19 03:40 - Telemetry Sinus rhythms and dysrhythmias: sinus rhythm - Assessment/Plan Assessment/Plan: 1. Bradycardia post anesthesia 2. CAD, stable, no ACS. 3. ESRD 4. Non compliance. PLAN: - Would stop Coreg indefinitely. - No plan for LHC for now. - Likely episode was high vagal tone from post operative states ands underlying sleep apnea. - May transfer to telemetry.
--- NOTE | 2019-05-04 14:14 | PRG ---
DATE OF SERVICE: 05/04/2019 SUBJECTIVE: Patient was seen and examined at bedside and overnight events noted. Patient denies any shortness of breath or chest pain or palpitation. No history of nausea or vomiting or diarrhea or fever or chills or cramps. OBJECTIVE: GENERAL: This is a well-built male, in no apparent distress. VITAL SIGNS: Temperature 98.0. Heart rate 59. Respiratory rate 18. Blood pressure 127/72. HEENT: Atraumatic, normocephalic. Oral mucosa is moist. NECK: Supple. CARDIOVASCULAR: S1, S2 heard. Rate and rhythm regular. RESPIRATORY: Clear to auscultation. GASTROINTESTINAL: Abdomen is soft. MUSCULOSKELETAL: No tenderness. No edema. DERMATOLOGIC: No skin rash. NEUROLOGIC: Alert and awake and oriented x3. No focal neurologic deficits. Moving all the extremities. PSYCHIATRIC: Mood and affect normal. LABORATORY DATA: Potassium 3.8, BUN is 28, and creatinine is 4.1. ASSESSMENT AND PLAN: 1. End-stage renal disease. Continue dialysis as tolerated. Plan to have dialysis today. 2. Edema, controlled. 3. Hypertension. 4. Anemia. Plan to continue on dialysis as tolerated. Job ID: [id number]
[2019-05-04] MEDS ORDERED: Heparin 10,000 UNITS/ 10 ML VIAL ONE (15:04)
[2019-05-04] MEDS: Carvedilol 3.125 MG TAB PO SCH (16:07)
--- NOTE | 2019-05-04 16:42 | PDOC.HOSPP ---
- Subjective Encounter Date: 05/04/19 Encounter Time: 10:00 Subjective: pt up in bed no complains - Objective Vital Signs & Weight: Vital Signs (12 hours) Temp Pulse BP Pulse Ox 05/04/19 12:00 98.0 F 05/04/19 08:21 131/71 05/04/19 08:16 64 131/71 05/04/19 07:34 100 05/04/19 07:00 98.7 F Weight Admit Weight 157 lb 13.616 oz Weight 163 lb 2.273 oz Most Recent Monitor Data Heart Rate from ECG 54 NIBP 140/73 NIBP BP-Mean 95 Respiration from ECG 18 SpO2 100 I&O: 05/03/19 05/04/19 05/05/19 06:59 06:59 06:59 Intake Total 670 1540 554 Output Total 200 50 100 Balance 470 1490 454 Result Diagrams: 05/04/19 03:40 05/04/19 03:40 Additional Labs: Accuchecks 05/04/19 05/04/19 05/03/19 10:39 06:13 21:00 POC Glucose 101 224 H 163 H 05/03/19 17:28 POC Glucose 144 H Hospitalist ROS - Review of Systems Respiratory: denies: cough, dry, shortness of breath, hemoptysis, SOB with excertion, pleuritic pain, sputum, wheezing, other Cardiovascular: denies: chest pain, palpitations, orthopnea, paroxysmal noc. dyspnea, edema, light headedness, other Gastrointestinal: denies: nausea, vomiting, abdominal pain, diarrhea, constipation, melena, hematochezia, other - Medication Medications: Active Medications Generic Name Dose Route Start Last Admin Trade Name Freq PRN Reason Stop Dose Admin Acetaminophen 650 mg 05/02/19 04:38 05/02/19 14:52 Tylenol PO 650 mg Q4H PRN Administration Headache/Fever/Mild Pain (1-3) Docusate Sodium 100 mg 05/03/19 09:00 05/04/19 08:16 Colace PO 100 mg DAILY [facility] Administration Famotidine 20 mg 05/02/19 21:00 05/03/19 20:43 Pepcid SLOW IVP 20 mg Q24HR [facility] Administration Finasteride 5 mg 05/03/19 09:00 05/04/19 08:16 Proscar PO 5 mg DAILY [facility] Administration Piperacillin Sod/Tazobactam 100 mls @ 200 mls/hr 05/02/19 18:00 05/04/19 09: 42 Sod 2.25 gm/ Sodium Chloride IVPB 100 mls 0200,1000,1800 [facility] Administration Insulin Human Isoph/Insulin Regular 6 units 05/04/19 16:30 05/04/19 11:29 Humulin 70/30 SC 6 unit BID-AC [facility] Administration Insulin Human Lispro 0 units 05/02/19 10:09 05/04/19 06:14 Humalog SC 4 unit .MODERATE SLIDING SC PRN Administration Moderate Correctional Scale Sodium Chloride 10 ml 05/01/19 21:23 05/04/19 01:57 Flush - Normal Saline IVF 10 ml PRN PRN Administration Saline Flush - Exam Neck: negative: supple, symmetric, no JVD, no thyromegaly, no lymphadenopathy, no carotid bruit, JVD Heart: negative: RRR, no murmur, no gallops, no rubs, normal peripheral pulses, irregular, diminshed peripheral pulses, murmur present, II/IV, III/IV Respiratory: negative: CTAB, no wheezes, no rales, no ronchi, normal chest expansion, no tachypnea, normal percussion, rales, rhonchi, tachypneic, wheezes Gastrointestinal: negative: soft, non-tender, non-distended, normal bowel sounds , no palpable masses, no hepatomegaly, no splenomegaly, no bruit, no guarding, no rigidity, tender to palpation, distended, diminished bowl sounds, voluntary guarding Hosp A/P (1) Bacteremia Code(s): R78.81 - BACTEREMIA Status: Acute (2) Cardiac arrest Code(s): I46.9 - CARDIAC ARREST, CAUSE UNSPECIFIED Status: Acute (3) ESRD (end stage renal disease) on dialysis Code(s): N18.6 - END STAGE RENAL DISEASE; Z99.2 - DEPENDENCE ON RENAL DIALYSIS Status: Acute (4) DM type 2 (diabetes mellitus, type 2) Status: Chronic (5) HTN (hypertension) Code(s): I10 - ESSENTIAL (PRIMARY) HYPERTENSION Status: Chronic - Plan will decrease his insulin dose given his low blood sugar. His bb also has been titrated down.will continue abx for now. Both his bottles are positive. will consult ID.
--- NOTE | 2019-05-04 17:21 | PRG ---
DATE OF SERVICE: 05/04/2019 Chandra Zuluaga is doing well today. He is in the ICU. He has been transferred to the floor. He has a thrombosed left arm fistula. We have exhausted his ven[place]ie vein access. Plan at this time is for him to have outpatient surgery on 05/21, , for left arm fistula. He should not have anything to eat or drink after midnight the night before taking his medication with a sip of water, report to the hospital at 10:30 a.m. or as otherwise instructed per hospital the night before surgery. He should report the morning of surgery a time designated for left arm dialysis graft. I will see him as needed his this hospitalization. Please call if necessary. Job ID: [id number]
[2019-05-04] MEDS: Famotidine/PF 20 mg/2ml Vial SLOW IVP SCH (22:09)
[2019-05-05] MEDS: Piperacillin/Tazobactam 2.25 GM in Sodium Chloride 0.9% 100 ML IVPB SCH ×2 (05:43→14:08)
[2019-05-05] MEDS: Docusate 100 MG CAP PO SCH (08:20)
[2019-05-05] MEDS: Lisinopril 10 MG TAB PO SCH (08:21)
[2019-05-05] MEDS: Amlodipine 5 MG TAB PO SCH (08:21)
[2019-05-05] MEDS: Finasteride 5 MG TAB PO SCH (08:21)
[2019-05-05] MEDS: HumuLIN 70/30 (300 UNITS/3 ML VIAL) SC SCH ×2 (08:21→18:07)
--- NOTE | 2019-05-05 12:20 | PRG ---
DATE OF SERVICE: 05/05/2019 SUBJECTIVE: Patient was seen and examined at bedside and overnight events noted. Patient denies any shortness of breath or chest pain or palpitation. No history of nausea or vomiting or diarrhea or fever or chills or cramps. OBJECTIVE: GENERAL: This is a well-built male, in no apparent distress. VITAL SIGNS: Temperature 98.2. Heart rate 80. Respiratory rate 16. Blood pressure 172/79. HEENT: Atraumatic, normocephalic. Oral mucosa is moist NECK: Supple. CARDIOVASCULAR: S1, S2 heard. Rate and rhythm regular. RESPIRATORY: Clear to auscultation. GASTROINTESTINAL: Abdomen is soft. MUSCULOSKELETAL: No tenderness. No edema. DERMATOLOGIC: No skin rash. NEUROLOGIC: Alert and awake and oriented X3. No focal neurologic deficits. Moving all the extremities. PSYCHIATRIC: Mood and affect normal. LABORATORY DATA: No labs done today. ASSESSMENT AND PLAN: 1. End-stage renal disease. Continue dialysis as tolerated. 2. Edema, controlled. 3. Hypertension. 4. Anemia of chronic disease. Plan to continue dialysis as tolerated. Job ID: [id number]
--- NOTE | 2019-05-05 12:58 | PRG ---
DATE OF SERVICE: 05/05/2019 SUBJECTIVE: This morning, he is better. No longer bradycardic. OBJECTIVE: VITAL SIGNS: His pulse is 70, temperature 98, saturations 100% on room air, respirations 16, blood pressure . CHEST: Decreased breath sounds. No wheezing. CARDIAC: Normal S1 and S2. No gallops. ABDOMEN: No masses. ASSESSMENT: 1. Status post access, chronic renal failure. 2. Cardiopulmonary arrest with bradycardia postop. PLAN: Pulmonary hernandez, it looks like he is doing much better. Pulmonary will follow at a distance. I would deescalate oral antibiotics. Job ID: [id number]
--- NOTE | 2019-05-05 15:10 | PDOC.HOSPP ---
- Subjective Subjective: Seen and examined. Breathing comfortably. No apparent distress. Tolerating meals. Receiving hemodialysis per nephrology. - Objective Vital Signs & Weight: Vital Signs (12 hours) Temp Pulse Resp BP Pulse Ox 05/05/19 11:51 98 F 70 16 140/68 100 05/05/19 07:51 98.2 F 80 16 172/79 H 97 05/05/19 03:21 98.0 F 72 18 173/87 H 100 Weight Admit Weight 157 lb 13.616 oz Weight 159 lb 6.307 oz Most Recent Monitor Data Heart Rate from ECG 54 NIBP 140/73 NIBP BP-Mean 95 Respiration from ECG 18 SpO2 100 I&O: 05/04/19 05/05/19 05/06/19 06:59 06:59 06:59 Intake Total 1540 554 Output Total 50 100 Balance 1490 454 Result Diagrams: 05/04/19 03:40 05/04/19 03:40 Additional Labs: Accuchecks 05/05/19 05/05/19 05/04/19 10:37 05:33 20:38 POC Glucose 142 H 101 76 Radiology Reviewed by me: Yes Hospitalist ROS - Review of Systems All other systems reviewed; all pertinent +/- noted in HPI/Subj - Medication Medications: Active Medications Generic Name Dose Route Start Last Admin Trade Name Freq PRN Reason Stop Dose Admin Acetaminophen 650 mg 05/02/19 04:38 05/02/19 14:52 Tylenol PO 650 mg Q4H PRN Administration Headache/Fever/Mild Pain (1-3) Amlodipine Besylate 5 mg 05/05/19 09:00 05/05/19 08:21 Norvasc PO 5 mg DAILY [facility] Administration Docusate Sodium 100 mg 05/03/19 09:00 05/05/19 08:20 Colace PO 100 mg DAILY [facility] Administration Famotidine 20 mg 05/02/19 21:00 05/04/19 22:09 Pepcid SLOW IVP 20 mg Q24HR [facility] Administration Finasteride 5 mg 05/03/19 09:00 05/05/19 08:21 Proscar PO 5 mg DAILY [facility] Administration Insulin Human Isoph/Insulin Regular 6 units 05/04/19 16:30 05/05/19 08:21 Humulin 70/30 SC 6 unit BID-AC [facility] Administration Insulin Human Lispro 0 units 05/02/19 10:09 05/04/19 06:14 Humalog SC 4 unit .MODERATE SLIDING SC PRN Administration Moderate Correctional Scale Lisinopril 10 mg 05/05/19 09:00 05/05/19 08:21 Zestril PO 10 mg DAILY [facility] Administration Sodium Chloride 10 ml 05/01/19 21:23 05/04/19 01:57 Flush - Normal Saline IVF 10 ml PRN PRN Administration Saline Flush - Exam General Appearance: NAD, awake alert Eye: PERRL ENT: normocephalic atraumatic, moist mucosa Neck: supple, symmetric, no lymphadenopathy Heart: no murmur, no gallops, no rubs Respiratory: CTAB, no wheezes, no rales, no ronchi, normal chest expansion Gastrointestinal: soft, non-tender, non-distended, no guarding, no rigidity Extremities: 1+ LE edema Skin: no lesions, no rashes Neurological: cranial nerve grossly intact, no focal deficits Musculoskeletal: generalized weakness Hosp A/P (1) ESRD (end stage renal disease) on dialysis Code(s): N18.6 - END STAGE RENAL DISEASE; Z99.2 - DEPENDENCE ON RENAL DIALYSIS Status: Acute (2) Bacteremia Code(s): R78.81 - BACTEREMIA Status: Acute (3) Cardiac arrest Code(s): I46.9 - CARDIAC ARREST, CAUSE UNSPECIFIED Status: Acute (4) Bacteremia Code(s): R78.81 - BACTEREMIA Status: Acute (5) CVA (cerebral vascular accident) Code(s): I63.9 - CEREBRAL INFARCTION, UNSPECIFIED Status: Acute (6) Hyperlipemia Code(s): E78.5 - HYPERLIPIDEMIA, UNSPECIFIED Status: Acute (7) Sepsis Code(s): A41.9 - SEPSIS, UNSPECIFIED ORGANISM Status: Acute Qualifiers: Sepsis type: sepsis due to unspecified organism Qualified Code(s): A41.9 - Sepsis, unspecified organism (8) Tobacco abuse Code(s): Z72.0 - TOBACCO USE Status: Acute (9) Dyslipidemia Code(s): E78.5 - HYPERLIPIDEMIA, UNSPECIFIED Status: Chronic (10) Hypertension Code(s): I10 - ESSENTIAL (PRIMARY) HYPERTENSION Status: Chronic Qualifiers: Hypertension type: essential hypertension Qualified Code(s): I10 - Essential (primary) hypertension (11) Ischemic cardiomyopathy Code(s): I25.5 - ISCHEMIC CARDIOMYOPATHY Status: Chronic (12) PAD (peripheral artery disease) Code(s): I73.9 - PERIPHERAL VASCULAR DISEASE, UNSPECIFIED Status: Chronic (13) S/P CABG x 4 Status: Chronic (14) Uncontrolled diabetes mellitus Code(s): E11.65 - TYPE 2 DIABETES MELLITUS WITH HYPERGLYCEMIA Status: Chronic Qualifiers: Diabetes mellitus type: type 2 (15) Sepsis Code(s): A41.9 - SEPSIS, UNSPECIFIED ORGANISM Status: Resolved Qualifiers: Sepsis type: methicillin susceptible Staphylococcus aureus Qualified Code(s ): A41.01 - Sepsis due to Methicillin susceptible Staphylococcus aureus - Plan Plan: Medical unit with telemetry General surgery consultation, recommendations appreciated Cardiology consultation, recommendations appreciated Pulm/ CC consultation, recommendations appreciated Nephrology consultation, recommendations appreciated Bradycardia with asystole S/p cardiac arrest with ROSC on 05/03/2019 ABX per Pulmonology Chest xray noted patient now asymptomatic, talking in full sentences, and denies any complaints including chest discomfort HD per nephrology - Will need improved compliance with HD in the outpatient setting BP control Long and short acting insulin for glucose control Continue other home medications as able GI PPX DVT PPX
--- NOTE | 2019-05-05 16:27 | PDOC.CPN ---
- Subjective Date: 05/05/19 Time: 16:25 Interval history: Doing well. No angina or SOB. Feels back to baseline. - Review of Systems General: denies: fever/chills, weight/appetite/sleep changes, night sweats, fatigue Respiratory: denies: cough, congestion, shortness of breath, exercise intolerance Cardiovascular: denies: chest pain, palpitation, edema, paroxysmal nocturnal dyspnea, orthopnea Gastrointestinal: denies: nausea, vomiting, diarrhea, constipation, abd pain, GI bleeding Musculoskeletal: denies: pain, tenderness, stiffness, swelling, arthritis/ arthralgias Neurological: denies: numbness, syncope, seizure, weakness - Objective Allergies/Adverse Reactions: Allergies Allergy/AdvReac Type Severity Reaction Status Date / Time No Known Allergies Allergy Verified 04/08/19 10:39 Visit Medications: Current Medications Acetaminophen (Tylenol) 650 mg PO Q4H PRN PRN Reason: Headache/Fever/Mild Pain (1-3) Last Admin: 05/02/19 14:52 Dose: 650 mg Hydrocodone Bitart/Acetaminophen ([place] 5/325) 1 tab PO Q4H PRN PRN Reason: Moderate to Severe Pain (6-10) Albuterol/Ipratropium (Duoneb) 3 ml NEB [id number] PRN PRN Reason: SOB &/or Wheezing Amlodipine Besylate (Norvasc) 5 mg PO DAILY [facility] Last Admin: 05/05/19 08:21 Dose: 5 mg Benzonatate (Tessalon) 100 mg PO Q4H PRN PRN Reason: Cough Bisacodyl (Dulcolax) 10 mg PO DAILYPRN PRN PRN Reason: Constipation Calcium Carbonate (Tums) 1,000 mg PO Q4H PRN PRN Reason: Heartburn or Indigestion Dextrose/Water (Dextrose 50%-Water Syringe) 50 ml IV PRN PRN PRN Reason: Hypoglycemia Diphenhydramine HCl (Benadryl) 25 mg PO Q6H PRN PRN Reason: Itching & Insomnia Docusate Sodium (Colace) 100 mg PO DAILY [facility] Last Admin: 05/05/19 08:20 Dose: 100 mg Famotidine (Pepcid) 20 mg SLOW IVP Q24HR [facility] Last Admin: 05/04/19 22:09 Dose: 20 mg Finasteride (Proscar) 5 mg PO DAILY [facility] Last Admin: 05/05/19 08:21 Dose: 5 mg Glucagon (Glucagon) 1 mg IM PRN PRN PRN Reason: Hypoglycemia Dextrose/Water (D5w) 1,000 mls @ 0 mls/hr IV .Q0M PRN PRN Reason: Hypoglycemia Insulin Human Isoph/Insulin Regular (Humulin 70/30) 6 units SC BID-[facility] Last Admin: 05/05/19 08:21 Dose: 6 unit Insulin Human Lispro (Humalog) 0 units SC .MODERATE SLIDING SC PRN PRN Reason: Moderate Correctional Scale Last Admin: 05/04/19 06:14 Dose: 4 unit Insulin Human Lispro (Humalog) 0 units SC .BEDTIME SLIDING SC PRN PRN Reason: Bedtime Correctional Scale Labetalol HCl (Normodyne) 10 mg SLOW IVP Q4H PRN PRN Reason: SBP Greater Than 180 Lisinopril (Zestril) 10 mg PO DAILY [facility] Last Admin: 05/05/19 08:21 Dose: 10 mg Melatonin (Melatonin) 3 mg PO HS PRN PRN Reason: Insomnia Ondansetron HCl (Zofran) 4 mg IVP Q6H PRN PRN Reason: Nausea/Vomiting Senna/Docusate Sodium (Senokot S) 2 tab PO BID PRN PRN Reason: Constipation Sodium Chloride (Flush - Normal Saline) 10 ml IVF PRN PRN PRN Reason: Saline Flush Last Admin: 05/04/19 01:57 Dose: 10 ml Vital Signs & Weight: Vital Signs Temp Pulse Resp BP Pulse Ox 05/05/19 15:11 98.3 F 68 16 169/77 H 100 05/05/19 11:51 98 F 70 16 140/68 100 05/05/19 07:51 98.2 F 80 16 172/79 H 97 Admit Weight 157 lb 13.616 oz Weight 159 lb 6.307 oz - Physical Exam General: alert & oriented x3 Neck: midline trachea Cardiac: regular rate and rhythm Lungs: clear to auscultation Neuro: grossly intact Abdomen: active bowel sounds Extremities: no edema Skin: clear Musculoskeletal: no pain - Labs Result Diagrams: 05/04/19 03:40 05/04/19 03:40 Troponin/CKMB Troponin I Less than 0.010 ng/mL (< 0.028) 05/04/19 03:40 - Telemetry Sinus rhythms and dysrhythmias: sinus rhythm - Assessment/Plan Assessment/Plan: 1. Bradycardia post anesthesia 2. CAD, stable, no ACS. 3. ESRD 4. Non compliance. PLAN: - Stop Coreg for now. - No plan for LHC. - Likely episode was high vagal tone from post operative states ands underlying sleep apnea. - He has chronic LV dysfunction EF at 20-25%, he is a candidate for an AICD. He agrees to this. Will consult EP.
[2019-05-05] MEDS: Famotidine/PF 20 mg/2ml Vial SLOW IVP SCH (20:33)
--- NOTE | 2019-05-05 21:36 | CON ---
DATE OF CONSULTATION: 05/05/2019 REASON FOR CONSULTATION: Bacteremia. HISTORY OF PRESENT ILLNESS: A 59-year-old patient who is familiar to me from a 2018 consult. At that time, he presented with a history of type 2 diabetes and coronary artery disease with prior coronary artery bypass graft surgery and hypertension as well as renal insufficiency stage III to IV. He had urinary tract infection and had associated Staphylococcus aureus bacteremia from previous visit, which was treated to completion with IV antimicrobial therapy. He eventually progressed to end- stage renal disease and had a tunneled catheter placed in the right subclavian location, tunneled into the IJ. This was done in April 2018. The patient has had erratic adherence to his dialysis treatment. In October, had a right arm basilic vein transposition fistula, which eventually did not mature properly. At this time, he was admitted with moderate dyspnea for the past few weeks after having missed 4 weeks of dialysis. He was brought to the emergency room from the dialysis center. Initial findings, BP 148/76, pulse 80, respirations 20, O2 saturation 98%, temperature 97.6. He was tachypneic, did not appear in acute distress, though he was alert and oriented. Breath sounds are diminished in lower lobes. Heart exam without murmurs. Regular rate. Abdomen soft, nondistended. The hemodialysis catheter exit site did not appear to have any inflammatory changes. Other findings included white cell count 6.0, hemoglobin 9.6, platelets 239 with a normal differential. Creatinine 3.62, sodium 137, potassium 3.6, alkaline phosphatase 142. Transaminases and bilirubin within normal limits. BNP was 4500 as expected. Albumin 3.6, and 2 sets of blood cultures with Corynebacterium species obtained from the dialysis catheter. Currently, Mr. Zuluaga is feeling well. He denies any headaches. No visual symptoms, sore throat, odynophagia, dysphagia. No more dyspnea. A little bit of cough. No sputum production. No chest pain. No abdominal pain. No diarrhea or constipation. Still has some urinary output a little bit. No joint symptoms. No neurological symptoms. PAST MEDICAL HISTORY: Type 2 diabetes, coronary artery disease, bypass graft surgery, end-stage renal disease, prior episode of Staph aureus bacteremia in 2018, which was treated with IV antimicrobial therapy and then had an episode of cystitis and had a right arm basilic transposition fistula, which did not mature and the right tunneled IJ hemodialysis catheter, which is present to this date. Dr. Greenfield did a fistula in the left upper extremity day before yesterday. ALLERGY HISTORY: Negative. SOCIAL HISTORY: Former smoker. No drug use otherwise. No alcoholic beverage use. Lives in the area by himself in an apartment. PAST SURGICAL HISTORY: Also includes cholecystectomy, bypass graft surgery, amputation of left great toe, and angioplasty with stents in the lower extremities. FAMILY HISTORY: Type 2 diabetes. CURRENT MEDICATIONS: 1. [place]. 2. DuoNeb. 3. Norvasc. 4. Tessalon. 5. Dulcolax. 6. Tums. 7. Dextrose. 8. Colace. 9. Pepcid. 10. Proscar. 11. Insulin. 12. Labetalol. 13. Melatonin. 14. Vancomycin. 15. Zosyn. PHYSICAL EXAMINATION: VITAL SIGNS: T-max 100.2, blood pressure 140/68, pulse 70, respirations 16, and O2 saturation 100%. GENERAL: Appears in no distress. Skin with areas of hyperkeratosis, hyperpigmentation in the skin of distal extremities. A tunneled right IJ catheter with no inflammatory changes or drainage. No tenderness at the tunnel site. The patient does not have a Holland catheter. Voids still in the urinal. No lymphadenopathy. HEENT: Alopecia. Ocular movements conjugate. Pupils are equal. Conjunctivae normal. Sclerae are normal. Oral cavity with only a few teeth stubs remaining in place. Oral mucosa is normal. NECK: Supple. No jugular venous distention. LUNGS: Symmetric air entry. No obvious crackles or wheezing. HEART: S1 and S2. Regular rate without murmurs. No S3 or S4. ABDOMEN: Soft, not distended or tender. No ascites. No bladder distention. No joint inflammatory activity. EXTREMITIES: Pulses are faintly palpable in dorsalis pedis. A cap refill is difficult to evaluate due to skin hyperpigmentation, hyperkeratosis, and onychodystrophy nails. Moves extremities equally. NEUROLOGIC: He is oriented. Speech is normal. Follows commands. Recollection is fairly decent. LABORATORY DATA: Followup labs; white cell count 8.1, hemoglobin 8.9, platelets 132. Chemistries, not remarkable. Echocardiogram with EF 20% to 25%, aortic valve sclerosis, moderate tricuspid regurgitation, small pericardial effusion, significant diastolic dysfunction. Chest x-ray with interstitial and alveolar edema. ASSESSMENT: 1. End-stage renal disease secondary to diabetes mellitus type 2, on hemodialysis with internal jugular catheter in the right position with erratic adherence to hemodialysis sessions. 2. Previously failed transposition fistula in right upper extremity. 3. New arteriovenous fistula in the left upper extremity. 4. Pulmonary edema. 5. Corynebacterium bacteremia. DISCUSSION: Corynebacterium bacteremia in most cases represents contamination of the samples. The patient may have colonization with Corynebacterium at the hub site. Corynebacterium striatum or Corynebacterium jeikeium have been described in association with endocarditis in patients with hemodialysis due to chronic colonization of hemodialysis catheter since Corynebacteria are typically low pathogenicity organisms, they may be associated with few clinical manifestations. What I would do at this point would be to stop antimicrobial therapy and repeat blood cultures to see if there is persistence. If there is, then a PAULINA would be in order. If there is not, then I would assume that it is just a colonization of the hub of the catheter. Ideally, one would like to remove this catheter whenever the left-sided AV fistula matures. Job ID: [id number] MTDD
[2019-05-06] MEDS ORDERED: Heparin 10,000 UNITS/ 10 ML VIAL ONE (09:30)
--- NOTE | 2019-05-06 11:07 | PRG ---
DATE OF SERVICE: 05/06/2019 SUBJECTIVE: A 59-year-old gentleman, being seen for end-stage renal disease. The patient denies any nausea, vomiting, or chest pain. OBJECTIVE: GENERAL: The patient is awake and alert. VITAL SIGNS: Afebrile, pulse 75, breathing 16, blood pressure 133/77. GENERAL APPEARANCE AND MENTAL STATUS: Fair. HEAD/NECK: Normocephalic. Atraumatic. EYES: EOMI. No deformity. EARS: Clear. No ulcers. NOSE: Intact. No lesions. MOUTH: Clear. No discharge. THROAT: Clear. No exudate. LUNGS: Clear. No crackles. CARDIAC: S1, S2. No rub. ABDOMEN: Benign. Bowel sounds positive. GENITALIA/RECTUM: Holland absent. BACK/EXTREMITIES: Edema 0+. NEUROLOGICAL: Alert and motor intact. SKIN: LYMPHATICS: LABORATORY DATA: Show hemoglobin 8.9. ASSESSMENT AND PLAN: 1. Stage 6 chronic kidney disease. Continue hemodialysis. 2. Hypertensive, stable. 3. Anemia, stable. 4. Medication based on GFR, appropriate. Job ID: [id number]
--- NOTE | 2019-05-06 11:13 | OP ---
DATE OF PROCEDURE: 05/03/2019 PREOPERATIVE DIAGNOSES: 1. Thrombosed fistula, right arm. 2. Need of dialysis access. POSTOPERATIVE DIAGNOSES: 1. Thrombosed fistula, right arm. 2. Need of dialysis access. PROCEDURE PERFORMED: Left arm primary fistula, perforating branch antecubital vein outflow, primary cephalic vein for anatomic considerations, but retrograde communication to the basilic vein, although communication retrograde antecubital vein preserved, although small 4-mm coronary dilator passed without restriction throughout the length, evaluated the cephalic vein. Note, after the surgery in the PACU, the patient became bradycardic, asystole, required CPR and atropine without epinephrine, revived without intubation, now transferred to the ICU for monitoring and business operations consultant evaluation. ANESTHESIA: Regional, TIVA, and local with 0.5% Marcaine with epinephrine 30 mL, mixed with 1% Xylocaine with epinephrine 20 mL. DESCRIPTION OF PROCEDURE: The patient was taken to the operating room, where under regional anesthesia and intravenous sedation, left upper extremity was prepared with ChloraPrep and draped in routine fashion. The proximal volar forearm incision was made longitudinally below the antecubital fossa and carried down to skin and subcutaneous tissue and the vein was dissected free branches, perforating branch divided with clips and spatulated over branch point and evaluated with coronary dilators, passing coronary dilators throughout the length of the perforating branch antecubital vein through the cephalic vein outflow upper arm without restriction from a 2 mm to 3.5 mm up to 4 mm coronary dilator. There was smaller branch communication to the basilic vein, filling retrograde and communicating and retrograde antecubital vein preserved. The patient given 6000 units of heparin intravenously. After adequate circulation time, the proximal radial artery and brachial ulnar artery dissected free, clamped with a traumatic vascular clamps. Longitudinal arteriotomy made and healthy, though small proximal radial artery. A 2 cm anastomosis was created between the side of proximal radial artery and the perforating branch antecubital vein. Continuous suture of 6-0 Prolene used for the anastomosis. Branches ligated with 4-0 silk ties. Good Doppler signal noted in the cephalic vein outflow after release of clamps. Good hemostasis was noted. The patient was given 25 mg of protamine intravenously. Good hemostasis noted. Subcutaneous tissue was approximated with 3-0 Monocryl, skin with subdermal 4-0 Monocryl, and [place] glue applied. The patient tolerated the procedure well, transferred to the recovery room in a stable condition, although while in the recovery room, he suffered a bradycardia and asystole episode, for which he was revived without intubation. Job ID: [id number]
[2019-05-06] MEDS: Amlodipine 5 MG TAB PO SCH (12:10)
[2019-05-06] MEDS: Finasteride 5 MG TAB PO SCH (12:11)
[2019-05-06] MEDS: Docusate 100 MG CAP PO SCH (12:11)
[2019-05-06] MEDS: Lisinopril 10 MG TAB PO SCH (12:11)
[2019-05-06] MEDS: HumuLIN 70/30 (300 UNITS/3 ML VIAL) SC SCH ×2 (12:14→16:18)
--- NOTE | 2019-05-06 14:13 | CON ---
DATE OF CONSULTATION: 05/06/2019 HISTORY OF PRESENT ILLNESS: I am seeing Mr. Zuluaga at our [facility] as an electrophysiology seo consultant regarding his history of cardiomyopathy and episode of bradycardic arrest. His problems are: 1. Episode of bradycardic arrest, requiring atropine administration following AV shunt surgery, now resolved. 2. History of chronic systolic congestive heart failure with ischemic cardiomyopathy. a. History of coronary artery bypass grafting surgery x4 vessels in 2013. b. Chronically reduced LV systolic function with 2D echo on 10/24/2015, revealing LVEF of 45% to 50%, but on 04/30/2018, the LVEF down to 20% to 25% and the current admission echo on 05/04/2019, LVEF of 20% to 25% as well as also RV systolic pressures of 50 mmHg. Small pericardial effusion without tamponade. Moderate MR and TR. Moderate right atrium and left atrium are seen. 3. End-stage renal disease, on hemodialysis. a. Left upper arm arteriovenous fistula recently, operated with primary AV fistula placed at that time. b. Right IJ tunneled catheter in place. 4. Hypertension. 5. Type 2 diabetes. ALLERGIES: NONE NOTED. MEDICATIONS AT HOME: 1. Humulin. 2. Finasteride. 3. Amlodipine. 4. Carvedilol. 5. Pradaxa. 6. Doxycycline. 7. Lisinopril. 8. Metformin. 9. Clopidogrel. 10. Potassium chloride. 11. Ondansetron. SUBJECTIVE: Mr. Zuluaga is admitted for AV fistula access. There is also noted to have several weeks of noncompliance. There is no fever, chills, or cough noted, but corynebacterium was found in the dialysis catheter. Eventually underwent a left upper arm arteriovenous fistula placement by Dr. Greenfield, which was complicated with bradycardic arrest, requiring atropine administration. Eventually, possibly a vagal episode can be ruled out. Cardiac enzymes were checked and monitored overnight. Eventually remained stable. Now, he is on the floor. I was consulted for consideration of pacing/ICD implantation as his longstanding severely reduced LVEF. Currently, the patient is doing fair. No angina or CHF like symptoms. He does not pass out anymore. No stroke-like symptoms. No neurological deficits. No fever, chills, or cough. REVIEW OF SYSTEMS: Rest of 12-point review of systems was otherwise unremarkable. OBJECTIVE DATA: VITAL SIGNS: Blood pressure 127/64, heart rate 82, respirations 16, and temperature 98 degrees Fahrenheit. GENERAL: This is an alert and oriented man, in no apparent distress. NECK: Supple. Jugular veins not distended. CHEST: Coarse without crackles. HEART: Sounds are regular to rate and rhythm. No murmur or gallop. ABDOMEN: Benign. Bowel sounds positive. EXTREMITIES: Lower extremities without edema, clubbing, or cyanosis. Left upper arm with recent AV fistula still in bandages. Right internal jugular vein tunneled catheter is in place. DATABASE: EKG today reveals sinus rhythm, rate of 72 beats per minute, narrow QRS, no signs of ST-T changes. Subsequent telemetry strips reveal no further bradyarrhythmic episodes. Normal rate and rhythm are seen. LABORATORY DATA: White cell count is 8.1, hemoglobin 8.9, and platelet count is 132. Sodium 136, potassium 3.8, BUN is 28, creatinine is 4.18. Troponin-I 0.01 and 0.03 consecutively. On 05/01, dialysis catheter that showed corynebacterium species. ASSESSMENT AND PLAN: Mr. Zuluaga is a pleasant 59-year-old man with prior history of congestive heart failure and ischemic cardiomyopathy, persistently reduced left ventricular ejection fraction in the 20% range. He also developed a bradycardic arrest after his arteriovenous fistula surgery, but now after recovery, he seems to be stable. I discussed the pros and cons of potential pacing defibrillator implantation for him. Although, his severely reduced LVEF and end-stage renal disease will make his infection risk higher long-term, which would reduce the efficacy of the primary protracted device. On the other hand, he also has a reasonable indication for pacing, hence he has episode of bradycardic arrest, even though it could be anesthesia or vasovagally mediated event. We discussed these options. He understands and interested in the pacemaker defibrillator therapy. I think this is reasonable to proceed and now that he stable, although he had Corynebacterium from his dialysis catheter, it does not seem to be causing any kind of signs of inflammation or infection. At this time, no fever, chills, or white cell count elevation is noted no more. Access will be somewhat an issue due to right IJ tunneled catheter in place. We will try to place it lateral to this from the right subclavian area on the left side, we will avoid hence the recently placed AV fistula. For now, continue an n.p.o. status and we will plan to have this procedure performed at a later date today or tomorrow. Job ID: [id number]
--- NOTE | 2019-05-06 15:09 | PDOC.CPN ---
- Subjective Date: 05/06/19 Time: 15:08 Interval history: No new issues. - Review of Systems General: denies: fever/chills, weight/appetite/sleep changes, night sweats, fatigue Respiratory: denies: cough, congestion, shortness of breath, exercise intolerance Cardiovascular: denies: chest pain, palpitation, edema, paroxysmal nocturnal dyspnea, orthopnea Gastrointestinal: denies: nausea, vomiting, diarrhea, constipation, abd pain, GI bleeding Musculoskeletal: denies: pain, tenderness, stiffness, swelling, arthritis/ arthralgias Neurological: denies: numbness, syncope, seizure, weakness - Objective Allergies/Adverse Reactions: Allergies Allergy/AdvReac Type Severity Reaction Status Date / Time No Known Allergies Allergy Verified 04/08/19 10:39 Visit Medications: Current Medications Acetaminophen (Tylenol) 650 mg PO Q4H PRN PRN Reason: Headache/Fever/Mild Pain (1-3) Last Admin: 05/02/19 14:52 Dose: 650 mg Hydrocodone Bitart/Acetaminophen ([place] 5/325) 1 tab PO Q4H PRN PRN Reason: Moderate to Severe Pain (6-10) Albuterol/Ipratropium (Duoneb) 3 ml NEB [id number] PRN PRN Reason: SOB &/or Wheezing Amlodipine Besylate (Norvasc) 5 mg PO DAILY [facility] Last Admin: 05/06/19 12:10 Dose: 5 mg Benzonatate (Tessalon) 100 mg PO Q4H PRN PRN Reason: Cough Last Admin: 05/05/19 20:40 Dose: 100 mg Bisacodyl (Dulcolax) 10 mg PO DAILYPRN PRN PRN Reason: Constipation Last Admin: 05/05/19 20:40 Dose: 10 mg Calcium Carbonate (Tums) 1,000 mg PO Q4H PRN PRN Reason: Heartburn or Indigestion Dextrose/Water (Dextrose 50%-Water Syringe) 50 ml IV PRN PRN PRN Reason: Hypoglycemia Diphenhydramine HCl (Benadryl) 25 mg PO Q6H PRN PRN Reason: Itching & Insomnia Docusate Sodium (Colace) 100 mg PO DAILY [facility] Last Admin: 05/06/19 12:11 Dose: 100 mg Famotidine (Pepcid) 20 mg SLOW IVP Q24HR [facility] Last Admin: 05/05/19 20:33 Dose: 20 mg Finasteride (Proscar) 5 mg PO DAILY [facility] Last Admin: 05/06/19 12:11 Dose: 5 mg Glucagon (Glucagon) 1 mg IM PRN PRN PRN Reason: Hypoglycemia Dextrose/Water (D5w) 1,000 mls @ 0 mls/hr IV .Q0M PRN PRN Reason: Hypoglycemia Insulin Human Isoph/Insulin Regular (Humulin 70/30) 4 units SC BID-[facility] Last Admin: 05/06/19 12:14 Dose: Not Given Insulin Human Lispro (Humalog) 0 units SC .MODERATE SLIDING SC PRN PRN Reason: Moderate Correctional Scale Last Admin: 05/04/19 06:14 Dose: 4 unit Insulin Human Lispro (Humalog) 0 units SC .BEDTIME SLIDING SC PRN PRN Reason: Bedtime Correctional Scale Labetalol HCl (Normodyne) 10 mg SLOW IVP Q4H PRN PRN Reason: SBP Greater Than 180 Lisinopril (Zestril) 10 mg PO DAILY [facility] Last Admin: 05/06/19 12:11 Dose: 10 mg Melatonin (Melatonin) 3 mg PO HS PRN PRN Reason: Insomnia Ondansetron HCl (Zofran) 4 mg IVP Q6H PRN PRN Reason: Nausea/Vomiting Senna/Docusate Sodium (Senokot S) 2 tab PO BID PRN PRN Reason: Constipation Last Admin: 05/05/19 20:40 Dose: 2 tab Sodium Chloride (Flush - Normal Saline) 10 ml IVF PRN PRN PRN Reason: Saline Flush Last Admin: 05/04/19 01:57 Dose: 10 ml Vital Signs & Weight: Vital Signs Temp Pulse Resp BP Pulse Ox 05/06/19 12:08 98.0 F 82 16 127/64 98 05/06/19 07:51 98.7 F 81 16 163/79 H 97 05/06/19 03:35 98.6 F 75 18 128/77 100 Admit Weight 157 lb 13.616 oz Weight 162 lb 11.218 oz - Physical Exam General: alert & oriented x3 HEENT: mucus membranes moist Neck: supple neck Cardiac: regular rate and rhythm, systolic murmur Lungs: clear to auscultation Neuro: grossly intact Abdomen: active bowel sounds Extremities: no edema Skin: clear Musculoskeletal: no pain - Labs Result Diagrams: 05/04/19 03:40 05/04/19 03:40 Troponin/CKMB Troponin I Less than 0.010 ng/mL (< 0.028) 05/04/19 03:40 - Telemetry Sinus rhythms and dysrhythmias: sinus rhythm - Assessment/Plan Assessment/Plan: 1. Bradycardia post anesthesia 2. CAD, stable, no ACS. 3. ESRD 4. Non compliance. 5. Severe chronic systolic dysfunciton, EF at 20-25% PLAN: - AICD today. - Likely home tomorrow.
--- NOTE | 2019-05-06 15:26 | PDOC.HOSPP ---
- Subjective Encounter Date: 05/06/19 Encounter Time: 15:24 Subjective: no complaints - Objective Vital Signs & Weight: Vital Signs (12 hours) Temp Pulse Resp BP Pulse Ox 05/06/19 12:08 98.0 F 82 16 127/64 98 05/06/19 07:51 98.7 F 81 16 163/79 H 97 05/06/19 03:35 98.6 F 75 18 128/77 100 Weight Admit Weight 157 lb 13.616 oz Weight 162 lb 11.218 oz Most Recent Monitor Data Heart Rate from ECG 54 NIBP 140/73 NIBP BP-Mean 95 Respiration from ECG 18 SpO2 100 I&O: 05/05/19 05/06/19 05/07/19 06:59 06:59 06:59 Intake Total 554 950 Output Total 100 450 Balance 454 500 Result Diagrams: 05/04/19 03:40 05/04/19 03:40 Additional Labs: Accuchecks 05/06/19 05/06/19 05/05/19 10:52 05:52 20:40 POC Glucose 97 95 161 H 05/05/19 17:22 POC Glucose 86 Hospitalist ROS - Medication Medications: Active Medications Generic Name Dose Route Start Last Admin Trade Name Freq PRN Reason Stop Dose Admin Acetaminophen 650 mg 05/02/19 04:38 05/02/19 14:52 Tylenol PO 650 mg Q4H PRN Administration Headache/Fever/Mild Pain (1-3) Amlodipine Besylate 5 mg 05/05/19 09:00 05/06/19 12:10 Norvasc PO 5 mg DAILY [facility] Administration Benzonatate 100 mg 05/02/19 10:08 05/05/19 20:40 Tessalon PO 100 mg Q4H PRN Administration Cough Bisacodyl 10 mg 05/02/19 10:05 05/05/19 20:40 Dulcolax PO 10 mg DAILYPRN PRN Administration Constipation Docusate Sodium 100 mg 05/03/19 09:00 05/06/19 12:11 Colace PO 100 mg DAILY [facility] Administration Famotidine 20 mg 05/02/19 21:00 05/05/19 20:33 Pepcid SLOW IVP 20 mg Q24HR [facility] Administration Finasteride 5 mg 05/03/19 09:00 05/06/19 12:11 Proscar PO 5 mg DAILY [facility] Administration Insulin Human Isoph/Insulin Regular 4 units 05/06/19 07:30 05/06/19 12:14 Humulin 70/30 SC Not Given BID-AC [facility] Insulin Human Lispro 0 units 05/02/19 10:09 05/04/19 06:14 Humalog SC 4 unit .MODERATE SLIDING SC PRN Administration Moderate Correctional Scale Lisinopril 10 mg 05/05/19 09:00 05/06/19 12:11 Zestril PO 10 mg DAILY [facility] Administration Senna/Docusate Sodium 2 tab 05/02/19 10:05 05/05/19 20:40 Senokot S PO 2 tab BID PRN Administration Constipation Sodium Chloride 10 ml 05/01/19 21:23 05/04/19 01:57 Flush - Normal Saline IVF 10 ml PRN PRN Administration Saline Flush - Exam General Appearance: awake alert Neck: no JVD Heart: RRR, no murmur Respiratory: CTAB Gastrointestinal: soft, normal bowel sounds Extremities: no edema Hosp A/P (1) Cardiomyopathy Code(s): I42.9 - CARDIOMYOPATHY, UNSPECIFIED Status: Acute Qualifiers: Cardiomyopathy type: ischemic Qualified Code(s): I25.5 - Ischemic cardiomyopathy (2) Bacteremia Code(s): R78.81 - BACTEREMIA Status: Acute (3) ESRD (end stage renal disease) on dialysis Code(s): N18.6 - END STAGE RENAL DISEASE; Z99.2 - DEPENDENCE ON RENAL DIALYSIS Status: Acute (4) Acute kidney injury superimposed on CKD Code(s): N17.9 - ACUTE KIDNEY FAILURE, UNSPECIFIED; N18.9 - CHRONIC KIDNEY DISEASE, UNSPECIFIED Status: Acute (5) DM2 (diabetes mellitus, type 2) Status: Chronic Qualifiers: Diabetes mellitus medical terminologist insulin use: with nursing home use Diabetes mellitus complication status: with kidney complications Diabetes mellitus complication detail: with chronic kidney disease Chronic kidney disease stage : stage 3 (moderate) Qualified Code(s): E11.22 - Type 2 diabetes mellitus with diabetic chronic kidney disease; N18.3 - Chronic kidney disease, stage 3 ( moderate); Z79.4 - terminologist (current) use of insulin (6) Dyslipidemia Code(s): E78.5 - HYPERLIPIDEMIA, UNSPECIFIED Status: Chronic (7) HTN (hypertension) Code(s): I10 - ESSENTIAL (PRIMARY) HYPERTENSION Status: Chronic Qualifiers: Hypertension type: essential hypertension Qualified Code(s): I10 - Essential (primary) hypertension - Plan posr HD AICD placement planned cont accu/ss/ long acting insulin off antibx, serial blood C&S planned
[2019-05-06] MEDS ORDERED: Midazolam HCl 2 mg/2 ml Vial ONE (16:28)
[2019-05-06] MEDS ORDERED: Acetaminophen/Codeine 30-300mg Tablet PO PRN (17:11)
--- NOTE | 2019-05-06 17:35 | RAD ---
Exam: Chest one view HISTORY:Dyspnea Comparison: 05/01/2019 FINDINGS: Cardiac silhouette:Stable cardiac silhouette. Lines and tubes: Stable right-sided HemoSplit dialysis catheter. Pacemaker: Interval placement of right-sided single lead defibrillator terminating over the right mustapha tricle. Aorta: Atherosclerosis of the aortic knob Pulmonary vessels: Normal Costophrenic angles: Clear LUNGS: Bibasilar lung parenchymal opacities, right greater than left. Pneumothorax: None Osseous abnormalities: None IMPRESSION: 1. Bibasilar interstitial and alveolar opacities which may represent edema or infiltrate. 2. Interval placement of a single lead right-sided defibrillator terminating over the region of the r ight ventricle. No pneumothorax. Transcribed Date/Time: 05/06/2019 7:10 PM
[2019-05-06] MEDS ORDERED: Promethazine HCl 25 MG/ML VIAL SLOW IVP PRN (17:37)
[2019-05-06] MEDS ORDERED: HYDROmorphone 2 MG/ML VIAL SLOW IVP PRN (17:37)
[2019-05-06] MEDS ORDERED: PACU-Morphine 4MG/ML VIAL SLOW IVP PRN (17:37)
[2019-05-06] MEDS ORDERED: Morphine Sulfate 2 MG/ML SYRINGE SLOW IVP PRN (17:37)
[2019-05-06] MEDS ORDERED: Ondansetron HCl/PF 4 MG/2 ML Vial IVP PRN (17:37)
[2019-05-06] MEDS ORDERED: Promethazine HCl 25 MG/ML VIAL IM PRN (17:37)
[2019-05-06] MEDS: Famotidine/PF 20 mg/2ml Vial SLOW IVP SCH (21:42)
[2019-05-06] MEDS: Cephalexin 250 MG CAP PO SCH (21:42)
[2019-05-07] MEDS: HumuLIN 70/30 (300 UNITS/3 ML VIAL) SC SCH (08:03)
[2019-05-07] MEDS: Finasteride 5 MG TAB PO SCH (08:04)
[2019-05-07] MEDS: Lisinopril 10 MG TAB PO SCH (08:04)
[2019-05-07] MEDS: Amlodipine 5 MG TAB PO SCH (08:04)
[2019-05-07] MEDS: Cephalexin 250 MG CAP PO SCH (08:04)
[2019-05-07] MEDS: Docusate 100 MG CAP PO SCH (08:04)
--- NOTE | 2019-05-07 09:39 | PRG ---
DATE OF SERVICE: 05/07/2019 SUBJECTIVE: This is a 59-year-old gentleman, being seen for end-stage renal disease. The patient denied nausea, vomiting, or chest pain. OBJECTIVE: CONSTITUTIONAL: The patient is awake and alert. VITAL SIGNS: Pulse 79, breathing 16, and blood pressure 137/70. GENERAL APPEARANCE AND MENTAL STATUS: Fair. HEAD/NECK: Normocephalic. Atraumatic. EYES: EOMI. No deformity. EARS: Clear. No ulcers. NOSE: Intact. No lesions. MOUTH: Clear. No discharge. THROAT: Clear. No exudate. LUNGS: Clear. No crackles. CARDIAC: S1, S2. No rub. ABDOMEN: Benign. Bowel sounds positive. GENITALIA/RECTUM: Holland absent. BACK/EXTREMITIES: Edema 0+. NEUROLOGICAL: Alert and motor intact. SKIN: LYMPHATICS: LABORATORY DATA: Labs reviewed. ASSESSMENT AND PLAN: Stage 6 chronic kidney disease, continue hemodialysis. Hypertension, stable. Anemia, stable. Medication based on GFR appropriate. Job ID: [id number]
[2019-05-07 11:21] VITALS: TEMP 98.7
[2019-05-07] MEDS: HumaLOG 300 UNITS/3 ML VIAL SC PRN (11:22)
--- NOTE | 2019-05-07 11:40 | PQF ---
CLINICAL DOCUMENTATION IMPROVEMENT CLARIFICATION FORM: ICD-10 Updated PLEASE DO AN ADDENDUM TO THE PROGRESS NOTE WITH ANY DOCUMENTATION UPDATES OR ADDITIONS AND CARRY THROUGH TO DC SUMMARY. THANK YOU. DATE: 05/07/19 ATTN: DR. DON Please exercise your independent, professional judgment in responding to the clarification form. Clinical indicators are provided on the bottom of this form for your review Diagnosis: "SEPSIS" Present on Admission (POA): [ ] Yes [ x ] No [ ] Unable to determine For continuity of documentation, please document condition throughout progress notes and discharge summary. Thank You. CLINICAL INDICATORS - SIGNS / SYMPTOMS / LABS/ RESULTS AND LOCATION IN MR 05/03 PROGRESS NOTE: "SEPSIS" WBC 05/01: 6.0 WBC 05/04: 11.6 RISKS: BACTEREMIA (PROGRESS NOTE 05/05) UNCONTROLLED DIABETES (PROGRESS NOTE 05/05) TREATMENT: KEFLEX (05/06-05/13) ID CONSULT 05/04 CULTURE OF RIGHT IJ DIALYSIS CATHETER (05/01) (This form is maintained as a part of the permanent medical record) 2014 [email or web address], [email or web address]. All Rights Reserved MEMO [email or web address] Office: [phone] GABI
--- NOTE | 2019-05-07 12:25 | DIS ---
DATE OF ADMISSION: 05/02/2019 DATE OF DISCHARGE: 05/07/2019 PRIMARY CARE PROVIDER: Rohini Quan. DISPOSITION: Discharged home. FINAL DIAGNOSES: End-stage renal disease needing hemodialysis, bradycardia, ischemic cardiomyopathy, positive blood cultures with Corynebacterium, cardiomyopathy, hyperlipidemia, coronary artery disease, diabetes mellitus type 2. DISCHARGE MEDICATIONS: 1. Cephalexin 250 mg p.o. t.i.d. for 10 more days. 2. Humulin 70/30, 30 units subcu twice a day. 3. Norvasc 5 mg a day. 4. Coreg 3.125 mg twice a day, discontinued because of bradycardia. 5. Metformin 500 mg twice a day. 6. Proscar 5 mg a day. 7. Plavix 75 mg a day. 8. Amlodipine 5 mg a day. ALLERGIES: NO KNOWN DRUG ALLERGIES. HISTORY: [facility]. CONSULTATIONS: 1. Dr. Alexandre Greenfield, General Surgery. 2. Dr. Cholo Hilton, Nephrology. 3. Dr. Jose Lepe, Cardiopulmonology. 4. Dr. Tim Macias, Cardiology. 5. Dr. Martinez Anderson, Infectious Disease. 6. Dr. Xavier Mario, Electrophysiology. PROCEDURES: AICD placed 05/06/2019. A right femoral vein triple-lumen catheter was placed. He had a left arm primary arteriovenous fistula. INITIAL LABORATORY: White count 6.0, hemoglobin 9.6, platelet count 239,000. Creatinine 5.68, BUN 57, CO2 22, sodium 139, potassium 4.4. Chest x-ray, right pleural effusion, right-sided hemodialysis catheter, median sternotomy surgical changes. HOSPITAL COURSE: The patient had an episode of asystole, not requiring intubation after surgery for his fistula. His Coreg was discontinued. He was seen by Dr. Lepe. Echocardiogram revealed EF of 20% to 25% with grade 3 diastolic dysfunction. Because of this, an AICD was placed. At the time of discharge, he is stable. Electrolytes at time of discharge, BUN 28, creatinine 4.18, CO2 25, sodium and potassium normal. He is being discharged to follow with PCP in 3 days, surgery outpatient 05/21 for left arm dialysis fistula. He is to keep his hemodialysis appointments. DIET: Renal. CODE STATUS: Full. PENDING AT THE TIME OF DISCHARGE: Nothing. Job ID: [id number]
[2019-05-07 14:04] VITALS: BP 111/62
--- NOTE | 2019-05-07 16:59 | PDOC.EP ---
- Subjective Date: 05/07/19 Time: 08:00 Interval History: follow up for cardiomyopathy after ICD implant. Feels well. No EP/Cardiac complaints today. - Review of Systems Constitutional: denies: chills, fever, sweats Respiratory: denies: cough, dry, pleuritic pain, sputum, wheezing Cardiology: denies: chest pain, heart racing, light headedness, palpitations, passing out - Objective Allergies/Adverse Reactions: Allergies Allergy/AdvReac Type Severity Reaction Status Date / Time No Known Allergies Allergy Verified 04/08/19 10:39 Vital Signs & Weight: Vital Signs Temp Pulse Pulse Pulse Resp BP BP 05/07/19 11:29 72 69 127/70 150/68 H 05/07/19 11:20 98.7 F 70 18 05/07/19 10:09 75 75 111/62 114/55 L 05/07/19 08:04 05/07/19 07:59 98.6 F 79 16 BP Pulse Ox Pulse Ox Pulse Ox 05/07/19 11:29 97 98 05/07/19 11:20 125/58 L 99 05/07/19 10:09 100 05/07/19 08:04 99 05/07/19 07:59 181/81 H 99 Admit Weight 157 lb 13.616 oz Weight 143 lb 4.807 oz I/O: I/O 05/06/19 05/07/19 05/08/19 06:59 06:59 06:59 Intake Total 950 400 Output Total 450 200 Balance 500 200 - Physical Exam General: alert & oriented x3, appears well, no apparent distress, speech clear, affect appropriate HEENT: mucus membranes moist, normocephaly Neck: supple neck, midline trachea, no JVD/HJR Cardiology: regular rate and rhythm Lungs: clear to auscultation, normal breath sounds, no wheeze, rales, rhonchi Neurology: cranial nerve 2-12 intact, grossly intact, no lateralizing findings Abdomen: unremarkable, active bowel sounds Extremities: dry, strong pulses, warm Skin: device site stable w/o swelling, left sided device. negative: drainage, erosion, hematoma - Labs Result Diagrams: 05/04/19 03:40 05/04/19 03:40 - EKG Interpretation EKG shows: Sinus rhythm - Assessment/Plan Assessment/Plan: 1. Cardiomyopathy - long standing severely reduced EF 2. ESRD 3. HTN 4. Type 2 DM s/p single chamber ICD for primary prevention of SCD for severely reduced EF. ICD function is normal. CXR today is stable. on Post implant antibiotics x 7 days. OK for DC by EP. 2 week wound check will be arranged.
--- NOTE | 2019-05-08 17:44 | EKG ---
Test Reason : CODE BLUE Blood Pressure : / mmHG Vent. Rate : 070 BPM Atrial Rate : 070 BPM P-R Int : 168 ms QRS Dur : 100 ms QT Int : 488 ms P-R-T Axes : 063 -26 100 degrees QTc Int : 527 ms Normal sinus rhythm Possible Left atrial enlargement Nonspecific ST and T wave abnormality Prolonged QT Abnormal ECG When compared with ECG of 01-MAY-2019 15:36, (Unconfirmed) QT has lengthened Confirmed by DR. Farhat MEJIA ([id number]) on 05/08/2019 5:44:30 PM Referred By: BENNY Confirmed By:DR. Farhat MEJIA
--- NOTE | 2019-05-08 17:45 | EKG ---
Test Reason : Blood Pressure : / mmHG Vent. Rate : 068 BPM Atrial Rate : 068 BPM P-R Int : 172 ms QRS Dur : 098 ms QT Int : 472 ms P-R-T Axes : 067 -40 111 degrees QTc Int : 501 ms Normal sinus rhythm Possible Left atrial enlargement Left axis deviation Anterior infarct , age undetermined Prolonged QT Abnormal ECG When compared with ECG of 03-MAY-2019 14:29, (Unconfirmed) T wave inversion less evident in Lateral leads Confirmed by DR. Farhat MEJIA ([id number]) on 05/08/2019 5:45:17 PM Referred By: BENNY Confirmed By:DR. Farhat MEJIA
== END 2019-05-07 15:26 | disposition home or self-care (01) | DRG 252 ==
LOC: ERS 15:16 → T4-B 21:53 → OBSVTOIN 05-02 17:09 → CCU 05-03 14:47 → 2NO 05-04 16:33
PROVIDERS: ADMIT Hospitalist; ATTEND Hospitalist
PROC: 05BB0ZZ Excision of Right Basilic Vein, Open Approach (ICD-10-PCS; principal; 2019-05-03)
PROC: 05BD0ZZ Excision of Right Cephalic Vein, Open Approach (ICD-10-PCS; 2019-05-03)
PROC: 02HV33Z Insertion of Infusion Device into Superior Vena Cava, Percutaneous Approach (ICD-10-PCS; 2019-05-03)
PROC: 5A1D70Z Performance of Urinary Filtration, Intermittent, Less than 6 Hours Per Day (ICD-10-PCS; 2019-05-04)
DX: T82.868A Thrombosis due to vascular prosthetic devices, implants and grafts, initial encounter (principal); N18.6 End stage renal disease; I46.9 Cardiac arrest, cause unspecified; A41.01 Sepsis due to Methicillin susceptible Staphylococcus aureus; I12.0 Hypertensive chronic kidney disease with stage 5 chronic kidney disease or end stage renal disease; E78.5 Hyperlipidemia, unspecified; E11.22 Type 2 diabetes mellitus with diabetic chronic kidney disease; I25.10 Atherosclerotic heart disease of native coronary artery without angina pectoris; D63.1 Anemia in chronic kidney disease; E87.70 Fluid overload, unspecified; I25.5 Ischemic cardiomyopathy; Y83.9 Surgical procedure, unspecified as the cause of abnormal reaction of the patient, or of later complication, without mention of misadventure at the time of the procedure; R00.1 Bradycardia, unspecified; Z95.1 Presence of aortocoronary bypass graft; Z99.2 Dependence on renal dialysis; Z86.718 Personal history of other venous thrombosis and embolism; Z79.01 Long term (current) use of anticoagulants; Z89.422 Acquired absence of other left toe(s)
CPT/HCPCS: 33249; 36415; 36416; 71045; 76942; 80048; 80053; 80202; 82010; 82330; 82803; 83735; 83880; 84484; 85007; 85025; 85027; 87040; 87077; 87340; 90935; 93005; 93010; 93306; 93641; 93798; C1777; C1786; G0257; J0171; J0461; J0670; J0690; J1642; J1644; J1815; J2001; J2250; J2405; J2543; J2704; J2720; J2765; J2997; J3010; J3490; S0020; S0028

== ENCOUNTER 2019-05-27 11:33 | Emergency (ER) | payer MEDICARE ==
[2019-05-27 14:35] LABS: #Basophils 0.1 thou/uL (0.0-0.2); #Eosinphils 0.3 thou/uL (0.0-0.7); #Lymphocytes 1.7 thou/uL (1.20-3.40); #Monocytes 0.7 thou/uL (0.11-0.59); #Neutrophils 8.1 thou/uL (1.40-6.50); %Basophils 0.5 % (0.0-1.0); %Eosinophils 2.7 % (0.0-10.0); %Lymphocytes 15.5 % (21.0-51.0); %Monocytes 6.8 % (0.0-10.0); %Neutrophils 74.5 % (42.0-75.0); Hemoglobin 8.7 g/dL (14.0-18.0); Mean Corpuscular HGB CONC 31.7 g/dL (32.0-36.0); Mean Corpuscular Hemoglobin 28.7 pg (27.0-31.0); Mean Corpuscular Volume 90.6 fL (78.0-98.0); Platelet Count 274 thou/uL (130-400); RBC Distribution Width 13.8 % (11.5-14.5); Red Blood Cell (RBC) Count 3.02 mill/uL (4.70-6.10); White Blood Cell (WBC) Count 10.9 thou/uL (4.8-10.8)
--- NOTE | 2019-05-27 14:51 | ULT ---
Ultrasound Doppler duplex venous right upper extremity: DATE: 59-year-old male with right hemodialysis AV fistula presents with right arm pain and swelling. TECHNIQUE: Grayscale, color-flow, and spectral analysis, of major veins of right upper extremity. Compression an d release applied to all veins except the brachiocephalic. FINDINGS: The AV fistula is patent, no thrombosis. The ulnar, radial, brachial, cephalic, basilic, axillary, cruz bclavian, and internal jugular, veins, are patent, with no thrombosis. IMPRESSION: 1. No deep venous thrombosis in right upper extremity. 2. Hemodialysis arteriovenous fistula is patent.
[2019-05-27 14:57] LABS: ALT (SGPT) Less than 7 U/L (8-55); AST (SGOT) 9 U/L (5-34); Albumin 2.9 g/dL (3.5-5.0); Alkaline Phosphatase 145 U/L (40-110); Anion Gap 16 mmol/L (10-20); BUN (Urea Nitrogen) 43 mg/dL (8.4-25.7); Bilirubin, Total 0.3 mg/dL (0.2-1.2); Calc. Creatinine Clearance 0 mL/min (70-130); Calcium 7.7 mg/dL (7.8-10.44); Carbon Dioxide 26 mmol/L (22-29); Chloride 96 mmol/L (98-107); Estimated GFR-MDRD 14; Globulin 3.8 g/dL (2.4-3.5); Glucose 137 mg/dL (70-105); Magnesium 1.6 mg/dL (1.6-2.6); Potassium 3.4 mmol/L (3.5-5.1); Protein, Total 6.7 g/dL (6.0-8.3); Sodium 135 mmol/L (136-145)
== END 2019-05-27 15:24 | disposition home or self-care (01) ==
LOC: ERS 11:33
DX: R60.0 Localized edema (principal); I25.10 Atherosclerotic heart disease of native coronary artery without angina pectoris; E78.5 Hyperlipidemia, unspecified; I12.0 Hypertensive chronic kidney disease with stage 5 chronic kidney disease or end stage renal disease; N18.6 End stage renal disease; F41.9 Anxiety disorder, unspecified; F31.9 Bipolar disorder, unspecified; Z87.891 Personal history of nicotine dependence; Z86.718 Personal history of other venous thrombosis and embolism; Z86.73 Personal history of transient ischemic attack (TIA), and cerebral infarction without residual deficits; Z99.2 Dependence on renal dialysis; Z79.899 Other long term (current) drug therapy; Z79.02 Long term (current) use of antithrombotics/antiplatelets
CPT/HCPCS: 36415; 36416; 80053; 83735; 85025

== ENCOUNTER 2019-08-11 08:07 | Emergency (ER) | payer MEDICARE, OTHER ==
--- NOTE | 2019-08-11 09:05 | RAD ---
CHEST ONE VIEW PORTABLE: HISTORY: Shortness of breath. COMPARISON: 05/06/2019 FINDINGS: Right ICD. Right venous access catheter. Postop midline sternotomy. Bilateral vascular congestion wit h some bilateral interstitial edema and progressive right pleural effusion change with some possible associated pneumonia and/or atelectasis in the right lower lobe. These right lower lobe pleural and p arenchymal changes are somewhat more marked than on the most recent prior study. IMPRESSION: Bilateral vascular congestion with some bilateral interstitial changes, evidence for some edema. Wors ening pleural and parenchymal opacity changes in the right base, concerning for developing pneumonia and/or atelectasis with increasing right pleural effusion. Correlate clinically and consider short-term follow-up studies. POS: JAYANT
[2019-08-11 09:11] LABS: #Eosinphils 0.4 thou/uL (0.0-0.7); #Lymphocytes 1.3 thou/uL (1.20-3.40); #Monocytes 0.9 thou/uL (0.11-0.59); #Neutrophils 5.7 thou/uL (1.40-6.50); %Basophils 0.3 % (0.0-1.0); %Eosinophils 4.9 % (0.0-10.0); %Monocytes 10.6 % (0.0-10.0); %Neutrophils 68.2 % (42.0-75.0); Hemoglobin 11.4 g/dL (14.0-18.0); Mean Corpuscular HGB CONC 31.9 g/dL (32.0-36.0); Mean Corpuscular Hemoglobin 30.4 pg (27.0-31.0); Mean Corpuscular Volume 95.1 fL (78.0-98.0); Mean Platelet Volume 8.4 fL (7.4-10.4); Platelet Count 254 thou/uL (130-400); RBC Distribution Width 16.3 % (11.5-14.5); Red Blood Cell (RBC) Count 3.77 mill/uL (4.70-6.10); White Blood Cell (WBC) Count 8.4 thou/uL (4.8-10.8)
[2019-08-11 09:38] LABS: ALT (SGPT) 14 U/L (8-55); AST (SGOT) 15 U/L (5-34); Albumin 3.7 g/dL (3.5-5.0); Alkaline Phosphatase 198 U/L (40-110); Anion Gap 21 mmol/L (10-20); BUN (Urea Nitrogen) 79 mg/dL (8.4-25.7); Bilirubin, Total 0.6 mg/dL (0.2-1.2); Calc. Creatinine Clearance 0 mL/min (70-130); Calcium 8.3 mg/dL (7.8-10.44); Carbon Dioxide 11 mmol/L (22-29); Chloride 112 mmol/L (98-107); Estimated GFR-MDRD 9; Globulin 3.6 g/dL (2.4-3.5); Glucose 127 mg/dL (70-105); Lipase 9 U/L (8-78); Magnesium 1.7 mg/dL (1.6-2.6); Potassium 5.3 mmol/L (3.5-5.1); Protein, Total 7.3 g/dL (6.0-8.3); Sodium 139 mmol/L (136-145)
[2019-08-11 10:08] LABS: CKMB 7.5 ng/mL (0-6.6)
[2019-08-11 17:18] LABS: HBSAg Index 0.18 S/CO (0-0.99); Hep B Surf Ag Non-Reactive S/CO (NonReactive)
--- NOTE | 2019-08-11 18:17 | CON ---
DATE OF CONSULTATION: 08/11/2019 CONSULTING PHYSICIAN: ER physician. REASON FOR CONSULT: End-stage renal disease evaluation. REASON FOR ADMISSION: Missed dialysis and change in mental status. HISTORY OF PRESENT ILLNESS: This is a 59-year-old male with history of coronary artery disease and end-stage renal disease, who came to the hospital with above complaints and is being evaluated and need dialysis. The patient missed a few sessions of dialysis. He was also found to be hyperkalemic and acidotic. PAST MEDICAL HISTORY: Positive for coronary artery disease, end-stage renal disease, hypertension, type 2 diabetes, and hyperlipidemia. PAST SURGICAL HISTORY: CABG, dialysis access placement, and amputation. HOME MEDICATION: As in the chart. ALLERGIES: NO KNOWN DRUG ALLERGIES. SOCIAL HISTORY: No smoking, alcohol, or drugs. FAMILY HISTORY: No history of kidney disease. REVIEW OF SYSTEMS: CONSTITUTIONAL: Negative for weight loss or gain, ability to conduct usual activities. SKIN: Negative for rash, itching. EYES: Negative for double vision, pain. ENT/MOUTH: Negative for nose bleeding, neck stiffness, pain, tenderness. CARDIOVASCULAR: Negative for palpitations, dyspnea on exertion, orthopnea. RESPIRATORY: Negative for shortness of breath, wheezing, cough, hemoptysis, fever or night sweats. GASTROINTESTINAL: Negative for poor appetite, abdominal pain, heartburn, nausea, vomiting, constipation, or diarrhea. GENITOURINARY: Negative for urgency, frequency, dysuria, nocturia. MUSCULOSKELETAL: Negative for pain, swelling. NEUROLOGIC/PSYCHIATRIC: Negative for anxiety, depression. ALLERGY/IMMUNOLOGIC: Negative for skin rash, bleeding tendency. PHYSICAL EXAMINATION: GENERAL: This is a well-built male, in no apparent distress. VITAL SIGNS: Reviewed. HEENT: Atraumatic and normocephalic. NECK: Supple. CV: S1 and S2. Rate and rhythm regular. RESPIRATORY: Clear. GI: Abdomen is soft. MUSCULOSKELETAL: No edema. DERMATOLOGIC: No skin rash. NEUROLOGIC: Alert and awake. PSYCHIATRIC: Mood and affect normal LABORATORY DATA: Hemoglobin is 11.4. Potassium is 5.3, BUN is 79, and creatinine is 6.5. ASSESSMENT AND PLAN: 1. End-stage renal disease. Plan is to have dialysis. 2. Hyperkalemia. 3. Severe acidosis. 4. Chronic anemia. 5. Hypertension. 6. Edema, remove fluid, dialysis as tolerated. Plan is to have dialysis as tolerated. Dialysis nurse notified. Thank you for the consult. Job ID: [id number]
== END 2019-08-11 20:18 | disposition home or self-care (01) ==
LOC: ERS 08:07
DX: J81.1 Chronic pulmonary edema (principal); I25.10 Atherosclerotic heart disease of native coronary artery without angina pectoris; E78.5 Hyperlipidemia, unspecified; I12.0 Hypertensive chronic kidney disease with stage 5 chronic kidney disease or end stage renal disease; E11.22 Type 2 diabetes mellitus with diabetic chronic kidney disease; N18.6 End stage renal disease; F31.9 Bipolar disorder, unspecified; F41.9 Anxiety disorder, unspecified; Z87.891 Personal history of nicotine dependence; Z99.2 Dependence on renal dialysis; Z86.73 Personal history of transient ischemic attack (TIA), and cerebral infarction without residual deficits; Z86.718 Personal history of other venous thrombosis and embolism; Z79.899 Other long term (current) drug therapy; Z79.4 Long term (current) use of insulin
CPT/HCPCS: 71045; 80053; 82553; 83690; 83735; 83880; 84100; 84484; 85025; 87340; 90935; 93005; G0257

== ENCOUNTER 2019-08-23 22:19 | Emergency (ER) | payer MEDICARE, OTHER ==
[2019-08-23 23:03] LABS: #Eosinphils 0.2 thou/uL (0.0-0.7); #Lymphocytes 1.1 thou/uL (1.20-3.40); #Monocytes 0.7 thou/uL (0.11-0.59); #Neutrophils 6.2 thou/uL (1.40-6.50); %Basophils 0.2 % (0.0-1.0); %Eosinophils 2.3 % (0.0-10.0); %Lymphocytes 13.7 % (21.0-51.0); %Monocytes 8.7 % (0.0-10.0); %Neutrophils 75.2 % (42.0-75.0); Hemoglobin 10.2 g/dL (14.0-18.0); Mean Corpuscular HGB CONC 31.7 g/dL (32.0-36.0); Mean Corpuscular Hemoglobin 29.5 pg (27.0-31.0); Mean Corpuscular Volume 93.3 fL (78.0-98.0); Mean Platelet Volume 8.4 fL (7.4-10.4); Platelet Count 244 thou/uL (130-400); RBC Distribution Width 14.6 % (11.5-14.5); Red Blood Cell (RBC) Count 3.45 mill/uL (4.70-6.10); White Blood Cell (WBC) Count 8.2 thou/uL (4.8-10.8)
[2019-08-23 23:20] LABS: Magnesium 1.9 mg/dL (1.6-2.6); Phosphorus 6.7 mg/dL (2.3-4.7)
[2019-08-23 23:24] LABS: ALT (SGPT) 9 U/L (8-55); AST (SGOT) 12 U/L (5-34); Albumin 3.5 g/dL (3.5-5.0); Alkaline Phosphatase 186 U/L (40-110); Anion Gap 19 mmol/L (10-20); BUN (Urea Nitrogen) 89 mg/dL (8.4-25.7); Bilirubin, Total 0.7 mg/dL (0.2-1.2); Calc. Creatinine Clearance 0 mL/min (70-130); Calcium 8.6 mg/dL (7.8-10.44); Carbon Dioxide 16 mmol/L (22-29); Chloride 107 mmol/L (98-107); Estimated GFR-MDRD 9; Glucose 140 mg/dL (70-105); Potassium 4.9 mmol/L (3.5-5.1); Protein, Total 7.5 g/dL (6.0-8.3); Sodium 137 mmol/L (136-145)
--- NOTE | 2019-08-24 07:45 | RAD ---
Radiograph left knee 4 views: DATE: 08/24/2019 Time: 12:07 AM HISTORY: 59-year-old male status post acute left knee trauma with pain FINDINGS: Obliquely transverse fracture across the mid and upper poles of the patella without displacement. Sup rapatellar hemarthrosis. Diffuse osteopenia. No displaced fracture of distal femur, proximal tibia, or proximal fibula identified. Questionable permeative pattern in proximal tibial metaphysis and diap hysis. Surgical clips at the medial calf. IMPRESSION: Acute, traumatic, nondisplaced patellar fracture, with associated hemarthrosis.
--- NOTE | 2019-09-05 16:11 | EKG ---
Test Reason : Blood Pressure : / mmHG Vent. Rate : 084 BPM Atrial Rate : 084 BPM P-R Int : 148 ms QRS Dur : 096 ms QT Int : 384 ms P-R-T Axes : 028 -36 126 degrees QTc Int : 453 ms Normal sinus rhythm Possible Left atrial enlargement Left axis deviation Pulmonary disease pattern Incomplete right bundle branch block Left ventricular hypertrophy Abnormal ECG Confirmed by OSCAR DICKENS ([id number]), medical editor MEGAN RUBIN ([id number]) on 09/05/2019 4:10:47 PM Referred By: Confirmed By:OSCAR DICKENS
== END 2019-08-24 01:23 | disposition home or self-care (01) ==
LOC: ERS 22:19
DX: S82.002A Unspecified fracture of left patella, initial encounter for closed fracture (principal); E11.22 Type 2 diabetes mellitus with diabetic chronic kidney disease; I12.0 Hypertensive chronic kidney disease with stage 5 chronic kidney disease or end stage renal disease; N18.6 End stage renal disease; Z87.891 Personal history of nicotine dependence; Z79.899 Other long term (current) drug therapy; W18.30XA Fall on same level, unspecified, initial encounter
CPT/HCPCS: 80053; 83735; 84100; 85025; 93005

== ENCOUNTER 2019-12-21 18:02 | Inpatient (IN) | payer MEDICARE, OTHER ==
[2019-12-21 18:36] LABS: #Basophils 0.1 thou/uL (0.0-0.2); #Eosinphils 0.1 thou/uL (0.0-0.7); #Lymphocytes 0.6 thou/uL (1.20-3.40); #Neutrophils 16.8 thou/uL (1.40-6.50); %Basophils 0.5 % (0.0-1.0); %Eosinophils 0.4 % (0.0-10.0); %Lymphocytes 3.2 % (21.0-51.0); %Monocytes 5.5 % (0.0-10.0); %Neutrophils 90.4 % (42.0-75.0); Hemoglobin 10.5 g/dL (14.0-18.0); Mean Corpuscular HGB CONC 33.4 g/dL (32.0-36.0); Mean Corpuscular Hemoglobin 31.9 pg (27.0-31.0); Mean Corpuscular Volume 95.6 fL (78.0-98.0); Mean Platelet Volume 8.6 fL (7.4-10.4); Platelet Count 182 thou/uL (130-400); RBC Distribution Width 14.2 % (11.5-14.5); Red Blood Cell (RBC) Count 3.29 mill/uL (4.70-6.10); White Blood Cell (WBC) Count 18.6 thou/uL (4.8-10.8)
--- NOTE | 2019-12-21 18:39 | RAD ---
PORTABLE CHEST: 12/21/19 PROVIDED CLINICAL HISTORY: Cough and fever. FINDINGS: Comparison 08/11/19. Cardiac and mediastinal silhouette is unchanged in appearance. Right IJ dialysis catheter, median papo rnotomy changes and right subclavian cardiac pacing device are redemonstrated. No focal consolidation , pleural fluid or pneumothorax apparent. IMPRESSION: No evidence for an acute cardiopulmonary process. POS: JETT
[2019-12-21 18:57] LABS: ALT (SGPT) 11 U/L (8-55); AST (SGOT) 12 U/L (5-34); Albumin 3.5 g/dL (3.5-5.0); Alkaline Phosphatase 103 U/L (40-110); Anion Gap 15 mmol/L (10-20); BUN (Urea Nitrogen) 28 mg/dL (8.4-25.7); Bilirubin, Total 0.5 mg/dL (0.2-1.2); Calc. Creatinine Clearance 0 mL/min (70-130); Carbon Dioxide 25 mmol/L (22-29); Chloride 100 mmol/L (98-107); Estimated GFR-MDRD 16; Globulin 3.4 g/dL (2.4-3.5); Glucose 301 mg/dL (70-105); Lipase 14 U/L (8-78); Magnesium 1.7 mg/dL (1.6-2.6); Potassium 3.8 mmol/L (3.5-5.1); Protein, Total 6.9 g/dL (6.0-8.3); Sodium 136 mmol/L (136-145)
[2019-12-21] MEDS ORDERED: Vancomycin 1 GM/200 ML BAG ONE (19:00)
[2019-12-21] MEDS ORDERED: Cefepime 1 GM VIAL ONE ×2 (19:00→20:50)
[2019-12-21] MEDS ORDERED: Acetaminophen 500 MG TAB ONE (19:15)
[2019-12-21 19:19] LABS: CKMB 1.7 ng/mL (0-6.6)
[2019-12-21 19:22] LABS: Bacteria/HPF None Seen HPF (None Seen); Bilirubin Negative (Negative); Blood, Urine Negative (Negative); Clarity Clear (Clear); Glucose, Urine (Dipstick) >=1000 mg/dL (Negative); Ketone, Urine Negative (Negative); Leukocyte Negative Leu/uL (Negative); Nitrite Negative (Negative); Protein, Urine (Dipstick) 300 mg/dL (Neg-Trace); RBC/HPF 0-3 HPF (0-3); Specific Gravity, Urine 1.012 (1.002-1.036); Squamous Epithelial 0-3 HPF (0-3); Urobilinogen Normal mg/dL (Less than 2); WBC/HPF 0-3 HPF (0-3)
[2019-12-21 21:22] LABS: Lactic Acid 2.4 mmol/L (0.5-2.2)
[2019-12-21 21:43] LABS: Troponin I 0.043 ng/mL (< 0.028)
[2019-12-21] MEDS ORDERED: Ondansetron PF 4 MG/2 ML Vial IVP PRN (22:27)
[2019-12-21] MEDS ORDERED: Acetaminophen 325 MG TAB PO PRN (22:27)
[2019-12-21] MEDS ORDERED: Ondansetron ODT 4 MG TAB PO PRN (22:27)
[2019-12-21] MEDS ORDERED: Lactated Ringer's 1,000 ML IV SCH (22:45)
--- NOTE | 2019-12-21 23:53 | PDOC.FPRHP ---
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 The patient says the weakness began after dialysis today. While he was walking, he began to feel lightheaded and hot. + Syncope episode, witnessed by neighbor, onto R side without head trauma. + LOS. No seizure activity noted. The patient immediately regained consciousness without residual confusion. He reports headache afterward that has now resolved. He reports continued generalized weakness and R eye blurriness but denies fever, chills, sweating, headache, chest pain, SOB, abdominal pain, dysuria and edema. Last BM was 3 days ago, atypical for him. The patient was admitted to the hospital in 05/13 and found to have corynebacterium. Echo at that time showed EF of 20-25%. In 2018, he was treated for staph aureus bacteremia. He reports starting dialysis 4 years ago. ED Course: In the ED, the patient was found to be febrile at 102.4, tachycardic in the 110s and tachypneic in the 20s. WBC 18.6 with left shift. Lactate 4.9. Patient received cefepime and vanc. 1.75 L NS given. - Allergies/Adverse Reactions Allergies Allergy/AdvReac Type Severity Reaction Status Date / Time egg Allergy Emesis Verified 12/21/19 23:15 - Home Medications Medication Instructions Recorded Confirmed Type Amlodipine [Norvasc] 5 mg PO DAILY 01/28/19 05/02/19 History Finasteride [Proscar] 5 mg PO DAILY 01/28/19 05/02/19 History Clopidogrel Bisulfate [Plavix] 75 mg PO DAILY 05/02/19 05/02/19 History Docusate Sodium [Stool Softener] 100 mg PO DAILY 05/02/19 05/02/19 History HumuLIN 70/30 [HumuLIN 70/30 Vial] 30 units SC BID-AC 05/02/19 05/02/19 History Lisinopril [Zestril] 10 mg PO DAILY 05/02/19 05/02/19 History Ondansetron [Zofran ODT] 4 mg PO Q6HR PRN 05/02/19 05/02/19 History metFORMIN [Glucophage] 500 mg PO BID-WM 05/02/19 05/02/19 History Cephalexin [Keflex] 250 mg PO TID #30 cap 05/07/19 Rx - History PMHx: ESRD on dialysis T/Th/S, HFrEF (20-25%), CAD s/p cabg, DM2, HLD, HTN, TIA , 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 Previously drank 1 case of beer daily, quit 10 years ago. No drug use. - Review of Systems General: denies: fever/chills, weight/appetite/sleep changes, night sweats, fatigue Eyes: denies: eye pain, vision changes ENT: denies: nasal congestion, rhinorrhea Respiratory: denies: cough, congestion, shortness of breath Cardiovascular: denies: chest pain, palpitation, edema Gastrointestinal: reports: constipation. denies: nausea, vomiting, diarrhea, abdominal pain Genitourinary: denies: dysuria, polyuria Skin: denies: rashes, jaundice Musculoskeletal: denies: pain, tenderness Neurological: reports: weakness. denies: numbness Psychological: denies: anxiety, depression - Vital signs BP: [141/77] HR: [111] RR: [23] Tmax: [98.6] Pox: [99]% on [RA] Wt: [75.206kg ] - Physical Exam Constitutional: NAD, awake, alert and oriented HEENT: normocephalic and atraumatic Neck: supple, trachea midline Chest: no-tender to palpation, no lesions Heart: RRR, normal S1/S2, no murmurs/rubs/gallops, no edema Lungs: CTAB, no respiratory distress Abdomen: soft, non-tender, bowel sounds present Musculoskeletal: normal structure, ROM grossly normal -Neurological: A&O x 4. Skin: no rash/lesions, capillary refill <2 seconds Heme/Lymphatic: no unusual bruising or bleeding Psychiatric: normal mood and affect FMR H&P: Results - Labs Result Diagrams: 12/22/19 04:25 12/22/19 04:25 Lab results: WBC 18.6 thou/uL (4.8-10.8) H 12/21/19 18:22 Hgb 10.5 g/dL (14.0-18.0) L 12/21/19 18:22 Hct 31.5 % (42.0-52.0) L 12/21/19 18:22 MCV 95.6 fL (78.0-98.0) 12/21/19 18:22 Plt Count 182 thou/uL (130-400) 12/21/19 18:22 Neutrophils % 90.4 % (42.0-75.0) H 12/21/19 18:22 Sodium 136 mmol/L (136-145) 12/21/19 18:22 Potassium 3.8 mmol/L (3.5-5.1) 12/21/19 18:22 Chloride 100 mmol/L (98-107) 12/21/19 18:22 Carbon Dioxide 25 mmol/L (22-29) 12/21/19 18:22 BUN 28 mg/dL (8.4-25.7) H 12/21/19 18:22 Creatinine 3.81 mg/dL (0.7-1.3) H 12/21/19 18:22 Glucose 301 mg/dL (70-105) H 12/21/19 18:22 Lactic Acid 2.4 mmol/L (0.5-2.2) H 12/21/19 21:00 Calcium 9.0 mg/dL (7.8-10.44) 12/21/19 18:22 Total Bilirubin 0.5 mg/dL (0.2-1.2) 12/21/19 18:22 AST 12 U/L (5-34) 12/21/19 18:22 ALT 11 U/L (8-55) 12/21/19 18:22 Alkaline Phosphatase 103 U/L (40-110) 12/21/19 18:22 CK-MB (CK-2) 1.7 ng/mL (0-6.6) 12/21/19 18:22 B-Natriuretic Peptide 443.3 pg/mL (0-100) H 12/21/19 18:22 Serum Total Protein 6.9 g/dL (6.0-8.3) 12/21/19 18:22 Albumin 3.5 g/dL (3.5-5.0) 12/21/19 18:22 Lipase 14 U/L (8-78) 12/21/19 18:22 Urine Ketones Negative mg/dL (Negative) 12/21/19 19:00 Urine Blood Negative (Negative) 12/21/19 19:00 Urine Nitrite Negative (Negative) 12/21/19 19:00 Ur Leukocyte Esterase Negative Noemí/uL (Negative) 12/21/19 19:00 Urine RBC 0-3 HPF (0-3) 12/21/19 19:00 Urine WBC 0-3 HPF (0-3) 12/21/19 19:00 Ur Squamous Epith Cells 0-3 HPF (0-3) 12/21/19 19:00 Urine Bacteria None Seen HPF (None Seen) 12/21/19 19:00 - EKG Interpretation EKG: Sinus tachy at 103. LVH. Prolonged QTC at 463. FMR H&P: A/P - Plan Positive SIRS criteria with unknown source Patient meets SIRS criteria due to fever, tachycardia, tachypnea and leukocytosis. Lactic acid 4.9. Does not meet sepsis criteria due to unknown source. UA negative for infection. CXR showed nothing acute. Received cefepime and vanc in ED. Does have hx of bacteremia in the past. -Admit to tele inpatient -F/u COVID -Repeat CBC, BMP, lactic acid -Continue cefepime and vanc, renally dosed, for empiric coverage ESRD on dialysis Cr 3.81 in ED. Received dialysis this am. -Consult nephro in am CAD s/p CABG Trop was 0.033 -> 0.043 in ED. EKG showed no ST segment changes. -Monitor on tele -Trend trop x 3 HFrEF Echo in 05/13 showed EF 20-25%. Received 1.75 L NS in ED. -Monitor for fluid overload QTc prolongation QTc was 463 in the ED. -Avoid medications with can prolong QTc HTN -Does not take meds at home -Monitor HLD -Does not take meds at home TIA CVA x 3 with residual weakness -Baseline unchanged DVT PVD with LLE stent placement -Does not take meds at home -On Heparin for DVT ppx DM2 -Does not take meds at home -Moderate SS Anxiety Bipolar Disorder -Does not take meds at home PCP: [facility] Call Code: FULL DVT PPx: Heparin Dispo: Admit to tele inpatient, eLOS > 48 hours FMR H&P: Upper Level - Plan Date/Time: 12/21/19 2713 Francisca Jordan, have evaluated this patient and agree with findings/plan as outlined by diversity intern resident. Pertinent changes/additions are listed here. 59 yo M with PMH ESRD on HD, HFrEF (EF 20-25%)s/p AICD, CAD s/p CABG, DM2, HLD, HTN, TIA, CVAx3 with residual weakness, PVD, DVT, anxiety presents for generalized weakness. After dialysis he felt lightheaded and had a possible syncopal episode witnessed by neighbor. Denies fever, chills, headache, CP, SOB. In ED given cefepime, tylenol, vanc, 1.75 L NS. PE Gen: NAD, pleasant Heart: RRR, no murmur, cap refill normal Lungs: CTAB Ext: no edema, great toe amputation, pedal pulses weak, pigmentation changes to bilateral LE 59 yo M with complicated PMH presents with weakness and is admitted for positive SIRS criteria. SIRS criteria positive with no known source - Fever of 102.4, tachycardia, tachypnea, WBC 18 with left shift, Lactic acid 4.9->2.4 -Continue Vanc, cefepime (12/20) - s/p nearly 2 L in ED. Considering tachycardia has resolved and BP is stable, will not continue IVF at this time. He has ESRD and EF 20-25%, will monitor strict I/Os - CXR and UA both normal. Continue broad spectrum antibiotics, pending cultures. - R HD catheter could be potential source. Patient does have hx previous corneybacterium (ultimately considered contaminate) and staph aureus UTI bacteremia. - Covid swab pending - Monitor on telemetry ESRD on HD T//Mon - On record review it seems patient had R fistula that clotted and was not amendable to repair. 04/2019 had L fistula surgery. Has gotten dialysis from R IJ catheter - Consult Dr. Cruz if needs dialysis during hospitalization Hyperglycemia - BG elevated to 300 - Discharge summary from 04/2019 was on 70/30, 30 u BID. Patient denies taking any home medications - Moderate SSI, ACHS accuchecks - A1c ordered - Will need to restart a new home regimen and titrate Chronic normocytic anemia - Likely 2/2 chronic disease Indeterminate troponin - 0.033-> - Continue to trend, no chest pain or concern for ACS at this time though patient does have significant cardiac history - EKG with sinus tachycardia, LVH Prolonged QTc - 463 on EKG in ED. Caution with QT prolonging medications. IVF: SL Diet: HH/CC PCP: none Attending: Jorge Luis Dispo: admit to telemetry, inpatient. Expected LOS >48 hours. Patient denies having PCP or taking any home medications. Will need to further discuss barriers to care. Addendum - Attending - Attending Attestation Date/Time: 12/21/19 [id number] I personally evaluated the patient and discussed the management with Dr. Ortega I agree with the History, Examination, Assessment and Plan documented above with any addition or exceptions noted below. The patient admits following a syncopal episode. He meets sirs criteria. No obvious source of infection noted. Blood and urine cultures are pending. CXR does not show pneumonia. Will treat with broad spectrum antibiotics until source is identified. Covid swab pending. Will monitor on telemetry for arrhythmias as a source of the syncope. Trend troponins. Pt does have a history of bacteremia and we will monitor. Pt received fluids for lactic acidosis. Will consult Dr. Cruz for dialysis Monday.
[2019-12-22] MEDS ORDERED: Dextrose 5% in Water 1,000 ML IV PRN (00:45)
[2019-12-22] MEDS ORDERED: Dextrose 50% Abboject 50 ML SYRINGE SLOW IVP PRN (00:45)
[2019-12-22 01:07] LABS: Troponin I 0.126 ng/mL (< 0.028)
[2019-12-22] MEDS ORDERED: Vancomycin HCl 1.25 GM in Sodium Chloride 0.9% 250 ML 250 ML IVPB SCH (03:30)
[2019-12-22] MEDS ORDERED: HOLD VANCOMYCIN FOR LEVEL >20 FS SCH (03:30)
[2019-12-22] MEDS ORDERED: Vancomycin 1 GM in Premix Bag 1 BAG IVPB SCH (03:30)
[2019-12-22] MEDS ORDERED: Vancomycin HCl 500 MG in Sodium Chloride 0.9% 100 ML IVPB SCH (03:30)
[2019-12-22] MEDS ORDERED: Vancomycin HCl 750 MG in Sodium Chloride 0.9% 250 ML 250 ML IVPB SCH ×2 (03:30→21:00)
[2019-12-22 05:17] LABS: #Eosinphils 0.3 thou/uL (0.0-0.7); #Lymphocytes 1.4 thou/uL (1.20-3.40); #Monocytes 1.2 thou/uL (0.11-0.59); #Neutrophils 10.4 thou/uL (1.40-6.50); %Basophils 0.2 % (0.0-1.0); %Eosinophils 2.5 % (0.0-10.0); %Lymphocytes 10.1 % (21.0-51.0); %Monocytes 9.2 % (0.0-10.0); Hemoglobin 9.4 g/dL (14.0-18.0); Mean Corpuscular HGB CONC 32.9 g/dL (32.0-36.0); Mean Corpuscular Hemoglobin 32.2 pg (27.0-31.0); Mean Platelet Volume 8.6 fL (7.4-10.4); Platelet Count 147 thou/uL (130-400); RBC Distribution Width 14.3 % (11.5-14.5); Red Blood Cell (RBC) Count 2.91 mill/uL (4.70-6.10); White Blood Cell (WBC) Count 13.3 thou/uL (4.8-10.8)
[2019-12-22 05:39] LABS: Anion Gap 12 mmol/L (10-20); BUN (Urea Nitrogen) 33 mg/dL (8.4-25.7); Calc. Creatinine Clearance 21 mL/min (70-130); Calcium 8.2 mg/dL (7.8-10.44); Carbon Dioxide 25 mmol/L (22-29); Chloride 104 mmol/L (98-107); Estimated GFR-MDRD 16; Glucose 161 mg/dL (70-105); Potassium 3.7 mmol/L (3.5-5.1); Sodium 137 mmol/L (136-145)
--- NOTE | 2019-12-22 05:40 | PDOC.FM ---
- Subjective Subjective: Mr. Zuluaga feels a bit better this morning. He still complains of some generalized weakness and lightheadedness but says it is improved from yesterday. - Objective Vital Signs & Weight: Vital Signs (12 hours) Temp Pulse Resp BP Pulse Ox 12/22/19 04:00 98.2 F 86 16 156/70 H 100 12/22/19 00:37 98.5 F 88 18 116/56 L 95 12/21/19 22:45 99 12/21/19 22:30 98 12/21/19 20:35 98.2 F 90 18 135/65 99 Weight Weight 75.206 kg Result Diagrams: 12/22/19 04:25 12/22/19 04:25 EKG Reviewed by me: Yes (tele: SR - ) Phys Exam - Physical Examination Constitutional: NAD HEENT: moist MMs, sclera anicteric Neck: no JVD, full ROM Respiratory: no wheezing, no rales, no rhonchi, clear to auscultation bilateral Cardiovascular: RRR, no significant murmur Gastrointestinal: soft, non-tender, no distention, positive bowel sounds Musculoskeletal: no edema, pulses present Neurological: moves all 4 limbs Psychiatric: normal affect, A&O x 3 Dx/Plan - Plan Plan: Positive SIRS criteria with unknown source Patient meets SIRS criteria due to fever, tachycardia, tachypnea and leukocytosis. Lactic acid 4.9. Does not meet sepsis criteria due to unknown source. UA negative for infection. CXR showed nothing acute. Received cefepime and vanc in ED. Does have hx of bacteremia in the past. -Admit to tele inpatient -F/u COVID -WBC: 18.6 > 13.3 -Lactate: 4.9 > 2.4 -Continue cefepime and vanc, renally dosed, for empiric coverage -Will continue inpatient antibiotics until cultures return given patient's history of bacteremia ESRD on dialysis Cr 3.81 in ED. Received dialysis Monday -Consult nephro CAD s/p CABG -trop: 0.033, 0.043, 0.126 -EKG showed no ST segment changes. -Monitor on tele -Consult cardiology HFrEF Echo in 05/13 showed EF 20-25%. Received 1.75 L NS in ED. -Monitor for fluid overload -Strict I/Os -Daily weights Barriers to Care Patient has been prescribed multiple medications for his chronic conditions in the past but says he ran out and does not have a PCP to refill them. -consult CM QTc prolongation QTc was 463 in the ED. -Avoid medications with can prolong QTc HTN -Does not take meds at home -Monitor HLD -Does not take meds at home TIA CVA x 3 with residual weakness -Baseline unchanged DVT PVD with LLE stent placement -Does not take meds at home -On Heparin for DVT ppx DM2 -Does not take meds at home -Moderate SS Anxiety Bipolar Disorder -Does not take meds at home PCP: [facility] Call Code: FULL DVT PPx: Heparin Dispo: Admit to tele inpatient, eLOS > 48 hours Addendum - Attending - Attending Attestation Date/Time: 12/22/19 4990 I personally evaluated the patient and discussed the management with Dr. Giles. I agree with the History, Examination, Assessment and Plan documented above with any addition or exceptions noted below. Cardiac enzymes trended upward. Will consult cardiology. Leukocytosis is improving. Continue antibiotics. Awaiting cultures. Will consult nephrology as pt will need dialysis tomorrow.
[2019-12-22 07:42] LABS: Hemoglobin A1c 7.1 % (4.0-6.0)
[2019-12-22] MEDS: Heparin 5,000 UNITS/ML VIAL SC SCH ×3 (09:10→21:43)
[2019-12-22] MEDS: HumaLOG 300 UNITS/3 ML VIAL SC PRN (11:11)
[2019-12-22 13:44] LABS: SARS-CoV-2 MS2 Positive; SARS-CoV-2 N Gene Negative; SARS-CoV-2 S Gene Negative; SARS-CoV-2 by NAA Not Detected (NotDetected); SARS-CoV-2 orf1ab Negative
--- NOTE | 2019-12-22 14:00 | CT ---
Exam: Head CT without contrast HISTORY: Unwitnessed fall. Head trauma. COMPARISON: 02/10/2019 FINDINGS: Hemorrhage: No intraparenchymal hemorrhage or extra-axial hematoma. Brain parenchyma: Stable encephalomalacia and gliosis involving the right frontal lobe, right occipit al lobe and right parietal lobe.The remainder the cerebrum demonstrates cortical becker-white matter differentiation. Ventricular system: Ventricles and sulci are patent and symmetric. Calvarium: Intact. Sinuses and mastoid air cells: Adequate aeration. IMPRESSION: No intracranial post traumatic sequelae.
--- NOTE | 2019-12-22 15:02 | CON ---
DATE OF CONSULTATION: REASON FOR CONSULTATION: End-stage renal disease. HISTORY OF PRESENT ILLNESS: This is a very pleasant 59-year-old gentleman, sent to the hospital for weakness. The patient does dialysis on Monday, , and Monday. The patient denies any nausea, vomiting, or chest pain at this time. PAST MEDICAL HISTORY: Significant for end-stage kidney disease, hypertension, anemia, congestive heart failure, coronary disease, CABG, TIA, CVA, lower extremity stent, bipolar disorder, hepatitis A, and left toe amputation. SOCIOECONOMIC HISTORY: No alcohol or drug use. FAMILY HISTORY: Negative for ESRD. ALLERGIES: REVIEWED. MEDICATIONS: Home medications list reviewed. Hospital medications list reviewed. REVIEW OF SYSTEMS: Fifteen-point review of system was performed and negative except for positives noted above. HEENT: Eyes intact, no diplopia. Ears: No hearing loss or earache. Nose: No discharge or bleeding. CHEST: No cough or phlegm. ABDOMEN: No nausea or vomiting. GENITOURINARY: No hematuria. No Holland catheter. MUSCULOSKELETAL: No low back pain. No joint swelling or pain. NEUROLOGICAL: No syncope. No seizures. SKIN: No complaints of rash or itching. PSYCHIATRIC: No depression. CONSTITUTIONAL: No weight loss or loss of appetite. PHYSICAL EXAMINATION: GENERAL: On exam, the patient is awake and alert. VITAL SIGNS: Afebrile, pulse 84, breathing at 16, and blood pressure 140/68. HEENT: Head normocephalic and atraumatic. Eyes intact, no ulcers. Nose intact, no ulcers. Ears intact, no ulcers. NECK: Supple. No JVD. CHEST: Symmetrical and clear. CARDIOVASCULAR: Shows S1 and S2, no rub, no murmur. GASTROINTESTINAL: Abdomen is soft, bowel sounds positive. EXTREMITIES: Show no edema or ulcers. SKIN: Shows no rash or petechiae. MUSCULOSKELETAL: Shows no joint swelling or stiffness. GENITOURINARY: Shows no Holland or CVA tenderness. NEUROLOGIC: Motor intact. Cranial nerves intact. LABORATORY DATA: Hemoglobin 9.4. Potassium 3.7. ASSESSMENT AND PLAN: 1. Stage 6 chronic kidney disease, stable. 2. Hypertension, stable. 3. Anemia, stable. 4. Medications based on glomerular filtration rate are appropriate. Job ID: [id number]
--- NOTE | 2019-12-22 16:30 | CON ---
DATE OF CONSULTATION: 12/22/2019 REASON FOR CONSULTATION: Positive troponins. HISTORY OF PRESENT ILLNESS: Mr. Zuluaga is a 59-year-old gentleman, who comes to the hospital for generalized weakness. Feeling lightheaded and hot, he had a syncopal episode witnessed by the neighbor, hit his head on the right side, came in. No seizure activity was seen. He came in and a CT of the head was done, which was unremarkable. He was a little bit confused after the episode. He continues to be weak, blurriness in the right eye. Denies fever or chills. During his admission, troponin was drawn, which was indeterminate, so Cardiology is being consulted for this. PAST MEDICAL HISTORY: 1. Ischemic cardiomyopathy, EF at 20% to 25%. 2. AICD in situ. 3. Coronary artery disease, status post CABG x4 in 2013. 4. End-stage renal disease, on hemodialysis with noncompliance. 5. Hypertension. 6. Type 2 diabetes. 7. Hyperlipidemia. SURGICAL HISTORY: 1. CABG x4 in 2013. 2. Right chest wall tunneled dialysis catheter. 3. Left toe amputation. 4. Left lower extremity stent. 5. Left big toe amputation. SOCIAL HISTORY: No alcohol, tobacco, or drugs. Former tobacco user, quit several years back. FAMILY HISTORY: Noncontributory. REVIEW OF SYSTEMS: A 12-point review of systems was done and was found to be negative other than stated in the history of present illness. OUTPATIENT MEDICATIONS: 1. Amlodipine 5 mg a day. 2. Finasteride 5 mg a day. 3. Clopidogrel 75 mg a day. 4. Docusate 100 a day. 5. Humulin 70/30. 6. Lisinopril 10 mg a day. 7. Ondansetron 4 mg p.r.n. 8. Metformin. 9. Cephalexin. PHYSICAL EXAMINATION: VITAL SIGNS: Temperature 97.8, pulse 78, respiratory rate 20, saturating 94% on room air, blood pressure 149/72. GENERAL: Awake, alert, and oriented x3, in no distress. HEENT: Normocephalic and atraumatic. NECK: Supple. LUNGS: Clear. CARDIOVASCULAR: S1 and S2. No S3 or S4. There is a grade 2/6 systolic murmur at left sternal border. ABDOMEN: Soft, positive bowel sounds. EXTREMITIES: No edema. SKIN: Warm and dry. LABORATORY WORK: Reviewed. White count of 18, down to 13; hemoglobin of 10, down to 9; hematocrit 31, platelet count of 182. Chemistries were unremarkable except for BUN 33, creatinine 3.96, with GFR of 16. Hemoglobin A1c of 7.1. Calcium 8.2. Troponin was 0.03, 0.04, 0.12, indeterminate range. Procalcitonin 5.22. Lactic acid was 2.4, down from 4.9. BNP was 443. UA was unremarkable. COVID PCR was not detected. CT of the brain was unremarkable. Chest x-ray was unremarkable. ASSESSMENT AND PLAN: 1. Elevated troponins. Likely type 2 demand type of ischemia. This is just a very mild troponin elevation in the intermediate range, which is normal to have on a patient on hemodialysis. We would get an echocardiogram and if it is unchanged with no evidence of endocarditis, we would not pursue any further endocarditis workup unless he develops positive blood cultures. 2. No plan on heart catheterization, given minimally elevated troponins; however , he will need risk stratification in the next few weeks as long as he follows up. Thank you for letting us to participate in the care of your patient. We will follow. Job ID: [id number] [facility]
[2019-12-22 19:37] LABS: Vancomycin, Random 12.6 ug/mL (See Comment)
[2019-12-22] MEDS: Cefepime 1 GM in Sodium Chloride 0.9% 100 ML IVPB SCH (21:43)
[2019-12-23 05:09] LABS: #Basophils 0.1 thou/uL (0.0-0.2); #Eosinphils 0.7 thou/uL (0.0-0.7); #Lymphocytes 1.3 thou/uL (1.20-3.40); #Monocytes 1.4 thou/uL (0.11-0.59); #Neutrophils 7.6 thou/uL (1.40-6.50); %Basophils 0.7 % (0.0-1.0); %Monocytes 12.2 % (0.0-10.0); Hemoglobin 9.6 g/dL (14.0-18.0); Mean Corpuscular HGB CONC 32.8 g/dL (32.0-36.0); Mean Corpuscular Hemoglobin 31.9 pg (27.0-31.0); Mean Corpuscular Volume 97.4 fL (78.0-98.0); Mean Platelet Volume 9.1 fL (7.4-10.4); Platelet Count 164 thou/uL (130-400); RBC Distribution Width 14.2 % (11.5-14.5); Red Blood Cell (RBC) Count 3.02 mill/uL (4.70-6.10); White Blood Cell (WBC) Count 11.1 thou/uL (4.8-10.8)
[2019-12-23 05:30] LABS: Sodium 136 mmol/L (136-145)
[2019-12-23 05:31] LABS: Anion Gap 14 mmol/L (10-20); BUN (Urea Nitrogen) 45 mg/dL (8.4-25.7); Calc. Creatinine Clearance 17 mL/min (70-130); Calcium 8.4 mg/dL (7.8-10.44); Carbon Dioxide 21 mmol/L (22-29); Chloride 105 mmol/L (98-107); Estimated GFR-MDRD 12; Glucose 134 mg/dL (70-105); Potassium 4.1 mmol/L (3.5-5.1)
--- NOTE | 2019-12-23 05:31 | PDOC.FM ---
- Subjective Subjective: patient reports that he is having persistent dysuria. Denies frequency, afebrile overnight. Otherwise no acute concerns. - Objective MAR Reviewed: Yes Vital Signs & Weight: Vital Signs (12 hours) Temp Pulse Resp BP BP Pulse Ox 12/23/19 04:38 96 12/23/19 04:01 97.9 F 92 20 172/79 H 98 12/23/19 00:19 97.9 F 84 12 154/78 H 97 12/22/19 21:36 98.4 F 85 19 163/77 H 95 Weight Weight 75.206 kg I&O: 12/21/19 12/22/19 12/23/19 06:59 06:59 06:59 Intake Total 2880 900 Output Total 150 150 Balance 2730 750 Result Diagrams: 12/23/19 04:40 12/23/19 04:40 Phys Exam - Physical Examination Constitutional: NAD HEENT: moist MMs, sclera anicteric Respiratory: no wheezing, no rales, no rhonchi, clear to auscultation bilateral Cardiovascular: RRR, no significant murmur, no rub Gastrointestinal: soft, no distention, positive bowel sounds Mild suprapubic tenderness Musculoskeletal: no edema, pulses present Dx/Plan - Plan Plan: Positive SIRS criteria with unknown source Patient meets SIRS criteria due to fever, tachycardia, tachypnea and leukocytosis. Lactic acid 4.9. Does not meet sepsis criteria due to unknown source. UA negative for infection. CXR showed nothing acute. Received cefepime and vanc in ED. Does have hx of bacteremia in the past. -WBC: 18.6 > 11.1 -Lactate: 4.9 > 2.4 -Continue abx coverage, consider switching to oral given BCx results - trend procal ESRD on dialysis (//Mon) Cr 3.81 in ED. Received dialysis Monday -Consulted nephro CAD s/p CABG -trop: 0.033, 0.043, 0.126 -EKG showed no ST segment changes. -Monitor on tele - High intensity statin -Consult cardiology - ECHO to look for endocarditis, no plans for cath at this time HFrEF Echo in 05/13 showed EF 20-25%. Received 1.75 L NS in ED. -Monitor for fluid overload -Strict I/Os -Daily weights -Start Coreg 3.125, increase as tolerated Barriers to Care Patient has been prescribed multiple medications for his chronic conditions in the past but says he ran out and does not have a PCP to refill them. -consulted CM QTc prolongation QTc was 463 in the ED. -Avoid medications with can prolong QTc HTN -Does not take meds at home -Monitor HLD -Does not take meds at home TIA CVA x 3 with residual weakness -Baseline unchanged DVT PVD with LLE stent placement -Does not take meds at home -On Heparin for DVT ppx DM2 -Does not take meds at home -Moderate SS - Likely metformin on DC Anxiety Bipolar Disorder -Does not take meds at home PCP: [facility] Call Code: FULL DVT PPx: Heparin Dispo: Admit to tele inpatient, eLOS > 48 hours Addendum - Attending - Attending Attestation Date/Time: 12/23/19 6908 I personally evaluated the patient and discussed the management with Dr. Vázquez. I agree with the History, Examination, Assessment and Plan documented above with any addition or exceptions noted below. Patient feeling improved. We will work to start him back on his chronic home meds. Need to ensure culture was obtained from his tunneled catheter as this could be source of infection. Monitor tele strip to ensure no dysrhythmia causes of his syncopal event. Continue antibiotics.
[2019-12-23 06:11] VITALS: BMI 24.7
[2019-12-23 06:27] LABS: Hemoglobin A1c 6.9 % (4.0-6.0)
[2019-12-23 06:38] LABS: Cardiac Risk 3.6 (Less than 4.5)
[2019-12-23] MEDS: Heparin 5,000 UNITS/ML VIAL SC SCH ×3 (08:08→22:24)
[2019-12-23] MEDS: HumaLOG 300 UNITS/3 ML VIAL SC PRN (11:13)
[2019-12-23] MEDS ORDERED: Clopidogrel Bisulfate 300 MG TAB PO SCH (14:15)
--- NOTE | 2019-12-23 14:24 | PDOC.CPN ---
- Subjective Date: 12/23/19 Time: 14:21 Interval history: No new issues. No angina. - Review of Systems General: denies: fever/chills, weight/appetite/sleep changes, night sweats, fatigue Respiratory: denies: cough, congestion, shortness of breath, exercise intolerance Cardiovascular: denies: chest pain, palpitation, edema, paroxysmal nocturnal dyspnea, orthopnea Gastrointestinal: denies: nausea, vomiting, diarrhea, constipation, abd pain, GI bleeding Musculoskeletal: denies: pain, tenderness, stiffness, swelling, arthritis/ arthralgias Neurological: denies: numbness, syncope, seizure, weakness - Objective Allergies/Adverse Reactions: Allergies Allergy/AdvReac Type Severity Reaction Status Date / Time egg Allergy Emesis Verified 12/21/19 23:15 Visit Medications: Current Medications Acetaminophen (Tylenol) 650 mg PO Q4H PRN PRN Reason: Headache/Fever/Mild Pain (1-3) Atorvastatin Calcium (Lipitor) 40 mg PO HS [facility] Carvedilol (Coreg) 3.125 mg PO BID-WM [facility] Clopidogrel Bisulfate (Plavix) 75 mg PO DAILY [facility] Clopidogrel Bisulfate (Plavix) 300 mg PO NOW [facility] Stop: 12/23/19 16:15 Dextrose/Water (Dextrose 50%) 25 gm SLOW IVP PRN PRN PRN Reason: Hypoglycemia Glucagon (Glucagon) 1 mg IM PRN PRN PRN Reason: Hypoglycemia Heparin Sodium (Porcine) (Heparin) 5,000 units SC TID [facility] Last Admin: 12/23/19 14:09 Dose: 5,000 units Dextrose/Water (D5w) 1,000 mls @ 0 mls/hr IV .Q0M PRN PRN Reason: Hypoglycemia Cefepime HCl 1 gm/ Sodium (Chloride) 100 mls @ 200 mls/hr IVPB 2100 [facility] Last Admin: 12/22/19 21:43 Dose: 100 mls Vancomycin HCl 1.25 gm/ Sodium (Chloride) 250 mls @ 166.667 mls/hr IVPB [facility]CALL [facility] Vancomycin HCl 1 gm/ Device 200 mls @ 200 mls/hr IVPB [facility] Vancomycin HCl 750 mg/ Sodium (Chloride) 250 mls @ 250 mls/hr IVPB [facility] Vancomycin HCl 500 mg/ Sodium (Chloride) 100 mls @ 100 mls/hr IVPB [facility] Insulin Human Lispro (Humalog) 0 units SC .MODERATE SLIDING SC PRN PRN Reason: Moderate Correctional Scale Last Admin: 12/23/19 11:13 Dose: 6 unit Miscellaneous Medication (Pharmacy To Dose) 1 each IVPB PRN PRN PRN Reason: Pharmacy to dose Hold Vancomycin For (Level >20) 0 each FS .AT [facility] Ondansetron HCl (Zofran Odt) 4 mg PO Q6H PRN PRN Reason: Nausea/Vomiting Ondansetron HCl (Zofran) 4 mg IVP Q6H PRN PRN Reason: Nausea/Vomiting Vital Signs & Weight: Vital Signs Temp Pulse Resp BP BP Pulse Ox 12/23/19 11:55 98 F 80 16 176/90 H 99 12/23/19 08:00 97 12/23/19 07:25 98.2 F 82 18 173/82 H 97 12/23/19 04:38 96 12/23/19 04:01 97.9 F 92 20 172/79 H 98 Weight 172 lb 12.8 oz - Physical Exam General: alert & oriented x3 HEENT: mucus membranes moist Neck: supple neck Cardiac: regular rate and rhythm Lungs: clear to auscultation Neuro: grossly intact Abdomen: active bowel sounds Extremities: no edema Skin: clear Musculoskeletal: no pain - Labs Result Diagrams: 12/23/19 04:40 12/23/19 04:40 Troponin/CKMB CK-MB (CK-2) 1.7 ng/mL (0-6.6) 12/21/19 18:22 Troponin I 0.126 ng/mL (< 0.028) H 12/22/19 00:34 - Telemetry Sinus rhythms and dysrhythmias: sinus rhythm - Assessment/Plan Assessment/Plan: 1. Type 2 demand ischemia. 2. ESRD 3. Ischemic CM EF 20-25% 4. AICD in place.
--- NOTE | 2019-12-23 14:59 | PRG ---
DATE OF SERVICE: 12/23/2019 SUBJECTIVE: Patient was seen and examined at bedside and overnight events noted. Patient denies any shortness of breath or chest pain or palpitation. No history of nausea or vomiting or diarrhea or fever or chills or cramps. OBJECTIVE: GENERAL: This is well-built male, in no apparent distress. VITAL SIGNS: Temperature 98.2. Heart Rate 82. Respiratory rate 18. Blood pressure 173/82. HEENT: Atraumatic, normocephalic. Oral mucosa is moist. NECK: Supple. CARDIOVASCULAR: S1, S2 heard. Rate and rhythm regular. RESPIRATORY: Clear to auscultation. GASTROINTESTINAL: Abdomen is soft. MUSCULOSKELETAL: No tenderness. No edema. DERMATOLOGIC: No skin rash. NEUROLOGIC: Alert and awake and oriented x3. No focal neurologic deficits. Moving all the extremities. PSYCHIATRIC: Mood and affect normal. LABORATORY DATA: Potassium is 4.1, BUN is 45, and creatinine is 4.9. ASSESSMENT AND PLAN: 1. End-stage renal disease. Continue dialysis TTS. 2. Edema. 3. Hypertension. 4. Anemia. Continue dialysis TTS as tolerated. Job ID: [id number]
[2019-12-23] MEDS: Carvedilol 3.125 MG TAB PO SCH (16:13)
[2019-12-23] MEDS: Cefepime 1 GM in Sodium Chloride 0.9% 100 ML IVPB SCH (22:23)
[2019-12-23] MEDS: Atorvastatin Calcium 40 MG TAB PO SCH (22:24)
[2019-12-23] MEDS: Calcium Carbonate 500 MG TAB PO SCH (22:24)
[2019-12-24 04:44] LABS: #Eosinphils 0.7 thou/uL (0.0-0.7); #Lymphocytes 1.6 thou/uL (1.20-3.40); #Monocytes 0.9 thou/uL (0.11-0.59); #Neutrophils 5.2 thou/uL (1.40-6.50); %Basophils 0.4 % (0.0-1.0); %Eosinophils 7.9 % (0.0-10.0); %Lymphocytes 19.2 % (21.0-51.0); %Monocytes 10.5 % (0.0-10.0); %Neutrophils 62.1 % (42.0-75.0); Hemoglobin 9.4 g/dL (14.0-18.0); Mean Corpuscular HGB CONC 32.9 g/dL (32.0-36.0); Mean Corpuscular Hemoglobin 31.3 pg (27.0-31.0); Mean Platelet Volume 9.2 fL (7.4-10.4); Platelet Count 181 thou/uL (130-400); RBC Distribution Width 13.9 % (11.5-14.5); Red Blood Cell (RBC) Count 3.02 mill/uL (4.70-6.10); White Blood Cell (WBC) Count 8.4 thou/uL (4.8-10.8)
[2019-12-24 05:03] LABS: Anion Gap 16 mmol/L (10-20); BUN (Urea Nitrogen) 50 mg/dL (8.4-25.7); Calc. Creatinine Clearance 16 mL/min (70-130); Carbon Dioxide 23 mmol/L (22-29); Chloride 103 mmol/L (98-107); Estimated GFR-MDRD 10; Glucose 125 mg/dL (70-105); Potassium 4.3 mmol/L (3.5-5.1); Sodium 138 mmol/L (136-145)
--- NOTE | 2019-12-24 05:50 | PDOC.FM ---
- Subjective Subjective: Patient reports that he is doing well. No acute concerns. - Objective MAR Reviewed: Yes Vital Signs & Weight: Vital Signs (12 hours) Temp Pulse Resp BP Pulse Ox 12/24/19 04:52 97.8 F 75 16 159/83 H 98 12/23/19 23:35 98.1 F 75 19 158/93 H 96 12/23/19 20:16 98.2 F 71 20 163/90 H 97 Weight Admit Weight 75.206 kg Weight 78.381 kg I&O: 12/22/19 12/23/19 12/24/19 06:59 06:59 06:59 Intake Total 2880 900 582 Output Total 104 163 8557 Balance 2730 750 -503 Result Diagrams: 12/24/19 04:13 12/24/19 04:13 Phys Exam - Physical Examination Constitutional: NAD HEENT: moist MMs, sclera anicteric Respiratory: no wheezing, no rales, no rhonchi, clear to auscultation bilateral Cardiovascular: RRR, no significant murmur, no rub Gastrointestinal: soft, non-tender, no distention, positive bowel sounds Musculoskeletal: no edema, pulses present R sided AV fistula, thrill present Neurological: non-focal, moves all 4 limbs Dx/Plan - Plan Plan: Positive SIRS criteria with unknown source Patient meets SIRS criteria due to fever, tachycardia, tachypnea and leukocytosis. Lactic acid 4.9. Does not meet sepsis criteria due to unknown source. UA negative for infection. CXR showed nothing acute. Received cefepime and vanc in ED. Does have hx of bacteremia in the past. -WBC: 18.6 > 11.1 -Lactate: 4.9 > 2.4 -Continue abx coverage, Tunnel cath culture in progress ESRD on dialysis (//Mon) Cr 3.81 in ED. Received dialysis Monday -Consulted nephro CAD s/p CABG -trop: 0.033, 0.043, 0.126 -EKG showed no ST segment changes. -Monitor on tele - High intensity statin -Consult cardiology - ECHO to look for endocarditis, no plans for cath at this time HFrEF Echo in 05/13 showed EF 20-25%. Received 1.75 L NS in ED. -Monitor for fluid overload -Strict I/Os -Daily weights -Start Coreg 3.125, increase as tolerated -Consider interrogation of AICD today Barriers to Care Patient has been prescribed multiple medications for his chronic conditions in the past but says he ran out and does not have a PCP to refill them. -consulted CM QTc prolongation QTc was 463 in the ED. -Avoid medications with can prolong QTc HTN -Does not take meds at home -Monitor HLD - high intensity statin TIA CVA x 3 with residual weakness -Baseline unchanged DVT PVD with LLE stent placement -Does not take meds at home -On Heparin for DVT ppx - ASA and Plavix DM2 -Does not take meds at home -Moderate SS - Likely metformin on DC Anxiety Bipolar Disorder -Does not take meds at home PCP: [facility] Call Code: FULL DVT PPx: Heparin Dispo: Admit to tele inpatient, eLOS > 48 hours Addendum - Attending - Attending Attestation Date/Time: 12/24/19 1112 I personally evaluated the patient and discussed the management with Dr. Váqzuez. I agree with the History, Examination, Assessment and Plan documented above with any addition or exceptions noted below. Patient stable. Undergoing HD at this time. Awaiting initial line cultures, further recs from Cardiology and Nephrology. Continue IV abx for now.
[2019-12-24 06:48] LABS: Vancomycin, Random 17.7 ug/mL (See Comment)
[2019-12-24] MEDS: Calcium Carbonate 500 MG TAB PO SCH ×3 (10:57→20:20)
[2019-12-24] MEDS: Carvedilol 3.125 MG TAB PO SCH ×2 (10:57→16:24)
[2019-12-24] MEDS: Heparin 5,000 UNITS/ML VIAL SC SCH ×3 (10:57→20:21)
[2019-12-24] MEDS ORDERED: Heparin 10,000 UNITS/ 10 ML VIAL ONE (11:30)
[2019-12-24] MEDS: Clopidogrel Bisulfate 75 MG TAB PO SCH (13:53)
[2019-12-24] MEDS: Lisinopril 10 MG TAB PO SCH (13:53)
[2019-12-24] MEDS: Finasteride 5 MG TAB PO SCH (13:53)
--- NOTE | 2019-12-24 16:57 | PDOC.CPN ---
- Subjective Date: 12/24/19 Time: 16:56 Interval history: No new issues. No chest pain. - Review of Systems General: denies: fever/chills, weight/appetite/sleep changes, night sweats, fatigue Respiratory: denies: cough, congestion, shortness of breath, exercise intolerance Cardiovascular: denies: chest pain, palpitation, edema, paroxysmal nocturnal dyspnea, orthopnea Gastrointestinal: denies: nausea, vomiting, diarrhea, constipation, abd pain, GI bleeding Musculoskeletal: denies: pain, tenderness, stiffness, swelling, arthritis/ arthralgias Neurological: denies: numbness, syncope, seizure, weakness - Objective Allergies/Adverse Reactions: Allergies Allergy/AdvReac Type Severity Reaction Status Date / Time egg Allergy Emesis Verified 12/21/19 23:15 Visit Medications: Current Medications Acetaminophen (Tylenol) 650 mg PO Q4H PRN PRN Reason: Headache/Fever/Mild Pain (1-3) Last Admin: 12/23/19 22:22 Dose: 650 mg Atorvastatin Calcium (Lipitor) 40 mg PO HS [facility] Last Admin: 12/23/19 22:24 Dose: 40 mg Calcium Carbonate (Oscal-500) 2,000 mg PO TID [facility] Last Admin: 12/24/19 15:11 Dose: 2,000 mg Carvedilol (Coreg) 3.125 mg PO BID-[facility] Last Admin: 12/24/19 16:24 Dose: 3.125 mg Clopidogrel Bisulfate (Plavix) 75 mg PO DAILY [facility] Last Admin: 12/24/19 13:53 Dose: 75 mg Dextrose/Water (Dextrose 50%) 25 gm SLOW IVP PRN PRN PRN Reason: Hypoglycemia Doxycycline Hyclate (Vibramycin) 100 mg PO BID [facility] Stop: 12/31/19 21:01 Finasteride (Proscar) 5 mg PO DAILY [facility] Last Admin: 12/24/19 13:53 Dose: 5 mg Glucagon (Glucagon) 1 mg IM PRN PRN PRN Reason: Hypoglycemia Heparin Sodium (Porcine) (Heparin) 5,000 units SC TID [facility] Last Admin: 12/24/19 15:12 Dose: 5,000 units Dextrose/Water (D5w) 1,000 mls @ 0 mls/hr IV .Q0M PRN PRN Reason: Hypoglycemia Insulin Human Lispro (Humalog) 0 units SC .MODERATE SLIDING SC PRN PRN Reason: Moderate Correctional Scale Last Admin: 12/23/19 11:13 Dose: 6 unit Lisinopril (Zestril) 10 mg PO DAILY [facility] Last Admin: 12/24/19 13:53 Dose: 10 mg Ondansetron HCl (Zofran Odt) 4 mg PO Q6H PRN PRN Reason: Nausea/Vomiting Ondansetron HCl (Zofran) 4 mg IVP Q6H PRN PRN Reason: Nausea/Vomiting Vital Signs & Weight: Vital Signs Temp Pulse Resp BP BP Pulse Ox 12/24/19 15:40 98.3 F 77 18 161/100 H 98 12/24/19 13:00 97.4 F L 82 15 181/97 H 100 12/24/19 08:25 97.4 F L 89 19 189/108 H 95 12/24/19 08:00 95 Admit Weight 165 lb 12.8 oz Weight 168 lb - Physical Exam General: alert & oriented x3 HEENT: mucus membranes moist Neck: supple neck Cardiac: regular rate and rhythm Lungs: normal breath sounds Neuro: grossly intact Abdomen: active bowel sounds Extremities: no edema Skin: clear Musculoskeletal: no pain - Labs Result Diagrams: 12/24/19 04:13 12/24/19 04:13 Troponin/CKMB CK-MB (CK-2) 1.7 ng/mL (0-6.6) 12/21/19 18:22 Troponin I 0.126 ng/mL (< 0.028) H 12/22/19 00:34 - Telemetry Sinus rhythms and dysrhythmias: sinus rhythm - Assessment/Plan Assessment/Plan: 1. Type 2 demand ischemia. 2. ESRD 3. Ischemic CM EF 20-25% 4. AICD in place. PLAN: - No plan for LHC during this hospital stay. - Would want him to gt over this septic like picture - Follow up in the office in 2-4 weeks for ischemic evaluation. - Will sign off. Please call with any questions.
[2019-12-24] MEDS: HumaLOG 300 UNITS/3 ML VIAL SC PRN (17:24)
[2019-12-24] MEDS: Doxycycline 100 MG CAP PO SCH (20:20)
[2019-12-24] MEDS: Atorvastatin Calcium 40 MG TAB PO SCH (20:21)
[2019-12-25 05:16] LABS: #Eosinphils 0.7 thou/uL (0.0-0.7); #Lymphocytes 1.4 thou/uL (1.20-3.40); #Monocytes 0.9 thou/uL (0.11-0.59); #Neutrophils 4.8 thou/uL (1.40-6.50); %Basophils 0.6 % (0.0-1.0); %Eosinophils 8.6 % (0.0-10.0); %Lymphocytes 17.7 % (21.0-51.0); %Monocytes 11.2 % (0.0-10.0); %Neutrophils 61.9 % (42.0-75.0); Hemoglobin 10.2 g/dL (14.0-18.0); Mean Corpuscular HGB CONC 34.1 g/dL (32.0-36.0); Mean Corpuscular Hemoglobin 32.2 pg (27.0-31.0); Mean Corpuscular Volume 94.4 fL (78.0-98.0); Mean Platelet Volume 8.9 fL (7.4-10.4); Platelet Count 192 thou/uL (130-400); RBC Distribution Width 13.7 % (11.5-14.5); Red Blood Cell (RBC) Count 3.18 mill/uL (4.70-6.10); White Blood Cell (WBC) Count 7.8 thou/uL (4.8-10.8)
--- NOTE | 2019-12-25 05:37 | PDOC.FM ---
- Subjective Subjective: Patient with mild MONTERO this morning. Discussed trying Tylenol for pain control. Otherwise feeling well. - Objective MAR Reviewed: Yes Vital Signs & Weight: Weight Admit Weight 75.206 kg Weight 76.204 kg I&O: 12/23/19 12/24/19 12/25/19 06:59 06:59 06:59 Intake Total 900 582 460 Output Total 150 1085 3375 Balance 923 -280 -7066 Result Diagrams: 12/25/19 04:53 12/25/19 04:52 Phys Exam - Physical Examination Constitutional: NAD HEENT: moist MMs, sclera anicteric Respiratory: no wheezing, no rales, no rhonchi, clear to auscultation bilateral Cardiovascular: RRR, no significant murmur, no rub Gastrointestinal: soft, non-tender, no distention, positive bowel sounds Musculoskeletal: no edema, pulses present Dx/Plan - Plan Plan: Positive SIRS criteria with unknown source Patient meets SIRS criteria due to fever, tachycardia, tachypnea and leukocytosis. Lactic acid 4.9. Does not meet sepsis criteria due to unknown source. UA negative for infection. CXR showed nothing acute. Received cefepime and vanc in ED. Does have hx of bacteremia in the past. -WBC: 18.6 > 11.1 -Lactate: 4.9 > 2.4 -Continue abx coverage, Tunnel cath culture in progress ESRD on dialysis () Cr 3.81 in ED. Received dialysis Monday -Consulted nephro CAD s/p CABG -trop: 0.033, 0.043, 0.126 -EKG showed no ST segment changes. -Monitor on tele - High intensity statin -Consulted cardiology - ECHO to look for endocarditis, no plans for cath at this time HFrEF Echo in 05/13 showed EF 20-25%. Received 1.75 L NS in ED. -Monitor for fluid overload -Strict I/Os -Daily weights -Start Coreg 3.125, increase as tolerated -Consider interrogation of AICD today Barriers to Care Patient has been prescribed multiple medications for his chronic conditions in the past but says he ran out and does not have a PCP to refill them. -consulted CM QTc prolongation QTc was 463 in the ED. -Avoid medications with can prolong QTc HTN -Does not take meds at home -Monitor HLD - high intensity statin TIA CVA x 3 with residual weakness -Baseline unchanged DVT PVD with LLE stent placement -Does not take meds at home -On Heparin for DVT ppx - ASA and Plavix DM2 -Does not take meds at home -Moderate SS - Likely metformin on DC Anxiety Bipolar Disorder -Does not take meds at home PCP: Lianet Call Code: FULL DVT PPx: Heparin Dispo: Likely DC today pending ECHO report Addendum - Attending - Attending Attestation Date/Time: 12/25/19 1191 I personally evaluated the patient and discussed the management with Dr. Vázquez. I agree with the History, Examination, Assessment and Plan documented above with any addition or exceptions noted below. Patient feels well. Will escalate his Coreg, but he is otherwise stable for dc and will complete course of PO abx in the outpatient setting. Continue HD per his chronic schedule.
[2019-12-25 05:43] LABS: Anion Gap 13 mmol/L (10-20); BUN (Urea Nitrogen) 24 mg/dL (8.4-25.7); Calc. Creatinine Clearance 22 mL/min (70-130); Carbon Dioxide 26 mmol/L (22-29); Chloride 101 mmol/L (98-107); Estimated GFR-MDRD 16; Glucose 94 mg/dL (70-105); Potassium 3.8 mmol/L (3.5-5.1); Sodium 136 mmol/L (136-145)
[2019-12-25] MEDS: Calcium Carbonate 500 MG TAB PO SCH ×2 (08:42→16:10)
[2019-12-25] MEDS: Heparin 5,000 UNITS/ML VIAL SC SCH ×2 (08:42→16:10)
[2019-12-25] MEDS: Carvedilol 3.125 MG TAB PO SCH (08:42)
[2019-12-25] MEDS: Clopidogrel Bisulfate 75 MG TAB PO SCH (08:42)
[2019-12-25] MEDS: Doxycycline 100 MG CAP PO SCH (08:42)
[2019-12-25] MEDS: Lisinopril 10 MG TAB PO SCH (08:43)
[2019-12-25] MEDS: Finasteride 5 MG TAB PO SCH (08:43)
[2019-12-25] MEDS ORDERED: Carvedilol 3.125 MG TAB PO SCH (10:15)
--- NOTE | 2019-12-25 10:28 | PRG ---
DATE OF SERVICE: 12/24/2019 SUBJECTIVE: Patient was seen and examined at bedside and overnight events noted. Patient denies any shortness of breath or chest pain or palpitation. No history of nausea or vomiting or diarrhea or fever or chills or cramps. OBJECTIVE: GENERAL: This is a well-built male, in no apparent distress. VITAL SIGNS: Temperature 97.4. Heart rate . Respiratory rate . Blood pressure 189/108. HEENT: Atraumatic, normocephalic. Oral mucosa is moist NECK: Supple. CARDIOVASCULAR: S1, S2 heard. Rate and rhythm regular. RESPIRATORY: Clear to auscultation. GASTROINTESTINAL: Abdomen is soft. MUSCULOSKELETAL: No tenderness. No edema. DERMATOLOGIC: No skin rash. NEUROLOGIC: Alert and awake and oriented X3. No focal neurologic deficits. Moving all the extremities. PSYCHIATRIC: Mood and affect normal. LABORATORY DATA: Potassium 4.3, BUN is 50, creatinine is 5.5. ASSESSMENT AND PLAN: 1. End-stage renal disease. Continue hemodialysis. The patient was seen during dialysis, tolerating well. We will continue dialysis TTS as tolerated. 2. Edema, . 3. Hypertension. 4. Anemia of chronic disease. Continue dialysis as tolerated. The patient was seen during dialysis, tolerating well. Job ID: [id number]
[2019-12-25] MEDS: HumaLOG 300 UNITS/3 ML VIAL SC PRN (11:21)
--- NOTE | 2019-12-25 12:47 | PRG ---
DATE OF SERVICE: 12/25/2019 SUBJECTIVE: Patient was seen and examined at bedside and overnight events noted. Patient denies any shortness of breath or chest pain or palpitation. No history of nausea or vomiting or diarrhea or fever or chills or cramps. OBJECTIVE: General: This is a well-built male, in no apparent distress. Vital Signs: Temperature 97.6. Heart Rate 75. Respiratory rate 18. Blood pressure . HEENT: Atraumatic, normocephalic. Oral mucosa is moist. Neck: Supple. Cardiovascular: S1, S2 heard. Rate and rhythm regular. Respiratory: Clear to auscultation. Gastrointestinal: Abdomen is soft. Musculoskeletal: No tenderness. No edema. Dermatologic: No skin rash. Neurologic: Alert and awake and oriented x3. No focal neurologic deficits. Moving all the extremities. Psychiatric: Mood and affect normal. LABORATORY DATA: Potassium 3.8, BUN is 24, creatinine is 3.7. ASSESSMENT AND PLAN: 1. End-stage renal disease. Continue dialysis TTS as tolerated. 2. Edema . 3. Hypertension. 4. Anemia of chronic disease. 5. Continue dialysis as tolerated. Job ID: [id number]
[2019-12-25 15:20] VITALS: BP 167/81; TEMP 97.8
[2019-12-25] MEDS ORDERED: Carvedilol 6.25 MG TAB PO SCH (17:00)
--- NOTE | 2019-12-26 02:25 | DIS ---
DATE OF ADMISSION: 12/21/2019 DATE OF DISCHARGE: 12/25/2019 ADMITTING ATTENDING: Nicky Kang MD DISCHARGE ATTENDING: Hilario Perez MD CONSULTS: Cardiology, Dr. Macias and Nephrology, Dr. Cruz/Dr. Hilton. PROCEDURES: The patient received dialysis on his scheduled Monday and Monday. The patient had an echocardiogram showing ejection fraction of 35% to 40%, dilated left ventricle and no evidence of acute endocarditis. PRIMARY DIAGNOSIS: Positive systemic inflammatory response syndrome criteria with unknown source. SECONDARY DIAGNOSES: End-stage renal disease on dialysis, coronary artery disease status post CABG, heart failure with reduced ejection fraction, QTc prolongation , hypertension, hyperlipidemia, transient ischemic attack, history of DVT, diabetes mellitus type 2, anxiety, and bipolar disorder. DISCHARGE MEDICATIONS: 1. Tums 2000 mg p.o. t.i.d. with meals. 2. Carvedilol 6.25 mg p.o. b.i.d. 3. Plavix 75 mg p.o. daily. 4. Doxycycline 100 mg p.o. b.i.d. for 9 days. 5. Finasteride 5 mg p.o. daily. 6. Lisinopril 10 mg p.o. daily. 7. Atorvastatin 40 mg p.o. daily. 8. Metformin 1000 mg p.o. b.i.d. HPI/HOSPITAL COURSE: The patient is a 59-year-old male with history of ESRD on dialysis Monday, , and Monday; heart failure with reduced ejection fraction; CAD status post CABG; diabetes; and CVA with residual left arm weakness, who presented to the ED with complaints of generalized weakness. The patient said the weakness began after dialysis today and while he was walking, he was feel lightheaded and hot. He had a syncopal episode that was witnessed by a neighbor on his right side without head trauma. He endorsed loss of consciousness with no seizure activity. The patient immediately regained consciousness without residual confusion. He reported a headache afterward that soon resolved. He continue to have generalized weakness and right eye blurriness, but denied fevers, chills, sweating, headaches, chest pain, shortness of breath, abdominal pain, dysuria, edema. In the ER, the patient was found to be febrile F 102.4. His tachycardic in the 110s and tachypneic in the 20s. His CBC was significant for white blood cell count of 18.6 with a left shift. Lactate was 4.9. The patient received cefepime and vancomycin and 1.75 L of normal saline. During his hospital stay he received empiric coverage for presumed infection with cefepime and vancomycin. On day 2 of hospital stay, blood cultures and urine cultures resulted in no growth to date. The patient was deescalated to doxycycline. The patient received an echocardiogram looking for possible endocarditis which was also negative. The patient has a right-sided chest tunneled cath used for dialysis that was also cultured with no result. Source of infection/source of positive SIRS criteria is unknown at this time. The patient was continued on doxycycline for a total course of 10 days. Of note, the patient is difficult to treat because he did not have a primary care provider, was therefore not able to get refills for his home medications. All of his previous home medications were restarted during this hospital admission and tolerated well. It will be important for him to follow up with primary care provider in order to stay up to date with medications and continue his overall health status. DISPOSITION: Stable. DISCHARGE INSTRUCTIONS: Location: Home. Diet: Renal diet. Activity: As tolerated. Followup: Follow up with PCP in 2 weeks. Follow up with Nephrology and hemodialysis as scheduled. Job ID: [id number] MTDD
== END 2019-12-25 17:55 | disposition home or self-care (01) | DRG 814 ==
LOC: ERS 18:02 → 2SE 20:38
PROVIDERS: ADMIT Family Medicine; ATTEND Family Medicine
PROC: 5A1D70Z Performance of Urinary Filtration, Intermittent, Less than 6 Hours Per Day (ICD-10-PCS; principal; 2019-12-24)
DX: D72.829 Elevated white blood cell count, unspecified (principal); N18.6 End stage renal disease; I13.2 Hypertensive heart and chronic kidney disease with heart failure and with stage 5 chronic kidney disease, or end stage renal disease; I50.20 Unspecified systolic (congestive) heart failure; I69.354 Hemiplegia and hemiparesis following cerebral infarction affecting left non-dominant side; E87.2 Acidosis; I24.8 Other forms of acute ischemic heart disease; R65.10 Systemic inflammatory response syndrome (SIRS) of non-infectious origin without acute organ dysfunction; R00.0 Tachycardia, unspecified; Z20.828 Contact with and (suspected) exposure to other viral communicable diseases; E11.22 Type 2 diabetes mellitus with diabetic chronic kidney disease; I25.10 Atherosclerotic heart disease of native coronary artery without angina pectoris; E78.5 Hyperlipidemia, unspecified; F41.9 Anxiety disorder, unspecified; G89.29 Other chronic pain; F31.9 Bipolar disorder, unspecified; D63.1 Anemia in chronic kidney disease; E11.51 Type 2 diabetes mellitus with diabetic peripheral angiopathy without gangrene; I25.5 Ischemic cardiomyopathy; E11.65 Type 2 diabetes mellitus with hyperglycemia; R94.31 Abnormal electrocardiogram [ECG] [EKG]; R50.9 Fever, unspecified; Z99.2 Dependence on renal dialysis; Z95.1 Presence of aortocoronary bypass graft; Z86.718 Personal history of other venous thrombosis and embolism; Z79.02 Long term (current) use of antithrombotics/antiplatelets; Z79.84 Long term (current) use of oral hypoglycemic drugs; Z89.412 Acquired absence of left great toe; Z87.891 Personal history of nicotine dependence; Z95.810 Presence of automatic (implantable) cardiac defibrillator; Z95.5 Presence of coronary angioplasty implant and graft; Z90.49 Acquired absence of other specified parts of digestive tract; Z79.4 Long term (current) use of insulin; Z95.820 Peripheral vascular angioplasty status with implants and grafts
CPT/HCPCS: 36415; 36416; 70450; 71045; 80048; 80053; 80061; 80202; 81003; 81015; 82553; 83036; 83605; 83690; 83735; 83880; 84145; 84484; 85025; 87040; 87086; 87635; 90935; 93005; 93306; 96361; 96365; 96366; 96376; G0257; J0692; J1644; J3370; J3490; J7050; U0003

== ENCOUNTER 2020-01-05 02:28 | Observation (INO) | payer MEDICARE, OTHER ==
[2020-01-05 03:06] LABS: #Eosinphils 0.5 thou/uL (0.0-0.7); #Lymphocytes 2.2 thou/uL (1.20-3.40); #Monocytes 0.8 thou/uL (0.11-0.59); #Neutrophils 5.9 thou/uL (1.40-6.50); %Basophils 0.3 % (0.0-1.0); %Eosinophils 5.1 % (0.0-10.0); %Lymphocytes 23.6 % (21.0-51.0); %Monocytes 8.3 % (0.0-10.0); %Neutrophils 62.6 % (42.0-75.0); Mean Corpuscular HGB CONC 33.2 g/dL (32.0-36.0); Mean Corpuscular Hemoglobin 32.1 pg (27.0-31.0); Mean Corpuscular Volume 96.7 fL (78.0-98.0); Mean Platelet Volume 8.2 fL (7.4-10.4); Platelet Count 335 thou/uL (130-400); RBC Distribution Width 13.9 % (11.5-14.5); White Blood Cell (WBC) Count 9.4 thou/uL (4.8-10.8)
[2020-01-05 03:28] LABS: ALT (SGPT) 12 U/L (8-55); AST (SGOT) 20 U/L (5-34); Albumin 3.7 g/dL (3.5-5.0); Alkaline Phosphatase 117 U/L (40-110); Anion Gap 21 mmol/L (10-20); BUN (Urea Nitrogen) 58 mg/dL (8.4-25.7); Bilirubin, Total 0.6 mg/dL (0.2-1.2); CK (CPK) 139 U/L (30-200); Calc. Creatinine Clearance 0 mL/min (70-130); Calcium 8.8 mg/dL (7.8-10.44); Carbon Dioxide 22 mmol/L (22-29); Chloride 96 mmol/L (98-107); Estimated GFR-MDRD 8; Globulin 3.3 g/dL (2.4-3.5); Glucose 118 mg/dL (70-105); Potassium 5.6 mmol/L (3.5-5.1); Sodium 133 mmol/L (136-145)
[2020-01-05 03:47] LABS: CKMB 3.9 ng/mL (0-6.6)
--- NOTE | 2020-01-05 04:58 | PDOC.FPRHP ---
- History of Present Illness Chief Complaint: Chest Pain History of Present Illness: This is a 59 y/o M who presents today with CP after attempting to have a BM earlier this AM. He described the sensation as a tightness that occurred without radiation to his arms or neck. He states that he has not had CP like this before. He denied SOB and weakness/numbness on one side of his body. 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 He has not had a BM in one week. He also has ESRD and is on dialysis T/ and states that his last dialysis session was on Monday because he came to the ED on . He had no complaints of SOB or LE swelling. - Allergies/Adverse Reactions Allergies Allergy/AdvReac Type Severity Reaction Status Date / Time egg Allergy Emesis Verified 01/05/20 10:58 - Home Medications Medication Instructions Recorded Confirmed Type Acetaminophen 325 mg PO Q6HR PRN 12/23/19 01/05/20 History Acetaminophen [Tylenol Regular 650 mg PO Q4H PRN tab 12/25/19 01/05/20 Rx Strength] Atorvastatin Calcium [Lipitor] 40 mg PO HS 30 Days #30 tab 12/25/19 01/05/20 Rx Calcium Carbonate [Calcium] 2,000 mg PO TID 30 Days #120 12/25/19 01/05/20 Rx tab.chew Carvedilol [Coreg] 6.25 mg PO BID-WM 30 Days #60 tab 12/25/19 01/05/20 Rx Clopidogrel Bisulfate [Plavix] 75 mg PO DAILY 30 Days #60 tab 12/25/19 01/05/20 Rx Finasteride [Proscar] 5 mg PO DAILY 30 Days #30 tablet 12/25/19 01/05/20 Rx Lisinopril [Zestril] 10 mg PO DAILY 30 Days #30 tab 12/25/19 01/05/20 Rx metFORMIN [Glucophage] 1,000 mg PO BID-WM 30 Days #60 tab 12/25/19 01/05/20 Rx - History PMHx: ESRD on dialysis T/, HFrEF (20-25%), CAD s/p cabg, DM2, HLD, HTN, TIA , 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 Previously drank 1 case of beer daily, quit 10 years ago. No drug use. - Review of Systems General: denies: fever/chills, weight/appetite/sleep changes, fatigue Eyes: denies: eye pain, vision changes ENT: denies: nasal congestion, rhinorrhea Respiratory: denies: cough, congestion, shortness of breath Cardiovascular: reports: chest pain. denies: palpitation, edema Gastrointestinal: reports: constipation, abdominal pain. denies: nausea, vomiting, diarrhea Genitourinary: denies: incontinence, dysuria, polyuria Skin: denies: rashes, lesions Musculoskeletal: denies: pain, tenderness, stiffness Neurological: denies: numbness, syncope Psychological: denies: anxiety, depression - Vital signs BP 187/111, Pulse: 90, Resp: 18, Temp: 98.3 (Oral), Pain: 9, O2 sat: 99 on ( Room Air), Time: 01/05/2020 02:29. - Physical Exam Constitutional: NAD, awake, alert and oriented HEENT: normocephalic and atraumatic, PERRLA, grossly normal hearing Neck: supple, no LAD Heart: RRR, normal S1/S2, no murmurs/rubs/gallops Lungs: CTAB, no respiratory distress, good air movement Abdomen: soft, bowel sounds present, no hernias, other (diffuse tenderness to palpation in all quadrants, distended abdomen) Musculoskeletal: normal structure, normal tone Neurological: CN II-XII intact, DTRs 2+, other (left sided UE and LE motor strength <<<< R side) Skin: no rash/lesions, good turgor, capillary refill <2 seconds Psychiatric: normal mood and affect, good judgment and insight, intact recent and remote memory FMR H&P: Results - Labs Result Diagrams: 01/05/20 02:55 01/05/20 02:55 Lab results: WBC 9.4 thou/uL (4.8-10.8) 01/05/20 02:55 Hgb 10.0 g/dL (14.0-18.0) L 01/05/20 02:55 Hct 30.0 % (42.0-52.0) L 01/05/20 02:55 MCV 96.7 fL (78.0-98.0) 01/05/20 02:55 Plt Count 335 thou/uL (130-400) 01/05/20 02:55 Neutrophils % 62.6 % (42.0-75.0) 01/05/20 02:55 Sodium 133 mmol/L (136-145) L 01/05/20 02:55 Potassium 5.6 mmol/L (3.5-5.1) H 01/05/20 02:55 Chloride 96 mmol/L (98-107) L 01/05/20 02:55 Carbon Dioxide 22 mmol/L (22-29) 01/05/20 02:55 BUN 58 mg/dL (8.4-25.7) H 01/05/20 02:55 Creatinine 6.98 mg/dL (0.7-1.3) H 01/05/20 02:55 Glucose 118 mg/dL (70-105) H 01/05/20 02:55 Calcium 8.8 mg/dL (7.8-10.44) 01/05/20 02:55 Total Bilirubin 0.6 mg/dL (0.2-1.2) 01/05/20 02:55 AST 20 U/L (5-34) 01/05/20 02:55 ALT 12 U/L (8-55) 01/05/20 02:55 Alkaline Phosphatase 117 U/L (40-110) H 01/05/20 02:55 Creatine Kinase 139 U/L (30-200) 01/05/20 02:55 CK-MB (CK-2) 3.9 ng/mL (0-6.6) 01/05/20 02:54 Serum Total Protein 7.0 g/dL (6.0-8.3) 01/05/20 02:55 Albumin 3.7 g/dL (3.5-5.0) 01/05/20 02:55 - Radiology Interpretation CT scan - abdomen Status: pending (report pending) Chest x-ray Status: pending (report pending) FMR H&P: A/P - Plan This is a 59 y/o M who presents today with chest pain. ## Atypical Angina -hx of CAD s/p CABG -echo done on last admission 12/20 showing EF 20-25% -initial trop 0.053, will trend -admit to telemetry for monitoring -no EKG changes -AM team consider consulting cardiology for possible cath -will keep NPO at this time ## Hyperkalemia -K 5.6 -has not had dialysis since Monday -dialysis ## Constipation -CT abdomen pelvis report pending -miralax and senna nakita ## ESRD HD TTHS -see plan as above -is currently having HD from R IJ, he has R fistula that is not being used anymore ## Anemia -most likely 2/2 chronic disease -H/H: 10.0/30.0 -continue to monitor Chronic Conditions: ## HFrEF: continue home meds ## Hx CVA: with left sided deficits; restart home meds ## DMII: restart home meds ## HTN: restart home meds CODE: FULL DIET: NPO, Renal VTE: Heparin PCP: Sharad Dispo: admit to telemetry for observation. FMR H&P: Upper Level - Plan Date/Time: 01/05/20 0457 Forrest Jordan PGY3, have evaluated this patient and agree with findings/plan as outlined by manager internet resident. Pertinent changes/additions are listed here. 59 yo M with PMH ESRD on HD, HFrEF (EF 35-40%)s/p AICD, CAD s/p CABG, DM2, HLD, HTN, TIA, CVAx3 with residual weakness, PVD, DVT, anxiety presents for substernal CP with no radiation. He has also not had BM in 1 week. He missed his last 2 dialysis appointments. In ED given no medications On exam pt is hypertensive, otherwise cardiopulm/GI exam unremarkable A/P CP, likely 2/2 MSK A- Checked out to admitting team as chest pain r/o. Pt currently denies CP and endorses abdominal pain associated with his constipation. trops likely elevated 2/2 ESRD however he has significant cardiac Hx. At last hospitlaization Dr. Macias made comment of possibly cathing him after he recoverered from the reason for admission (SIRS). P- will observe on telemetry -nitro and morphine for pain -trend trops -treat constipation -consult cardiology in AM ESRD on HD T//Mon A- On record review it seems patient had R fistula that clotted and was not amendable to repair. 04/2019 had L fistula surgery. Has gotten dialysis from R IJ catheter P- Consult nephrology in AM Chronic normocytic anemia A- Likely 2/2 chronic disease P- continue to monitor CAD s/p CABG, HFrEF, prolonged QTc, HTN, HLD, DM2, Bipolar, Hx of DVT -stable, home medications CODE: FULL IVF: SL Diet: CC PCP: none Attending: Jorge Luis Dispo: admit to telemetry, obs. Expected LOS <48 hours. Addendum - Attending - Attending Attestation Date/Time: 01/05/20 9375 I personally evaluated the patient and discussed the management with Dr. Sims. I agree with the History, Examination, Assessment and Plan documented above with any addition or exceptions noted below. The patient presented to the ER after chest pain while straining to have a bowel movement. He has ESRD and has missed his last two dialysis sessions. The patient hasn't had a bowel movement in a week. We will adjust bowel regimen to help with constipation. Consult nephrology for dialysis. Trend cardiac enzymes. Chest pain has now resolved.
[2020-01-05] MEDS ORDERED: Dextrose 50% Abboject 50 ML SYRINGE SLOW IVP PRN (05:24)
[2020-01-05] MEDS ORDERED: Acetaminophen 325 MG TAB PO PRN (05:24)
[2020-01-05] MEDS ORDERED: HumaLOG 300 UNITS/3 ML VIAL SC PRN (05:24)
[2020-01-05] MEDS ORDERED: Dextrose 5% in Water 1,000 ML IV PRN (05:24)
[2020-01-05] MEDS ORDERED: Senokot S 8.6-50 MG TAB PO SCH (06:00)
[2020-01-05] MEDS ORDERED: Polyethylene Glycol 3350 17 GM Packet PO SCH (06:00)
[2020-01-05 07:19] LABS: Troponin I 0.057 ng/mL (< 0.028)
[2020-01-05] MEDS ORDERED: Enoxaparin Sodium 40 MG/0.4 ML SYRINGE SC SCH (08:30)
[2020-01-05] MEDS ORDERED: Enoxaparin Sodium 80 MG/0.8 ML SYRINGE SC SCH (09:00)
[2020-01-05] MEDS ORDERED: Calcium Carbonate 500 MG ChewTAB PO SCH ×2 (09:00→10:00)
[2020-01-05] MEDS ORDERED: Lisinopril 10 MG TAB PO SCH ×3 (09:00→10:00)
[2020-01-05] MEDS ORDERED: Finasteride 5 MG TAB PO SCH ×3 (09:00→10:00)
[2020-01-05] MEDS ORDERED: Clopidogrel Bisulfate 75 MG TAB PO SCH ×3 (09:00→10:00)
[2020-01-05] MEDS ORDERED: Enoxaparin Sodium 80 MG/0.8 ML SYRINGE ONE (09:05)
--- NOTE | 2020-01-05 09:33 | RAD ---
PORTABLE CHEST: HISTORY: Chest pain. COMPARISON: 12/21/19 FINDINGS: Mild cardiomegaly with postop sternotomy change. Lung vázquez are clear. No infiltrate or vascular con gestion. Large caliber central line overlies the SVC. AICD leads are unchanged. IMPRESSION: No acute process. POS: AGW
[2020-01-05] MEDS ORDERED: Carvedilol 6.25 MG TAB PO SCH ×3 (09:42→17:00)
[2020-01-05] MEDS ORDERED: CALCIUM CARBONATE 2000 MG PO SCH (09:42)
[2020-01-05] MEDS ORDERED: Heparin 5,000 UNITS/ML VIAL SC SCH ×2 (09:42→10:00)
[2020-01-05 09:56] VITALS: BMI 23.3
[2020-01-05 10:20] LABS: Troponin I 0.041 ng/mL (< 0.028)
--- NOTE | 2020-01-05 11:00 | CT ---
PRELIMINARY REPORT/[facility]/AFTER HOURS PROCEDURE EXAM: CT Abdomen and Pelvis Without Intravenous Contrast CLINICAL HISTORY: CHEST PAIN AND CONSTIPATION TECHNIQUE: Axial computed tomography images of the abdomen and pelvis without intravenous contrast. CONTRAST: None. COMPARISON: None provided. FINDINGS: LUNG BASES: Mild cardiomegaly. ICD lead in place. LIVER: Unremarkable. GALLBLADDER AND BILE DUCTS: Status post cholecystectomy. PANCREAS: Unremarkable. SPLEEN: Unremarkable. ADRENAL GLANDS: Unremarkable. KIDNEYS, URETERS, AND BLADDER: The urinary bladder is anteriorly displaced. Mild mural thickening with adjacent fat stranding which may be related to under distention, however correlation with urinalysis is recommended in order to ev aluate for cystitis. Mild bilateral hydroureter which may be related to partial obstruction by the distended sigmoid colon /rectum. Mild stranding surrounding the left ureter for which an ascending urinary tract infection ca nnot be excluded and correlation with urinalysis is recommended. STOMACH AND BOWEL: The rectum and distal sigmoid colon is markedly distended with stool measuring up to 8.4 cm, compatib le with fecal impaction. There is mild mural thickening which is concerning for stercoral colitis. Moderate amount of stool throughout the remainder of the colon. APPENDIX: Normal appendix. PERITONEUM: No free fluid. No free air. LYMPH NODES: No lymphadenopathy. REPRODUCTIVE: Unremarkable as visualized. VASCULATURE: Scattered atherosclerotic calcifications of the aorta. ABDOMINAL WALL AND SOFT TISSUES: Unremarkable. BONES: Compression fracture of the L1 vertebral body with loss of greater than 50% of vertebral body height without evidence of retropulsion. Bilateral L5 spondylolysis without evidence of listhesis. IMPRESSION: The rectum and distal sigmoid colon is markedly distended with stool measuring up to 8.4 cm, compatib le with fecal impaction. There is mild mural thickening of the rectum and sigmoid colon which is con cerning for stercoral colitis. Mild bilateral hydroureter which may be related to partial obstruction by the distended sigmoid colon /rectum. Mild stranding surrounding the left ureter and mild thickening of the urinary bladder with a djacent fat stranding. Findings may represent an ascending urinary tract infection and correlation w ith urinalysis is recommended. Compression fracture of the L1 vertebral body with loss of greater than 50% of vertebral body height which is age indeterminate.. ELECTRONICALLY SIGNED BY: Anupama Elliott MD Jan 05, 2020 4:05:35 AM CDT This report is intended for review by the ordering physician only, in accordance of law. If you recei ve this report in error, please call [facility] at [phone]. FINAL REPORT CT ABDOMEN AND PELVIS WITHOUT CONTRAST: FINDINGS: Markedly distended rectosigmoid region filled with dense stool with associated mural thickening and h aziness, indicating a fecal impaction with secondary stercoral colitis. Mild left hydronephrosis and left hydroureter, probably as a result of mass effect from the fecal imp action. These findings were described on the preliminary report and I am in agreement with the preliminary re port. POS: JOSUE
--- NOTE | 2020-01-05 12:34 | CON ---
DATE OF CONSULTATION: REASON FOR CONSULTATION: End-stage renal disease, hyperkalemia. HISTORY OF PRESENT ILLNESS: This is a very pleasant 59-year-old gentleman, who presented to the hospital this morning with hyperkalemia and missing dialysis. The patient has a history of noncompliance. The patient denies any nausea, vomiting, or chest pain. PAST MEDICAL HISTORY: Significant for end-stage renal disease, hypertension, diabetes mellitus, history of coronary artery disease, history of congestive heart failure, history of bipolar disorder, and left big toe amputation. ALLERGIES: REVIEWED. HOME MEDICATIONS: List reviewed. HOSPITAL MEDICATIONS: List reviewed. REVIEW OF SYSTEMS: 15-point review of systems was performed and negative except for positives noted above. HEENT: Eyes intact, no diplopia. Ears: No hearing loss or earache. Nose: No discharge or bleeding. CHEST: No cough or phlegm. ABDOMEN: No nausea or vomiting. GENITOURINARY: No hematuria. No Holland catheter. MUSCULOSKELETAL: No low back pain. No joint swelling or pain. NEUROLOGICAL: No syncope. No seizures. SKIN: No complaints of rash or itching. PSYCHIATRIC: No depression. CONSTITUTIONAL: No weight loss or loss of appetite. PHYSICAL EXAMINATION: GENERAL: The patient is awake and alert. VITAL SIGNS: Afebrile, pulse 86, breathing at 16, blood pressure 189/88. HEENT: Head normocephalic and atraumatic. Eyes intact, no ulcers. Nose intact, no ulcers. Ears intact, no ulcers. NECK: Supple. No JVD. CHEST: Symmetrical and clear. CARDIOVASCULAR: Shows S1 and S2, no rub, no murmur. GASTROINTESTINAL: Abdomen is soft, bowel sounds positive. EXTREMITIES: Show no edema or ulcers. SKIN: Shows no rash or petechiae. MUSCULOSKELETAL: Shows no joint swelling or stiffness. GENITOURINARY: Shows no Holland or CVA tenderness. NEUROLOGIC: Motor intact. Cranial nerves intact. LABORATORY DATA: Hemoglobin 10. Potassium 5.6. ASSESSMENT AND PLAN: 1. Stage 6 chronic kidney disease, plan dialysis. 2. Hypertension, plan ultrafiltration. 3. Anemia, stable. Medication based on GFR appropriate. Job ID: [id number]
[2020-01-05 12:47] LABS: SARS-CoV-2 MS2 Positive; SARS-CoV-2 N Gene Negative; SARS-CoV-2 S Gene Negative; SARS-CoV-2 by NAA Not Detected (NotDetected); SARS-CoV-2 orf1ab Negative
--- NOTE | 2020-01-05 15:16 | CON ---
DATE OF CONSULTATION: 01/05/2020 REASON FOR CONSULTATION: Chest pain with increased troponin level. PRIMARY VAMP PRESSER: Dr. Macias. HISTORY OF PRESENT ILLNESS: Mr. Zuluaga is a 59-year-old gentleman with a history of coronary artery disease and previous bypass surgery. He came to the hospital yesterday complaining of chest pain in the middle of his chest, going across his chest. He was found to have slight increase in troponins and has been brought in for admission for evaluation. The patient does have some history of end-stage renal disease with some missing dialysis, hyperkalemia, and noncompliance. PAST MEDICAL HISTORY: End-stage renal disease, hypertension, coronary artery disease. HOME MEDICATIONS: 1. Atorvastatin. 2. Carvedilol. 3. Plavix. 4. Lisinopril. 5. Metformin. ALLERGIES: EGGS. SOCIAL HISTORY: Does not report alcohol or tobacco. REVIEW OF SYSTEMS: CONSTITUTIONAL: No significant weight gain or loss. VISION: No changes. HEARING: No changes. PULMONARY: No cough or wheezing. GASTROINTESTINAL: No nausea, vomiting, or diarrhea. SKIN: No rashes. NEUROLOGIC: No unilateral weakness or numbness. PSYCHIATRIC: No unusual depression or anxiety. PHYSICAL EXAMINATION: GENERAL: This is a 59-year-old gentleman, looks older than his chronologic age. VITAL SIGNS: Blood pressure 189/88 prior to dialysis, pulse 86. LUNGS: Clear. CARDIAC: Normal S1, normal S2. ABDOMEN: Soft and nontender. EXTREMITIES: Warm and dry. No clubbing or cyanosis. There is no edema. LABORATORY DATA: Potassium level this morning before dialysis 5.6. Troponin level peak 0.057, still in the indeterminate range. EKG, sinus rhythm, incomplete right bundle-branch block. Left ventricular hypertrophy with repolarization changes. ASSESSMENT: 1. Recurrent chest pain and pressure. 2. Previous bypass surgery. 3. Indeterminate troponin levels. 4. End-stage renal disease. PLAN: Adenosine Cardiolite stress testing for risk stratification. Dr. Macias will follow tomorrow. Job ID: [id number]
[2020-01-05] MEDS: Calcium Carbonate 500 MG ChewTAB PO SCH ×2 (15:57→21:17)
[2020-01-05] MEDS: Carvedilol 6.25 MG TAB PO SCH (15:58)
[2020-01-05] MEDS: Heparin 5,000 UNITS/ML VIAL SC SCH ×2 (16:03→21:18)
[2020-01-05] MEDS ORDERED: Bisacodyl 10 MG SUPP PR SCH (20:00)
[2020-01-05] MEDS ORDERED: Atorvastatin Calcium 40 MG TAB PO SCH ×2 (21:00)
[2020-01-05] MEDS: Senokot S 8.6-50 MG TAB PO SCH (21:17)
[2020-01-06 06:05] LABS: ALT (SGPT) 13 U/L (8-55); AST (SGOT) 17 U/L (5-34); Albumin 3.6 g/dL (3.5-5.0); Alkaline Phosphatase 108 U/L (40-110); Anion Gap 16 mmol/L (10-20); BUN (Urea Nitrogen) 26 mg/dL (8.4-25.7); Bilirubin, Total 0.5 mg/dL (0.2-1.2); Calc. Creatinine Clearance 18 mL/min (70-130); Calcium 9.1 mg/dL (7.8-10.44); Carbon Dioxide 26 mmol/L (22-29); Chloride 98 mmol/L (98-107); Estimated GFR-MDRD 13; Globulin 3.6 g/dL (2.4-3.5); Glucose 119 mg/dL (70-105); Potassium 4.1 mmol/L (3.5-5.1); Protein, Total 7.2 g/dL (6.0-8.3); Sodium 136 mmol/L (136-145)
[2020-01-06 06:07] LABS: Band 3 % (5-11); Hemoglobin 10.4 g/dL (14.0-18.0); Lymphocytes 23 % (21-51); MDiff Complete? YES; Mean Corpuscular HGB CONC 33.4 g/dL (32.0-36.0); Mean Corpuscular Hemoglobin 32.1 pg (27.0-31.0); Mean Corpuscular Volume 96.1 fL (78.0-98.0); Mean Platelet Volume 7.9 fL (7.4-10.4); Monocytes 13 % (0-10); Platelet Count 319 thou/uL (130-400); RBC Distribution Width 13.9 % (11.5-14.5); Red Blood Cell (RBC) Count 3.23 mill/uL (4.70-6.10); White Blood Cell (WBC) Count 5.8 thou/uL (4.8-10.8)
--- NOTE | 2020-01-06 06:59 | PDOC.FM ---
- Subjective Subjective: Patient did well overnight, had a BM s/p suppository and enema. Reports his abdominal pain is improved. Denies cp this am. No other complaints. - Objective Vital Signs & Weight: Vital Signs (12 hours) Pulse Resp BP Pulse Ox 01/06/20 04:00 78 18 139/66 98 Weight Weight 75.931 kg I&O: 01/04/20 01/05/20 01/06/20 06:59 06:59 06:59 Intake Total 3550 Output Total 350 Balance 3200 Result Diagrams: 01/06/20 05:24 01/06/20 05:24 Phys Exam - Physical Examination Constitutional: NAD HEENT: moist MMs, sclera anicteric Neck: supple, full ROM Respiratory: no wheezing, clear to auscultation bilateral Cardiovascular: RRR, no significant murmur Gastrointestinal: soft, non-tender, no distention, positive bowel sounds Musculoskeletal: pulses present Neurological: non-focal, moves all 4 limbs Skin: normal turgor Deviation from normal: scar on chest Dx/Plan (1) Atypical chest pain Code(s): R07.89 - OTHER CHEST PAIN Status: Acute (2) Elevated troponin Code(s): R79.89 - OTHER SPECIFIED ABNORMAL FINDINGS OF BLOOD CHEMISTRY Status : Acute (3) Hyperkalemia Code(s): E87.5 - HYPERKALEMIA Status: Acute (4) Constipation Code(s): K59.00 - CONSTIPATION, UNSPECIFIED Status: Acute (5) ESRD (end stage renal disease) on dialysis Code(s): N18.6 - END STAGE RENAL DISEASE; Z99.2 - DEPENDENCE ON RENAL DIALYSIS Status: Acute - Plan Plan: #CP, likely 2/2 MSK #Indeterminate trop -Checked out to admitting team as chest pain r/o. -trops likely elevated 2/2 ESRD however he has significant cardiac Hx. At last hospitlaization Dr. Macias made comment of possibly cathing him after he recovered from the reason for admission (SIRS). -patient denies pain this morning, no events on telemetry overnight -trops trended down -Dr. Pickett, cardiology, consulted 01/04, rec adenosine stress test today to be followed by Dr. Macias. Will f/u results #Constipation -patient started on miralax and colace 01/04 -suppository and enema added evening of 01/04, patient reports he feels better s/ p BM #ESRD on HD T//Mon -On record review it seems patient had R fistula that clotted and was not amendable to repair. -04/2019 had L fistula surgery. -Has gotten dialysis from R IJ catheter -Dr. Cruz, nephrology, consulted 01/04, patient had HD on 01/04 -HTN improved s/p dialysis #Hyperkalemia, resolved -potassium 5.6>4.1 s/p dialysis #Chronic normocytic anemia -Likely 2/2 chronic disease -continue to monitor #CAD s/p CABG, HFrEF, prolonged QTc, HTN, HLD, DM2, Bipolar, Hx of DVT -stable, home medications CODE: FULL IVF: SL Diet: CC PCP: none Attending: Jorge Luis Dispo: admit to telemetry, obs. Discharge pending stress test today. Expected LOS <48 hours. Addendum - Attending - Attending Attestation Date/Time: 01/06/20 550 I personally evaluated the patient and discussed the management with Dr. Albright. I agree with the History, Examination, Assessment and Plan documented above with any addition or exceptions noted below. The patient had a bowel movement and is feeling better. Stress test shows no reversible ischemia. Pt seen by cardiology who adjusted meds, no LHC for now. Pt ok for d/c per cardiology.
[2020-01-06] MEDS: Carvedilol 6.25 MG TAB PO SCH ×2 (08:04→16:27)
[2020-01-06] MEDS: Calcium Carbonate 500 MG ChewTAB PO SCH ×2 (08:05→15:25)
[2020-01-06] MEDS: Senokot S 8.6-50 MG TAB PO SCH (08:05)
[2020-01-06] MEDS: Heparin 5,000 UNITS/ML VIAL SC SCH ×2 (08:07→15:26)
[2020-01-06] MEDS ORDERED: Lisinopril 10 MG TAB PO SCH ×2 (09:00→17:00)
[2020-01-06] MEDS ORDERED: Polyethylene Glycol 3350 17 GM Packet PO SCH ×2 (09:00)
[2020-01-06] MEDS ORDERED: Finasteride 5 MG TAB PO SCH (09:00)
[2020-01-06] MEDS ORDERED: Clopidogrel Bisulfate 75 MG TAB PO SCH (09:00)
--- NOTE | 2020-01-06 11:55 | PRG ---
DATE OF SERVICE: 01/06/2020 SUBJECTIVE: Patient was seen and examined at bedside and overnight events noted. Patient denies any shortness of breath or chest pain or palpitation. No history of nausea or vomiting or diarrhea or fever or chills or cramps. OBJECTIVE: GENERAL: This is a well-built male, in no apparent distress. VITAL SIGNS: Temperature 98.4. Heart Rate . Respiratory rate 18. Blood pressure 130/70. HEENT: Atraumatic, normocephalic. Oral mucosa is moist. NECK: Supple. CARDIOVASCULAR: S1, S2 heard. Rate and rhythm regular. RESPIRATORY: Clear to auscultation. GASTROINTESTINAL: Abdomen is soft. MUSCULOSKELETAL: No tenderness. No edema. DERMATOLOGIC: No skin rash. NEUROLOGIC: Alert and awake and oriented x3. No focal neurologic deficits. Moving all the extremities. PSYCHIATRIC: Mood and affect normal. LABORATORY DATA: Potassium 4.1, BUN creatinine is 4.7. ASSESSMENT AND PLAN: 1. End-stage renal disease, continue dialysis. 2. Hyperkalemia, better. 3. Edema, controlled. 4. Hypertension. 5. Anemia of chronic disease. Plan to have dialysis as tolerated. Job ID: [id number]
[2020-01-06] MEDS ORDERED: Regadenoson 0.4 MG/5 ML SYRINGE ONE (12:06)
--- NOTE | 2020-01-06 13:38 | NM ---
EXAM: CARDIAC SPECT HISTORY: Chest pain, coronary disease, CABG, stent,, end-stage renal disease, hypertension, diabetes, dyslipidemia TECHNIQUE: A myocardial perfusion scan was performed using the single isotope 1 day protocol with lety hnetium 99m sestamibi. [10 mCi] was injected intravenously for the rest exam followed by 30 mCi for the stress study. Pharmacologic stress with Lexiscan was monitored and interpreted by Farhat Brewer, nurse practitioner FINDINGS: The left ventricular cavity is dilated. A fixed defect is seen in the inferolateral wall. N o reversible defects are identified. Gated SPECT LVEF: 35% Wall motion exam: Global hypokinesis IMPRESSION: No evidence of reversible ischemia
[2020-01-06 16:21] VITALS: TEMP 97.6
[2020-01-06 16:27] VITALS: BP 139/66
--- NOTE | 2020-01-06 16:37 | PDOC.CPN ---
- Subjective Date: 01/06/20 Time: 16:35 Interval history: No more chest pain. Stress test showed EF at 35% and no reversible ischemia. - Review of Systems General: denies: fever/chills, weight/appetite/sleep changes, night sweats, fatigue Respiratory: denies: cough, congestion, shortness of breath, exercise intolerance Cardiovascular: denies: chest pain, palpitation, edema, paroxysmal nocturnal dyspnea, orthopnea Gastrointestinal: denies: nausea, vomiting, diarrhea, constipation, abd pain, GI bleeding Musculoskeletal: denies: pain, tenderness, stiffness, swelling, arthritis/arthralgias Neurological: denies: numbness, syncope, seizure, weakness - Objective Allergies/Adverse Reactions: Allergies Allergy/AdvReac Type Severity Reaction Status Date / Time egg Allergy Emesis Verified 01/05/20 10:58 Visit Medications: Current Medications Acetaminophen (Tylenol) 650 mg PO Q4H PRN PRN Reason: Headache/Fever/Mild Pain (1-3) Atorvastatin Calcium (Lipitor) 40 mg PO HS [facility] Last Admin: 01/05/20 21:18 Dose: 40 mg Calcium Carbonate (Tums) 2,000 mg PO TID [facility] Last Admin: 01/06/20 15:25 Dose: 2,000 mg Carvedilol (Coreg) 6.25 mg PO BID-WM [facility] Last Admin: 01/06/20 16:27 Dose: 6.25 mg Clopidogrel Bisulfate (Plavix) 75 mg PO DAILY [facility] Last Admin: 01/06/20 08:06 Dose: 75 mg Dextrose/Water (Dextrose 50%) 25 gm SLOW IVP PRN PRN PRN Reason: Hypoglycemia Finasteride (Proscar) 5 mg PO DAILY [facility] Last Admin: 01/06/20 08:06 Dose: 5 mg Glucagon (Glucagon) 1 mg IM PRN PRN PRN Reason: Hypoglycemia Heparin Sodium (Porcine) (Heparin) 5,000 units SC TID [facility] Last Admin: 01/06/20 15:26 Dose: 5,000 units Dextrose/Water (D5w) 1,000 mls @ 0 mls/hr IV .Q0M PRN PRN Reason: Hypoglycemia Insulin Human Lispro (Humalog) 0 units SC .MILD SLIDING SCALE PRN PRN Reason: Mild Correctional Scale Isosorbide Mononitrate (Imdur Er) 30 mg PO DAILY [facility] Lisinopril (Zestril) 10 mg PO DAILY [facility] Last Admin: 01/06/20 08:06 Dose: 10 mg Polyethylene Glycol (Miralax) 17 gm PO DAILY [facility] Last Admin: 01/06/20 08:06 Dose: 17 gm Senna/Docusate Sodium (Senokot S) 1 tab PO BID [facility] Last Admin: 01/06/20 08:05 Dose: 1 tab Sodium Chloride (Flush - Normal Saline) 10 ml IVF PRN PRN PRN Reason: Saline Flush Vital Signs & Weight: Vital Signs Temp Pulse Resp BP BP Pulse Ox 01/06/20 16:27 139/66 01/06/20 15:30 97.6 F 75 16 163/77 H 99 01/06/20 11:00 97 F L 72 16 163/74 H 96 01/06/20 08:06 139/66 01/06/20 08:04 139/66 01/06/20 07:40 98.4 F 69 16 130/70 96 Admit Weight 167 lb 6.4 oz Weight 167 lb 6.4 oz - Physical Exam General: alert & oriented x3 HEENT: mucus membranes moist Neck: supple neck Cardiac: regular rate and rhythm Lungs: normal breath sounds Neuro: grossly intact Abdomen: active bowel sounds Extremities: no edema Skin: clear Musculoskeletal: no pain - Labs Result Diagrams: 01/06/20 05:24 01/06/20 05:24 Troponin/CKMB CK-MB (CK-2) 3.9 ng/mL (0-6.6) 01/05/20 02:54 Troponin I 0.041 ng/mL (< 0.028) H 01/05/20 09:32 - Telemetry Sinus rhythms and dysrhythmias: sinus rhythm - Assessment/Plan Assessment/Plan: 1. Ischemic CM 2. AICD in place 3. S/P CABG ion 2013 4. ESRD 5. Non compliance. 6. HTN PLAN: - Will add Imdur - No LHC planned for now. - Will increase ACEI for BNP. Will switch to Entresto on follow up.
[2020-01-07] MEDS ORDERED: Lisinopril 20 MG TAB PO SCH (09:00)
[2020-01-07 10:34] LABS: Neutrophil 62 % (42-75)
--- NOTE | 2020-01-07 11:21 | PDOC.FMACP ---
Advance Care Planning - Problem (1) Palliative care encounter Status: Acute Code(s): Z51.5 - ENCOUNTER FOR PALLIATIVE CARE (2) Acute blood loss anemia Status: Acute Code(s): D62 - ACUTE POSTHEMORRHAGIC ANEMIA (3) CKD (chronic kidney disease), stage IV Status: Acute Code(s): N18.4 - CHRONIC KIDNEY DISEASE, STAGE 4 (SEVERE) - Note Participants: patient, palliative care Summary: Palliative Care addressed Advanced Care Planning, opportunity to decline. The diagnosis, prognosis and goals of care were discussed. Appropriate forms and documentation to accomplish the goals of care were discussed. All questions were answered. Mr Zuluaga elected to complete his MPOA and Directive to physician, original with copy given to the patient, copy also placed on chart for medical records. Please refer to Palliative Care notes in note section. Time Spent (mins): 20
--- NOTE | 2020-01-08 15:27 | DIS ---
DATE OF ADMISSION: 01/05/2020 DATE OF DISCHARGE: 01/06/2020 RESIDENT: Zofia Albright MD. ADMITTING ATTENDING: Nicky Kang MD. DISCHARGE ATTENDING: Nicky Kang MD. CONSULTATIONS: Cardiology, Dr. Pickett and Dr. Macias. Nephrology, Dr. Cruz. PROCEDURES PERFORMED: Cardiology, stress test: Ejection fraction 35%, global hypokinesia, no evidence of reversible ischemia. IMAGING: Chest x-ray: No acute process. Abdomen and pelvis CT: Marked distention of the rectum and distal sigmoid colon with stool measuring up to 8.4 cm compatible with fecal impaction. Mural thickening of the rectum and sigmoid colon concerning for stercoral colitis. Mild bilateral hydroureter which may be related to partial obstruction by the distended sigmoid colon. Mild stranding surrounding the left ureter and mild thickening of the urinary bladder with adjacent fat stranding. Compression fracture of the L1 vertebral body with loss of greater than 50% vertebral body height. PRIMARY DIAGNOSES: 1. Atypical chest pain. 2. Indeterminate troponin. 3. Constipation. 4. Hyperkalemia. SECONDARY DIAGNOSES: 1. End-stage renal disease, on hemodialysis. 2. Coronary artery disease, status post coronary artery bypass graft. 3. Heart failure with reduced ejection fraction, prolonged QTc. 4. Hypertension. 5. Hyperlipidemia. 6. Type 2 diabetes. 7. Bipolar disorder. 8. History of deep vein thrombosis. DISCHARGE MEDICATIONS: 1. Tylenol p.r.n. 2. 40 mg atorvastatin p.o. at bedtime. 3. 2000 mg calcium carbonate p.o. t.i.d. 4. 6.25 mg carvedilol p.o. b.i.d. 5. 75 mg Plavix p.o. daily. 6. 5 mg finasteride p.o. daily. 7. 30 mg isosorbide mononitrate p.o. daily. 8. 20 mg lisinopril p.o. daily. 9. 1000 mg metformin p.o. b.i.d. 10. 17 g MiraLAX p.o. daily. 11. 1 tablet Senokot p.o. b.i.d. DISCONTINUED MEDICATIONS: 1. 10 mg lisinopril p.o. daily. 2. Heparin HISTORY OF PRESENT ILLNESS/HOSPITAL COURSE: The patient is a 59-year-old male with a past medical history of ESRD, on hemodialysis who reported that he had missed dialysis one time during the previous week, and came to the hospital because he was having chest pain after trying to have a bowel movement. On evaluation, he was found to have an indeterminate troponin of 0.053 that eventually trended down, hyperkalemia with potassium of 5.6, and imaging findings above. He had no EKG changes on admission. Dr. Cruz was consulted and the patient had dialysis while in the hospital. The patient was provided with Senokot and MiraLAX and finally was given a suppository and an enema to help with his constipation. Cardiology was consulted regarding the chest pain because on the patient's prior admission Dr. Macias had recommended doing an ischemic workup outpatient after patient was discharged as he was admitted for septic infection during his last admission. He did have a stress test, see findings above. In talking to Dr. Macias, he did not recommend a cath at this time and recommended that the medications be changed to increase his lisinopril and to add Imdur to his medication regimen and to follow as outpatient. The patient was recommended to continue his MiraLAX and Senokot outpatient and to see Dr. Macias on an outpatient basis. He was also recommended to follow up with [facility] within 3 days of discharge. The patient was evaluated on the day of discharge and found to be in stable condition. DISPOSITION: Stable 1. Location: Home. 2. Diet: Heart healthy, carb conscious. 3. Activity: As tolerated. 4. Followup: With Dr. Vázquez within 3 to 7 days; with Dr. Macias within two weeks; and with Dr. Cruz for his scheduled dialysis, Tuesdays, , and Fridays. Job ID: [id number] [facility]
--- NOTE | 2020-01-11 12:33 | EKG ---
Test Reason : Blood Pressure : / mmHG Vent. Rate : 086 BPM Atrial Rate : 086 BPM P-R Int : 174 ms QRS Dur : 096 ms QT Int : 372 ms P-R-T Axes : 057 -31 116 degrees QTc Int : 445 ms Normal sinus rhythm Possible Left atrial enlargement Left axis deviation Pulmonary disease pattern Incomplete right bundle branch block Left ventricular hypertrophy with repolarization abnormality Abnormal ECG Confirmed by DENISE ANGULO M.D. ([id number]), managing editor SCOT LAUREANO ([id number]) on 01/11/2020 12:33:06 PM Referred By: Confirmed By:DENISE ANGULO M.D.
== END 2020-01-06 18:51 | disposition home or self-care (01) ==
LOC: ERS 02:28 → ERHOLD 04:54 → 2SW 09:23
PROVIDERS: ADMIT Family Medicine; ATTEND Family Medicine
DX: R07.89 Other chest pain (principal); R79.89 Other specified abnormal findings of blood chemistry; K59.00 Constipation, unspecified; E87.5 Hyperkalemia; I13.2 Hypertensive heart and chronic kidney disease with heart failure and with stage 5 chronic kidney disease, or end stage renal disease; E11.22 Type 2 diabetes mellitus with diabetic chronic kidney disease; N18.6 End stage renal disease; I50.20 Unspecified systolic (congestive) heart failure; D63.1 Anemia in chronic kidney disease; I25.119 Atherosclerotic heart disease of native coronary artery with unspecified angina pectoris; E78.5 Hyperlipidemia, unspecified; F31.9 Bipolar disorder, unspecified; R94.31 Abnormal electrocardiogram [ECG] [EKG]; G89.29 Other chronic pain; M54.9 Dorsalgia, unspecified; Z79.02 Long term (current) use of antithrombotics/antiplatelets; Z79.84 Long term (current) use of oral hypoglycemic drugs; Z79.899 Other long term (current) drug therapy; Z86.718 Personal history of other venous thrombosis and embolism; Z86.73 Personal history of transient ischemic attack (TIA), and cerebral infarction without residual deficits; Z91.012 Allergy to eggs; Z95.1 Presence of aortocoronary bypass graft; Z95.810 Presence of automatic (implantable) cardiac defibrillator; Z99.2 Dependence on renal dialysis; Z20.828 Contact with and (suspected) exposure to other viral communicable diseases
CPT/HCPCS: 71045; 74176; 78452; 80053 ×2; 82550; 82553; 82962 ×2; 84484 ×2; 85007; 85025; 85027; 93005; 93017; 99285; A9500; U0003; 36415; 36416; 87635; 90935; 96372; G0257; G0378; J1644; J1650; J2785